=== PATIENT | male | born 1940 | race Caucasian/White ===

== ENCOUNTER → 2016-06-10 | Outpatient (CLI) | payer OTHER ==
[~2016-06-10] MED LIST: ALL300 PO; ASPCH81X PO; CHOL2000 PO; FAMO20TA11 PO; FELO10TA PO; FINA5TAB PO; FURO-85 PO; HYZ/10015 PO; MYCO500T4 PO; PRAV20TA PO; PRED-301 PO; PROP60CA PO; URX/10 PO; VENL75TA4 PO
--- NOTE | 2016-06-11 05:49 | PAP/PSG TECHNICIAN REPORT ---
[facility] Metallographic Technician Polysomnogram Report Study name: None Report date: 06/11/2016 Study date: 06/10/2016 Referring Physician: sAha Price M.D. Name: DEBORAH ESQUIVEL Interpreting Physician: America Price M.D. Date of : 1940 Metallographic Technician: Lakeshia Salinas [facility]. Sex: Male Age: 75 StudyType: PSG Weight: 209 lbs Height: 75 years, Height 5' 8" Neck Circum: 16.5 inches BMI: 31.77 Medications: torsemide 5mg, losatan 50mg, aspirin 81mg, clopidogrel 75mg, atorvastatin 80mg, nitro 0.4mg, venlafaxine 37.5mg, omeprazole 20mg, Pro Air, finasteride 5mg, alfuzosin 10mg, mycophenolate 500mg, metoprolol 25mg, allopurinol 300mg, prednisone 5mg, acetaminophen 500mg Patient History 75 yr. old male here for a possible split night sleep study with ETC02. Patient complains of snoring, witnessed apneas, PLMD, insomnia and hypersomnia. Patients [place] Sleepiness Scale score is 5/24. Parameters Monitored NPSG: E1-M2, E2-M1, Fp1-M2, Fp2-M1, F3-M2, F4-M2, F4-M1, C3-M2, C4-M2, C4-M1, O1-M2, O2-M2, O2-M1, T3-M2, T4-M1, P3-M2, P4-M1, CHIN1, CHIN2, HR, EKG, Legs, PFLOW, SNOR, FLOW, CFLOW, Tidal Volume, THOR, ABDO, SpO2, PLTH, CPRESS, ETCO2 Wave, ETCO2, pH Sleep Architecture Sleep Stages Time at Lights Off 10:53:04 PM STAGES Time (min.) TST (%) Time at Lights On 5:34:34 AM Wake 172.5 -- Total Recording Time (TRT) 402.00 min. N1 27.5 12 Total Sleep Period (TSP) 343.0 min. N2 170.0 74 Total Sleep Time (TST) 229.0min. N3 22.0 10 Awake Time 173.0 min. REM 9.5 4 Wake after Sleep Onset 120.5 min. Sleep Efficiency (SE) 57 % Sleep Onset Latency (FERNANDA) 52.0 min. Number of Stage 1 Shifts None Awakenings 23 Stage Changes 79 Number of REM periods 1 REM 9.5 4 REM Latency 266.0 min. NREM 219.5 96 Body Position Analysis Supine Right Left Side Prone Vertical Total Sleep Time (min.) 25.6 144.4 84.5 228.87 0.0 5.9 Total Sleep Time (%) 0% 63% 37% 100 0% N/A% Total Sleep Time REM (min.) 0.0 9.5 0.0 None 0.0 0.0 Total Sleep Time NREM (min.) 0.1 134.9 84.5 None 0.0 0.0 Intermittent Wake (min.) 25.5 42.0 99.0 None 0.0 5.9 Total Sleep Period (%) 0% None None None None None Arousals Myoclonus (PLM) * Events Count Index Events Count Index Spontaneous 4 1 Events Awake (PLMW) 81 28.2 Respiratory 0 0.0 Events Asleep w/ Arousal (PLMA) 10 2.6 PLM 10 3 Events Asleep w/o Arousal (PLMS) 178 46.6 Snoring 6 2 Total Asleep 188 49.3 Total 19 5 Total 269 40 Respiratory Analysis * CA OA MA CH H RERA Total Count 0 0 0 0 32 0 32 Index 0.0 0.0 0.0 0 8.4 0 8.4 Mean Duration 0.0 0.0 0.0 0.00 19.2 0.0 19.2 Longest Duration 0.0 0.0 0.0 0.00 0.0 0.0 36.2 Respiratory Event Summary Total Supine ~Supine Right Left Prone REM NREM Apneas Count 0 0 0 0 0 N/A 0 0 Index 0.0 0 0 0.0 0.0 N/A 0 0 Hypopneas (4% Desat) Count 32 0 32 25 7 N/A 9 23 Index 8.4 0.0 8 10.4 5.0 N/A 56.8 6.3 Apneas & All Hypopneas Count 32 0 32 25 7 N/A 9 23 Index 8.4 0 8 10 5 N/A 56.8 6.3 Respiratory Events (Mash Filter Cloth Changer+All Hyp+RERA) Count 32 0 32 25 7 N/A 9 23 Index 8.4 0 8 10.4 5.0 N/A 56.8 6.3 Respiratory Related Arousal Count 0 0 0 0 0 N/A 0 0 Index 0.0 0 0 0 0 N/A 0 0 Snoring Analysis Supine Right Left Prone REM NREM Total Snore duration 25.9 min Snores count 0 796 719 N/A 42 1,473 1,515 Snore mean duration 1.0 Sec Snores index 0 331 511 N/A 265.3 402.6 396.9 TST with snoring (%) 11.3% SpO2 Analysis Total REM NREM Awake <50% 0.0 min. 0.0 min. 0.0 min. 0.0 min. 51 - 60% 0.0 min. 0.0 min. 0.0 min. 0.0 min. 61 - 70% 0.0 min. 0.0 min. 0.0 min. 0.0 min. 71 - 80% 0.0 min. 0.0 min. 0.0 min. 0.0 min. 81 - 90% 104.3 min. 1.9 min. 45.1 min. 57.3 min. 91 - 100% 289.9 min. 7.6 min. 174.4 min. 107.9 min. Average 92 92 92 92 Minimum SpO2 81 87 87 81 Desaturation Event Index 5.5 50.5 5.7 2.8 # Desat. Events below 89% 19 3 10 6 Time(%) with Saturation below 89% 2.9 0.1 0.6 2.2 Time(min.) with Saturation below 89% 11.6 0.5 2.5 8.6 Heart Rate Analysis End Tidal CO2 Analysis Min (bpm) Max (bpm) Average (bpm) TSP (mins) % of TSP Awake 50 214 62 Above 55 mmHg 0.0 0.0 NREM 52 92 59 50-55 mmHg 0.0 0.0 REM 55 72 60 45-50 mmHg 0.0 0.0 Overall 52 92 59 40-45 mmHg 3.9 1.7 35-40 mmHg 168.1 73.4 30-35 mmHg 29.2 12.7 Average ETCO2 0.2 Supplemental O2 Values Minimum O2 level: None Value Start Time End Time Metallographic Technician Comments Mr. Esquivel slept in the right, left, and supine positions. Cardiac arrhythmia and PLMs noted. No bruxism noted. Snoring was noted and scored as a 3 on a scale of 0 through 5. (0=no snoring, 5=snoring loud enough to be heard through a closed door or down the [address])Mr. Esquivel awoke to use the restroom once during the night. Mr. Esquivel stated, That was an abnormal night, sometimes I am awake and sometimes I sleep more. The final report will be interpreted and signed by a sleep physician. The completed physician report will then be placed in the patient medical record. Therapy (cm H2O) 0 TIB (min.) 401.5 TST (min.) 229.0 Sleep Onset (min.) 52.0 REM Onset From Sleep (min.) 266.0 Sleep Efficiency % 57 Wakefulness (%) 43 Wakefulness (min.) 173.0 NREM 1 (%) 12 NREM 1 (min.) 27.5 NREM 2 (%) 74 NREM 2 (min.) 170.0 NREM 3 (%) 10 NREM 3 (min.) 22.0 REM (%) 4 REM (min.) 9.5 # Arousals 19 Arousal Index 5 # Snore 1,515 Snore Index 396.9 AHI 8.4 AHI Supine 0 AHI Non-Supine 8 NREM AHI 6.3 REM AHI 56.8 RDI 8.4 # Obstructive Apnea 0 # Central Apnea 0 # Mixed Apnea 0 # Hypopneas 32 RERAs 0 Total Respiratory Events 33 Time Below SpO2 89% (min.) 3.0 Mean NREM SpO2 (%) 92 Mean REM SpO2 (%) 92 Mean Sleep SpO2 (%) 92 Min NREM SpO2 (%) 87 Min REM SpO2 (%) 87 Position Supine (min.) 25.6 Position Non-supine (min.) 228.9 LM Index Sleep 49.3 LM Index NREM 48.7 LM Index REM 63.2 Mean Heart Rate (bpm) 59 Min Heart Rate (bpm) 52
--- NOTE | 2016-06-11 05:52 | PAP/PSG TECHNICIAN REPORT ---
[facility] Relay Repairer Polysomnogram Report Study name: None Report date: 06/11/2016 Study date: 06/10/2016 Referring Physician: Asha Price M.D. Name: DEBORAH ESQUIVEL Interpreting Physician: America Price M.D. Date of : 1940 Relay Repairer: Lakeshia Salinas [facility]. Sex: Male Age: 75 StudyType: PSG Weight: 209 lbs 16.75 inches Height: 75 years, Height 5' 8" Neck Circum: BMI: 31.77 Medications: torsemide 5mg, losatan 50mg, aspirin 81mg, clopidogrel 75mg, atorvastatin 80mg, nitro 0.4mg, venlafaxine 37.5mg, omeprazole 20mg, Pro Air, finasteride 5mg, alfuzosin 10mg, mycophenolate 500mg, metoprolol 25mg, allopurinol 300mg, prednisone 5mg, acetaminophen 500mg Patient History 75 yr. old male here for a possible split night sleep study with ETC02. Patient complains of snoring, witnessed apneas, PLMD, insomnia and hypersomnia. Patients [place] Sleepiness Scale score is 5/24. Parameters Monitored NPSG: E1-M2, E2-M1, Fp1-M2, Fp2-M1, F3-M2, F4-M2, F4-M1, C3-M2, C4-M2, C4-M1, O1-M2, O2-M2, O2-M1, T3-M2, T4-M1, P3-M2, P4-M1, CHIN1, CHIN2, HR, EKG, Legs, PFLOW, SNOR, FLOW, CFLOW, Tidal Volume, THOR, ABDO, SpO2, PLTH, CPRESS, ETCO2 Wave, ETCO2, pH Sleep Architecture Sleep Stages Time at Lights Off 10:53:04 PM STAGES Time (min.) TST (%) Time at Lights On 5:34:34 AM Wake 172.5 -- Total Recording Time (TRT) 402.00 min. N1 27.5 12 Total Sleep Period (TSP) 343.0 min. N2 170.0 74 Total Sleep Time (TST) 229.0min. N3 22.0 10 Awake Time 173.0 min. REM 9.5 4 Wake after Sleep Onset 120.5 min. Sleep Efficiency (SE) 57 % Sleep Onset Latency (FERNANDA) 52.0 min. Number of Stage 1 Shifts None Awakenings 23 Stage Changes 79 Number of REM periods 1 REM 9.5 4 REM Latency 266.0 min. NREM 219.5 96 Body Position Analysis Supine Right Left Side Prone Vertical Total Sleep Time (min.) 25.6 144.4 84.5 228.87 0.0 5.9 Total Sleep Time (%) 0% 63% 37% 100 0% N/A% Total Sleep Time REM (min.) 0.0 9.5 0.0 None 0.0 0.0 Total Sleep Time NREM (min.) 0.1 134.9 84.5 None 0.0 0.0 Intermittent Wake (min.) 25.5 42.0 99.0 None 0.0 5.9 Total Sleep Period (%) 0% None None None None None Arousals Myoclonus (PLM) * Events Count Index Events Count Index Spontaneous 4 1 Events Awake (PLMW) 81 28.2 Respiratory 0 0.0 Events Asleep w/ Arousal (PLMA) 10 2.6 PLM 10 3 Events Asleep w/o Arousal (PLMS) 178 46.6 Snoring 6 2 Total Asleep 188 49.3 Total 19 5 Total 269 40 Respiratory Analysis * CA OA MA CH H RERA Total Count 0 0 0 0 32 0 32 Index 0.0 0.0 0.0 0 8.4 0 8.4 Mean Duration 0.0 0.0 0.0 0.00 19.2 0.0 19.2 Longest Duration 0.0 0.0 0.0 0.00 0.0 0.0 36.2 Respiratory Event Summary Total Supine ~Supine Right Left Prone REM NREM Apneas Count 0 0 0 0 0 N/A 0 0 Index 0.0 0 0 0.0 0.0 N/A 0 0 Hypopneas (4% Desat) Count 32 0 32 25 7 N/A 9 23 Index 8.4 0.0 8 10.4 5.0 N/A 56.8 6.3 Apneas & All Hypopneas Count 32 0 32 25 7 N/A 9 23 Index 8.4 0 8 10 5 N/A 56.8 6.3 Respiratory Events ([employer]+All Hyp+RERA) Count 32 0 32 25 7 N/A 9 23 Index 8.4 0 8 10.4 5.0 N/A 56.8 6.3 Respiratory Related Arousal Count 0 0 0 0 0 N/A 0 0 Index 0.0 0 0 0 0 N/A 0 0 Snoring Analysis Supine Right Left Prone REM NREM Total Snore duration 25.9 min Snores count 0 796 719 N/A 42 1,473 1,515 Snore mean duration 1.0 Sec Snores index 0 331 511 N/A 265.3 402.6 396.9 TST with snoring (%) 11.3% SpO2 Analysis Total REM NREM Awake <50% 0.0 min. 0.0 min. 0.0 min. 0.0 min. 51 - 60% 0.0 min. 0.0 min. 0.0 min. 0.0 min. 61 - 70% 0.0 min. 0.0 min. 0.0 min. 0.0 min. 71 - 80% 0.0 min. 0.0 min. 0.0 min. 0.0 min. 81 - 90% 104.3 min. 1.9 min. 45.1 min. 57.3 min. 91 - 100% 289.9 min. 7.6 min. 174.4 min. 107.9 min. Average 92 92 92 92 Minimum SpO2 81 87 87 81 Desaturation Event Index 5.5 50.5 5.7 2.8 # Desat. Events below 89% 19 3 10 6 Time(%) with Saturation below 89% 2.9 0.1 0.6 2.2 Time(min.) with Saturation below 89% 11.6 0.5 2.5 8.6 Heart Rate Analysis End Tidal CO2 Analysis Min (bpm) Max (bpm) Average (bpm) TSP (mins) % of TSP Awake 50 214 62 Above 55 mmHg 0.0 0.0 NREM 52 92 59 50-55 mmHg 0.0 0.0 REM 55 72 60 45-50 mmHg 0.0 0.0 Overall 52 92 59 40-45 mmHg 3.9 1.7 35-40 mmHg 168.1 73.4 30-35 mmHg 29.2 12.7 Average ETCO2 0.2 Supplemental O2 Values Minimum O2 level: None Value Start Time End Time Relay Repairer Comments Mr. Esquivel slept in the right, left, and supine positions. Cardiac arrhythmia and PLMs noted. No bruxism noted. Snoring was noted and scored as a 3 on a scale of 0 through 5. (0=no snoring, 5=snoring loud enough to be heard through a closed door or down the [address])Mr. Esquivel awoke to use the restroom once during the night. Mr. Esquivel stated, That was an abnormal night, sometimes I am awake and sometimes I sleep more. The final report will be interpreted and signed by a sleep physician. The completed physician report will then be placed in the patient medical record. Therapy (cm H2O) 0 TIB (min.) 401.5 TST (min.) 229.0 Sleep Onset (min.) 52.0 REM Onset From Sleep (min.) 266.0 Sleep Efficiency % 57 Wakefulness (%) 43 Wakefulness (min.) 173.0 NREM 1 (%) 12 NREM 1 (min.) 27.5 NREM 2 (%) 74 NREM 2 (min.) 170.0 NREM 3 (%) 10 NREM 3 (min.) 22.0 REM (%) 4 REM (min.) 9.5 # Arousals 19 Arousal Index 5 # Snore 1,515 Snore Index 396.9 AHI 8.4 AHI Supine 0 AHI Non-Supine 8 NREM AHI 6.3 REM AHI 56.8 RDI 8.4 # Obstructive Apnea 0 # Central Apnea 0 # Mixed Apnea 0 # Hypopneas 32 RERAs 0 Total Respiratory Events 33 Time Below SpO2 89% (min.) 3.0 Mean NREM SpO2 (%) 92 Mean REM SpO2 (%) 92 Mean Sleep SpO2 (%) 92 Min NREM SpO2 (%) 87 Min REM SpO2 (%) 87 Position Supine (min.) 25.6 Position Non-supine (min.) 228.9 LM Index Sleep 49.3 LM Index NREM 48.7 LM Index REM 63.2 Mean Heart Rate (bpm) 59 Min Heart Rate (bpm) 52
--- NOTE | 2016-06-15 08:14 | POLYSOMNOGRAPH REPORT ---
REFERRING PERSON: Dr. Cherelle Price. BOILER OR ENGINE OPERATOR: Lakeshia Salinas. Mr. Esquviel is a 75-year-old male sent for a possible split night sleep study. He complains of snoring, witnessed apneas periodic limb movements of sleep, insomnia and hypersomnia. His [place] sleepiness scale score on the evening of this study is 5. BMI is 31.77. Following the technical and digital specifications of the [place] [employer] (AASM) a standard diagnostic polysomnogram was performed monitoring EEG, EOG, EMG (chin and leg deviations), oxygen saturation, body position, digital video, respiratory effort and airflow. The sleep Stage and event scoring was based on the AASM Manual for the Scoring of Sleep and Associated Events 2007 edition. Apneas are defined as a drop in the peak thermal sensor excursion by >90% of baseline for at least 10 seconds. Hypopneas were scored using the 4% oxygen desaturation rule (4A-[employer]ic[employer]) and a decrease in the nasal pressure excursions by >30% of baseline for at least 10 seconds. Respiratory effort-related arousal (RERA's) is defined as a sequence of breaths lasting at least 10 seconds characterized by increasing respiratory effort or flattening of the nasal pressure waveform leading to an arousal from sleep when the sequence of breaths does not meet criteria for an apnea or hypopnea. Apnea Hypopnea index (AHI) is defined as the number of apneas and hypopneas occurring in an hour of sleep. Respiratory disturbance index (RDI) is defined as the number of apneas, hypopneas, and RERA's occurring in an hour of sleep. Mr. Hanson total sleep period time was 343 minutes. Total sleep time was 229 minutes. Sleep efficiency was 57%. Latency to sleep onset was 52 minutes with wake after sleep onset of 120.5 minutes. Total non-REM sleep time was 219.5 minutes. He spent 12% of that time in N1 sleep, 74% in N2 sleep and 10% in N3 sleep. REM latency was 266 minutes. Total REM sleep time was 9.5 minutes or 4% of total sleep time. There were 19 cortical arousals from sleep. Ten of these arousals were due to periodic limb movements, 6 were due to snoring and 4 were spontaneous. There were 188 periodic limb movements. Limb movement index was 49.3, however, limb movement with arousal index was 2.6. There were no obstructive, central or mixed apneas on this test. There were 32 hypopnea. Apnea-hypopnea index was elevated at 8.4. REM AHI was 56.8 and supine AHI was 8. There were 1515 snoring events recorded. Total sleep time with snoring was 11.3%. Mean saturation during sleep was 92% with desaturations to 81%. Saturations were less than 89% for 11.6 minutes of recorded time. There was no cardiac ectopy noted on this study. Heart rates during sleep ranged from a low of 52 beats per minute to a high of 92 beats per minute. End-tidal CO2 was recorded on this test. End tidal CO2s were between 40 and 45 mmHg for 1.7% of total sleep period time, between 35 and 40 mmHg for 73.4% and between 30 and 35 mmHg for 12.7% of total sleep period time. The rest of this data was lost. IMPRESSION AND PLAN: 75-year-old male with evidence of mild sleep apnea and significant nocturnal hypoxemia. 1. This patient would likely benefit from positive airway pressure therapy. He should return to the sleep lab for a full night titration and then based on those results be started on equipment at home. A download from his machine can be reviewed in 1 month both to check compliance as well as AHI and further pressure adjustments can occur at that time. 2. Should this patient be unwilling or unable to tolerate CPAP therapy, he should be referred to ear, nose and throat or oral surgery/dental medicine to discuss alternative treatments for sleep disorder breathing.
== END | disposition home or self-care (01) ==
LOC: C.NEUR 20:00
PROVIDERS: ATTEND Family Medicine
DX: F51.04 Psychophysiologic insomnia (principal); I27.2 Other secondary pulmonary hypertension; N18.3 Chronic kidney disease, stage 3 (moderate); I47.1 Supraventricular tachycardia; R06.83 Snoring; F51.11 Primary hypersomnia; R09.02 Hypoxemia

== ENCOUNTER → 2017-06-15 | Day surgery (SDC) | payer OTHER ==
[2017-05-27 09:00] VITALS: Ht 172.7 cm; Wt 97.7 kg
[~2017-06-15] VITALS: Ht 172.7 cm; Wt 97.7 kg
[~2017-06-15] MED LIST changes: +ATOR-26 PO; +CLOP1TAB15 PO; +EFF/375 PO; -FAMO20TA11 PO; -FELO10TA PO; -FURO-85 PO; -HYZ/10015 PO; +LIDOCAINE HCL 2% 2 ML VIAL (20MG/ML) ONE; +LOSA50TA6 PO; +METO25TA3 PO; +MIDAZOLAM HCL 1 MG/ML 2ML VIAL ONE; +NTRGSL/4 UT; +ONDANSETRON INJ 2 MG/ML 2 ML VIAL ONE; +PANT1TAB3 PO; -PRAV20TA PO; -PROP60CA PO; +PROPOFOL IV EMULSION 10 MG/ML 20 ML VIAL IV ONE; +SODIUM CHLORIDE 0.9% 500ML 500 ML IV ONE; +TORS5TAB10 PO; -VENL75TA4 PO
--- NOTE | 2017-06-15 09:04 | Endo History and Physical ---
History & Physical Date of Service: Jun 15, 2017. Chief Complaint: screening Referring Physician: Dr. Ivette Golden History of Present Illness pt for screening colonoscopy Past Surgical History Hx Cardiac Surgery: Yes (HEART CATH/2 STENTS PLACED) Hx Internal Defibrillator: No Hx Pacemaker: No Hx Abdominal Surgery: No Hx of Implantable Prosthesis: No Hx Post-Op Nausea and Vomiting: No Hx Cancer Surgery: Yes (BCC EXCISIONS) Hx Thoracic Surgery: No Hx Orthopedic: No Hx Urinary Tract Surgery: No Family History None Social History Smoking Status: Former Smoker Hx Substance Use: No Hx Alcohol Use: No Allergies Coded Allergies: No Known Allergies (Verified , 06/15/17) Current Medications Reported Home Medications Medications Dose Route/Sig Max Daily Dose Days Date Category Dose Instructions Effexor (Venlafaxine Hcl) 37.5 Mg Tab 37.5 Mg PO QAM 05/27/17 Reported Torsemide 5 Mg Tab 1 Dose PO BID 05/27/17 Reported TAKES 2 TAB IN AM TAKES 1 TAB IN AFTERNOON Prednisone 5 Mg Tab 5 Mg PO QAM 05/27/17 Reported Protonix (Pantoprazole) 40 Mg Tab 40 Mg PO QAM 05/27/17 Reported Nitrostat (Nitroglycerin) 0.4 Mg Tab 0.4 Mg UT PRN 05/27/17 Reported Cellcept (Mycophenolate Mofetil) 500 Mg Tab 1 Tab PO BID 05/27/17 Reported Toprol-Xl (Metoprolol Succinate) 25 Mg Tabcr 25 Mg PO QAM 05/27/17 Reported Cozaar (Losartan Potassium) 50 Mg Tab 50 Mg PO QAM 05/27/17 Reported Proscar (Finasteride) 5 Mg Tab 5 Mg PO QPM 05/27/17 Reported Plavix (Clopidogrel Bisulfate) 75 Mg Tab 75 Mg PO QAM 05/27/17 Reported Lipitor (Atorvastatin Calcium) 80 Mg Tab 80 Mg PO QPM 05/27/17 Reported Allopurinol 300 Mg Tab 1 Tab PO QPM 08/11/15 Reported Vitamin D3 (Cholecalciferol) 2,000 Unit Cap 1 Cap PO QAM 08/11/15 Reported Aspirin Chewable (Aspirin) 81 Mg Chew 81 Mg PO DAILY AT NOON 08/11/15 Reported Alfuzosin HCl ER (Alfuzosin HCl) 10 Mg Tab 10 Mg PO QPM 02/21/14 Reported Vital Signs Weight (Kilograms): 97.73 Height (Feet): 5 Height (Inches): 8 Date Time Temp Pulse Resp B/P (MAP) Pulse Ox O2 Delivery O2 Flow Rate FiO2 06/15/17 08:52 36.4 48 18 150/67 (94) 98 Room Air Physical Exam General Appearance: no apparent distress Respiratory/Chest: Auscultation: breath sounds normal Cardiovascular: Heart Auscultation: RRR Abdomen: Inspection & Palpation: soft Liver: non-tender Assessment and Plan stable for colonoscopy
--- NOTE | 2017-06-15 09:35 | Discharge Instructions ---
Endoscopy Patient Instructions Date / Procedure(s) Performed Jun 15, 2017. Colonoscopy Allergy Information Coded Allergies: No Known Allergies (Verified , 06/15/17) Discharge Date / Findings Jun 15, 2017. mild diverticulosis Medication Instructions Stopped Medication(s): stopped Plavix week ago,took ASA yesterday Provider Instructions Activity Restrictions - No exercising or heavy lifting for 24 hours. - Do not drink alcohol the day of the procedure. - Do not drive a car or operate machinery until the day after the procedure. - Do not make any important decisions or sign important papers in 24 hours after the procedure. Following Day: - Return to full activity which may include returning to work/school. Diet Start your diet with liquids and light foods (jello, soup, juice, toast). Then eat your usual diet if not nauseated. Treatment For Common After Affects For mild abdominal pain, bloating, or excessive gas: - Rest - Eat lightly - Lie on right side Follow-Up Information Follow-up with Dr. Ivette Golden as scheduled Anesthesia Information What You Should Know You have had a procedure that required some medicine to reduce anxiety and discomfort. This treatment is called moderate sedation. After receiving the treatment, you may be sleepy, but you will be able to breathe on your own. The effects of the treatment may last for several hours. Follow these instructions along with Activity/Diet recommendations noted above: * Do NOT do anything where dizziness or clumsiness would be dangerous. * Rest quietly at home today, then you can be up and about tomorrow. * Have a responsible person stay with you the rest of today. * You may have had an I.V. today. If so, you may take the dressing off later today. Recommendations Call your doctor if: * Trouble breathing * Continuous vomiting for more than 24 hours * Temperature above 101 degrees * Severe abdominal pain or bloating * Pain not relieved by pain medicine ordered * There is increased drainage or redness from any incision * A large amount of rectal bleeding greater than 2-3 tablespoons. (If you had a polyp/s removed or have hemorrhoids, a small amount of blood - from the rectum is to be expected.) * You have any unanswered questions or concerns. IN THE EVENT OF A SERIOUS EMERGENCY, GO TO THE NEAREST EMERGENCY ROOM Your discharge instructions were prepared by provider Geovany Ingram. Patient Instructions Signature Page Nathan Bacher Patient (or Guardian) Signature/Date: I have read and understand the instructions given to me by my caregivers. Caregiver/RN/Doctor Signature/Date: The above-named patient and/or guardian has received patient instructions on this date. + Original Patient Signature Page (only) stays with chart. Please make copy for patient.
--- NOTE | 2017-06-15 09:38 | GI REPORT ---
Procedure Date: 06/15/2017 9:03 AM Procedure: Colonoscopy Indications: Screening for colorectal malignant neoplasm Medicines: See the Anesthesia note for documentation of the administered medications Complications: No immediate complications. Estimated Blood Loss: Estimated blood loss: none. Procedure: Pre-Anesthesia Assessment: - Prior to the procedure, a History and Physical was performed, and patient medications, allergies and sensitivities were reviewed. The patient's tolerance of previous anesthesia was reviewed. - The risks and benefits of the procedure and the sedation options and risks were discussed with the patient. All questions were answered and informed consent was obtained. - Patient identification and proposed procedure were verified prior to the procedure by the physician and the nurse. The procedure was verified in the pre-procedure area. - Pre-procedure physical examination revealed no contraindications to sedation. - After reviewing the risks and benefits, the patient was deemed in satisfactory condition to undergo the procedure. After I obtained informed consent, the scope was passed under direct vision. Throughout the procedure, the patient's blood pressure, pulse, and oxygen saturations were monitored continuously. The scope was introduced through the anus and advanced to the terminal ileum, with identification of the appendiceal orifice and IC valve. The colonoscopy was performed without difficulty. The patient tolerated the procedure well. The quality of the bowel preparation was good. Findings: The perianal and digital rectal examinations were normal. The terminal ileum appeared normal. Many small-mouthed diverticula were found in the entire colon. The exam was otherwise without abnormality on direct and retroflexion views. Impression: - The examined portion of the ileum was normal. - Scattered diverticulosis in the entire examined colon. - The examination was otherwise normal on direct and retroflexion views. - No specimens collected. Recommendation: - Discharge patient to home. - I do not recommend a repeat screening colonoscopy at 86 years old. Geovany Ingram M.D. Geovany Ingram MD 06/15/2017 9:38:11 AM This report has been signed electronically. Note Initiated On: 06/15/2017 9:03 AM I attest to the content of the Intraoperative Record and orders documented therein, exceptions below
[2017-06-15 10:04] VITALS: BP 143/72; PULSE 45; O2SAT 95
--- NOTE | 2017-06-15 10:04 | Anesthesiology Progress Note ---
Anesthesia Post Op Note Date & Time Jun 15, 2017 at 10:04 Vital Signs Pain Intensity: 0 Vital Signs Past 12 Hours Date Time Temp Pulse Resp B/P (MAP) Pulse Ox O2 Delivery O2 Flow Rate FiO2 06/15/17 09:49 51 18 151/68 (95) 97 Room Air 06/15/17 09:34 45 18 127/60 (82) 97 Room Air 06/15/17 08:52 36.4 48 18 150/67 (94) 98 Room Air Notes Mental Status: alert / awake / arousable, participated in evaluation Pt Amnestic to Procedure: Yes Nausea / Vomiting: adequately controlled Pain: adequately controlled Airway Patency, RR, SpO2: stable & adequate BP & HR: stable & adequate Hydration State: stable & adequate Anesthetic Complications: no major complications apparent
== END | disposition home or self-care (01) ==
LOC: C.GI 08:24
PROVIDERS: ATTEND Internal Medicine Gastroenterology
DX: Z12.11 Encounter for screening for malignant neoplasm of colon (principal); K57.90 Diverticulosis of intestine, part unspecified, without perforation or abscess without bleeding; I12.9 Hypertensive chronic kidney disease with stage 1 through stage 4 chronic kidney disease, or unspecified chronic kidney disease; I25.10 Atherosclerotic heart disease of native coronary artery without angina pectoris; N18.3 Chronic kidney disease, stage 3 (moderate); G70.00 Myasthenia gravis without (acute) exacerbation; Z87.891 Personal history of nicotine dependence; Z85.828 Personal history of other malignant neoplasm of skin; Z98.890 Other specified postprocedural states; Z79.02 Long term (current) use of antithrombotics/antiplatelets; Z79.899 Other long term (current) drug therapy; Z79.82 Long term (current) use of aspirin; Z79.52 Long term (current) use of systemic steroids

== ENCOUNTER 2018-07-10 15:50 | Inpatient (IN) ==
[2018-07-10] MEDS ORDERED: SODIUM CHLORIDE 0.9% 500 ML IV SCH (16:15)
[2018-07-10 16:30] LABS: Basophils # (auto) 0.02 K/uL (0-0.2); Basophils % (auto) 0.2 %; Eosinophils # (auto) 0.01 K/uL (0-0.5); Eosinophils % (auto) 0.1 %; Hematocrit (blood only) 39.7 % (42-52); Hemoglobin 13.4 g/dL (14.0-18.0); Immature Granulocytes # (auto) 0.35 K/uL (0.00-0.02); Immature Granulocytes % (auto) 3.6 %; Lymphocytes # (auto) 0.57 K/uL (1.2-3.4); Lymphocytes % (auto) 5.8 %; Mean Corpuscular Hgb Conc 33.8 g/dL (32-36); Mean Corpuscular Volume 94.5 fL (80-100); Mean Platelet Volume 9.9 fL (7.4-10.4); Monocytes # (auto) 0.41 K/uL (0.11-0.59); Monocytes % (auto) 4.2 %; Neutrophils # (auto) 8.39 K/uL (1.4-6.5); Neutrophils % (auto) 86.1 %; Platelet Count 151 K/uL (130-400); RDW Coefficient of Variation 16.5 % (11.5-14.5); RDW Standard Deviation 56.8 fL (36.4-46.3); White Blood Count 9.75 K/uL (4.8-10.8)
[2018-07-10 16:42] LABS: INR 1.1 (0.9-1.1); Partial Thromboplastin Ratio 0.9; Partial Thromboplastin Time 23.9 Seconds (21.0-31.0)
[2018-07-10 16:47] LABS: Calcium 8.3 mg/dl (8.5-10.1); Creatinine Clr Calc Pharmacy 39.3 ml/min; Est GFR (African American) 46.4; Est GFR (Non-African American) 40.1; Potassium 4.3 mmol/L (3.5-5.1)
[2018-07-10] MEDS ORDERED: VANCOMYCIN HCL 1,000 MG/270 ML BAG IV STA (16:52)
[2018-07-10] MEDS ORDERED: VANCOMYCIN CONSULT ACTIVE PRN ×3 (16:52→20:05)
[2018-07-10] MEDS ORDERED: MYCOPHENOLATE MOFETIL 250 MG CAP PO STA (17:03)
--- NOTE | 2018-07-10 17:11 | Emergency Department Note ---
Entered by Char Verdugo acting as a scribe for Elio Hare History of Present Illness General Chief complaint: Wound Stated complaint: WOUND ON RIGHT LEG, FROM WOUND CLINIC Time Seen by Provider: 07/10/18 16:01 Source: patient History of Present Illness Provider complaint: wound to right lower extremity Onset (ago): hour(s) (today) Location: lower extremity and right Pain Consistency: + constant Maximum Pain Intensity: 0 Quality: + other (wound) Associated symptoms: no fever/chills The patient is a 77 year old male who presents to the Emergency Department with complaints of a wound to his right lower extremity today. He reports that is it painful and also reports having burning. He states that he was on Keflex for 5 days and was then switched to Clindamycin which he states he started taking yesterday. The patient denies being febrile. He states that his left lower extremity is normal. The patient states that he is not diabetic. The patient states he has been being managed by the wound clinic clinic who told him to come into the emergency department for admission and IV antibiotics. Home Medications Home Medications Medication Instructions Recorded Confirmed Type acetaminophen [Tylenol Extra 1,000 mg PO Q6H PRN 12/21/17 07/10/18 History Strength] alfuzosin 10 mg PO QPM 12/21/17 07/10/18 History allopurinol 300 mg PO QPM 12/21/17 07/10/18 History aspirin [Aspir-81] 81 mg PO QPM 12/21/17 07/10/18 History atorvastatin 80 mg PO QPM 12/21/17 07/10/18 History cholecalciferol (vitamin D3) 2,000 unit PO QPM 12/21/17 07/10/18 History [Vitamin D3] clopidogrel [Plavix] 75 mg PO QAM 12/21/17 07/10/18 History finasteride 5 mg PO QPM 12/21/17 07/10/18 History levothyroxine 25 mcg PO QPM 12/21/17 07/10/18 History losartan 50 mg PO QAM 12/21/17 07/10/18 History metoprolol succinate 25 mg PO QAM 12/21/17 07/10/18 History mycophenolate mofetil [CellCept] 500 mg PO BID 12/21/17 07/10/18 History nitroglycerin [Nitrostat] 0.4 mg SUBLINGUAL UD 12/21/17 07/10/18 History pantoprazole 40 mg PO QAM 12/21/17 07/10/18 History torsemide 5 mg PO QPM 12/21/17 07/10/18 History torsemide 10 mg PO QAM 12/21/17 07/10/18 History venlafaxine 37.5 mg PO QPM 12/21/17 07/10/18 History clindamycin HCl 150 mg capsule 150 mg PO QID 07/10/18 07/10/18 History Allergies Allergy/AdvReac Type Severity Reaction Status Date / Time No Known Allergies Allergy Verified 07/10/18 14:15 Past Med/Surg History Medical History Actinic keratitis (Acute) Diastolic congestive heart failure (Acute) Dysmetabolic syndrome X (Acute) First degree atrioventricular block (Acute) History of thymus cancer (Acute) Skin cancer (Acute) Venous stasis ulcer (Acute) Venous stasis ulcer of ankle limited to breakdown of skin without varicose veins (Acute) BPH (benign prostatic hyperplasia) CKD (chronic kidney disease) Coronary artery disease Former smoker Gout HX Hx of myasthenia gravis DX'D 2013-F/U DR VALDEZ [facility] [place] Hyperlipidemia Hypertension Hypothyroidism Kidney stones On anticoagulant therapy SINCE 04/2016 Sleep apnea CPAP Surgical History S/P cataract extraction (Acute) History of cardiac cath 2 [facility]ENTS [facility] [place] 04/2016 Hx of thymectomy 2013 Family History Mother Family history of diabetes mellitus Social History Preferred Language: Tajik Communication Ability: Effective Beliefs That Will Affect Care: None Current Living Situation: Spouse Feels Safe at Home: Yes Smoking Status: Former smoker Tobacco Type: cigarettes Cigarettes Per Day: QUIT 40 YRS AGO Second Hand Exposure: No Hx Alcohol Use: No Hx Substance Use: No Review of Systems See HPI for pertinent positives & negatives. and A total of 10 systems reviewed and were otherwise negative Physical Exam Vital Signs Vital Signs - 24 hr 07/10/18 15:53 Temperature 36.8 C Temperature Source Oral Sepsis Recent Fever Within 48 Hours No Sepsis Action Taken by Nursing No Action Required Pulse Rate 66 Respiratory Rate 20 Respiratory Effort / Characteristics Non-Labored Respiratory Depth Normal Blood Pressure 156/55 H Blood Pressure Mean 88 Pulse Oximetry 100 Oxygen Delivery Method Room Air GENERAL: He is oriented to person, place, and time. He appears well-developed and well-nourished. He does not appear distressed. HENT: Exam performed. - Head: Normocephalic and atraumatic. - Right Ear: External ear normal. No mastoid tenderness. - Left Ear: External ear normal. No mastoid tenderness. - Mouth/Throat: The oropharynx is clear and moist. No trismus in the jaw. No dental abscesses or uvula swelling. No oropharyngeal exudate or tonsillar abscesses. EYES: Conjunctivae and EOM are normal. Pupils are equal, round, and reactive to light. Right eye exhibits no discharge. Left eye exhibits no discharge. No scleral icterus. NECK: Normal range of motion. Neck supple. No JVD present. No spinous process tenderness present. No carotid bruit present. No rigidity. No tracheal deviation and normal range of motion present. No Brudzinski's sign and no Kernig's sign noted. CV: Normal rate, regular rhythm, normal heart sounds and intact distal pulses. There is no peripheral edema. Palpable radial pulses bue. PULM/CHEST: Effort normal and breath sounds normal. No respiratory distress. No stridor. He has no wheezes. He has no rales. - Chest Wall: He exhibits no tenderness. ABD: The abdomen is soft. Bowel sounds are normal. He has no distension. No mass is present. There is no tenderness. There is no rebound, no guarding, no Biswas's sign and no tenderness at McBurney's point. Rovsig negative. MUSC/SKEL: Normal range of motion. There is no peripheral edema, tenderness or deformity. LYMPH: No cervical adenopathy. NEURO: He is alert and oriented to person, place, and time. He has normal strength. No cranial nerve deficit or sensory deficit. Coordination and gait normal. GCS eye subscore is 4. GCS verbal subscore is 5. GCS motor subscore is 6. Cerebellar tests wnl. SKIN: There is erythema to the right lower extremity with multiple wounds with purulent discharge. No vesicles. Bandage by the Wound Care Clinic in place. The bandage was removed. The left lower extremity had erythema with a few bulle. Palpable DP pulses bilaterally. PSYCH: He has a normal mood and affect. Behavior is normal. Judgment and thought content normal. Course 1600: The patient was sent by the Wound Care Clinic for cellulitis of the right lower extremity. The wound appears necrotic. They did a local debridement. The wound care clinic recommended IV antibiotics. He was started on Keflex. A culture was obtained and he was switched to Clindamycin. He has a history of myasthenia gravis, CKD stage 3, and thymus cancer. 1604: The patient was evaluated in room A2. A history and physical were performed. 1618: Liquor Blender Allan was able to access [employer], the patient had a wound culture on July 13 which showed staph resistant to penicillin and sensitive to vancomycin as well as tetracyclines and clindamycin. 1658: The patient's vitals were stable. His labs show a lactic acid of 2.2. The patient will be treated with Vancomycin. I contacted [facility] hospitalist team for admission. Administered Medications Sodium Chloride (Nss) 500 mls @ 125 mls/hr IV .Q4H CASSI Stop: 08/09/18 16:14 Last Admin: 07/10/18 16:58 Dose: 125 mls/hr Documented by: [id number] Vancomycin HCl (Vancomycin Hcl) 1,000 mg in 270 mls @ 125 mls/hr IV NOW STA Stop: 07/10/18 19:01 Last Admin: 07/10/18 16:58 Dose: 125 mls/hr Documented by: [id number] Medical Decision Making Medical Records Attestation: I reviewed the patient's medical records. Home Medications Current Medication List: was personally reviewed by me Laboratory Data Attestation: I reviewed the patient's lab results. Result diagrams: 07/10/18 16:15 07/10/18 16:15 Lab Results 07/10/18 07/10/18 07/10/18 Range/Units 16:15 16:15 16:15 WBC 9.75 (4.8-10.8) K/uL RBC 4.20 L (4.7-6.1) M/uL Hgb 13.4 L (14.0-18.0) g/dL Hct 39.7 L (42-52) % MCV 94.5 (80-100) fL MCH 31.9 (25-34) pg MCHC 33.8 (32-36) g/dL RDW Std Deviation 56.8 H (36.4-46.3) fL RDW Coeff of Pina 16.5 H (11.5-14.5) % Plt Count 151 (130-400) K/uL MPV 9.9 (7.4-10.4) fL Immature Gran % (Auto) 3.6 % Neut % (Auto) 86.1 % Lymph % (Auto) 5.8 % Gila % (Auto) 4.2 % Eos % (Auto) 0.1 % Baso % (Auto) 0.2 % Immature Gran # (Auto) 0.35 H (0.00-0.02) K/uL Neut # (Auto) 8.39 H (1.4-6.5) K/uL Lymph # (Auto) 0.57 L (1.2-3.4) K/uL Gila # (Auto) 0.41 (0.11-0.59) K/uL Eos # (Auto) 0.01 (0-0.5) K/uL Baso # (Auto) 0.02 (0-0.2) K/uL PT 11.0 (9.0-12.0) Seconds INR 1.1 (0.9-1.1) APTT 23.9 (21.0-31.0) Seconds PTT Ratio 0.9 Sodium 140 (136-145) mmol/L Potassium 4.3 (3.5-5.1) mmol/L Chloride 107 (98-107) mmol/L Carbon Dioxide 26 (21-32) mmol/L Anion Gap 7.0 (3-11) BUN 34 H (7-18) mg/dl Creatinine 1.61 H (0.6-1.4) mg/dl Est Cr Clr Drug Dosing 39.3 ml/min Est GFR ( Amer) 46.4 Est GFR (Non-Af Amer) 40.1 BUN/Creatinine Ratio 21.0 H (10-20) Glucose 123 H (70-99) mg/dl Lactate (0.4-2.0) mmol/L Calcium 8.3 L (8.5-10.1) mg/dl 07/10/18 Range/Units 16:15 WBC (4.8-10.8) K/uL RBC (4.7-6.1) M/uL Hgb (14.0-18.0) g/dL Hct (42-52) % MCV (80-100) fL MCH (25-34) pg MCHC (32-36) g/dL RDW Std Deviation (36.4-46.3) fL RDW Coeff of Pina (11.5-14.5) % Plt Count (130-400) K/uL MPV (7.4-10.4) fL Immature Gran % (Auto) % Neut % (Auto) % Lymph % (Auto) % Gila % (Auto) % Eos % (Auto) % Baso % (Auto) % Immature Gran # (Auto) (0.00-0.02) K/uL Neut # (Auto) (1.4-6.5) K/uL Lymph # (Auto) (1.2-3.4) K/uL Gila # (Auto) (0.11-0.59) K/uL Eos # (Auto) (0-0.5) K/uL Baso # (Auto) (0-0.2) K/uL PT (9.0-12.0) Seconds INR (0.9-1.1) APTT (21.0-31.0) Seconds PTT Ratio Sodium (136-145) mmol/L Potassium (3.5-5.1) mmol/L Chloride (98-107) mmol/L Carbon Dioxide (21-32) mmol/L Anion Gap (3-11) BUN (7-18) mg/dl Creatinine (0.6-1.4) mg/dl Est Cr Clr Drug Dosing ml/min Est GFR ( Amer) Est GFR (Non-Af Amer) BUN/Creatinine Ratio (10-20) Glucose (70-99) mg/dl Lactate 2.2 H* (0.4-2.0) mmol/L Calcium (8.5-10.1) mg/dl Blood Pressure Blood Pressure Findings: Elevated blood pressure Blood Pressure Disposition: further management by hospitalist KATIE Narrative 1600: The patient was sent by the Wound Care Clinic for cellulitis of the right lower extremity. The wound appears necrotic. They did a local debridement. The wound care clinic recommended IV antibiotics. He was started on Keflex. A culture was obtained and he was switched to Clindamycin. He has a history of myasthenia gravis, CKD stage 3, and thymus cancer. 160: The patient was evaluated in room A2. A history and physical were performed. 1617: Liquor Blender Allan was able to access [facility], the patient had a wound culture on July 13 which showed staph resistant to penicillin and sensitive to vancomycin as well as tetracyclines and clindamycin. 1657: The patient's vitals were stable. His labs show a lactic acid of 2.2. The patient will be treated with Vancomycin. I contacted [facility] hospitalist team for admission. Impression & Plan Cellulitis, Failure of outpatient treatment Discharge Plan Visit Data Chief Complaint: Wound Stated Complaint: WOUND ON RIGHT LEG, FROM WOUND CLINIC ED Provider: Elio Hare Discharge Problem: Cellulitis, Failure of outpatient treatment Patient Disposition: Being Evaluated by Hospitalist Forms Stand Alone Forms: My [facility] Prescriptions Prescriptions: No Action clindamycin HCl 150 mg capsule 150 mg PO QID RF: 0 losartan 50 mg Tablet 50 mg PO QAM RF: 0 atorvastatin 80 mg Tablet 80 mg PO QPM RF: 0 torsemide 10 mg Tablet 10 mg PO QAM RF: 0 clopidogrel [Plavix] 75 mg Tablet 75 mg PO QAM RF: 0 aspirin [Aspir-81] 81 mg Tablet,Delayed Release (Dr/Ec) 81 mg PO QPM RF: 0 mycophenolate mofetil [CellCept] 500 mg Tablet 500 mg PO BID RF: 0 torsemide 5 mg Tablet 5 mg PO QPM RF: 0 pantoprazole 40 mg Tablet,Delayed Release (Dr/Ec) 40 mg PO QAM RF: 0 venlafaxine 37.5 mg Tablet 37.5 mg PO QPM RF: 0 nitroglycerin [Nitrostat] 0.4 mg Tablet, Sublingual 0.4 mg Sublingual UD RF: 0 allopurinol 300 mg Tablet 300 mg PO QPM RF: 0 metoprolol succinate 25 mg Tablet Extended Release 24 Hr 25 mg PO QAM RF: 0 finasteride 5 mg Tablet 5 mg PO QPM RF: 0 alfuzosin 10 mg Tablet Extended Release 24 Hr 10 mg PO QPM RF: 0 cholecalciferol (vitamin D3) [Vitamin D3] 2,000 unit Capsule 2,000 unit PO QPM RF: 0 levothyroxine 25 mcg Tablet 25 mcg PO QPM RF: 0 acetaminophen [Tylenol Extra Strength] 500 mg Tablet 1,000 mg PO Q6H PRN (Reason: Pain) RF: 0 Referrals Referrals: Ivette Golden DO [Primary Care Provider] - Discharge Problem: Cellulitis Qualifiers: Site of cellulitis: extremity Site of cellulitis of extremity: lower extremity Laterality: left Qualified Code(s): L03.116 - Cellulitis of left lower limb The scribe's documentation has been prepared under my direction and personally reviewed by me in its entirety. I confirm that the note above accurately reflects all work, treatment, procedures, and medical decision making performed by me.
--- NOTE | 2018-07-10 18:40 | History & Physical Report ---
Date of Service July 10, 2018 Assessment & Plan (1) Infected wound: Was sent from wound care clinic for worsening right LE wound Wound cx on 07/03 grew staph aureus that is resistant and peniccilin to Keflex Failed outpatient therapy with Keflex Lactic acid 2.2 on admission Received IV Vanco in the ER Continue IV Vanco Wound care consult Continue daily wound care ID consult Check Blood cx and repeat lactic acid at 10PM Continue monitor (2) Myasthenia gravis: Had a flare up about 2 months ago Continue Cellcept for now Continue low dose steroid (3) CKD (chronic kidney disease) stage 3, GFR 30-59 ml/min: Creatinine 1.6 today, was 1.7 on 06/23 Avoid nephrotoxic agents Monitor BMP (4) HTN (hypertension): BP stable Continue Losartan and metoprolol Monitor BP (5) Hypothyroidism: Continue Levothyroxine Stable (6) BPH (benign prostatic hyperplasia): Continue alfuzosin and finasteride Stable (7) CAD (coronary artery disease): Denies any chest pain Continue plavix and aspirin Stable Depression Continue Venlafaxine Stable Peripheral edema Check doppler of RLE to r/o DVT On torsemide 10mg DVT px will start on heparin subq BID Code Status FULL code History of Present Illness Chief Complaint: RLE wound infected Primary Care Provider: Ivette Golden DO 77 year old male with PMH of Myasthenia gravis, Actinis keratosis, Dyslipidemia, CAD, CKD stage 3, Hypothyroidism presents to the Emergency Department with complaints of Right lower extremity wound infected. Pt said that about 6 to 8 weeks ago, he bumped his right monahan area that cause a very small opened area in the skin. he said that it was formed a scab first but in less than 2 weeks the area got worst. He saw his PCP on 07/03 and had wound cx done and was giving Keflex. he said that RLE wound got worst. he said that the keflex was changed to clindamycin yesterday after wound cx grew staph aureus that is resistance to Keflex. Pt was seen at the wound care clinic today and was sent to the ER for IV antibiotic. He said that the right LE has been very painful and burning. He said that there has been increased drainage from the wound. Pt said that he had a flared of myasthenia gravis about 2 months ago and he is on cellcept. Family said that he felt warm. Denies any fever, chills, pal pitation and SOB. Allergies Allergy/AdvReac Type Severity Reaction Status Date / Time No Known Allergies Allergy Verified 07/10/18 14:15 Home Medications Home Medications Medication Instructions Recorded Confirmed Type alfuzosin 10 mg PO DAILY@1200 12/21/17 07/10/18 History allopurinol 300 mg PO DAILY@1200 12/21/17 07/10/18 History cholecalciferol (vitamin D3) 2,000 units PO QPM 12/21/17 07/10/18 History [Vitamin D3] clopidogrel [Plavix] 75 mg PO QAM 12/21/17 07/10/18 History finasteride 5 mg PO QPM 12/21/17 07/10/18 History levothyroxine 25 mcg PO QAM 12/21/17 07/10/18 History losartan 50 mg PO QAM 12/21/17 07/10/18 History mycophenolate mofetil [CellCept] 500 mg PO BID 12/21/17 07/10/18 History nitroglycerin [Nitrostat] 0.4 mg SUBLINGUAL UD 12/21/17 07/10/18 History torsemide 5 mg PO DAILY@1200 12/21/17 07/10/18 History torsemide 10 mg PO QAM 12/21/17 07/10/18 History venlafaxine 37.5 mg PO HS 12/21/17 07/10/18 History aspirin 81 mg PO DAILY@1200 07/10/18 07/10/18 History atorvastatin 40 mg PO QPM 07/10/18 07/10/18 History clindamycin HCl 150 mg capsule 150 mg PO QID 07/10/18 07/10/18 History metoprolol succinate 12.5 mg PO QAM 07/10/18 07/10/18 History prednisone 5 mg PO DAILY@1200 07/10/18 07/10/18 History prednisone 10 mg PO QAM 07/10/18 07/10/18 History Past Med/Surg History Medical History CKD (chronic kidney disease) stage 3, GFR 30-59 ml/min Infected wound Cellulitis (Acute) Failure of outpatient treatment (Acute) Cellulitis of right lower extremity without foot (Acute) Encounter for pre-operative examination HTN (hypertension) (Chronic) Kidney disease (Chronic) Stomach problems (Chronic) Mediastinal mass (Acute) Wound dehiscence, surgical (Acute) Myasthenia gravis (Chronic) Actinic keratitis (Acute) Diastolic congestive heart failure (Acute) Dysmetabolic syndrome X (Acute) First degree atrioventricular block (Acute) History of thymus cancer (Acute) Skin cancer (Acute) Venous stasis ulcer (Acute) Venous stasis ulcer of ankle limited to breakdown of skin without varicose veins (Acute) BPH (benign prostatic hyperplasia) CKD (chronic kidney disease) Coronary artery disease Former smoker Gout HX Hx of myasthenia gravis DX'D 2014-F/[place] DR VALDEZ [facility] [place] Hyperlipidemia Hypertension Hypothyroidism Kidney stones On anticoagulant therapy SINCE 04/2016 Sleep apnea CPAP Surgical History S/P cataract extraction (Acute) History of cardiac cath 2 [facility] [place]/2016 Hx of thymectomy 2013 Family History Mother Family history of diabetes mellitus Social History Preferred Language: Malay Communication Ability: Effective Slot Shift Manager Required: No Beliefs That Will Affect Care: None Current Living Situation: Spouse Other Information That Helps Us Care for You: No Feels Safe at Home: Yes Safety Concerns: Feels Safe At This Time Smoking Status: Former smoker Tobacco Type: cigarettes Cigarettes Per Day: QUIT 40 YRS AGO Smoking End Date: 40 years ago Second Hand Exposure: No Hx Alcohol Use: No Hx Substance Use: No Review of Systems Review of Systems: All systems reviewed & are unremarkable except as noted in HPI & below Physical Exam Physical Exam: General- No acute distress Head- atraumatic Eyes- PERRL, EOMI, ENT- oropharynx clear Neck- supple, no JVD Lungs- clear to auscultation Heart- regular rhythm; +systolic murmur Abdomen- normal bowel sounds, soft, nontender Extremities- +right calf tenderness, +RLE edema Neuro- alert, oriented x 3; PERRL, EOMI; no facial palsy; no dysarthria Skin- Left monahan with erythematous patch and small blister. Right monahan with large erythema opening wound oozing, medial right calf with open oozing wound and multiples small blister across the calf Results & Data Vital Signs (Past 12 Hours) Vital Signs Temp Pulse Pulse Resp BP BP Pulse Ox 07/10/18 17:51 75 18 141/71 H 97 07/10/18 15:53 36.8 C 66 20 156/55 H 100
[2018-07-10] MEDS ORDERED: TRAMADOL HCL 50 MG TABLET PO PRN (19:35)
[2018-07-10] MEDS ORDERED: VANCOMYCIN HCL 1,000 MG in SODIUM CHLORIDE 0.9% 250 ML IV STA (20:15)
--- NOTE | 2018-07-10 21:08 | Ultrasound Report ---
US venous doppler LE RT HISTORY: 77 years-old Male Swelling and tenderness acute pain and swelling of the right lower extrem ity COMPARISON: None available TECHNIQUE: Multiple real-time sonographic images of the right lower extremity deep venous structures were obtained assessing grayscale appearance, color and spectral flow FINDINGS: Normal flow, compressibility, phasicity and augmentation of the right lower extremity deep venous str uctures. Limited evaluation of the calf structures secondary to subcutaneous edema, open wounds and r eported blisters. IMPRESSION: No sonographic evidence of deep venous thrombosis. The above report was generated using voice recognition software. It may contain grammatical, syntax o r spelling errors. Electronically signed by: Jude Patrick M.D. 07/10/2018 9:07 PM
[2018-07-10] MEDS: ASPIRIN 81 MG CHEW PO SCH (21:29)
[2018-07-10] MEDS: VENLAFAXINE HCL 37.5 MG TAB PO SCH (21:30)
[2018-07-10] MEDS: ATORVASTATIN 40 MG TAB PO SCH (21:30)
[2018-07-10] MEDS: HEPARIN SOD 5,000 UNIT/0.5 ML VIAL SQ SCH (21:30)
[2018-07-10] MEDS: MYCOPHENOLATE MOFETIL 250 MG CAP PO SCH (21:30)
[2018-07-10] MEDS: FINASTERIDE 5 MG TAB PO SCH (21:31)
[2018-07-10] MEDS: CHOLECALCIFEROL 1,000 UNITS TAB PO SCH (21:31)
[2018-07-10] MEDS: ALLOPURINOL 300 MG TAB PO SCH (21:31)
[2018-07-10] MEDS: ALFUZOSIN HCL 10 MG TAB PO SCH (21:32)
[2018-07-10] MEDS: OXYCODONE HCL IR 5 MG TAB (IMMEDIATE RELEASE) PO PRN (22:00)
[2018-07-10] MEDS: ACETAMINOPHEN 325 MG TAB PO PRN (23:43)
[2018-07-11] MEDS: OXYCODONE HCL IR 5 MG TAB (IMMEDIATE RELEASE) PO PRN ×4 (04:18→23:27)
[2018-07-11] MEDS: LEVOTHYROXINE SODIUM 25 MCG TABLET PO SCH (06:43)
[2018-07-11] MEDS: MYCOPHENOLATE MOFETIL 250 MG CAP PO SCH ×2 (06:44→20:25)
[2018-07-11] MEDS: ACETAMINOPHEN 325 MG TAB PO PRN ×3 (06:47→18:48)
[2018-07-11] MEDS: TORSEMIDE 10 MG TAB PO SCH (08:47)
[2018-07-11] MEDS: METOPROLOL SUCC 25MG EXT REL TAB PO SCH (08:47)
[2018-07-11] MEDS: LOSARTAN POTASSIUM 50 MG TAB PO SCH (08:47)
[2018-07-11] MEDS: CLOPIDOGREL BISULFATE 75 MG TAB PO SCH (08:47)
[2018-07-11] MEDS: predniSONE 10 MG TABLET PO SCH (08:52)
[2018-07-11] MEDS: HEPARIN SOD 5,000 UNIT/0.5 ML VIAL SQ SCH ×2 (08:53→20:28)
[2018-07-11 09:05] LABS: Hematocrit (blood only) 37.4 % (42-52); Hemoglobin 12.2 g/dL (14.0-18.0); Mean Corpuscular Hgb Conc 32.6 g/dL (32-36); Mean Corpuscular Volume 95.9 fL (80-100); Mean Platelet Volume 9.4 fL (7.4-10.4); Platelet Count 138 K/uL (130-400); RDW Coefficient of Variation 16.8 % (11.5-14.5); RDW Standard Deviation 58.4 fL (36.4-46.3); White Blood Count 8.41 K/uL (4.8-10.8)
[2018-07-11 09:37] LABS: BUN Creatinine Ratio 21.6 (10-20); Calcium 8.2 mg/dl (8.5-10.1); Creatinine Clr Calc Pharmacy 47.1 ml/min; Est GFR (African American) 57.5; Est GFR (Non-African American) 49.6; Potassium 3.9 mmol/L (3.5-5.1)
--- NOTE | 2018-07-11 11:04 | Pharmacy Report ---
Pharmacy Abx Dose Short Note - Date of Service July 11, 2018 - Assessment & Plan Assessment * Mr Esquivel is a 77 year old M receiving Vancomycin for treatment of a R LE wound infection. * Other significant PMH includes myasthenia gravis, actinis keratosis, CKD stage III, BPH, thymus CA. * Patient with immunocompromise from prednisone and mycophenolate use. * Outpatient wound culture on 07/03 grew Staph aureus -- information from [facility]: * Resistant to penicillin and erythromycin * Sensitive to oxacillin, clindamycin, gentamicin, tetracycline, SMX/TMP, vancomycin (GALLITO unknown) * Patient had been receiving Keflex, which was changed to clindamycin once C/S results available. * Patient reports pain/burning and increased drainage from the wound. * Patient is followed by the wound clinic. ID consult in place. * On admission: WBC 9.75, lactic acid 2.2, patient has been afebrile. Blood cultures pending. Plan Vancomycin * Loading dose: Vanc 1gm x1 dose in ED followed by an additional 1gm on admission (for ~23.5mg/kg), then: * Vanc 1250mg (~15mg/kg) IV q20h * Patient's estimated p'kinetic parameters (based on CrCl ~ 47mL/min): * Vd ~ 0.7L/kg Velasquez ~ 0.043/hr t1/2 ~ 16.1hr * Goal trough level for SSTI: 15 to 20 mcg/mL * Trough level ordered for: 07/13 prior to the 3rd maintenance dose -- this will not yet represent steady-state Pharmacy will continue to follow and will adjust dose/frequency as necessary. Thank you.
--- NOTE | 2018-07-11 11:21 | Infectious Disease Consult ---
Date of Consultation July 11, 2018 Assessment & Plan (1) Cellulitis of right lower extremity without foot: 77-year-old male with infected right lower extremity wound with extensive superficial skin loss. We will try to obtain culture results from [facility], patient should be continued on vancomycin for now. Length of IV antibiotics will be determined by clinical response. Will follow. (2) Infected wound: History of Present Illness Reason for Consultation: Infected wound right lower extremity Attending Physician: Tacos Degroot MD History of Present Illness 77-year-old male with history of hypertension, stage III chronic kidney disease, chronic venous stasis changes of both lower extremities, who suffered trauma to his right lower extremity below the knee approximately 1-1/2 months ago. Patient treated it conservatively, but developed increasing redness, swelling, and pain, and sought care with his primary care physician and was initially prescribed Keflex. Apparently cultures returned with a Keflex resistant organism, and patient was changed for clindamycin for the past several days. However symptoms progressively worsen, and was seen at the wound care center and referred immediately for hospitalization. He has been started on IV vancomycin, notes slight improvement over the last 12 hours. Pain currently 4 out of 10 in intensity right lower extremity. He has not had any associated fever or chills. Cultures are pending. Allergies Allergy/AdvReac Type Severity Reaction Status Date / Time No Known Allergies Allergy Verified 07/10/18 14:15 Home Medications Home Medications Medication Instructions Recorded Confirmed Type alfuzosin 10 mg PO DAILY@1200 12/21/17 07/10/18 History allopurinol 300 mg PO DAILY@1200 12/21/17 07/10/18 History cholecalciferol (vitamin D3) 2,000 units PO QPM 12/21/17 07/10/18 History [Vitamin D3] clopidogrel [Plavix] 75 mg PO QAM 12/21/17 07/10/18 History finasteride 5 mg PO QPM 12/21/17 07/10/18 History levothyroxine 25 mcg PO QAM 12/21/17 07/10/18 History losartan 50 mg PO QAM 12/21/17 07/10/18 History mycophenolate mofetil [CellCept] 500 mg PO BID 12/21/17 07/10/18 History nitroglycerin [Nitrostat] 0.4 mg SUBLINGUAL UD 12/21/17 07/10/18 History torsemide 5 mg PO DAILY@1200 12/21/17 07/10/18 History torsemide 10 mg PO QAM 12/21/17 07/10/18 History venlafaxine 37.5 mg PO HS 12/21/17 07/10/18 History aspirin 81 mg PO DAILY@1200 07/10/18 07/10/18 History atorvastatin 40 mg PO QPM 07/10/18 07/10/18 History clindamycin HCl 150 mg capsule 150 mg PO QID 07/10/18 07/10/18 History metoprolol succinate 12.5 mg PO QAM 07/10/18 07/10/18 History prednisone 5 mg PO DAILY@1200 07/10/18 07/10/18 History prednisone 10 mg PO QAM 07/10/18 07/10/18 History Patient History Medical History CKD (chronic kidney disease) stage 3, GFR 30-59 ml/min Infected wound Cellulitis (Acute) Failure of outpatient treatment (Acute) Cellulitis of right lower extremity without foot (Acute) Encounter for pre-operative examination HTN (hypertension) (Chronic) Kidney disease (Chronic) Stomach problems (Chronic) Mediastinal mass (Acute) Wound dehiscence, surgical (Acute) Myasthenia gravis (Chronic) Actinic keratitis (Acute) Diastolic congestive heart failure (Acute) Dysmetabolic syndrome X (Acute) First degree atrioventricular block (Acute) History of thymus cancer (Acute) Skin cancer (Acute) Venous stasis ulcer (Acute) Venous stasis ulcer of ankle limited to breakdown of skin without varicose veins (Acute) BPH (benign prostatic hyperplasia) CKD (chronic kidney disease) Coronary artery disease Former smoker Gout HX Hx of myasthenia gravis DX'D 2013-F/U [facility] [place] Hyperlipidemia Hypertension Hypothyroidism Kidney stones On anticoagulant therapy SINCE 04/2016 Sleep apnea CPAP Surgical History S/P cataract extraction (Acute) History of cardiac cath 2 [facility] [place] 04/2016 Hx of thymectomy 2013 Family History Mother Family history of diabetes mellitus Social History Preferred Language: Czech Communication Ability: Effective Financial Adviser Required: No Beliefs That Will Affect Care: None Current Living Situation: Spouse Other Information That Helps Us Care for You: No Feels Safe at Home: Yes Safety Concerns: Feels Safe At This Time Smoking Status: Former smoker Tobacco Type: cigarettes Cigarettes Per Day: QUIT 40 YRS AGO Smoking End Date: 40 years ago Second Hand Exposure: No Hx Alcohol Use: No Hx Substance Use: No Review of Systems Review of Systems: All systems reviewed & are unremarkable except as noted in HPI & below Physical Exam Constitutional: WD/WN, vitals as above comfortable; no acute distress Eyes: PERRL, conjunctivae normal, anicteric sclerae ENMT: external ear and nose normal, oropharynx normal Neck: trachea midline, no thyromegaly neck nontender Respiratory: normal respiratory effort, lungs clear to auscultation normal percussion; does not use accessory muscles Cardiovascular: Rate/Rhythm: regular rate and regular rhythm Heart Sounds: normal S1 and normal S2; no gallop, no murmur and no cardiac rub Vessels: normal peripheral pulses; no JVD Gastrointestinal (Abdomen): normal bowel sounds, soft, nontender, no hepatosplenomegaly Musculoskeletal: no cyanosis or clubbing, extremities motor strength 5/5 Spine: thoracic spine normal to inspection and lumbar spine normal to inspection; no cervical spinal tenderness Skin: normal turgor and + ulcer (Multiple superficial right lower extremity with surrounding erythema) Erythema right lower extremity, chronic venous stasis changes bilaterally anterior shins Neurologic: patellar DTR's 2+ bilat, sensation intact no focal motor deficits Psychiatric: A+Ox3, euthymic affect Orientation: cooperative Lymphatic: no cervical or axillary lymphadenopathy no inguinal lymphadenopathy Results & Data Vital Signs (Past 12 Hours) Vital Signs Temp Pulse Resp BP BP Pulse Ox 07/11/18 07:00 36.6 C 67 18 150/67 H 97 07/10/18 23:23 36.5 C 83 16 143/76 H 96 Laboratory Results Short CBC 07/10/18 07/11/18 Range/Units 16:15 08:52 WBC 9.75 8.41 (4.8-10.8) K/uL Hgb 13.4 L 12.2 L (14.0-18.0) g/dL Hct 39.7 L 37.4 L (42-52) % Plt Count 151 138 (130-400) K/uL BMP 07/10/18 07/11/18 16:15 08:52 Sodium 140 144 Potassium 4.3 3.9 Chloride 107 111 H Carbon Dioxide 26 27 BUN 34 H 29 H Creatinine 1.61 H 1.35 Glucose 123 H 84 Calcium 8.3 L 8.2 L Diagnostic Findings cc: ~ US venous doppler LE RT HISTORY: 77 years-old Male Swelling and tenderness acute pain and swelling of the right lower extremity COMPARISON: None available TECHNIQUE: Multiple real-time sonographic images of the right lower extremity deep venous structures were obtained assessing grayscale appearance, color and spectral flow FINDINGS: Normal flow, compressibility, phasicity and augmentation of the right lower extremity deep venous structures. Limited evaluation of the calf structures secondary to subcutaneous edema, open wounds and reported blisters. IMPRESSION: No sonographic evidence of deep venous thrombosis. The above report was generated using voice recognition software. It may contain grammatical, syntax or spelling errors. Electronically signed by: Jude Patrick M.D. 07/10/2018 9:07 PM Dictated: 07/10/18 2106
[2018-07-11] MEDS: ALFUZOSIN HCL 10 MG TAB PO SCH ×2 (12:57→13:45)
[2018-07-11] MEDS: predniSONE 5 MG TAB PO SCH (12:57)
[2018-07-11] MEDS: ALLOPURINOL 300 MG TAB PO SCH ×2 (12:57→13:45)
[2018-07-11] MEDS: ASPIRIN 81 MG CHEW PO SCH (12:57)
[2018-07-11] MEDS: ASPIRIN 81 MG ECTAB PO SCH (13:45)
--- NOTE | 2018-07-11 14:29 | Hospitalist Progress Note ---
Date of Service July 11, 2018 Assessment & Plan (1) Infected wound: Was sent from wound care clinic for worsening right LE wound Wound cx on 07/03 grew staph aureus that is resistant and peniccilin to Keflex Failed outpatient therapy with Keflex Lactic acid 2.2 on admission Received IV Vanco in the ER ,Continue IV Vanco Wound care consult-appreciate input and recommendation ID consult -appreciate input and recommendation Check Blood cx -pending Ultrasound did not show any evidence of deep venous thrombosis Clinically a little improved We will continue current medications and out for cultures (2) Myasthenia gravis: Had a flare up about 2 months ago Continue Cellcept for now Continue low dose steroid No signs and/or symptoms of exacerbation of myasthenia (3) CKD (chronic kidney disease) stage 3, GFR 30-59 ml/min: Creatinine 1.6 today, was 1.7 on 06/23 Avoid nephrotoxic agents Monitor BMP-kidney function has been normalized (4) HTN (hypertension): BP stable Continue Losartan and metoprolol Monitor BP-remains at upper side of normal (5) Hypothyroidism: Continue Levothyroxine Stable (6) BPH (benign prostatic hyperplasia): Continue alfuzosin and finasteride Stable (7) CAD (coronary artery disease): Denies any chest pain Continue plavix and aspirin Stable Depression Continue Venlafaxine Stable Peripheral edema Check doppler of RLE to r/o DVT On torsemide 10mg DVT px will start on heparin subq BID Code Status FULL code Subjective 07/11 The patient was seen and examined in the medical floor He was admitted with increasing leg swelling and worsening leg wound and pain, He denies any other symptoms Review of Systems Review of Systems: All systems reviewed and are unremarkable except as noted below Musculoskeletal: + problem reported (Right leg pain) Physical Exam Physical Exam: No apparent distress at rest Constitutional: + ill appearing Eyes: PERRL, conjunctivae normal, anicteric sclerae ENMT: external ear and nose normal, oropharynx normal Neck: trachea midline, no thyromegaly Respiratory: normal respiratory effort Auscultation: lungs clear to auscultation bilaterally Cardiovascular: Rate/Rhythm: regular rate and regular rhythm Heart Sounds: normal S1 and normal S2 Gastrointestinal (Abdomen): normal bowel sounds, soft, nontender, no hepatosplenomegaly Musculoskeletal: Right leg pain and swelling Skin: Please see inpatient wound picture for right leg cellulitis and wound Lymphatic: no cervical or axillary lymphadenopathy Results & Data Vital Signs (Past 12 Hours) Vital Signs Temp Pulse Resp BP Pulse Ox 07/11/18 07:00 36.6 C 67 18 150/67 H 97 Laboratory Results Short CBC 07/10/18 07/11/18 Range/Units 16:15 08:52 WBC 9.75 8.41 (4.8-10.8) K/uL Hgb 13.4 L 12.2 L (14.0-18.0) g/dL Hct 39.7 L 37.4 L (42-52) % Plt Count 151 138 (130-400) K/uL BMP 07/10/18 07/11/18 16:15 08:52 Sodium 140 144 Potassium 4.3 3.9 Chloride 107 111 H Carbon Dioxide 26 27 BUN 34 H 29 H Creatinine 1.61 H 1.35 Glucose 123 H 84 Calcium 8.3 L 8.2 L Medications Administered Current Inpatient Medications Acetaminophen (Tylenol) 650 mg PO Q4H PRN PRN Reason: Pain Stop: 08/09/18 23:28 Last Admin: 07/11/18 12:56 Dose: 650 mg Documented by: Alfuzosin HCl (Uroxatral) 10 mg PO DAILY@1200 [facility] Stop: 08/10/18 11:59 Last Admin: 07/11/18 13:45 Dose: Not Given Documented by: Allopurinol (Zyloprim) 300 mg PO DAILY@1200 [facility] Stop: 08/10/18 11:59 Last Admin: 07/11/18 13:45 Dose: Not Given Documented by: Aspirin (Ecotrin Ectab) 81 mg PO DAILY@1200 [facility] Stop: 08/10/18 11:59 Last Admin: 07/11/18 13:45 Dose: Not Given Documented by: Atorvastatin Calcium (Lipitor) 40 mg PO QPM [facility] Stop: 08/09/18 20:59 Last Admin: 07/10/18 21:30 Dose: 40 mg Documented by: Clopidogrel Bisulfate (Plavix) 75 mg PO QAM [facility] Stop: 08/10/18 08:59 Last Admin: 07/11/18 08:47 Dose: 75 mg Documented by: Finasteride (Proscar) 5 mg PO QPM [facility] Stop: 08/09/18 20:59 Last Admin: 07/10/18 21:31 Dose: 5 mg Documented by: Heparin Sodium (Porcine) (Heparin Sodium (Porcine)) 5,000 units SQ Q12 [facility] Stop: 08/09/18 20:59 Last Admin: 07/11/18 08:53 Dose: Not Given Documented by: Vancomycin HCl 1,250 mg/ (Sodium Chloride) 275 mls @ 125 mls/hr IV Q20H [facility] Stop: 07/21/18 15:59 Levothyroxine Sodium (Synthroid) 25 mcg PO DAILYBB [facility] Stop: 08/10/18 06:29 Last Admin: 07/11/18 06:43 Dose: 25 mcg Documented by: Losartan Potassium (Cozaar) 50 mg PO QAM [facility] Stop: 08/10/18 08:59 Last Admin: 07/11/18 08:47 Dose: 50 mg Documented by: Metoprolol Succinate (Toprol Xl) 12.5 mg PO QAM [facility] Stop: 08/10/18 08:59 Last Admin: 07/11/18 08:47 Dose: 12.5 mg Documented by: Miscellaneous Information (Consult) 1 ea N/A UD PRN PRN Reason: Consult Stop: 08/09/18 19:32 Mycophenolate Mofetil (Cellcept) 500 mg PO BID [facility] Stop: 08/09/18 20:59 Last Admin: 07/11/18 06:44 Dose: 500 mg Documented by: Oxycodone HCl (Roxicodone Immediate Rel) 5 mg PO Q6H PRN PRN Reason: Pain Stop: 07/24/18 21:21 Last Admin: 07/11/18 10:10 Dose: 5 mg Documented by: Prednisone (Prednisone) 5 mg PO DAILY@1200 [facility] Stop: 08/10/18 11:59 Last Admin: 07/11/18 12:57 Dose: 5 mg Documented by: Prednisone (Prednisone) 10 mg PO QAM [facility] Stop: 08/10/18 08:59 Last Admin: 07/11/18 08:52 Dose: 10 mg Documented by: Torsemide (Demadex) 10 mg PO QAM [facility] Stop: 08/10/18 08:59 Last Admin: 07/11/18 08:47 Dose: 10 mg Documented by: Tramadol HCl (Ultram) 50 mg PO Q8H PRN PRN Reason: Pain Stop: 08/09/18 19:34 Venlafaxine HCl (Effexor) 37.5 mg PO HS [facility] Stop: 08/09/18 20:59 Last Admin: 07/10/18 21:30 Dose: 37.5 mg Documented by: Vitamin D (Vitamin D3) 2,000 units PO QPM [facility] Stop: 08/09/18 20:59 Last Admin: 07/10/18 21:31 Dose: 2,000 units Documented by:
[2018-07-11] MEDS: VANCOMYCIN HCL 1,250 MG in SODIUM CHLORIDE 0.9% 250 ML IV SCH (16:18)
[2018-07-11] MEDS: VENLAFAXINE HCL 37.5 MG TAB PO SCH (20:26)
[2018-07-11] MEDS: ATORVASTATIN 40 MG TAB PO SCH (20:26)
[2018-07-11] MEDS: CHOLECALCIFEROL 1,000 UNITS TAB PO SCH (20:27)
[2018-07-11] MEDS: FINASTERIDE 5 MG TAB PO SCH (20:27)
[2018-07-12] MEDS: ACETAMINOPHEN 325 MG TAB PO PRN ×4 (02:51→23:32)
[2018-07-12] MEDS: LEVOTHYROXINE SODIUM 25 MCG TABLET PO SCH (06:11)
[2018-07-12] MEDS: MYCOPHENOLATE MOFETIL 250 MG CAP PO SCH ×2 (06:11→20:54)
[2018-07-12] MEDS: OXYCODONE HCL IR 5 MG TAB (IMMEDIATE RELEASE) PO PRN ×3 (07:13→20:57)
[2018-07-12] MEDS: CLOPIDOGREL BISULFATE 75 MG TAB PO SCH (08:39)
[2018-07-12] MEDS: METOPROLOL SUCC 25MG EXT REL TAB PO SCH (08:39)
[2018-07-12] MEDS: predniSONE 10 MG TABLET PO SCH (08:39)
[2018-07-12] MEDS: LOSARTAN POTASSIUM 50 MG TAB PO SCH (08:39)
[2018-07-12] MEDS: TORSEMIDE 10 MG TAB PO SCH ×2 (08:40→14:42)
[2018-07-12] MEDS: HEPARIN SOD 5,000 UNIT/0.5 ML VIAL SQ SCH ×3 (08:41→21:06)
[2018-07-12] MEDS: PSYLLIUM 58.6% POWDER PACKET PO SCH (12:14)
[2018-07-12] MEDS: predniSONE 5 MG TAB PO SCH (12:14)
[2018-07-12] MEDS: ALLOPURINOL 300 MG TAB PO SCH (12:15)
[2018-07-12] MEDS: ASPIRIN 81 MG ECTAB PO SCH (12:15)
[2018-07-12] MEDS: ALFUZOSIN HCL 10 MG TAB PO SCH (12:15)
[2018-07-12] MEDS: VANCOMYCIN HCL 1,250 MG in SODIUM CHLORIDE 0.9% 250 ML IV SCH (12:18)
[2018-07-12] MEDS: CEFEPIME 2,000 MG in SYRINGE 7.5 ML IV SCH ×2 (13:33→21:48)
--- NOTE | 2018-07-12 13:45 | Hospitalist Progress Note ---
Date of Service July 12, 2018 Assessment & Plan (1) Infected wound: Was sent from wound care clinic for worsening right LE wound Wound cx on 07/03 grew staph aureus that is resistant and peniccilin to Keflex Failed outpatient therapy with Keflex Lactic acid 2.2 on admission Received IV Vanco in the ER ,Continue IV Vanco Wound care consult-appreciate input and recommendation ID consult -appreciate input and recommendation Check Blood cx -negative Ultrasound did not show any evidence of deep venous thrombosis Clinically a little improved Wound culture is growing gram-negative bacilli, sensitivities pending We will continue current intravenous antibiotic and wound care as advised (2) Myasthenia gravis: Had a flare up about 2 months ago Continue Cellcept for now Continue low dose steroid No signs and/or symptoms of exacerbation of myasthenia (3) CKD (chronic kidney disease) stage 3, GFR 30-59 ml/min: Creatinine 1.6 today, was 1.7 on 06/23 Avoid nephrotoxic agents Monitor BMP-kidney function has been normalized (4) HTN (hypertension): BP stable Continue Losartan and metoprolol Monitor BP-remains at upper side of normal (5) Hypothyroidism: Continue Levothyroxine Stable (6) BPH (benign prostatic hyperplasia): Continue alfuzosin and finasteride Stable (7) CAD (coronary artery disease): Denies any chest pain Continue plavix and aspirin Stable Depression Continue Venlafaxine Stable Peripheral edema Check doppler of RLE to r/o DVT On torsemide 10mg in the morning and 5 mg at noon DVT px will start on heparin subq BID Code Status FULL code Subjective 07/11 The patient was seen and examined in the medical floor He was admitted with increasing leg swelling and worsening leg wound and pain, He denies any other symptoms 07/12 The patient is seen and examined in medical floor Still complains to have nagging pain in the right leg Denies any fever and/or chills Denies any other symptoms Review of Systems Musculoskeletal: + problem reported (Right leg pain) Physical Exam Physical Exam: No apparent distress at rest Constitutional: + ill appearing Eyes: PERRL, conjunctivae normal, anicteric sclerae ENMT: external ear and nose normal, oropharynx normal Neck: trachea midline, no thyromegaly Respiratory: normal respiratory effort Auscultation: lungs clear to auscultation bilaterally Cardiovascular: Rate/Rhythm: regular rate and regular rhythm Heart Sounds: normal S1 and normal S2 Gastrointestinal (Abdomen): normal bowel sounds, soft, nontender, no hepatosplenomegaly Skin: Right lower extremity has increasing redness and sloughing ulceration involving almost whole of the leg with areas of skin break and minimal drainage. Please see the photo of the wound Lymphatic: no cervical or axillary lymphadenopathy Results & Data Vital Signs (Past 12 Hours) Vital Signs Temp Pulse Resp BP Pulse Ox 07/12/18 07:21 36.5 C 76 16 135/66 98
--- NOTE | 2018-07-12 14:36 | Infectious Disease Progress Nt ---
Date of Service July 12, 2018 Assessment & Plan (1) Cellulitis of right lower extremity without foot: 77-year-old male with infected right lower extremity wound with extensive superficial skin loss. Have added cefepime to vancomycin to cover gram-negative bacilli pending final identification and sensitivity. Will follow. (2) Infected wound: Subjective Patient seen in follow-up for right leg infection. Pain better controlled today. No fever. Cultures from wound care center growing gram-negative bacilli. Review of Systems Review of Systems: All systems reviewed & are unremarkable except as noted in HPI & below Physical Exam Constitutional: WD/WN, vitals as above comfortable; no acute distress Eyes: PERRL, conjunctivae normal, anicteric sclerae ENMT: external ear and nose normal, oropharynx normal Neck: trachea midline, no thyromegaly neck nontender Respiratory: normal respiratory effort, lungs clear to auscultation normal percussion; does not use accessory muscles Cardiovascular: Rate/Rhythm: regular rate and regular rhythm Heart Sounds: normal S1 and normal S2; no gallop, no murmur and no cardiac rub Vessels: normal peripheral pulses; no JVD Gastrointestinal (Abdomen): normal bowel sounds, soft, nontender, no hepatosplenomegaly Musculoskeletal: no cyanosis or clubbing, extremities motor strength 5/5 Spine: thoracic spine normal to inspection and lumbar spine normal to inspection; no cervical spinal tenderness Skin: normal turgor and + ulcer (Multiple superficial right lower extremity with surrounding erythema) Neurologic: patellar DTR's 2+ bilat, sensation intact no focal motor deficits Psychiatric: A+Ox3, euthymic affect Orientation: cooperative Lymphatic: no cervical or axillary lymphadenopathy no inguinal lymphadenopathy Results & Data Vital Signs (Past 12 Hours) Vital Signs Temp Pulse Resp BP Pulse Ox 07/12/18 07:21 36.5 C 76 16 135/66 98 Laboratory Results Laboratory Results - last 48 hr 07/10/18 07/10/18 07/10/18 16:15 16:15 16:15 WBC 9.75 RBC 4.20 L Hgb 13.4 L Hct 39.7 L MCV 94.5 MCH 31.9 MCHC 33.8 RDW Std Deviation 56.8 H RDW Coeff of Pina 16.5 H Plt Count 151 MPV 9.9 Immature Gran % (Auto) 3.6 Neut % (Auto) 86.1 Lymph % (Auto) 5.8 [place] % (Auto) 4.2 Eos % (Auto) 0.1 Baso % (Auto) 0.2 Immature Gran # (Auto) 0.35 H Neut # (Auto) 8.39 H Lymph # (Auto) 0.57 L [place] # (Auto) 0.41 Eos # (Auto) 0.01 Baso # (Auto) 0.02 PT 11.0 INR 1.1 APTT 23.9 PTT Ratio 0.9 Sodium 140 Potassium 4.3 Chloride 107 Carbon Dioxide 26 Anion Gap 7.0 BUN 34 H Creatinine 1.61 H Est Cr Clr Drug Dosing 39.3 Est GFR ( Amer) 46.4 Est GFR (Non-Af Amer) 40.1 BUN/Creatinine Ratio 21.0 H Glucose 123 H Lactate Calcium 8.3 L 07/10/18 07/10/18 07/11/18 16:15 20:12 08:52 WBC 8.41 RBC 3.90 L Hgb 12.2 L Hct 37.4 L MCV 95.9 MCH 31.3 MCHC 32.6 RDW Std Deviation 58.4 H RDW Coeff of Pina 16.8 H Plt Count 138 MPV 9.4 Immature Gran % (Auto) Neut % (Auto) Lymph % (Auto) [place] % (Auto) Eos % (Auto) Baso % (Auto) Immature Gran # (Auto) Neut # (Auto) Lymph # (Auto) [place] # (Auto) Eos # (Auto) Baso # (Auto) PT INR APTT PTT Ratio Sodium Potassium Chloride Carbon Dioxide Anion Gap BUN Creatinine Est Cr Clr Drug Dosing Est GFR ( Amer) Est GFR (Non-Af Amer) BUN/Creatinine Ratio Glucose Lactate 2.2 H* 1.7 Calcium 07/11/18 08:52 WBC RBC Hgb Hct MCV MCH MCHC RDW Std Deviation RDW Coeff of Pina Plt Count MPV Immature Gran % (Auto) Neut % (Auto) Lymph % (Auto) [place] % (Auto) Eos % (Auto) Baso % (Auto) Immature Gran # (Auto) Neut # (Auto) Lymph # (Auto) [place] # (Auto) Eos # (Auto) Baso # (Auto) PT INR APTT PTT Ratio Sodium 144 Potassium 3.9 Chloride 111 H Carbon Dioxide 27 Anion Gap 5.0 BUN 29 H Creatinine 1.35 Est Cr Clr Drug Dosing 47.1 Est GFR ( Amer) 57.5 Est GFR (Non-Af Amer) 49.6 BUN/Creatinine Ratio 21.6 H Glucose 84 Lactate Calcium 8.2 L Diagnostic Findings Microbiology 07/10/18 20:12 Blood Blood Culture - Preliminary No growth to date. 07/10/18 19:59 Blood Blood Culture - Preliminary No growth to date.
[2018-07-12] MEDS: ATORVASTATIN 40 MG TAB PO SCH (20:53)
[2018-07-12] MEDS: CHOLECALCIFEROL 1,000 UNITS TAB PO SCH (20:53)
[2018-07-12] MEDS: FINASTERIDE 5 MG TAB PO SCH (20:53)
[2018-07-12] MEDS: VENLAFAXINE HCL 37.5 MG TAB PO SCH (20:54)
[2018-07-13] MEDS: LEVOTHYROXINE SODIUM 25 MCG TABLET PO SCH (06:11)
[2018-07-13] MEDS: OXYCODONE HCL IR 5 MG TAB (IMMEDIATE RELEASE) PO PRN ×3 (06:11→18:45)
[2018-07-13] MEDS: CEFEPIME 2,000 MG in SYRINGE 7.5 ML IV SCH (06:12)
[2018-07-13] MEDS: MYCOPHENOLATE MOFETIL 250 MG CAP PO SCH ×2 (06:12→21:05)
[2018-07-13] MEDS ORDERED: VANCOMYCIN TROUGH ONE (07:30)
[2018-07-13] MEDS: VANCOMYCIN HCL 1,250 MG in SODIUM CHLORIDE 0.9% 250 ML IV SCH (08:20)
[2018-07-13] MEDS: LOSARTAN POTASSIUM 50 MG TAB PO SCH (08:23)
[2018-07-13] MEDS: TORSEMIDE 10 MG TAB PO SCH ×2 (08:24→12:31)
[2018-07-13] MEDS: CLOPIDOGREL BISULFATE 75 MG TAB PO SCH (08:24)
[2018-07-13] MEDS: PSYLLIUM 58.6% POWDER PACKET PO SCH (08:24)
[2018-07-13] MEDS: METOPROLOL SUCC 25MG EXT REL TAB PO SCH (08:25)
[2018-07-13] MEDS: predniSONE 10 MG TABLET PO SCH (08:27)
[2018-07-13] MEDS: HEPARIN SOD 5,000 UNIT/0.5 ML VIAL SQ SCH ×2 (08:28→21:04)
[2018-07-13 08:46] LABS: Est GFR (African American) 47.2; Est GFR (Non-African American) 40.7
[2018-07-13] MEDS: ACETAMINOPHEN 325 MG TAB PO PRN ×3 (09:13→21:08)
[2018-07-13] MEDS: predniSONE 5 MG TAB PO SCH (12:31)
[2018-07-13] MEDS: ALLOPURINOL 300 MG TAB PO SCH (12:31)
[2018-07-13] MEDS: ALFUZOSIN HCL 10 MG TAB PO SCH (12:31)
[2018-07-13] MEDS: ASPIRIN 81 MG ECTAB PO SCH (12:31)
--- NOTE | 2018-07-13 13:42 | Pharmacy Report ---
Pharmacy Abx Dose Short Note - Date of Service July 13, 2018 - Assessment & Plan Assessment 77 year old M receiving Vancomycin for treatment of RLE wound. Day # 4 of antimicrobial therapy. Laboratory Tests 07/13/18 07:59 Vancomycin Trough 17.4 Plan Vancomycin * Trough level of 17.4 mcg/mL is therapeutic. * Continue dose of 1250 mg IV every 20 hours for now. * Level was drawn after only 2 maintenance doses, this can possibly trend up after continued dosing. Of note, patient also with CKD stage 3 and Scr = 1.59 today. * Therefore will plan to extend interval out to Q24H after dose tomorrow. * Goal trough level for SST: 12 to 20 mcg/mL * Will check another level in 3 to 5 days after dosing change tomorrow. Pharmacy will continue to follow and will adjust dose/frequency as necessary. Thank you.
[2018-07-13] MEDS ORDERED: CEFEPIME 2,000 MG in SYRINGE 7.5 ML IV SCH (18:00)
--- NOTE | 2018-07-13 19:58 | Hospitalist Progress Note ---
Date of Service July 13, 2018 Assessment & Plan (1) Infected wound: Was sent from wound care clinic for worsening right LE wound Wound cx on 07/03 grew staph aureus that is resistant and peniccilin to Keflex Failed outpatient therapy with Keflex Lactic acid 2.2 on admission Wound cx on 07/10 positive for proteus mirabilis Received IV Vanco in the ER ,Continue IV Vanco On Vanco and Rocephin IV ID on board, will discuss with ID about final abx on discharge and duration Continue daily wound care Wound care on board Blood cx negative Doppler LE u/s showed no evidence of deep venous thrombosis Clinically improves (2) Myasthenia gravis: Had a flare up about 2 months ago Continue Cellcept for now Continue low dose steroid No signs and/or symptoms of exacerbation of myasthenia (3) CKD (chronic kidney disease) stage 3, GFR 30-59 ml/min: Creatinine 1.6 today, was 1.7 on 06/23 Creatinine 1.5 today Avoid nephrotoxic agents Monitor BMP closely (4) HTN (hypertension): BP stable Continue Losartan and metoprolol Monitor BP (5) Hypothyroidism: Continue Levothyroxine Stable (6) BPH (benign prostatic hyperplasia): Continue alfuzosin and finasteride Stable (7) CAD (coronary artery disease): Denies any chest pain Continue plavix and aspirin Stable Depression Continue Venlafaxine Stable Peripheral edema Vnous doppler of RLE showed no DVT On torsemide 10mg in the morning and 5 mg at noon Will monitor BMP while on torsemide Stable DVT px on heparin subq BID Code Status FULL code Subjective Pt was seen and examined Sitting in bed with no distress Pt said that he feels fine He said that wound has less drainage Denies any chest pain, palpitation, dizziness and SOB Physical Exam Physical Exam: General- No acute distress Head- atraumatic Eyes- PERRL, EOMI, ENT- oropharynx clear Neck- supple, no JVD Lungs- clear to auscultation Heart- regular rhythm; +systolic murmur Abdomen- normal bowel sounds, soft, nontender Extremities- +right calf tenderness, +RLE edema Neuro- alert, oriented x 3; PERRL, EOMI; no facial palsy; no dysarthria Skin- Left monahan with erythematous patch and small blister. Right monahan with large erythema opening wound oozing less medial right calf with open oozing wound and multiples small blister across the calf Results & Data Vital Signs (Past 12 Hours) Vital Signs Temp Pulse Resp BP Pulse Ox 07/13/18 15:04 36.4 C L 56 L 19 126/64 99
--- NOTE | 2018-07-13 20:16 | Infectious Disease Progress Nt ---
Date of Service July 13, 2018 Assessment & Plan (1) Cellulitis of right lower extremity without foot: 77-year-old male with infected right lower extremity wound with extensive superficial skin loss. Will change patient to IV ceftriaxone for Proteus, length of IV antibiotics yet to be determined. Will follow. (2) Infected wound: Subjective Patient seen in follow-up for right leg infection. Pain better controlled today. No fever. Cultures from wound care center growing fully sensitive Proteus. Review of Systems Review of Systems: All systems reviewed & are unremarkable except as noted in HPI & below Physical Exam Constitutional: WD/WN, vitals as above comfortable; no acute distress Eyes: PERRL, conjunctivae normal, anicteric sclerae ENMT: external ear and nose normal, oropharynx normal Neck: trachea midline, no thyromegaly neck nontender Respiratory: normal respiratory effort, lungs clear to auscultation normal percussion; does not use accessory muscles Cardiovascular: Rate/Rhythm: regular rate and regular rhythm Heart Sounds: normal S1 and normal S2; no gallop, no murmur and no cardiac rub Vessels: normal peripheral pulses; no JVD Gastrointestinal (Abdomen): normal bowel sounds, soft, nontender, no hepatosplenomegaly Musculoskeletal: no cyanosis or clubbing, extremities motor strength 5/5 Spine: thoracic spine normal to inspection and lumbar spine normal to inspection; no cervical spinal tenderness Skin: normal turgor and + ulcer (Multiple superficial right lower extremity with surrounding erythema) Neurologic: patellar DTR's 2+ bilat, sensation intact no focal motor deficits Psychiatric: A+Ox3, euthymic affect Orientation: cooperative Lymphatic: no cervical or axillary lymphadenopathy no inguinal lymphadenopathy Results & Data Vital Signs (Past 12 Hours) Vital Signs Temp Pulse Resp BP Pulse Ox 07/13/18 15:04 36.4 C L 56 L 19 126/64 99 Laboratory Results BMP 07/13/18 07:59 Creatinine 1.59 H Diagnostic Findings Microbiology 07/10/18 20:12 Blood Blood Culture - Preliminary No growth to date. 07/10/18 19:59 Blood Blood Culture - Preliminary No growth to date.
[2018-07-13] MEDS: FINASTERIDE 5 MG TAB PO SCH (21:05)
[2018-07-13] MEDS: ATORVASTATIN 40 MG TAB PO SCH (21:05)
[2018-07-13] MEDS: CHOLECALCIFEROL 1,000 UNITS TAB PO SCH (21:06)
[2018-07-13] MEDS: VENLAFAXINE HCL 37.5 MG TAB PO SCH (21:06)
[2018-07-14] MEDS: VANCOMYCIN HCL 1,250 MG in SODIUM CHLORIDE 0.9% 250 ML IV SCH (04:34)
[2018-07-14] MEDS: OXYCODONE HCL IR 5 MG TAB (IMMEDIATE RELEASE) PO PRN ×3 (04:39→20:25)
[2018-07-14] MEDS: LEVOTHYROXINE SODIUM 25 MCG TABLET PO SCH (05:38)
[2018-07-14] MEDS: MYCOPHENOLATE MOFETIL 250 MG CAP PO SCH ×2 (08:15→20:24)
[2018-07-14] MEDS: TORSEMIDE 10 MG TAB PO SCH (08:16)
[2018-07-14] MEDS: LOSARTAN POTASSIUM 50 MG TAB PO SCH (08:16)
[2018-07-14] MEDS: predniSONE 10 MG TABLET PO SCH (08:17)
[2018-07-14] MEDS: PSYLLIUM 58.6% POWDER PACKET PO SCH (08:17)
[2018-07-14] MEDS: HEPARIN SOD 5,000 UNIT/0.5 ML VIAL SQ SCH ×2 (08:17→20:24)
[2018-07-14] MEDS: CLOPIDOGREL BISULFATE 75 MG TAB PO SCH (08:17)
[2018-07-14] MEDS: METOPROLOL SUCC 25MG EXT REL TAB PO SCH (08:18)
[2018-07-14] MEDS: ACETAMINOPHEN 325 MG TAB PO PRN ×2 (08:48→17:00)
[2018-07-14] MEDS ORDERED: cefTRIAXone SODIUM 2,000 MG in DEXTROSE 5% 50 ML IV SCH (09:00)
[2018-07-14 09:42] LABS: BUN Creatinine Ratio 20.3 (10-20); Calcium 8.5 mg/dl (8.5-10.1); Creatinine Clr Calc Pharmacy 33.6 ml/min; Est GFR (African American) 38.3; Potassium 4.2 mmol/L (3.5-5.1)
--- NOTE | 2018-07-14 10:50 | Hospitalist Progress Note ---
Date of Service July 14, 2018 Assessment & Plan (1) Infected wound: Was sent from wound care clinic for worsening right LE wound Wound cx on 07/03 grew staph aureus that is resistant and penicillin and Keflex Failed outpatient therapy with Keflex Lactic acid 2.2 on admission Wound cx on 07/10 positive for proteus mirabilis Received IV Vanco in the ER , and Cefepime was added on 07/12 On Vanco day # 5 today, Cefepime changed to Rocephin today ID on board Continue daily wound care Wound care on board- Asked nurse to call wound care to check the wound today since there are some superficial black skin formation (eschar), not sure if needed debridement Blood cx negative Doppler LE u/s showed no evidence of deep venous thrombosis case discussed with ID Dr. Amanda today and recommended Rocephin IV 2g for 14 days Will get a PICC line for outpatient antibiotic infusion Will d/c Vanco IV on discharge PICC line complication discussed with patient and consent signed Will give case management script for rocephin IV 2g daily Will need to follow with the wound care clinic (Dr. Amanda will see him at the wound care clinic) (2) Myasthenia gravis: Had a flare up about 2 months ago Continue Cellcept for now Continue low dose steroid No signs and/or symptoms of exacerbation of myasthenia (3) CKD (chronic kidney disease) stage 3, GFR 30-59 ml/min: Creatinine 1.6 today, was 1.7 on 06/23 Creatinine worsening today 1.89 Torsemide morning dose already given Will hold additional dose of torsemide Avoid nephrotoxic agents Monitor BMP closely (4) HTN (hypertension): BP Elevated today Continue Losartan and metoprolol Monitor BP (5) Hypothyroidism: Continue Levothyroxine Stable (6) BPH (benign prostatic hyperplasia): Continue alfuzosin and finasteride Stable (7) CAD (coronary artery disease): Denies any chest pain Continue plavix and aspirin Stable Depression Continue Venlafaxine Stable Peripheral edema Vnous doppler of RLE showed no DVT On torsemide 10mg in the morning and 5 mg at noon Will monitor BMP while on torsemide Stable DVT px on heparin subq BID Code Status FULL code Disposition Possible discharge tomorrow Follow up with the wound care clinic Continue outpatient abx infusion with rocephin for 14 days Subjective Pt was seen and examined Lying in bed with no distress Pt said that he feels ok Pain improves in the RLE wound area Denies any chest pain, palpitation, dizziness and SOB Physical Exam Physical Exam: General- No acute distress Head- atraumatic Eyes- PERRL, EOMI, ENT- oropharynx clear Neck- supple, no JVD Lungs- clear to auscultation Heart- regular rhythm; +systolic murmur Abdomen- normal bowel sounds, soft, nontender Extremities- +right calf tenderness, +RLE edema Neuro- alert, oriented x 3; PERRL, EOMI; no facial palsy; no dysarthria Skin- Left monahan with erythematous patch and small blister. Right monahan with large erythema opening wound, with medium size black skin (eschar) area around the monahan and lateral part of the leg (small ), medial right calf with open wound and multiples small blister across the calf Results & Data Vital Signs (Past 12 Hours) Vital Signs Temp Pulse Resp BP Pulse Ox 07/14/18 07:20 36.3 C L 70 16 164/76 H 93 07/13/18 23:00 36.6 C 59 L 18 108/57 L 95
[2018-07-14] MEDS: ALLOPURINOL 300 MG TAB PO SCH (12:21)
[2018-07-14] MEDS: ASPIRIN 81 MG ECTAB PO SCH (12:21)
[2018-07-14] MEDS: ALFUZOSIN HCL 10 MG TAB PO SCH (12:21)
[2018-07-14] MEDS: predniSONE 5 MG TAB PO SCH (12:21)
--- NOTE | 2018-07-14 14:03 | Surgery Consultation ---
Date of Consultation July 14, 2018 Assessment & Plan (1) Infected wound: It appears the patient has a relatively serious spreading necrosing infection involving the epidermis and dermis. I feel would benefit from dermatology evaluation and may require widespread debridement of this area. I do not feel comfortable performing this at our hospital as I do not know what I am treating. It does not appear to be a common type of reaction from medication injury. It appears to be significantly worse over the past 4 days in the pictures I can observe. It may be the patient may require transfer to a tertiary care center for more intensive treatment. It may even require hyper baric oxygen. History of Present Illness Attending Physician: Edna Devlin MD History of Present Illness I was asked to see this 77-year-old male with what appears to be a worsening infection of the right leg. Apparently he traumatized medial right leg before July 03 and at that point was placed on antibiotics. He ended up coming to the wound clinic on 07/10/2018 and it was felt that he should be admitted to the hospital. From the pictures I can see appears this infection has spread he has developed larger eschars of his medial and lateral leg. The initial eschar appears to have been debrided. He has been on IV antibiotics 07/10/2018. Allergies Allergy/AdvReac Type Severity Reaction Status Date / Time No Known Allergies Allergy Verified 07/10/18 14:15 Home Medications Home Medications Medication Instructions Recorded Confirmed Type alfuzosin 10 mg PO DAILY@1200 12/21/17 07/10/18 History allopurinol 300 mg PO DAILY@1200 12/21/17 07/10/18 History cholecalciferol (vitamin D3) 2,000 units PO QPM 12/21/17 07/10/18 History [Vitamin D3] clopidogrel [Plavix] 75 mg PO QAM 12/21/17 07/10/18 History finasteride 5 mg PO QPM 12/21/17 07/10/18 History levothyroxine 25 mcg PO QAM 12/21/17 07/10/18 History losartan 50 mg PO QAM 12/21/17 07/10/18 History mycophenolate mofetil [CellCept] 500 mg PO BID 12/21/17 07/10/18 History nitroglycerin [Nitrostat] 0.4 mg SUBLINGUAL UD 12/21/17 07/10/18 History torsemide 5 mg PO DAILY@1200 12/21/17 07/10/18 History torsemide 10 mg PO QAM 12/21/17 07/10/18 History venlafaxine 37.5 mg PO HS 12/21/17 07/10/18 History aspirin 81 mg PO DAILY@1200 07/10/18 07/10/18 History atorvastatin 40 mg PO QPM 07/10/18 07/10/18 History clindamycin HCl 150 mg capsule 150 mg PO QID 07/10/18 07/10/18 History metoprolol succinate 12.5 mg PO QAM 07/10/18 07/10/18 History prednisone 5 mg PO DAILY@1200 07/10/18 07/10/18 History prednisone 10 mg PO QAM 07/10/18 07/10/18 History ceftriaxone 2 gm IV DAILY 14 Days #14 ea 07/14/18 Rx Patient History Medical History CKD (chronic kidney disease) stage 3, GFR 30-59 ml/min Infected wound Cellulitis (Acute) Failure of outpatient treatment (Acute) Cellulitis of right lower extremity without foot (Acute) Encounter for pre-operative examination HTN (hypertension) (Chronic) Kidney disease (Chronic) Stomach problems (Chronic) Mediastinal mass (Acute) Wound dehiscence, surgical (Acute) Myasthenia gravis (Chronic) Actinic keratitis (Acute) Diastolic congestive heart failure (Acute) Dysmetabolic syndrome X (Acute) First degree atrioventricular block (Acute) History of thymus cancer (Acute) Skin cancer (Acute) Venous stasis ulcer (Acute) Venous stasis ulcer of ankle limited to breakdown of skin without varicose veins (Acute) BPH (benign prostatic hyperplasia) CKD (chronic kidney disease) Coronary artery disease Former smoker Gout HX Hx of myasthenia gravis DX'D 2013-F/U DR [facility] Hyperlipidemia Hypertension Hypothyroidism Kidney stones On anticoagulant therapy SINCE 04/2016 Sleep apnea CPAP Surgical History S/P cataract extraction (Acute) History of cardiac cath 2 [facility] 04/2016 Hx of thymectomy 2013 Family History Mother Family history of diabetes mellitus Social History Preferred Language: Guyanese Communication Ability: Effective Ecology Professor Required: No Beliefs That Will Affect Care: None Current Living Situation: Spouse Other Information That Helps Us Care for You: No Feels Safe at Home: Yes Safety Concerns: Feels Safe At This Time Smoking Status: Former smoker Tobacco Type: cigarettes Cigarettes Per Day: QUIT 40 YRS AGO Smoking End Date: 40 years ago Second Hand Exposure: No Hx Alcohol Use: No Hx Substance Use: No Physical Exam Physical Exam: Patient is awake and alert his head is atraumatic neck is supple shows no signs of respiratory distress. His heart shows regular rhythm his extremities are warm and he does have pulses in the right foot. His right leg shows a large area medial lateral and anterior of necrosis involving what appears to be the epidermis and dermis. This does not appear to be spreading as a usual cellulitis nor does it appear to be from fasciitis. He has areas above appear to be large blisters. Results & Data Vital Signs (Past 12 Hours) Vital Signs Temp Pulse Resp BP Pulse Ox 07/14/18 07:20 36.3 C L 70 16 164/76 H 93
--- NOTE | 2018-07-14 14:30 | Infectious Disease Progress Nt ---
Date of Service July 14, 2018 Assessment & Plan (1) Cellulitis of right lower extremity without foot: 77-year-old male with infected right lower extremity wound with extensive superficial skin loss. Agree with dermatology consultation, continue IV antibiotics, considering transfer to tertiary care center. Will follow. (2) Infected wound: Subjective Patient seen in follow-up for severe right leg infection. Has developed worsening superficial necrosis, large areas of skin loss. Pain still significant. No fever or chills. Blood cultures remain negative. Review of Systems Review of Systems: All systems reviewed & are unremarkable except as noted in HPI & below Physical Exam Constitutional: WD/WN, vitals as above comfortable; no acute distress Eyes: PERRL, conjunctivae normal, anicteric sclerae ENMT: external ear and nose normal, oropharynx normal Neck: trachea midline, no thyromegaly neck nontender Respiratory: normal respiratory effort, lungs clear to auscultation normal percussion; does not use accessory muscles Cardiovascular: Rate/Rhythm: regular rate and regular rhythm Heart Sounds: normal S1 and normal S2; no gallop, no murmur and no cardiac rub Vessels: normal peripheral pulses; no JVD Gastrointestinal (Abdomen): normal bowel sounds, soft, nontender, no hepatosplenomegaly Musculoskeletal: no cyanosis or clubbing, extremities motor strength 5/5 Spine: thoracic spine normal to inspection and lumbar spine normal to inspection; no cervical spinal tenderness Skin: normal turgor and + ulcer (Multiple superficial right lower extremity with surrounding erythema) Extensive areas of superficial necrosis Neurologic: patellar DTR's 2+ bilat, sensation intact no focal motor deficits Psychiatric: A+Ox3, euthymic affect Orientation: cooperative Lymphatic: no cervical or axillary lymphadenopathy no inguinal lymphadenopathy Results & Data Vital Signs (Past 12 Hours) Vital Signs Temp Pulse Resp BP Pulse Ox 07/14/18 07:20 36.3 C L 70 16 164/76 H 93 Laboratory Results BMP 07/14/18 08:44 Sodium 139 Potassium 4.2 Chloride 107 Carbon Dioxide 27 BUN 38 H Creatinine 1.89 H D Glucose 94 Calcium 8.5 Diagnostic Findings Microbiology 07/10/18 20:12 Blood Blood Culture - Preliminary No growth to date. 07/10/18 19:59 Blood Blood Culture - Preliminary No growth to date.
--- NOTE | 2018-07-14 17:02 | Discharge Summary ---
Date of Service July 14, 2018 Admission HPI Per Admitting Provider 77 year old male with PMH of Myasthenia gravis, Actinis keratosis, Dyslipidemia, CAD, CKD stage 3, Hypothyroidism presents to the Emergency Department with complaints of Right lower extremity wound infected. Pt said that about 6 to 8 weeks ago, he bumped his right monahan area that cause a very small opened area in the skin. he said that it was formed a scab first but in less than 2 weeks the area got worst. He saw his PCP on 07/03 and had wound cx done and was giving Keflex. he said that RLE wound got worst. he said that the keflex was changed to clindamycin yesterday after wound cx grew staph aureus that is resistance to Keflex. Pt was seen at the wound care clinic today and was sent to the ER for IV antibiotic. He said that the right LE has been very painful and burning. He said that there has been increased drainage from the wound. Pt said that he had a flared of myasthenia gravis about 2 months ago and he is on cellcept. Family said that he felt warm. Denies any fever, chills, palpitation and SOB. Admission Exam Per Admitting Provider General- No acute distress Head- atraumatic Eyes- PERRL, EOMI, ENT- oropharynx clear Neck- supple, no JVD Lungs- clear to auscultation Heart- regular rhythm; +systolic murmur Abdomen- normal bowel sounds, soft, nontender Extremities- +right calf tenderness, +RLE edema Neuro- alert, oriented x 3; PERRL, EOMI; no facial palsy; no dysarthria Skin- Left monahan with erythematous patch and small blister. Right monahan with large erythema opening wound oozing, medial right calf with open oozing wound and multiples small blister across the calf Principal Diagnosis Infected Right LE wound with Worsening superficial necrosis CKD stage 3 Hypothyroidism HTN Myasthenia gravis BPH CAD Discharge Exam General- No acute distress Head- atraumatic Eyes- PERRL, EOMI, ENT- oropharynx clear Neck- supple, no JVD Lungs- clear to auscultation Heart- regular rhythm; +systolic murmur Abdomen- normal bowel sounds, soft, nontender Extremities- +right calf tenderness, +RLE edema Neuro- alert, oriented x 3; PERRL, EOMI; no facial palsy; no dysarthria Skin- Left monahan with erythematous patch and small blister. Right monahan with large erythema opening wound oozing less medial right calf with open oozing wound and multiples small blister across the calf Discharge Data Allergies Allergy/AdvReac Type Severity Reaction Status Date / Time No Known Allergies Allergy Verified 07/10/18 14:15 Consultations 07/10/18 16:53 ED Decision to Admit Stat 07/11/18 07:00 Consult Infectious Diseases Routine 07/14/18 12:41 Consult General Surgery Routine 07/14/18 16:37 Burn CD for patient Stat Ordered Studies 07/10/18 19:33 US venous doppler LE RT Routine US venous doppler LE RT HISTORY: 77 years-old Male Swelling and tenderness acute pain and swelling of the right lower extremity COMPARISON: None available TECHNIQUE: Multiple real-time sonographic images of the right lower extremity deep venous structures were obtained assessing grayscale appearance, color and spectral flow FINDINGS: Normal flow, compressibility, phasicity and augmentation of the right lower extremity deep venous structures. Limited evaluation of the calf structures secondary to subcutaneous edema, open wounds and reported blisters. IMPRESSION: No sonographic evidence of deep venous thrombosis. The above report was generated using voice recognition software. It may contain grammatical, syntax or spelling errors. Electronically signed by: Jude Patrick M.D. 07/10/2018 9:07 PM Dictated: 07/10/182105 Transcribed: 07/10/182105 Hospital Course (1) Infected wound: Worsening superficial necrosis Was sent from wound care clinic for worsening right LE wound Wound cx on 07/03 grew staph aureus that is resistant and penicillin and Keflex Failed outpatient therapy with Keflex Lactic acid 2.2 on admission Wound cx on 07/10 positive for proteus mirabilis Received IV Vanco in the ER , and Cefepime was added on 07/12 On Vanco day # 5 today, Cefepime changed to Rocephin today ID on board Continue daily wound care Wound care on board- Asked nurse to call wound care to check the wound today since there are some superficial black skin formation (eschar), not sure if needed debridement Blood cx negative Doppler LE u/s showed no evidence of deep venous thrombosis case discussed with ID Dr. Amanda today and recommended Rocephin IV 2g for 14 days Will get a PICC line for outpatient antibiotic infusion PICC line complication discussed with patient and consent signed Will need to follow with the wound care clinic (Dr. Amanda will see him at the wound care clinic) Consider to get a arterial doppler of RLE since wound worsening Surgery consult placed Case discussed with Wound care nurse that already spoke to the wound care renee ibarra. Wound care physician will not be able to do bedside debridement and recommended surgical eval. Case discussed with surgery Dr. Ponce that do not feel comfortable to perform any debridement since Dr. Ponce does not know what he is treating and patient may require transfer to a tertiary care center for more intensive treatment or even require hyperbaric oxygen. Recommended dermatology consult. Called [facility] dermatology for stat consult, unfortunately Dr. Coreas does not start seeing patient yet in the hospital Called [facility] and they do not come to the hospital for consult Called made to transfer the patient to [facility] for the eval of the worsening superficial necrosis RLE Case discussed with hospitalist Dr. Cummings, RLE worsening superficial necrosis and will need extensive skin debridement at a tertiary facility and dermatology consult Dr. Cummings accepted the patient on transfer Family and patient updated about the transfer and agreed to go to [facility] (2) Myasthenia gravis: Had a flare up about 2 months ago Continue Cellcept for now Continue low dose steroid No signs and/or symptoms of exacerbation of myasthenia (3) CKD (chronic kidney disease) stage 3, GFR 30-59 ml/min: Creatinine 1.6 today, was 1.7 on 06/23 Creatinine worsening today 1.89 Torsemide morning dose already given Will hold additional dose of torsemide Avoid nephrotoxic agents Monitor BMP closely (4) HTN (hypertension): BP stable on discharge Continue Losartan and metoprolol Monitor BP (5) Hypothyroidism: Continue Levothyroxine Stable (6) BPH (benign prostatic hyperplasia): Continue alfuzosin and finasteride Stable (7) CAD (coronary artery disease): Denies any chest pain Continue plavix and aspirin Stable Depression Continue Venlafaxine Stable Peripheral edema Venous doppler of RLE showed no DVT On torsemide 10mg in the morning and 5 mg at noon Will monitor BMP while on torsemide Stable DVT px on heparin subq BID Code Status FULL code Disposition Follow up with the wound care clinic Transfer to [facility] Accepting physician Dr. Cummings Total Time Total Time Spent Total Time Spent (In Minutes): 40 minutes Total Time Includes: Examination of the Patient, Discharge Planning, Medication Reconciliation, Communication With Other Providers and Other Discharge Plan Discharge Items Patient Disposition: Transfer Acute Care Hospital Reason For Visit: INFECTED WOUND Discharge Diagnosis: Worsening superficial necrosis Infected Right LE wound CKD stage 3 Discharge Goals: Decrease discomfort and Improve disease control Activity: Resume your previous activity Activity Comment: as tolerated Non-emergency contact: Primary Care Provider Call non-emergency contact if: your temperature is above 101 Follow-up/Referrals: Ivette Golden DO [Primary Care Provider] - Diet: Heart Healthy Addtl Provider Instructions: Transfer to [facility] Accepted physician Dr. Cummings Will need surgical and dermatology consult Continue IV antibiotic with Vanco and Rocephin IV Check BMP to monitor renal function Prescriptions: New ceftriaxone 2 gram recon soln 2 gm IV DAILY 14 Days Qty: 14 RF: 0 Continued losartan 50 mg Tablet 50 mg PO QAM RF: 0 torsemide 10 mg Tablet 10 mg PO QAM RF: 0 clopidogrel [Plavix] 75 mg Tablet 75 mg PO QAM RF: 0 mycophenolate mofetil [CellCept] 500 mg Tablet 500 mg PO BID RF: 0 torsemide 5 mg Tablet 5 mg PO DAILY@1200 RF: 0 venlafaxine 37.5 mg Tablet 37.5 mg PO HS RF: 0 nitroglycerin [Nitrostat] 0.4 mg Tablet, Sublingual 0.4 mg Sublingual UD RF: 0 allopurinol 300 mg Tablet 300 mg PO DAILY@1200 RF: 0 finasteride 5 mg Tablet 5 mg PO QPM RF: 0 alfuzosin 10 mg Tablet Extended Release 24 Hr 10 mg PO DAILY@1200 RF: 0 cholecalciferol (vitamin D3) [Vitamin D3] 2,000 unit Capsule 2,000 units PO QPM RF: 0 levothyroxine 25 mcg Tablet 25 mcg PO QAM RF: 0 atorvastatin 40 mg tablet 40 mg PO QPM RF: 0 prednisone 10 mg tablet 10 mg PO QAM RF: 0 aspirin 81 mg Tablet,Chewable 81 mg PO DAILY@1200 RF: 0 metoprolol succinate 25 mg tablet extended release 24 hr 12.5 mg PO QAM RF: 0 prednisone 5 mg Tablet 5 mg PO DAILY@1200 RF: 0 Discontinued clindamycin HCl 150 mg capsule 150 mg PO QID RF: 0 Stand-Alone Forms: [facility] Discharge Orders: Discharge Order (Routine); Ordered 07/14/18 Ordered By: Edna Devlin Admission Data Admit Date/Time: 07/10/18 18:26 Attending Provider: Edna Devlin Admit Provider: Edna Devlin Primary Care Provider: Ivette Golden Other Providers: Edan Devlin ; Kalani Kaplan ; Tacos Degroot ; Calderon Ponce Service: Medical
[2018-07-14] MEDS: ATORVASTATIN 40 MG TAB PO SCH (20:25)
[2018-07-14] MEDS: FINASTERIDE 5 MG TAB PO SCH (20:26)
[2018-07-14] MEDS: CHOLECALCIFEROL 1,000 UNITS TAB PO SCH (20:26)
[2018-07-14] MEDS: VENLAFAXINE HCL 37.5 MG TAB PO SCH (20:26)
[2018-07-15] MEDS ORDERED: VANCOMYCIN HCL 1,250 MG in SODIUM CHLORIDE 0.9% 250 ML IV SCH (04:00)
== END 2018-07-14 22:39 | disposition short-term general hospital (02) | DRG 605 ==
LOC: ED 15:50 → SUATTDRO 18:26 → 4W 18:26

== ENCOUNTER 2018-09-30 13:59 | Inpatient (IN) ==
--- NOTE | 2018-09-30 15:05 | XRay Report ---
XR tibia fibula RT 2V CLINICAL HISTORY: cellulitis eval for osseous involvement COMPARISON STUDY: None. FINDINGS: Diffuse subcutaneous edema/soft tissue swelling within the right lower leg. No underlying b anel destruction to suggest osteomyelitis. Mild vascular calcifications are noted. No radiopaque forei gn bodies. No fracture or dislocation within the right lower leg. IMPRESSION: Diffuse subcutaneous edema/soft tissue swelling within the right lower leg. No underlyin g bony abnormality to suggest osteomyelitis. Electronically signed by: Mahin Gurrola M.D. 09/30/2018 3:04 PM
--- NOTE | 2018-09-30 15:07 | XRay Report ---
XR chest 1V portable HISTORY: Sepsis COMPARISON: Chest 10/05/2013. FINDINGS: No pneumothorax. There are poststernotomy changes. The heart remains mildly enlarged. Hazy bibasilar densities are noted. There may be trace bilateral pleural effusions. The upper lung zones a re clear. No evidence for pulmonary edema. IMPRESSION: 1. Hazy bibasilar densities which are similar to the prior study. This could represent atelectasis or pneumonia. Small layering pleural effusions could also have a similar appearance. 2. Stable cardiomegaly. Electronically signed by: Mahin Gurrola M.D. 09/30/2018 3:06 PM
[2018-09-30 15:26] LABS: Hematocrit (blood only) 31.4 % (42-52); Hemoglobin 9.9 g/dL (14.0-18.0); Mean Corpuscular Hgb Conc 31.5 g/dL (32-36); Mean Corpuscular Volume 102.6 fL (80-100); Mean Platelet Volume 9.2 fL (7.4-10.4); Platelet Count 220 K/uL (130-400); RDW Coefficient of Variation 15.5 % (11.5-14.5); RDW Standard Deviation 58.6 fL (36.4-46.3); Red Blood Count 3.06 M/uL (4.7-6.1); White Blood Count 27.39 K/uL (4.8-10.8)
[2018-09-30 15:37] LABS: INR 1.1 (0.9-1.1); Partial Thromboplastin Time 27.7 Seconds (21.0-31.0); Prothrombin Time 11.6 Seconds (9.0-12.0)
[2018-09-30 15:39] LABS: Base Excess VBG 0.6 mEq/L; HCO3 VBG 26 mmol/L; PCO2 VBG 42 mmHg (38-50); PO2 VBG 30 mmHg
[2018-09-30 15:40] LABS: Oxygen Saturation VBG < 60.0 %
[2018-09-30 15:44] LABS: Albumin Level 2.2 gm/dl (3.4-5.0); BUN Creatinine Ratio 18.4 (10-20); Bilirubin Direct 0.2 mg/dl (0-0.2); C Reactive Protein 7.34 mg/dl (0-0.29); Calcium 7.8 mg/dl (8.5-10.1); Creatinine Clr Calc Pharmacy 28.7 ml/min; Est GFR (African American) 30.6; Est GFR (Non-African American) 26.4; Potassium 3.6 mmol/L (3.5-5.1)
[2018-09-30 15:47] LABS: Albumin Globulin Ratio 0.7 (0.9-2); Bilirubin,Total 0.4 mg/dl (0.2-1); Globulin 3.1 gm/dl (2.5-4.0); Total Protein 5.3 gm/dl (6.4-8.2)
[2018-09-30 16:06] LABS: Basophils # (auto) 0.01 K/uL (0-0.2); Immature Granulocytes # (auto) 0.17 K/uL (0.00-0.02); Immature Granulocytes % (auto) 0.6 %; Lymphocytes # (auto) 0.89 K/uL (1.2-3.4); Lymphocytes % (auto) 3.2 %; Monocytes # (auto) 1.19 K/uL (0.11-0.59); Monocytes % (auto) 4.3 %; Neutrophils # (auto) 25.13 K/uL (1.4-6.5); Neutrophils % (auto) 91.9 %
[2018-09-30 16:08] LABS: Phosphorus 3.7 mg/dl (2.5-4.9)
--- NOTE | 2018-09-30 16:16 | Ultrasound Report ---
RIGHT LOWER EXTREMITY VENOUS DOPPLER HISTORY: Right leg swelling redness pain COMPARISON STUDY: None. FINDINGS: There is normal compressibility, flow, and augmentation within the right lower extremity de ep venous system. IMPRESSION: No DVT within the right lower extremity Electronically signed by: Mahin Gurrola M.D. 09/30/2018 4:13 PM
[2018-09-30] MEDS ORDERED: VANCOMYCIN HCL 1,750 MG in SODIUM CHLORIDE 0.9% 500 ML IV ONE (16:34)
[2018-09-30] MEDS ORDERED: VANCOMYCIN CONSULT ACTIVE PRN (16:34)
[2018-09-30] MEDS ORDERED: PIPERACILLIN/TAZOBACTAM 4.5 GM/120 ML BAG IV ONE (16:34)
[2018-09-30] MEDS ORDERED: SODIUM CHLORIDE 0.9% 500 ML IV ONE (16:36)
--- NOTE | 2018-09-30 16:42 | Emergency Department Note ---
Entered by Viviane Yadav acting as a scribe for Elio Tong MD History of Present Illness General Chief complaint: Infection, Wound Stated complaint: RT LEG OPEN WOUND NOT HEALING Time Seen by Provider: 09/30/18 14:10 Source: patient and family History of Present Illness Provider complaint: wound infection Onset (ago): week(s) 1 Location: lower extremity and right Severity: similar to prior episodes Pain Consistency: + other (worsening) Maximum Pain Intensity: 6 Associated symptoms: + fever/chills (+fever, -chills) and + other (+bilateral leg swelling, +right leg pain) The patient is a 78 year old male who presents to the Emergency Room with complaints of worsening wound infection for the past week. He states that his home health care nurse noticed at 1130 that his right leg appeared that the discharge in his sores had worsened from a week ago. The patient states that he has had sores and shingles on his right leg that was diagnosed 3 months ago. He reports that he admitted at [facility] because they believed it was in infection, but ended up discharging him with antibiotics which have alleviated some sympt oms. He notes that he has been experiencing worsening swelling in his legs that started 3 weeks ago. He reports that he has been experiencing worsening pain in his right leg. The patients family notes that he had a low grade fever on 10 yesterday which has since resolved. Home Medications Home Medications Medication Instructions Recorded Confirmed Type alfuzosin 10 mg PO DAILY@1200 12/21/17 09/30/18 History allopurinol 300 mg PO DAILY@1200 12/21/17 09/30/18 History cholecalciferol (vitamin D3) 4,000 units PO DAILY 12/21/17 09/30/18 History [Vitamin D3] clopidogrel [Plavix] 75 mg PO QAM 12/21/17 09/30/18 History finasteride 5 mg PO QPM 12/21/17 09/30/18 History levothyroxine 25 mcg PO QAM 12/21/17 09/30/18 History nitroglycerin [Nitrostat] 0.4 mg SUBLINGUAL UD 12/21/17 09/30/18 History aspirin 81 mg PO DAILY@1200 07/10/18 09/30/18 History atorvastatin 40 mg PO QPM 07/10/18 09/30/18 History metoprolol succinate 12.5 mg PO QAM 07/10/18 09/30/18 History prednisone 10 mg PO QAM 07/10/18 09/30/18 History gabapentin 100 mg PO TID 09/30/18 09/30/18 History oxycodone 5 mg PO Q8H PRN 09/30/18 09/30/18 History torsemide 20 mg PO DAILY 09/30/18 09/30/18 History Allergies Allergy/AdvReac Type Severity Reaction Status Date / Time No Known Allergies Allergy Verified 09/30/18 15:14 Past Med/Surg History Medical History Gout (Chronic) HX Sleep apnea (Chronic) CPAP Hyperlipidemia (Chronic) Former smoker (Chronic) Skin cancer (Chronic) Actinic keratitis (Chronic) Diastolic congestive heart failure (Chronic) Venous stasis ulcer of ankle limited to breakdown of skin without varicose veins (Chronic) CAD (coronary artery disease) (Chronic) BPH (benign prostatic hyperplasia) (Chronic) Hypothyroidism (Chronic) CKD (chronic kidney disease) stage 3, GFR 30-59 ml/min (Chronic) Cellulitis of right lower extremity without foot (Acute) HTN (hypertension) (Chronic) Stomach problems (Chronic) Mediastinal mass (Chronic) Wound dehiscence, surgical (Acute) Myasthenia gravis (Chronic) Dysmetabolic syndrome X (Acute) First degree atrioventricular block (Acute) History of thymus cancer (Acute) Venous stasis ulcer (Acute) Surgical History History of cardiac cath (Chronic) 2 [facility] 04/2016 Hx of thymectomy (Chronic) 2014 S/P cataract extraction (Chronic) Family History Mother Family history of diabetes mellitus Social History Preferred Language: Yakut Communication Ability: Effective Practice Billing Associate Required: No Beliefs That Will Affect Care: None Current Living Situation: Spouse Feels Safe at Home: Yes Safety Concerns: Feels Safe At This Time Smoking Status: Former smoker Tobacco Type: cigarettes Smoking End Date: Quit 1963, smoked 1ppd x 7 years Second Hand Exposure: No Hx Alcohol Use: No Hx Substance Use: No Review of Systems See HPI for pertinent positives & negatives. and A total of 10 systems reviewed and were otherwise negative Physical Exam Vital Signs Vital Signs - 24 hr 09/30/18 14:04 Temperature 36.6 C Temperature Source Oral Sepsis Recent Fever Within 48 Hours Yes Sepsis New/Unexplained Change in Mental Status No Sepsis Action Taken by Nursing No Action Required Pulse Rate 109 H Respiratory Rate 18 Respiratory Effort / Characteristics Non-Labored Spontaneous Respiratory Depth Normal Blood Pressure 130/73 Blood Pressure Mean 92 Blood Pressure Position Sitting Pulse Oximetry 91 Oxygen Delivery Method Room Air GENERAL: Awake, alert, chronically ill-appearing, no distress HENT: Normocephalic, atraumatic. TM's normal. Oropharynx with dry mucous membranes and otherwise unremarkable. EYES: PERRL. EOMI. Normal conjunctiva. Sclera non-icteric. NECK: Supple. No nuchal rigidity. FROM. No JVD or bruit. RESPIRATORY: CTAB CARDIAC: Tachycardic rate, irregular rhythm. ABDOMEN: Soft, non distended. No tenderness to palpation. No rebound or guarding. No masses. RECTAL: Deferred. MUSCULOSKELETAL: Unremarkable. 2+ pitting edema bilateral lower extremity. No discoloration. Gross motor strength symmetric. NEURO: Normal sensorium. No sensory or motor deficits noted. SKIN: No jaundice noted. Scant erythema with a couple of isolated serous pustules of the left pretibial region. Right lower leg extensive erythema, warmth, patches of purulence from previously desquamated areas. LYMPH: No adenopathy Course 1429: The patient was evaluated in room B10, and a complete history and physical examination were performed. 1639: I discussed the patient's case with Dr. Bhavya Stanley PA-C Hospitalist will accept the patient for further evaluation. Consultations Consultation #1: Dr. Bhavya Stanley PA-C [facility] Time: 16:39 Administered Medications Atorvastatin Calcium (Lipitor) 40 mg PO QPM [facility]SI Stop: 10/30/18 20:59 Last Admin: 09/30/18 20:40 Dose: 40 mg Documented by: [id number] Finasteride (Proscar) 5 mg PO QPM [facility]SI Stop: 10/30/18 20:59 Last Admin: 09/30/18 20:41 Dose: 5 mg Documented by: [id number] Gabapentin (Neurontin) 100 mg PO TID CASSI Stop: 10/30/18 20:59 Last Admin: 09/30/18 20:41 Dose: 100 mg Documented by: [id number] Daptomycin 275 mg/ Syringe 5.5 mls @ 2.75 mls/min IV Q48H [facility]SI; Protocol Stop: 10/10/18 20:29 Last Admin: 09/30/18 20:39 Dose: 2.75 mls/min Documented by: [id number] Piperacillin Sod/Tazobactam (Sod 3.375 gm/ Dextrose) 115 mls @ 28.75 mls/hr IV Q8H [facility]; Protocol Stop: 10/10/18 21:59 Last Admin: 09/30/18 21:25 Dose: 28.8 mls/hr Documented by: [id number] Heparin Sodium/Dextrose (Heparin Sodium/Dextrose) 25,000 units in 500 mls @ 18 mls/hr IV .Q24H [facility]; Protocol Stop: 10/30/18 23:14 Last Admin: 09/30/18 23:50 Dose: 900 units/hr, 18 mls/hr Documented by: [id number] Cosigned by: [id number] Metoprolol Tartrate (Lopressor) 2.5 mg IV Q4 PRN PRN Reason: Tachycardia Stop: 10/31/18 00:00 Last Admin: 10/01/18 00:34 Dose: 2.5 mg Documented by: [id number] Discontinued Medications Bacitracin (Bacitracin) Confirm Administered Dose 45 appln .ROUTE .STK-MED ONE Stop: 09/30/18 17:25 Last Admin: 09/30/18 18:05 Dose: 45 appln Documented by: [id number] Heparin Sodium (Porcine) (Heparin Sodium (Porcine)) 5,000 units SQ Q12 [facility] Stop: 10/30/18 20:59 Last Admin: 09/30/18 20:39 Dose: 5,000 units Documented by: [id number] Cosigned by: [id number] Vancomycin HCl 1,750 mg/ (Sodium Chloride) 535 mls @ 200 mls/hr IV NOW ONE; Protocol Stop: 09/30/18 19:14 Last Admin: 09/30/18 18:05 Dose: Not Given Documented by: [id number] Piperacillin Sod/Tazobactam Sod (Zosyn) 4.5 gm in 120 mls @ 30 mls/hr IV NOW ONE Stop: 09/30/18 20:33 Last Infusion: 09/30/18 18:04 Dose: 0 mls/hr Documented by: [id number] Admin: 09/30/18 16:44 Dose: 30 mls/hr Documented by: [id number] Sodium Chloride (Nss) 500 mls @ 999 mls/hr IV .Q31M ONE Stop: 09/30/18 17:06 Last Infusion: 09/30/18 18:04 Dose: 0 mls/hr Documented by: [id number] Admin: 09/30/18 16:44 Dose: 999 mls/hr Documented by: [id number] Medical Decision Making Differential Diagnosis Differential diagnosis: Etiologies such as cellulitis, abscess, MRSA infection, DVT, necrotizing fasciitis, dermatitis, drug eruption, as well as others were entertained. Medical Records Attestation: I reviewed the patient's medical records. Home Medications Current Medication List: was personally reviewed by me Laboratory Data Attestation: I reviewed the patient's lab results. Result diagrams: 09/30/18 23:30 09/30/18 15:16 Lab Results 09/30/18 09/30/18 09/30/18 Range/Units 15:16 15:16 15:16 WBC 27.39 H (4.8-10.8) K/uL RBC 3.06 L (4.7-6.1) M/uL Hgb 9.9 L (14.0-18.0) g/dL Hct 31.4 L (42-52) % MCV 102.6 H (80-100) fL MCH 32.4 (25-34) pg MCHC 31.5 L (32-36) g/dL RDW Std Deviation 58.6 H (36.4-46.3) fL RDW Coeff of Pina 15.5 H (11.5-14.5) % Plt Count 220 (130-400) K/uL MPV 9.2 (7.4-10.4) fL Immature Gran % (Auto) 0.6 % Neut % (Auto) 91.9 % Lymph % (Auto) 3.2 % Lamar % (Auto) 4.3 % Eos % (Auto) 0.0 % Baso % (Auto) 0.0 % Immature Gran # (Auto) 0.17 H (0.00-0.02) K/uL Neut # (Auto) 25.13 H (1.4-6.5) K/uL Lymph # (Auto) 0.89 L (1.2-3.4) K/uL Lamar # (Auto) 1.19 H (0.11-0.59) K/uL Eos # (Auto) 0.00 (0-0.5) K/uL Baso # (Auto) 0.01 (0-0.2) K/uL ESR 32 H (0-14) mm/hr PT (9.0-12.0) Seconds INR (0.9-1.1) APTT (21.0-31.0) Seconds PTT Ratio VBG pH (7.36-7.41) VBG pCO2 (38-50) mmHg VBG pO2 mmHg VBG HCO3 mmol/L VBG O2 Saturation % VBG Base Excess mEq/L Barometric Pressure mm/Hg Sodium (136-145) mmol/L Potassium (3.5-5.1) mmol/L Chloride (98-107) mmol/L Carbon Dioxide (21-32) mmol/L Anion Gap (3-11) BUN (7-18) mg/dl Creatinine (0.6-1.4) mg/dl Est Cr Clr Drug Dosing ml/min Est GFR ( Amer) Est GFR (Non-Af Amer) BUN/Creatinine Ratio (10-20) Glucose (70-99) mg/dl Lactate (0.4-2.0) mmol/L Calcium (8.5-10.1) mg/dl Phosphorus (2.5-4.9) mg/dl Magnesium (1.8-2.4) mg/dl Total Bilirubin (0.2-1) mg/dl Direct Bilirubin (0-0.2) mg/dl AST (15-37) U/L ALT (12-78) U/L Alkaline Phosphatase (45-117) U/L Total Creatine Kinase (39-308) U/L C-Reactive Protein (0-0.29) mg/dl NT-Pro-B Natriuret Pep (0-1800) pg/ml Total Protein (6.4-8.2) gm/dl Albumin (3.4-5.0) gm/dl Globulin (2.5-4.0) gm/dl Albumin/Globulin Ratio (0.9-2) Procalcitonin 4.63 H (0-0.5) ng/ml TSH (0.300-4.500) uIu/ml Urine Color Urine Appearance (Clear) Urine pH (4.5-7.5) Ur Specific [place] (1.000-1.030) Urine Protein (Negative) Urine Glucose (UA) (Negative) Urine Ketones (Negative) Urine Blood (Negative) Urine Nitrite (Negative) Urine Bilirubin (Negative) Urine Urobilinogen (Negative) Ur Leukocyte Esterase (Negative) 09/30/18 09/30/18 09/30/18 Range/Units 15:16 15:16 15:16 WBC (4.8-10.8) K/uL RBC (4.7-6.1) M/uL Hgb (14.0-18.0) g/dL Hct (42-52) % MCV (80-100) fL MCH (25-34) pg MCHC (32-36) g/dL RDW Std Deviation (36.4-46.3) fL RDW Coeff of Pina (11.5-14.5) % Plt Count (130-400) K/uL MPV (7.4-10.4) fL Immature Gran % (Auto) % Neut % (Auto) % Lymph % (Auto) % Lamar % (Auto) % Eos % (Auto) % Baso % (Auto) % Immature Gran # (Auto) (0.00-0.02) K/uL Neut # (Auto) (1.4-6.5) K/uL Lymph # (Auto) (1.2-3.4) K/uL Lamar # (Auto) (0.11-0.59) K/uL Eos # (Auto) (0-0.5) K/uL Baso # (Auto) (0-0.2) K/uL ESR (0-14) mm/hr PT 11.6 (9.0-12.0) Seconds INR 1.1 (0.9-1.1) APTT 27.7 (21.0-31.0) Seconds PTT Ratio 1.0 VBG pH (7.36-7.41) VBG pCO2 (38-50) mmHg VBG pO2 mmHg VBG HCO3 mmol/L VBG O2 Saturation % VBG Base Excess mEq/L Barometric Pressure mm/Hg Sodium 142 (136-145) mmol/L Potassium 3.6 (3.5-5.1) mmol/L Chloride 109 H (98-107) mmol/L Carbon Dioxide 26 (21-32) mmol/L Anion Gap 7.0 (3-11) BUN 42 H (7-18) mg/dl Creatinine 2.26 H (0.6-1.4) mg/dl Est Cr Clr Drug Dosing 28.7 ml/min Est GFR ( Amer) 30.6 Est GFR (Non-Af Amer) 26.4 BUN/Creatinine Ratio 18.4 (10-20) Glucose 156 H (70-99) mg/dl Lactate 2.1 H* (0.4-2.0) mmol/L Calcium 7.8 L (8.5-10.1) mg/dl Phosphorus (2.5-4.9) mg/dl Magnesium (1.8-2.4) mg/dl Total Bilirubin 0.4 (0.2-1) mg/dl Direct Bilirubin 0.2 (0-0.2) mg/dl AST 16 (15-37) U/L ALT 31 (12-78) U/L Alkaline Phosphatase 166 H (45-117) U/L Total Creatine Kinase (39-308) U/L C-Reactive Protein 7.34 H (0-0.29) mg/dl NT-Pro-B Natriuret Pep (0-1800) pg/ml Total Protein 5.3 L (6.4-8.2) gm/dl Albumin 2.2 L (3.4-5.0) gm/dl Globulin 3.1 (2.5-4.0) gm/dl Albumin/Globulin Ratio 0.7 L (0.9-2) Procalcitonin (0-0.5) ng/ml TSH (0.300-4.500) uIu/ml Urine Color Urine Appearance (Clear) Urine pH (4.5-7.5) Ur Specific [place] (1.000-1.030) Urine Protein (Negative) Urine Glucose (UA) (Negative) Urine Ketones (Negative) Urine Blood (Negative) Urine Nitrite (Negative) Urine Bilirubin (Negative) Urine Urobilinogen (Negative) Ur Leukocyte Esterase (Negative) 09/30/18 09/30/18 09/30/18 Range/Units 15:16 15:16 15:29 WBC (4.8-10.8) K/uL RBC (4.7-6.1) M/uL Hgb (14.0-18.0) g/dL Hct (42-52) % MCV (80-100) fL MCH (25-34) pg MCHC (32-36) g/dL RDW Std Deviation (36.4-46.3) fL RDW Coeff of Pina (11.5-14.5) % Plt Count (130-400) K/uL MPV (7.4-10.4) fL Immature Gran % (Auto) % Neut % (Auto) % Lymph % (Auto) % Lamar % (Auto) % Eos % (Auto) % Baso % (Auto) % Immature Gran # (Auto) (0.00-0.02) K/uL Neut # (Auto) (1.4-6.5) K/uL Lymph # (Auto) (1.2-3.4) K/uL [place] # (Auto) (0.11-0.59) K/uL Eos # (Auto) (0-0.5) K/uL Baso # (Auto) (0-0.2) K/uL ESR (0-14) mm/hr PT (9.0-12.0) Seconds INR (0.9-1.1) APTT (21.0-31.0) Seconds PTT Ratio VBG pH 7.40 (7.36-7.41) VBG pCO2 42 (38-50) mmHg VBG pO2 30 mmHg VBG HCO3 26 mmol/L VBG O2 Saturation < 60.0 % VBG Base Excess 0.6 mEq/L Barometric Pressure 736.6 mm/Hg Sodium (136-145) mmol/L Potassium (3.5-5.1) mmol/L Chloride (98-107) mmol/L Carbon Dioxide (21-32) mmol/L Anion Gap (3-11) BUN (7-18) mg/dl Creatinine (0.6-1.4) mg/dl Est Cr Clr Drug Dosing ml/min Est GFR ( Amer) Est GFR (Non-Af Amer) BUN/Creatinine Ratio (10-20) Glucose (70-99) mg/dl Lactate (0.4-2.0) mmol/L Calcium (8.5-10.1) mg/dl Phosphorus 3.7 (2.5-4.9) mg/dl Magnesium 2.0 (1.8-2.4) mg/dl Total Bilirubin (0.2-1) mg/dl Direct Bilirubin (0-0.2) mg/dl AST (15-37) U/L ALT (12-78) U/L Alkaline Phosphatase (45-117) U/L Total Creatine Kinase 31 L (39-308) U/L C-Reactive Protein (0-0.29) mg/dl NT-Pro-B Natriuret Pep 3734 H (0-1800) pg/ml Total Protein (6.4-8.2) gm/dl Albumin (3.4-5.0) gm/dl Globulin (2.5-4.0) gm/dl Albumin/Globulin Ratio (0.9-2) Procalcitonin (0-0.5) ng/ml TSH 1.080 (0.300-4.500) uIu/ml Urine Color Urine Appearance (Clear) Urine pH (4.5-7.5) Ur Specific [place] (1.000-1.030) Urine Protein (Negative) Urine Glucose (UA) (Negative) Urine Ketones (Negative) Urine Blood (Negative) Urine Nitrite (Negative) Urine Bilirubin (Negative) Urine Urobilinogen (Negative) Ur Leukocyte Esterase (Negative) 09/30/18 Range/Units 16:29 WBC (4.8-10.8) K/uL RBC (4.7-6.1) M/uL Hgb (14.0-18.0) g/dL Hct (42-52) % MCV (80-100) fL MCH (25-34) pg MCHC (32-36) g/dL RDW Std Deviation (36.4-46.3) fL RDW Coeff of Pina (11.5-14.5) % Plt Count (130-400) K/uL MPV (7.4-10.4) fL Immature Gran % (Auto) % Neut % (Auto) % Lymph % (Auto) % [place] % (Auto) % Eos % (Auto) % Baso % (Auto) % Immature Gran # (Auto) (0.00-0.02) K/uL Neut # (Auto) (1.4-6.5) K/uL Lymph # (Auto) (1.2-3.4) K/uL [place] # (Auto) (0.11-0.59) K/uL Eos # (Auto) (0-0.5) K/uL Baso # (Auto) (0-0.2) K/uL ESR (0-14) mm/hr PT (9.0-12.0) Seconds INR (0.9-1.1) APTT (21.0-31.0) Seconds PTT Ratio VBG pH (7.36-7.41) VBG pCO2 (38-50) mmHg VBG pO2 mmHg VBG HCO3 mmol/L VBG O2 Saturation % VBG Base Excess mEq/L Barometric Pressure mm/Hg Sodium (136-145) mmol/L Potassium (3.5-5.1) mmol/L Chloride (98-107) mmol/L Carbon Dioxide (21-32) mmol/L Anion Gap (3-11) BUN (7-18) mg/dl Creatinine (0.6-1.4) mg/dl Est Cr Clr Drug Dosing ml/min Est GFR ( Amer) Est GFR (Non-Af Amer) BUN/Creatinine Ratio (10-20) Glucose (70-99) mg/dl Lactate (0.4-2.0) mmol/L Calcium (8.5-10.1) mg/dl Phosphorus (2.5-4.9) mg/dl Magnesium (1.8-2.4) mg/dl Total Bilirubin (0.2-1) mg/dl Direct Bilirubin (0-0.2) mg/dl AST (15-37) U/L ALT (12-78) U/L Alkaline Phosphatase (45-117) U/L Total Creatine Kinase (39-308) U/L C-Reactive Protein (0-0.29) mg/dl NT-Pro-B Natriuret Pep (0-1800) pg/ml Total Protein (6.4-8.2) gm/dl Albumin (3.4-5.0) gm/dl Globulin (2.5-4.0) gm/dl Albumin/Globulin Ratio (0.9-2) Procalcitonin (0-0.5) ng/ml TSH (0.300-4.500) uIu/ml Urine Color Yellow Urine Appearance Clear (Clear) Urine pH 5.0 (4.5-7.5) Ur Specific [place] 1.017 (1.000-1.030) Urine Protein Negative (Negative) Urine Glucose (UA) Negative (Negative) Urine Ketones Negative (Negative) Urine Blood Negative (Negative) Urine Nitrite Negative (Negative) Urine Bilirubin Negative (Negative) Urine Urobilinogen Negative (Negative) Ur Leukocyte Esterase Negative (Negative) Imaging Data Radiologist's Impression: Radiology results as stated below per my review and the radiologist's interpretation: XR chest 1V portable HISTORY: Sepsis COMPARISON: Chest 10/05/2013. FINDINGS: No pneumothorax. There are poststernotomy changes. The heart remains mildly enlarged. Hazy bibasilar densities are noted. There may be trace bilateral pleural effusions. The upper lung zones are clear. No evidence for pulmonary edema. IMPRESSION: 1. Hazy bibasilar densities which are similar to the prior study. This could represent atelectasis or pneumonia. Small layering pleural effusions could also have a similar appearance. 2. Stable cardiomegaly. Electronically signed by: Mahin Gurrola M.D. 09/30/2018 3:06 PM XR tibia fibula RT 2V CLINICAL HISTORY: cellulitis eval for osseous involvement COMPARISON STUDY: None. FINDINGS: Diffuse subcutaneous edema/soft tissue swelling within the right lower leg. No underlying bony destruction to suggest osteomyelitis. Mild vascular calcifications are noted. No radiopaque foreign bodies. No fracture or d islocation within the right lower leg. IMPRESSION: Diffuse subcutaneous edema/soft tissue swelling within the right lower leg. No underlying bony abnormality to suggest osteomyelitis. Electronically signed by: Mahin Gurrola M.D. 09/30/2018 3:04 PM RIGHT LOWER EXTREMITY VENOUS DOPPLER HISTORY: Right leg swelling redness pain COMPARISON STUDY: None. FINDINGS: There is normal compressibility, flow, and augmentation within the right lower extremity deep venous system. IMPRESSION: No DVT within the right lower extremity Electronically signed by: Mahin Gurrola M.D. 09/30/2018 4:13 PM ECG Data Attestation: I personally reviewed and interpreted this ECG as follows: Indication: weakness Rate (beats per minute): 91 Rhythm: atrial fibrillation Findings: + nonspecific-ST abn; no acute ischemic change Blood Pressure Blood Pressure Findings: Normal blood pressure Blood Pressure Disposition: did not require urgent referral MDM Narrative The patient is a pleasant 78-year-old gentleman with a past medical history of CKD, CAD, hypertension, myasthenia gravis with a recent prolonged medical course of a right lower extremity wound ultimately diagnosed as zoster however in the setting of having trauma several months ago with subsequent development of wound which was managed for infection but upon worsening was admitted to the hospital here which upon lack of improvement on IV antibiotics was transferred to [facility] for possible necrotizing infection however there was diagnosed with zoster who now presents to the emergency department with concern for worsening of this lower extremity wound by visiting home nurse per hpi. Of note, this particular home nurse last saw the patient's last week and the patient does follow with dermatology weekly. He had another home nurse visit and change his dressing on and there apparently was no concern at that time. He apparently had fever to 101 yesterday. On arrival the patient is chronically ill-appearing but no acute distress, afebrile stable vital signs. On exam the patient has 2+ pitting edema to bilateral lower extremities with right lower extremity showing extensive erythema and patches of purulence within beds of previously desquamated tissue. WBC is elevated from prior with white count of 27,000. Lactate is 2.1 however chemistry without acidosis. Procalcitonin is 4.7 which raises suspicion for possible superimposed infection. EKG demonstrates afib, which appears to be new. Will defer decision for anticoagulation to admitting team. Chest x-ray with atelectasis versus possible infiltrate. Given these findings patient was ordered for broad-spectrum antibiotics with vancomycin and Zosyn. Case was discussed with Dr. Reis, general surgery on-call and agrees with admission here to medicine for IV antibiotics however should the patient worsen would likely require transfer to higher level of care. Case was discussed with Bhavna Holden, [facility] PAC, who evaluate the patient for admission. Impression & Plan Sepsis, Cellulitis, Shingles, Leukocytosis Critical Care Time Critical Care Time: Yes Total Critical Care Time: 50 I have personally spent greater than 50 minutes of critical care time in the direct management of this patient. This includes bedside care, interpretation of diagnostic studies, and testing, discussion with consultants, patient, and family members, and other required patient management activities. This 50 minutes is in excess of all separately billable procedures. Discharge Plan Visit Data *Final* Discharge Date/Time: 09/30/18 18:58 Chief Complaint: Infection, Wound Stated Complaint: RT LEG OPEN WOUND NOT HEALING ED Provider: Elio Tong Discharge Problem: Sepsis, Cellulitis, Shingles, Leukocytosis Patient Disposition: Admitted As Inpatient Discharge Instructions Interventions: ED Discharge Assessment Last Done: 09/30/18 18:58 Discharge Problem: Sepsis Qualifiers: Sepsis type: sepsis due to unspecified organism Qualified Code(s): A41.9 - Sepsis, unspecified organism Shingles Qualifiers: Herpes zoster complications: without complications Qualified Code(s): B02.9 - Zoster without complications Leukocytosis Qualifiers: Leukocytosis type: unspecified Qualified Code(s): D72.829 - Elevated white blood cell count, unspecified The scribe's documentation has been prepared under my direction and personally reviewed by me in its entirety. I confirm that the note above accurately reflects all work, treatment, procedures, and medical decision making performed by me.
[2018-09-30 16:50] LABS: Appearance Urine Clear (Clear); Bilirubin Urine Negative (Negative); Blood Urine Negative (Negative); Color Urine Yellow; Glucose Urine UA Negative (Negative); Ketones Urine Negative (Negative); Leukocyte Esterase Urine Negative (Negative); Nitrite Urine Negative (Negative); Protein Urine Negative (Negative); Specific Gravity Urine 1.017 (1.000-1.030); Urobilinogen Urine Negative (Negative)
[2018-09-30] MEDS ORDERED: BACITRACIN OINT 15 GM TUBE ONE (17:24)
--- NOTE | 2018-09-30 17:43 | Surgery Consultation ---
Date of Consultation September 30, 2018 Assessment & Plan (1) Cellulitis: 78 keyla-old male who presents to Er with worse RLL infection, IMP: Cellulitis of right lower extremity without foot: sepsis 77-year-old male with infected right lower extremity wound with extensive superficial skin loss. wound culture sent, Agree with Hospitalist will admit pt to hospital, IV antibiotics, ID consult. wound care nurse consult, apply bacitricn on RLL once a day, repeat labs In am, blood culture, Will follow. Thanks, D/W ER attending, pt and family members agree with the treatment plan, History of Present Illness History of Present Illness CC: right lower leg infection HPI: The patient is a 78 year old male who presents to the Emergency Room with complaints of worsening wound infection for the past week. He states that his home health care nurse noticed at 1130 that his right leg appeared that the discharge in his sores had worsened from a week ago. The patient states that he has had sores and shingles on his right leg that was diagnosed 3 months ago. He reports that he admitted at [facility] because they believed it was in infection, but ended up discharging him with antibiotics which have alleviated some symptoms. He notes that he has been experiencing worsening swelling in his legs that started 3 weeks ago. He reports that he has been experiencing worsening pain in his right leg. The patients family notes that he had a low grade fever on 10 yesterday which has since resolved. I got a call for consult pt's right lower infection, I reviewed pt's H/P with pt's and daughter, pt was [place] [facility] lower infection in 07/2018, pt had skin biopsy which dx shingles, pt was treated with uniboot st home by wound care nurse 3 times a week. pt said the wound is better, but more redness, pt has chronic renal disease, CAD, HTN and myasthenia gravis. Allergies Allergy/AdvReac Type Severity Reaction Status Date / Time No Known Allergies Allergy Verified 09/30/18 15:14 Home Medications Home Medications Medication Instructions Recorded Confirmed Type alfuzosin 10 mg PO DAILY@1200 12/21/17 09/30/18 History allopurinol 300 mg PO DAILY@1200 12/21/17 09/30/18 History cholecalciferol (vitamin D3) 2,000 units PO QPM 12/21/17 09/30/18 History [Vitamin D3] clopidogrel [Plavix] 75 mg PO QAM 12/21/17 09/30/18 History finasteride 5 mg PO QPM 12/21/17 09/30/18 History levothyroxine 25 mcg PO QAM 12/21/17 09/30/18 History nitroglycerin [Nitrostat] 0.4 mg SUBLINGUAL UD 12/21/17 09/30/18 History aspirin 81 mg PO DAILY@1200 07/10/18 09/30/18 History atorvastatin 40 mg PO QPM 07/10/18 09/30/18 History metoprolol succinate 12.5 mg PO QAM 07/10/18 09/30/18 History prednisone 10 mg PO QAM 07/10/18 09/30/18 History gabapentin 100 mg PO TID 09/30/18 09/30/18 History oxycodone 5 mg PO Q8H PRN 09/30/18 09/30/18 History torsemide 20 mg PO DAILY 09/30/18 09/30/18 History Patient History Medical History CKD (chronic kidney disease) stage 3, GFR 30-59 ml/min Infected wound Cellulitis (Acute) Failure of outpatient treatment (Acute) Cellulitis of right lower extremity without foot (Acute) Encounter for pre-operative examination HTN (hypertension) (Chronic) Kidney disease (Chronic) Stomach problems (Chronic) Mediastinal mass (Acute) Wound dehiscence, surgical (Acute) Myasthenia gravis (Chronic) Actinic keratitis (Acute) Diastolic congestive heart failure (Acute) Dysmetabolic syndrome X (Acute) First degree atrioventricular block (Acute) History of thymus cancer (Acute) Skin cancer (Acute) Venous stasis ulcer (Acute) Venous stasis ulcer of ankle limited to breakdown of skin without varicose veins (Acute) BPH (benign prostatic hyperplasia) CKD (chronic kidney disease) Coronary artery disease Former smoker Gout HX Hx of myasthenia gravis DX'D 2013-F/U DR [facility] [place] Hyperlipidemia Hypertension Hypothyroidism Kidney stones On anticoagulant therapy SINCE 04/2016 Sleep apnea CPAP Surgical History S/P cataract extraction (Acute) History of cardiac cath 2 [facility] [place] 04/2016 Hx of thymectomy 2014 Family History Mother Family history of diabetes mellitus Social History Preferred Language: Georgian Communication Ability: Effective Beliefs That Will Affect Care: None Current Living Situation: Spouse Feels Safe at Home: Yes Smoking Status: Never smoker Tobacco Type: cigarettes Cigarettes Per Day: QUIT 40 YRS AGO Second Hand Exposure: No Hx Alcohol Use: No Hx Substance Use: No Review of Systems Constitutional: as per Subjective / HPI Ear, Nose, Mouth, Throat: as per Subjective / HPI Respiratory: as per Subjective / HPI Cardiovascular: Additional Comments: CAD, HTN Gastrointestinal: as per Subjective / HPI Genitourinary: + as per Subjective / HPI Musculoskeletal: as per Subjective / HPI Neurologic: as per Subjective / HPI Endocrine: as per Subjective / HPI Physical Exam Constitutional: WD/WN, vitals as above well developed and well nourished ENMT: external ear and nose normal, oropharynx normal Neck: trachea midline, no thyromegaly Respiratory: normal respiratory effort, lungs clear to auscultation normal respiratory effort Cardiovascular: RRR, no murmur, no edema Rate/Rhythm: regular rate and regular rhythm Gastrointestinal (Abdomen): normal bowel sounds, soft, nontender, no hepatosplenomegaly Musculoskeletal: Cellulitis of right lower extremity without foot: infected right lower extremity wound with extensive superficial skin loss. left lower some redness, no tenderness, Skin: Cellulitis of right lower extremity without foot: infected right lower extremity wound with extensive superficial skin loss. left lower some redness, no tenderness, Neurologic: patellar DTR's 2+ bilat, sensation intact bilt foot pulse + Psychiatric: Orientation: alert and oriented x 3 Lymphatic: no cervical or axillary lymphadenopathy Results & Data Vital Signs (Past 12 Hours) Vital Signs Temp Pulse Resp BP Pulse Ox 09/30/18 14:04 36.6 C 109 H 18 130/73 91 Laboratory Results Abnormal lab results 09/30/18 09/30/18 09/30/18 Range/Units 15:16 15:16 15:16 WBC 27.39 H (4.8-10.8) K/uL RBC 3.06 L (4.7-6.1) M/uL Hgb 9.9 L (14.0-18.0) g/dL Hct 31.4 L (42-52) % MCV 102.6 H (80-100) fL MCHC 31.5 L (32-36) g/dL RDW Std Deviation 58.6 H (36.4-46.3) fL RDW Coeff of Pina 15.5 H (11.5-14.5) % Immature Gran # (Auto) 0.17 H (0.00-0.02) K/uL Neut # (Auto) 25.13 H (1.4-6.5) K/uL Lymph # (Auto) 0.89 L (1.2-3.4) K/uL [place] # (Auto) 1.19 H (0.11-0.59) K/uL ESR 32 H (0-14) mm/hr Chloride (98-107) mmol/L BUN (7-18) mg/dl Creatinine (0.6-1.4) mg/dl Glucose (70-99) mg/dl Lactate (0.4-2.0) mmol/L Calcium (8.5-10.1) mg/dl Alkaline Phosphatase (45-117) U/L Total Creatine Kinase (39-308) U/L C-Reactive Protein (0-0.29) mg/dl NT-Pro-B Natriuret Pep (0-1800) pg/ml Total Protein (6.4-8.2) gm/dl Albumin (3.4-5.0) gm/dl Albumin/Globulin Ratio (0.9-2) Procalcitonin 4.63 H (0-0.5) ng/ml 09/30/18 09/30/18 09/30/18 Range/Units 15:16 15:16 15:16 WBC (4.8-10.8) K/uL RBC (4.7-6.1) M/uL Hgb (14.0-18.0) g/dL Hct (42-52) % MCV (80-100) fL MCHC (32-36) g/dL RDW Std Deviation (36.4-46.3) fL RDW Coeff of Pina (11.5-14.5) % Immature Gran # (Auto) (0.00-0.02) K/uL Neut # (Auto) (1.4-6.5) K/uL Lymph # (Auto) (1.2-3.4) K/uL [place] # (Auto) (0.11-0.59) K/uL ESR (0-14) mm/hr Chloride 109 H (98-107) mmol/L BUN 42 H (7-18) mg/dl Creatinine 2.26 H (0.6-1.4) mg/dl Glucose 156 H (70-99) mg/dl Lactate 2.1 H* (0.4-2.0) mmol/L Calcium 7.8 L (8.5-10.1) mg/dl Alkaline Phosphatase 166 H (45-117) U/L Total Creatine Kinase 31 L (39-308) U/L C-Reactive Protein 7.34 H (0-0.29) mg/dl NT-Pro-B Natriuret Pep 3734 H (0-1800) pg/ml Total Protein 5.3 L (6.4-8.2) gm/dl Albumin 2.2 L (3.4-5.0) gm/dl Albumin/Globulin Ratio 0.7 L (0.9-2) Procalcitonin (0-0.5) ng/ml Diagnostic Findings RIGHT LOWER EXTREMITY VENOUS DOPPLER HISTORY: Right leg swelling redness pain COMPARISON STUDY: None. FINDINGS: There is normal compressibility, flow, and augmentation within the right lower extremity deep venous system. IMPRESSION: No DVT within the right lower extremity XR tibia fibula RT 2V CLINICAL HISTORY: cellulitis eval for osseous involvement COMPARISON STUDY: None. FINDINGS: Diffuse subcutaneous edema/soft tissue swelling within the right lower leg. No underlying bony destruction to suggest osteomyelitis. Mild vascular calcifications are noted. No radiopaque foreign bodies. No fracture or dislocation within the right lower leg. IMPRESSION: Diffuse subcutaneous edema/soft tissue swelling within the right lower leg. No underlying bony abnormality to suggest osteomyelitis. (1) Cellulitis Laterality: right Site of cellulitis: extremity Site of cellulitis of extremity: lower extremity Qualified Code(s): L03.115 - Cellulitis of right lower limb
--- NOTE | 2018-09-30 18:11 | History & Physical Report ---
Date of Service September 30, 2018 Assessment & Plan (1) Cellulitis of right lower extremity without foot: (2) Leukocytosis: Pt with hx RLE cellulitis with shingles in 07/2018 with continued wound healing and close follow up with dermatology and home health and using Unna boot presented with c/o foul odor to leg x 2 weeks with fever 101 couple of days ago. In ER afebrile, P: 109 down to 80, R: 18, BP: 130/73, 92% on RA. WBC: 27 with left shift, H/H: 9.9/31.4 (baseline hgb: 10.9-12), Plt: 220, ESR: 32, CRP: 7, Lactate: 2.1, Procalcitonin: 4.6 (patient on prednisone). EKG: rate 70 sinus rhythm Venous Doppler RLE: No DVT Tibia/fibula x-ray: Diffuse subcutaneous edema/soft tissue swelling within the right lower leg. No underlying bony abnormality to suggest osteomyelitis. Patient meets SIRS criteria -In ER given Zosyn, 500 mL NSS -Pending wound culture -Pending blood cultures -Repeat lactate -Zosyn, daptomycin -Continue oxycodone as needed pain -Continue gabapentin -ID consult -General surgery consult-Dr. Reis saw patient in ER and applied bacitracin and dressed right lower extremity and recommends holding off on an Unna boot at this time -Wound consult -Monitor CBC, BMP (3) CKD (chronic kidney disease) stage 3, GFR 30-59 ml/min: CKD III-IV Cr: 2.2. (Recent creatinines range 1.7-2.2, Cr was 2.2 on 09/25/18, 1.7 on 09/04/2018) -Monitor renal functions -Avoid nephrotoxic and possible -If worsening consider nephrology consult (4) Diastolic congestive heart failure: History of chronic diastolic heart failure. Echo 03/2017 preserved EF, grade 1 diastolic dysfunction, mild pulmonary hypertension -Continue torsemide (5) CAD (coronary artery disease): S/P stent LAD in 2016 No chest pain -Continue aspirin, Plavix, statin, metoprolol (6) Myasthenia gravis: Patient follows with neurology. CellCept had been stopped a couple months ago secondary to slow wound healing. Prednisone was decreased from 15 mg daily to 10 mg daily recently -Continue prednisone (7) Hypothyroidism: TSH pending -Continue levothyroxine (8) Sleep apnea: -CPAP at bedtime (9) Gout: -Continue allopurinol (10) BPH (benign prostatic hyperplasia): -Continue finasteride, alfuzosin DVT Prophylaxis -Heparin SQ Full Code as per discussion with pt Follows with Dr Golden for routine care Pt was seen and care coordinated with Dr Devries. See addendum History of Present Illness Chief Complaint: RLE erythema Primary Care Provider: Ivette Golden, Pt is 78 y/o M with PMH of myasthenia gravis, HTN, CAD s/p stent, luminary hypertension, chronic diastolic heart failure, CKD III, ANNETTE, hypothyroidism, depression, gout, BPH presented to ER with complaint of worsening right lower leg erythema. Patient with history of hospitalization 07/10/2018-07/14/2018 at [facility] for right lower extremity cellulitis. Symptoms did not significantly improve and patient was transferred to [facility] [place]. It was thought that patient had developed shingles on top of cellulitis and he was prescribed antibiotics and Valtrex and finished Valtrex at the end of August 2018. Previous wound cultures MSSA and Proteus. Positive varicella-zoster PCR on 07/20/2018. Since patient has been following up with dermatology and home health nurses. He has Unna boot which was originally being changed twice a week however patient had noticed foul odor 1 to 2 weeks ago and boot is being changed 3 times a week (changed on Mondays in the office, Wednesdays and Fridays by home nursing). Thanks. Is more red. Patient reports boot often seems to tight and feels like it is irritating his leg. Patient reports fever 101 F a couple of days ago. Pt with chronic BLE edema and reports last week had some weight gain and took additional dose of torsemide and weight seems stable. Denies diaphoresis, N/V/D/C, CAPELLAN, dizziness, syncope, vision changes, neck pain, CP, SOB, orthopnea, palpitations, cough, sore throat, choking, otalgia, rhinorrhea, abdominal pain, paresthesias, weakness, other rashes, urinary symptoms. Allergies Allergy/AdvReac Type Severity Reaction Status Date / Time No Known Allergies Allergy Verified 09/30/18 15:14 Home Medications Home Medications Medication Instructions Recorded Confirmed Type alfuzosin 10 mg PO DAILY@1200 1017/18 07/27/19 History allopurinol 300 mg PO DAILY@1200 12/21/17 09/30/18 History cholecalciferol (vitamin D3) 4,000 units PO DAILY 12/21/17 09/30/18 History [Vitamin D3] clopidogrel [Plavix] 75 mg PO QAM 12/21/17 09/30/18 History finasteride 5 mg PO QPM 12/21/17 09/30/18 History levothyroxine 25 mcg PO QAM 12/21/17 09/30/18 History nitroglycerin [Nitrostat] 0.4 mg SUBLINGUAL UD 12/21/17 09/30/18 History aspirin 81 mg PO DAILY@1200 07/10/18 09/30/18 History atorvastatin 40 mg PO QPM 07/10/18 09/30/18 History metoprolol succinate 12.5 mg PO QAM 07/10/18 09/30/18 History prednisone 10 mg PO QAM 07/10/18 09/30/18 History gabapentin 100 mg PO TID 09/30/18 09/30/18 History oxycodone 5 mg PO Q8H PRN 09/30/18 09/30/18 History torsemide 20 mg PO DAILY 09/30/18 09/30/18 History Past Med/Surg History Medical History Gout (Chronic) HX Sleep apnea (Chronic) CPAP Hyperlipidemia (Chronic) Former smoker (Chronic) Skin cancer (Chronic) Actinic keratitis (Chronic) Diastolic congestive heart failure (Chronic) Venous stasis ulcer of ankle limited to breakdown of skin without varicose veins (Chronic) CAD (coronary artery disease) (Chronic) BPH (benign prostatic hyperplasia) (Chronic) Hypothyroidism (Chronic) CKD (chronic kidney disease) stage 3, GFR 30-59 ml/min (Chronic) Cellulitis of right lower extremity without foot (Acute) HTN (hypertension) (Chronic) Stomach problems (Chronic) Mediastinal mass (Chronic) Wound dehiscence, surgical (Acute) Myasthenia gravis (Chronic) Dysmetabolic syndrome X (Acute) First degree atrioventricular block (Acute) History of thymus cancer (Acute) Venous stasis ulcer (Acute) Surgical History History of cardiac cath (Chronic) 2 [facility] [place] 04/2016 Hx of thymectomy (Chronic) 2013 S/P cataract extraction (Chronic) Family History Mother Family history of diabetes mellitus Social History Preferred Language: Ethiopian Communication Ability: Effective Beliefs That Will Affect Care: None Current Living Situation: Spouse Feels Safe at Home: Yes Smoking Status: Former smoker Tobacco Type: cigarettes Smoking End Date: Quit 1963, smoked 1ppd x 7 years Second Hand Exposure: No Hx Alcohol Use: No Hx Substance Use: No Review of Systems Review of Systems: All systems reviewed & are unremarkable except as noted in HPI & below Physical Exam Physical Exam: General: no acute distress, WDWN Head: normocephalic, atraumatic Eyes: PERRL, EOM's intact, conjunctiva non-injected, anicteric ENT: normal inspection external ears, nose, mucous membranes moist Neck: supple, trachea midline Lungs: clear, no respiratory distress, no wheezing/rhonchi/rales CV: RRR, no murmur, 1+ pretibial edema Abd: normal BS, soft, non-tender Ext: no cyanosis, Bilateral lower legs with erythema, Right lower leg below knee distal to ankle with erythema and edema with multiple ulcerated yellow areas, mild warmth distal pulses palpable, sensation to light touch intact Neuro: A&O x 3, no focal deficits noted, normal affect Skin: warm, dry, legs as above Results & Data Vital Signs (Past 12 Hours) Vital Signs Temp Pulse Resp BP Pulse Ox 09/30/18 14:04 36.6 C 109 H 18 130/73 91 Laboratory Results Short CBC 09/30/18 Range/Units 15:16 WBC 27.39 H (4.8-10.8) K/uL Hgb 9.9 L (14.0-18.0) g/dL Hct 31.4 L (42-52) % Plt Count 220 (130-400) K/uL BMP 09/30/18 15:16 Sodium 142 Potassium 3.6 Chloride 109 H Carbon Dioxide 26 BUN 42 H Creatinine 2.26 H Glucose 156 H Calcium 7.8 L Cardiac Enzymes 07/27/19 Range/Units 15:16 Total Creatine Kinase 31 L (39-308) U/L Liver Function 09/30/18 Range/Units 15:16 Total Bilirubin 0.4 (0.2-1) mg/dl Direct Bilirubin 0.2 (0-0.2) mg/dl AST 16 (15-37) U/L ALT 31 (12-78) U/L Alkaline Phosphatase 166 H (45-117) U/L Albumin 2.2 L (3.4-5.0) gm/dl Urine 09/30/18 Range/Units 16:29 Urine Color Yellow Urine Appearance Clear (Clear) Urine pH 5.0 (4.5-7.5) Ur Specific [place] 1.017 (1.000-1.030) Urine Protein Negative (Negative) Urine Glucose (UA) Negative (Negative) LACTIC ACID 2.1 (0.4-2.0) * 2. Diagnostic Findings TIB/FIB XRAY: IMPRESSION: Diffuse subcutaneous edema/soft tissue swelling within the right lower leg. No underlying bony abnormality to suggest osteomyelitis. VENOUS DOPPLER RLE: IMPRESSION: No DVT within the right lower extremity CXR: IMPRESSION: 1. Hazy bibasilar densities which are similar to the prior study. This could represent atelectasis or pneumonia. Small layering pleural effusions could also have a similar appearance. 2. Stable cardiomegaly Supervising Physician Co-Signing Physician Notes I saw this patient with the physician horticultural nursery assistant, I participated in the history, physical, review of systems, and physical exam. I reviewed the medications with the patient and the physician horticultural nursery assistant and helped reconcile the medications. I helped take a detailed family and social history as well. I formulated the assessment and plan personally with the physician horticultural nursery assistant and went over it with the patient. ROS-No Headache, No Visual Changes, No Nausea, No Vomiting, No Fever, No Chills, No Neck Pain or Stiffness, No Chest Pain, No Palpitations, No SOB, No WEINER, No Cough, No Sputum, No Wheezing, No Abdominal Pain, No Diarrhea, No Hematemesis, No Hemoptysis, No Unexpected Weight Loss, No Flank pain, No Melena, No Hematochezia, No Frequency, No Urgency, No Burning, No Hematuria, No Rashes, No Diaphoresis. Appetite is Normal, +LE Pain, +edema Physical Exam Gen-AAO x 3, NAD, Afebrile Head-NCAT, EOMI, PERRLA, Anicteric Sclera, No Posterior Pharyngeal Erythema Neck-Supple, No JVD, No Thyromegaly, No Masses, No LAD, No Bruits Lungs-Clear to Auscultation Bilaterally, No Rales, No Rhonchi, No Wheezing, No Crepitus Chest-No S4, +S1, +S2, No S3, No Murmurs, No Rubs, No Gallops, No Ectopy Abdomen-Soft, Bowel Sounds Present, Non Tender, Non Distended, No Hepatomegaly, No Splenomegaly, No Palpable Masses, No Rebound, No Rigidity, No Guarding Musculoskeletal-Full Range of Motion Bilaterally, No CVAT Extremities-No Cyanosis, No Clubbing, B/L LE Edema, RLE Gauze wrapped Nuero-Cranial Nerves II-XII grossly intact, Motor WNL, DTRs WNL, Strength WNL, Non Focal Psych-Normal Mood (1) Leukocytosis Leukocytosis type: unspecified Qualified Code(s): D72.829 - Elevated white blood cell count, unspecified
[2018-09-30] MEDS ORDERED: DAPTOMYCIN CONSULT ACTIVE PRN (18:12)
[2018-09-30] MEDS ORDERED: PIPERACILL/TAZOBAC CONSULT ACTIVE PRN (19:26)
[2018-09-30] MEDS ORDERED: DAPTOmycin 275 MG in SYRINGE 0 ML IV SCH (20:30)
[2018-09-30] MEDS: ATORVASTATIN 40 MG TAB PO SCH (20:40)
[2018-09-30] MEDS: GABAPENTIN 100 MG CAP PO SCH (20:41)
[2018-09-30] MEDS: FINASTERIDE 5 MG TAB PO SCH (20:41)
[2018-09-30] MEDS ORDERED: HEPARIN SOD 5,000 UNIT/0.5 ML VIAL SQ SCH (21:00)
[2018-09-30] MEDS: PIPERACILLIN/TAZOBACTAM 3.375 GM in DEXTROSE 5% 100 ML IV SCH (21:25)
[2018-09-30] MEDS ORDERED: METOPROLOL TARTRATE 1 MG/ML VIAL IV PRN (23:02)
[2018-09-30 23:43] LABS: Basophils # (auto) 0.01 K/uL (0-0.2); Basophils % (auto) 0.1 %; Eosinophils # (auto) 0.01 K/uL (0-0.5); Eosinophils % (auto) 0.1 %; Hematocrit (blood only) 31.2 % (42-52); Hemoglobin 9.7 g/dL (14.0-18.0); Immature Granulocytes # (auto) 0.11 K/uL (0.00-0.02); Immature Granulocytes % (auto) 0.6 %; Lymphocytes # (auto) 1.08 K/uL (1.2-3.4); Lymphocytes % (auto) 5.6 %; Mean Corpuscular Volume 103.3 fL (80-100); Mean Platelet Volume 8.8 fL (7.4-10.4); Monocytes # (auto) 1.19 K/uL (0.11-0.59); Monocytes % (auto) 6.2 %; Neutrophils # (auto) 16.91 K/uL (1.4-6.5); Neutrophils % (auto) 87.4 %; Platelet Count 212 K/uL (130-400); RDW Coefficient of Variation 15.4 % (11.5-14.5); RDW Standard Deviation 58.7 fL (36.4-46.3); Red Blood Count 3.02 M/uL (4.7-6.1); White Blood Count 19.31 K/uL (4.8-10.8)
[2018-09-30 23:50] LABS: Mean Corpuscular Hgb Conc 31.1 g/dL (32-36)
[2018-09-30] MEDS: HEPARIN SODIUM/DEXTROSE 25,000 UNITS/500 ML BAG IV SCH (23:50)
[2018-09-30 23:59] LABS: INR 1.2 (0.9-1.1); Partial Thromboplastin Ratio 1.1; Partial Thromboplastin Time 29.6 Seconds (21.0-31.0); Prothrombin Time 11.8 Seconds (9.0-12.0)
[2018-10-01] MEDS: Heparin IV Low Dose *NO* Bolus IV SCH (02:24)
[2018-10-01] MEDS: PIPERACILLIN/TAZOBACTAM 3.375 GM in DEXTROSE 5% 100 ML IV SCH ×3 (05:36→22:01)
[2018-10-01] MEDS: LEVOTHYROXINE SODIUM 25 MCG TABLET PO SCH (05:36)
[2018-10-01 06:58] LABS: Basophils # (auto) 0.01 K/uL (0-0.2); Basophils % (auto) 0.1 %; Eosinophils # (auto) 0.07 K/uL (0-0.5); Eosinophils % (auto) 0.4 %; Hematocrit (blood only) 29.7 % (42-52); Hemoglobin 9.3 g/dL (14.0-18.0); Immature Granulocytes # (auto) 0.14 K/uL (0.00-0.02); Immature Granulocytes % (auto) 0.8 %; Lymphocytes # (auto) 1.32 K/uL (1.2-3.4); Lymphocytes % (auto) 7.9 %; Mean Corpuscular Hgb Conc 31.3 g/dL (32-36); Mean Corpuscular Volume 102.8 fL (80-100); Mean Platelet Volume 9.5 fL (7.4-10.4); Monocytes # (auto) 1.22 K/uL (0.11-0.59); Monocytes % (auto) 7.3 %; Neutrophils # (auto) 13.89 K/uL (1.4-6.5); Neutrophils % (auto) 83.5 %; Platelet Count 215 K/uL (130-400); RDW Coefficient of Variation 15.5 % (11.5-14.5); RDW Standard Deviation 58.5 fL (36.4-46.3); Red Blood Count 2.89 M/uL (4.7-6.1); White Blood Count 16.65 K/uL (4.8-10.8)
[2018-10-01 07:13] LABS: Partial Thromboplastin Ratio 1.5; Partial Thromboplastin Time 41.7 Seconds (21.0-31.0)
[2018-10-01 07:33] LABS: Calcium 7.9 mg/dl (8.5-10.1); Est GFR (African American) 35.3; Est GFR (Non-African American) 30.4; Potassium 3.7 mmol/L (3.5-5.1)
[2018-10-01 07:36] LABS: Albumin Globulin Ratio 0.7 (0.9-2); Bilirubin,Total 0.6 mg/dl (0.2-1); Globulin 2.9 gm/dl (2.5-4.0); Total Protein 4.9 gm/dl (6.4-8.2)
[2018-10-01] MEDS: CHOLECALCIFEROL 1,000 UNITS TAB PO SCH (08:12)
[2018-10-01] MEDS: GABAPENTIN 100 MG CAP PO SCH ×3 (08:12→20:35)
[2018-10-01] MEDS: TORSEMIDE 20 MG TAB PO SCH (08:12)
[2018-10-01] MEDS: predniSONE 10 MG TABLET PO SCH (08:13)
[2018-10-01] MEDS: METOPROLOL SUCC 25MG EXT REL TAB PO SCH (08:13)
[2018-10-01] MEDS: CLOPIDOGREL BISULFATE 75 MG TAB PO SCH (08:13)
[2018-10-01] MEDS ORDERED: HEPARIN IV BOLUS 3,000 UNITS in SYRINGE 0 ML IV ONE (08:30)
[2018-10-01] MEDS: ACETAMINOPHEN 325 MG TAB PO PRN (10:26)
[2018-10-01] MEDS: OXYCODONE HCL IR 5 MG TAB (IMMEDIATE RELEASE) PO PRN (10:26)
[2018-10-01] MEDS: BACITRACIN OINT 15 GM TUBE EXT PRN (10:28)
--- NOTE | 2018-10-01 10:45 | Surgery Progress Note ---
Date of Service pt feels better, no fever, the wound is better, no drainage, less redness, October 01, 2018 Assessment & Plan (1) Cellulitis: 78 keyla-old male who presents to Er with worse RLL infection, IMP: Cellulitis of right lower extremity without foot: sepsis 77-year-old male with infected right lower extremity wound with extensive superficial skin loss. wound culture sent, Agree with Hospitalist will admit pt to hospital, IV antibiotics, ID consult. wound care nurse consult, apply bacitricin on RLL once a day, repeat labs In am, blood culture, Will follow. Thanks, D/W ER attending, pt and family members agree with the treatment plan, 10/01/2018, 10:44am doing better, continue iv antibiotic, wound care nurse will F/U will F/U Physical Exam Constitutional: WD/WN, vitals as above well developed and well nourished ENMT: external ear and nose normal, oropharynx normal Neck: trachea midline, no thyromegaly Respiratory: normal respiratory effort, lungs clear to auscultation normal respiratory effort Cardiovascular: RRR, no murmur, no edema Rate/Rhythm: regular rate and regular rhythm Gastrointestinal (Abdomen): normal bowel sounds, soft, nontender, no hepatosplenomegaly Skin: less redness on RLL, no drainage Neurologic: patellar DTR's 2+ bilat, sensation intact Psychiatric: Orientation: alert and oriented x 3 Lymphatic: no cervical or axillary lymphadenopathy Results & Data Vital Signs (Past 12 Hours) Vital Signs Temp Pulse Pulse Resp BP BP Pulse Ox 10/01/18 07:39 36.7 C 85 18 130/74 97 10/01/18 03:54 36.7 C 85 20 138/85 97 10/01/18 00:59 109 H 10/01/18 00:34 122 H 132/75 09/30/18 23:39 36.4 C L 114 H 20 128/75 98 09/30/18 23:24 118 H Laboratory Results Abnormal lab results 09/30/18 09/30/18 09/30/18 Range/Units 15:16 15:16 15:16 WBC 27.39 H (4.8-10.8) K/uL RBC 3.06 L (4.7-6.1) M/uL Hgb 9.9 L (14.0-18.0) g/dL Hct 31.4 L (42-52) % MCV 102.6 H (80-100) fL MCHC 31.5 L (32-36) g/dL RDW Std Deviation 58.6 H (36.4-46.3) fL RDW Coeff of Pina 15.5 H (11.5-14.5) % Immature Gran # (Auto) 0.17 H (0.00-0.02) K/uL Neut # (Auto) 25.13 H (1.4-6.5) K/uL Lymph # (Auto) 0.89 L (1.2-3.4) K/uL [place] # (Auto) 1.19 H (0.11-0.59) K/uL ESR 32 H (0-14) mm/hr INR (0.9-1.1) APTT (21.0-31.0) Seconds Chloride (98-107) mmol/L BUN (7-18) mg/dl Creatinine (0.6-1.4) mg/dl Glucose (70-99) mg/dl Lactate (0.4-2.0) mmol/L Calcium (8.5-10.1) mg/dl Alkaline Phosphatase (45-117) U/L Total Creatine Kinase (39-308) U/L C-Reactive Protein (0-0.29) mg/dl NT-Pro-B Natriuret Pep (0-1800) pg/ml Total Protein (6.4-8.2) gm/dl Albumin (3.4-5.0) gm/dl Albumin/Globulin Ratio (0.9-2) Procalcitonin 4.63 H (0-0.5) ng/ml 09/30/18 09/30/18 09/30/18 Range/Units 15:16 15:16 15:16 WBC (4.8-10.8) K/uL RBC (4.7-6.1) M/uL Hgb (14.0-18.0) g/dL Hct (42-52) % MCV (80-100) fL MCHC (32-36) g/dL RDW Std Deviation (36.4-46.3) fL RDW Coeff of [place] (11.5-14.5) % Immature Gran # (Auto) (0.00-0.02) K/uL Neut # (Auto) (1.4-6.5) K/uL Lymph # (Auto) (1.2-3.4) K/uL [place] # (Auto) (0.11-0.59) K/uL ESR (0-14) mm/hr INR (0.9-1.1) APTT (21.0-31.0) Seconds Chloride 109 H (98-107) mmol/L BUN 42 H (7-18) mg/dl Creatinine 2.26 H (0.6-1.4) mg/dl Glucose 156 H (70-99) mg/dl Lactate 2.1 H* (0.4-2.0) mmol/L Calcium 7.8 L (8.5-10.1) mg/dl Alkaline Phosphatase 166 H (45-117) U/L Total Creatine Kinase 31 L (39-308) U/L C-Reactive Protein 7.34 H (0-0.29) mg/dl NT-Pro-B Natriuret Pep 3734 H (0-1800) pg/ml Total Protein 5.3 L (6.4-8.2) gm/dl Albumin 2.2 L (3.4-5.0) gm/dl Albumin/Globulin Ratio 0.7 L (0.9-2) Procalcitonin (0-0.5) ng/ml 09/30/18 09/30/18 10/01/18 Range/Units 23:30 23:35 06:49 WBC 19.31 H 16.65 H (4.8-10.8) K/uL RBC 3.02 L 2.89 L (4.7-6.1) M/uL Hgb 9.7 L 9.3 L (14.0-18.0) g/dL Hct 31.2 L 29.7 L (42-52) % MCV 103.3 H 102.8 H (80-100) fL MCHC 31.1 L 31.3 L (32-36) g/dL RDW Std Deviation 58.7 H 58.5 H (36.4-46.3) fL RDW Coeff of [place] 15.4 H 15.5 H (11.5-14.5) % Immature Gran # (Auto) 0.11 H 0.14 H (0.00-0.02) K/uL Neut # (Auto) 16.91 H 13.89 H (1.4-6.5) K/uL Lymph # (Auto) 1.08 L (1.2-3.4) K/uL [place] # (Auto) 1.19 H 1.22 H (0.11-0.59) K/uL ESR (0-14) mm/hr INR 1.2 H (0.9-1.1) APTT (21.0-31.0) Seconds Chloride (98-107) mmol/L BUN (7-18) mg/dl Creatinine (0.6-1.4) mg/dl Glucose (70-99) mg/dl Lactate (0.4-2.0) mmol/L Calcium (8.5-10.1) mg/dl Alkaline Phosphatase (45-117) U/L Total Creatine Kinase (39-308) U/L C-Reactive Protein (0-0.29) mg/dl NT-Pro-B Natriuret Pep (0-1800) pg/ml Total Protein (6.4-8.2) gm/dl Albumin (3.4-5.0) gm/dl Albumin/Globulin Ratio (0.9-2) Procalcitonin (0-0.5) ng/ml 10/01/18 10/01/18 Range/Units 06:49 06:49 WBC (4.8-10.8) K/uL RBC (4.7-6.1) M/uL Hgb (14.0-18.0) g/dL Hct (42-52) % MCV (80-100) fL MCHC (32-36) g/dL RDW Std Deviation (36.4-46.3) fL RDW Coeff of Pina (11.5-14.5) % Immature Gran # (Auto) (0.00-0.02) K/uL Neut # (Auto) (1.4-6.5) K/uL Lymph # (Auto) (1.2-3.4) K/uL [place] # (Auto) (0.11-0.59) K/uL ESR (0-14) mm/hr INR (0.9-1.1) APTT 41.7 H (21.0-31.0) Seconds Chloride 110 H (98-107) mmol/L BUN 40 H (7-18) mg/dl Creatinine 2.01 H (0.6-1.4) mg/dl Glucose (70-99) mg/dl Lactate (0.4-2.0) mmol/L Calcium 7.9 L (8.5-10.1) mg/dl Alkaline Phosphatase 136 H (45-117) U/L Total Creatine Kinase (39-308) U/L C-Reactive Protein (0-0.29) mg/dl NT-Pro-B Natriuret Pep (0-1800) pg/ml Total Protein 4.9 L (6.4-8.2) gm/dl Albumin 2.0 L (3.4-5.0) gm/dl Albumin/Globulin Ratio 0.7 L (0.9-2) Procalcitonin (0-0.5) ng/ml (1) Cellulitis Laterality: right Site of cellulitis: extremity Site of cellulitis of extremity: lower extremity Qualified Code(s): L03.115 - Cellulitis of right lower limb
--- NOTE | 2018-10-01 10:53 | Hospitalist Progress Note ---
Date of Service October 01, 2018 Assessment & Plan (1) Cellulitis of right lower extremity without foot: Has been on intravenous Zosyn and daptomycin Await wound and blood culture and continue wound care Await ID evaluation Appreciate surgery input and recommendation Clinically better today Noted to have irregularly irregular heart rhythm Likely has paroxysmal A. fib/wandering atrial pacemaker/sinus arrhythmia Discussed about possible use of anticoagulation Patient has a bleeding before and does not want to take any anticoagulation Will make an outpatient cardiology follow-up sooner on discharge Continue aspirin and Plavix (2) Leukocytosis: Pt with hx RLE cellulitis with shingles in 07/2018 with continued wound healing and close follow up with dermatology and home health and using Unna boot presented with c/o foul odor to leg x 2 weeks with fever 101 couple of days ago. White count was elevated to 27K on admission Venous Doppler RLE: No DVT Tibia/fibula x-ray: Diffuse subcutaneous edema/soft tissue swelling within the right lower leg. No underlying bony abnormality to suggest osteomyelitis. No sepsis Has been getting Zosyn and daptomycin Await wound and blood culture ID consulted and wound care consult as well Slightly better this morning with improvement of white count (3) CKD (chronic kidney disease) stage 3, GFR 30-59 ml/min: SWETHA on CKD CKD III-IV Cr: 2.26. (Recent creatinines range 1.7-2.2, Cr was 2.2 on 09/25/18, 1.7 on 09/04/2018) -Monitor renal functions -Avoid nephrotoxic and possible -If worsening consider nephrology consult -Creatinine has been improving, 2.01 today 10/01 (4) Diastolic congestive heart failure: History of chronic diastolic heart failure. Echo 03/2017 preserved EF, grade 1 diastolic dysfunction, mild pulmonary hypertension Continue torsemide (5) CAD (coronary artery disease): S/P stent LAD in 2017 No chest pain -Continue aspirin, Plavix, statin, metoprolol (6) Myasthenia gravis: Patient follows with neurology. CellCept had been stopped a couple months ago secondary to slow wound healing. Prednisone was decreased from 15 mg daily to 10 mg daily recently Continue prednisone Chest clear but has bilateral lower extremity edema consistent with right-sided heart failure (7) Hypothyroidism: TSH pending -Continue levothyroxine (8) Sleep apnea: -CPAP at bedtime (9) Gout: -Continue allopurinol (10) BPH (benign prostatic hyperplasia): -Continue finasteride, alfuzosin DVT Prophylaxis -Heparin SQ Full Code as per discussion with pt Follows with Dr Golden for routine care Subjective 10/01 The patient was seen and examined in medical telemetry unit He was noted to have irregularly irregular rhythm suggestive of atrial fibrillation/wandering atrial pacemaker/sinus arrhythmia without any symptoms Pt is 78 y/o M with PMH of myasthenia gravis, HTN, CAD s/p stent, luminary hypertension, chronic diastolic heart failure, CKD III, ANNETTE, hypothyroidism, depression, gout, BPH presented to ER with complaint of worsening right lower leg erythema. He denies any increasing leg pain and does not have any fever and/or chills And his white count has been improving Review of Systems Review of Systems: All systems reviewed and are unremarkable except as noted below Constitutional: + weakness Cardiovascular: + edema (Bilateral legs and more on the right side); no chest pain and no dyspnea Musculoskeletal: Denies any acute pain in the joints Physical Exam Physical Exam: Lying in bed comfortably Constitutional: well developed and well nourished; no acute distress and not ill appearing Eyes: PERRL, conjunctivae normal, anicteric sclerae ENMT: external ear and nose normal, oropharynx normal Neck: trachea midline, no thyromegaly Respiratory: normal respiratory effort; no respiratory distress Auscultation: lungs clear to auscultation bilaterally Cardiovascular: Rate/Rhythm: regular rate and regular rhythm Heart Sounds: no murmur Extremities: + edema (Bilateral lower extremities more on the right) Gastrointestinal (Abdomen): Inspection/Auscultation: abdomen normal to inspection and normal bowel sounds Percussion/Palpation: abdomen soft Musculoskeletal: No acute arthritis in any joints Neurologic: patellar DTR's 2+ bilat, sensation intact Psychiatric: Orientation: alert and oriented x 3 Lymphatic: no cervical or axillary lymphadenopathy Results & Data Vital Signs (Past 12 Hours) Vital Signs Temp Pulse Pulse Resp BP BP Pulse Ox 10/01/18 07:39 36.7 C 85 18 130/74 97 10/01/18 03:54 36.7 C 85 20 138/85 97 10/01/18 00:59 109 H 10/01/18 00:34 122 H 132/75 09/30/18 23:39 36.4 C L 114 H 20 128/75 98 09/30/18 23:24 118 H Laboratory Results Short CBC 09/30/18 09/30/18 10/01/18 Range/Units 15:16 23:30 06:49 WBC 27.39 H 19.31 H 16.65 H (4.8-10.8) K/uL Hgb 9.9 L 9.7 L 9.3 L (14.0-18.0) g/dL Hct 31.4 L 31.2 L 29.7 L (42-52) % Plt Count 220 212 215 (130-400) K/uL BMP 09/30/18 10/01/18 15:16 06:49 Sodium 142 144 Potassium 3.6 3.7 Chloride 109 H 110 H Carbon Dioxide 26 28 BUN 42 H 40 H Creatinine 2.26 H 2.01 H Glucose 156 H 96 Calcium 7.8 L 7.9 L Cardiac Enzymes 09/30/18 Range/Units 15:16 Total Creatine Kinase 31 L (39-308) U/L Liver Function 09/30/18 10/01/18 Range/Units 15:16 06:49 Total Bilirubin 0.4 0.6 (0.2-1) mg/dl Direct Bilirubin 0.2 (0-0.2) mg/dl AST 16 15 (15-37) U/L ALT 31 25 (12-78) U/L Alkaline Phosphatase 166 H 136 H (45-117) U/L Albumin 2.2 L 2.0 L (3.4-5.0) gm/dl Urine 09/30/18 Range/Units 16:29 Urine Color Yellow Urine Appearance Clear (Clear) Urine pH 5.0 (4.5-7.5) Ur Specific [place] 1.017 (1.000-1.030) Urine Protein Negative (Negative) Urine Glucose (UA) Negative (Negative) Medications Administered Current Inpatient Medications Acetaminophen (Tylenol) 650 mg PO Q4H PRN PRN Reason: Pain or Fever Stop: 10/30/18 19:20 Last Admin: 10/01/18 10:26 Dose: 650 mg Documented by: Alfuzosin HCl (Uroxatral) 10 mg PO DAILY@1200 [facility] Stop: 10/31/18 11:59 Allopurinol (Zyloprim) 300 mg PO DAILY@1200 [facility] Stop: 10/31/18 11:59 Aspirin (Ecotrin Ectab) 81 mg PO DAILY@1200 [facility] Stop: 10/31/18 11:59 Atorvastatin Calcium (Lipitor) 40 mg PO QPM [facility] Stop: 10/30/18 20:59 Last Admin: 09/30/18 20:40 Dose: 40 mg Documented by: Bacitracin (Bacitracin) 1 appln EXT DAILY PRN PRN Reason: DIRECTED Stop: 10/31/18 08:22 Last Admin: 10/01/18 10:28 Dose: 1 appln Documented by: Clopidogrel Bisulfate (Plavix) 75 mg PO QAM [facility] Stop: 10/31/18 08:59 Last Admin: 10/01/18 08:13 Dose: 75 mg Documented by: Finasteride (Proscar) 5 mg PO QPM [facility] Stop: 10/30/18 20:59 Last Admin: 09/30/18 20:41 Dose: 5 mg Documented by: Gabapentin (Neurontin) 100 mg PO TID [facility] Stop: 10/30/18 20:59 Last Admin: 10/01/18 08:12 Dose: 100 mg Documented by: Daptomycin 275 mg/ Syringe 5.5 mls @ 2.75 mls/min IV Q48H [facility]; Protocol Stop: 10/10/18 20:29 Last Admin: 09/30/18 20:39 Dose: 2.75 mls/min Documented by: Piperacillin Sod/Tazobactam (Sod 3.375 gm/ Dextrose) 115 mls @ 28.75 mls/hr IV Q8H [facility]; Protocol Stop: 10/10/18 21:59 Last Infusion: 10/01/18 09:36 Dose: Infused Documented by: Heparin Sodium/Dextrose (Heparin Sodium/Dextrose) 25,000 units in 500 mls @ 20 mls/hr IV .Q24H [facility]; Protocol Stop: 10/30/18 23:14 Last Titration: 10/01/18 07:18 Dose: 1,000 units/hr, 20 mls/hr Documented by: Levothyroxine Sodium (Synthroid) 25 mcg PO DAILYBB [facility] Stop: 10/31/18 06:29 Last Admin: 10/01/18 05:36 Dose: 25 mcg Documented by: Metoprolol Succinate ([facility]rol Xl) [facility] Stop: 10/31/18 08:59 Last Admin: 10/01/18 08:13 Dose: 12.5 mg Documented by: Metoprolol Tartrate (Lopressor) 2.5 mg IV Q4 PRN PRN Reason: Tachycardia Stop: 10/31/18 00:00 Last Admin: 10/01/18 00:34 Dose: 2.5 mg Documented by: Miscellaneous Information (Consult) 1 ea N/A UD PRN PRN Reason: Consult Stop: 10/30/18 18:11 Miscellaneous Information (Consult) 1 ea N/A UD PRN PRN Reason: Consult Stop: 10/30/18 19:25 Oxycodone HCl (Roxicodone Immediate Rel) 5 mg PO Q8H PRN PRN Reason: Pain Stop: 10/14/18 19:20 Last Admin: 10/01/18 10:26 Dose: 5 mg Documented by: Prednisone (Prednisone) 10 mg PO QAM [facility] Stop: 10/31/18 08:59 Last Admin: 10/01/18 08:13 Dose: 10 mg Documented by: Torsemide (Demadex) 20 mg PO DAILY [facility] Stop: 10/31/18 08:59 Last Admin: 10/01/18 08:12 Dose: 20 mg Documented by: Vitamin D (Vitamin D3) 4,000 units PO DAILY [facility] Stop: 10/31/18 08:59 Last Admin: 10/01/18 08:12 Dose: 4,000 units Documented by: (1) Leukocytosis Leukocytosis type: unspecified Qualified Code(s): D72.829 - Elevated white blood cell count, unspecified
[2018-10-01] MEDS: ALFUZOSIN HCL 10 MG TAB PO SCH (11:50)
[2018-10-01] MEDS: ASPIRIN 81 MG ECTAB PO SCH (11:50)
[2018-10-01] MEDS: ALLOPURINOL 300 MG TAB PO SCH (11:50)
--- NOTE | 2018-10-01 14:43 | Infectious Disease Consult ---
Date of Consultation October 01, 2018 Assessment & Plan (1) Cellulitis of right lower extremity: 78-year-old male with cellulitis of the right lower extremity following a bout of shingles, with cultures so far growing gram-negative bacilli. Current treatment appropriate pending final culture results and sensitivities. Length of IV antibiotics will be determined by clinical response. Will follow. History of Present Illness Reason for Consultation: Right lower extremity cellulitis Attending Physician: Tacos Degroot MD History of Present Illness 78-year-old male with history of myasthenia gravis, stage III chronic kidney disease, coronary artery disease, hypertension, hyperlipidemia, who several months ago developed right leg infection, first treated as cellulitis, ultimately diagnosed as shingles. Received appropriate therapy, and has been having wound care of his right leg with Unna boot. Over the past week or so, has been noted to have progressively worsening right lower extremity erythema, pain, with some drainage from his wounds. Has been running low-grade fever with mild chills. Came to the hospital and has been diagnosed with right leg cellulitis, and has been started empirically on daptomycin and Zosyn. Has felt better with resolution of fever. However has gone into atrial fibrillation. Cultures from his leg wound growing gram-negative bacilli. Allergies Allergy/AdvReac Type Severity Reaction Status Date / Time No Known Allergies Allergy Verified 09/30/18 15:14 Home Medications Home Medications Medication Instructions Recorded Confirmed Type alfuzosin 10 mg PO DAILY@1200 12/21/17 09/30/18 History allopurinol 300 mg PO DAILY@1200 12/21/17 09/30/18 History cholecalciferol (vitamin D3) 4,000 units PO DAILY 12/21/17 09/30/18 History [Vitamin D3] clopidogrel [Plavix] 75 mg PO QAM 12/21/17 09/30/18 History finasteride 5 mg PO QPM 12/21/17 09/30/18 History levothyroxine 25 mcg PO QAM 12/21/17 09/30/18 History nitroglycerin [Nitrostat] 0.4 mg SUBLINGUAL UD 12/21/17 09/30/18 History aspirin 81 mg PO DAILY@1200 07/10/18 09/30/18 History atorvastatin 40 mg PO QPM 07/10/18 09/30/18 History metoprolol succinate 12.5 mg PO QAM 07/10/18 09/30/18 History prednisone 10 mg PO QAM 07/10/18 09/30/18 History gabapentin 100 mg PO TID 09/30/18 09/30/18 History oxycodone 5 mg PO Q8H PRN 09/30/18 09/30/18 History torsemide 20 mg PO DAILY 09/30/18 09/30/18 History Patient History Medical History Gout (Chronic) HX Sleep apnea (Chronic) CPAP Hyperlipidemia (Chronic) Former smoker (Chronic) Skin cancer (Chronic) Actinic keratitis (Chronic) Diastolic congestive heart failure (Chronic) Venous stasis ulcer of ankle limited to breakdown of skin without varicose veins (Chronic) CAD (coronary artery disease) (Chronic) BPH (benign prostatic hyperplasia) (Chronic) Hypothyroidism (Chronic) CKD (chronic kidney disease) stage 3, GFR 30-59 ml/min (Chronic) Cellulitis of right lower extremity without foot (Acute) HTN (hypertension) (Chronic) Stomach problems (Chronic) Mediastinal mass (Chronic) Wound dehiscence, surgical (Acute) Myasthenia gravis (Chronic) Dysmetabolic syndrome X (Acute) First degree atrioventricular block (Acute) History of thymus cancer (Acute) Venous stasis ulcer (Acute) Surgical History History of cardiac cath (Chronic) 2 [facility] [place] 04/2016 Hx of thymectomy (Chronic) 2014 S/P cataract extraction (Chronic) Family History Mother Family history of diabetes mellitus Social History Preferred Language: Albanian Communication Ability: Effective Public Relations Required: No Beliefs That Will Affect Care: None Current Living Situation: Spouse Feels Safe at Home: Yes Safety Concerns: Feels Safe At This Time Smoking Status: Former smoker Tobacco Type: cigarettes Smoking End Date: Quit 1963, smoked 1ppd x 7 years Second Hand Exposure: No Hx Alcohol Use: No Hx Substance Use: No Review of Systems Review of Systems: All systems reviewed & are unremarkable except as noted in HPI & below Physical Exam Constitutional: WD/WN, vitals as above comfortable; no acute distress Eyes: PERRL, conjunctivae normal, anicteric sclerae ENMT: external ear and nose normal, oropharynx normal Neck: trachea midline, no thyromegaly neck nontender Respiratory: normal respiratory effort, lungs clear to auscultation normal percussion; does not use accessory muscles Cardiovascular: Rate/Rhythm: + irregularly irregular Heart Sounds: normal S1 and normal S2; no gallop, no murmur and no cardiac rub Vessels: normal peripheral pulses; no JVD Gastrointestinal (Abdomen): normal bowel sounds, soft, nontender, no hepatosplenomegaly Musculoskeletal: no cyanosis or clubbing, extremities motor strength 5/5 Spine: thoracic spine normal to inspection and lumbar spine normal to inspection; no cervical spinal tenderness Skin: normal turgor, + ulcer (Multiple superficial right lower extremity ulcerations) and + erythema (Right leg below the knee) Neurologic: patellar DTR's 2+ bilat, sensation intact no focal motor deficits Psychiatric: A+Ox3, euthymic affect Orientation: cooperative Lymphatic: no cervical or axillary lymphadenopathy no inguinal lymphadenopathy Results & Data Vital Signs (Past 12 Hours) Vital Signs Temp Pulse Resp BP Pulse Ox 10/01/18 11:16 36.4 C L 71 18 133/80 97 10/01/18 07:39 36.7 C 85 18 130/74 97 10/01/18 03:54 36.7 C 85 20 138/85 97 Laboratory Results Short CBC 09/30/18 09/30/18 10/01/18 Range/Units 15:16 23:30 06:49 WBC 27.39 H 19.31 H 16.65 H (4.8-10.8) K/uL Hgb 9.9 L 9.7 L 9.3 L (14.0-18.0) g/dL Hct 31.4 L 31.2 L 29.7 L (42-52) % Plt Count 220 212 215 (130-400) K/uL BMP 09/30/18 10/01/18 15:16 06:49 Sodium 142 144 Potassium 3.6 3.7 Chloride 109 H 110 H Carbon Dioxide 26 28 BUN 42 H 40 H Creatinine 2.26 H 2.01 H Glucose 156 H 96 Calcium 7.8 L 7.9 L Cardiac Enzymes 09/30/18 Range/Units 15:16 Total Creatine Kinase 31 L (39-308) U/L Liver Function 09/30/18 10/01/18 Range/Units 15:16 06:49 Total Bilirubin 0.4 0.6 (0.2-1) mg/dl Direct Bilirubin 0.2 (0-0.2) mg/dl AST 16 15 (15-37) U/L ALT 31 25 (12-78) U/L Alkaline Phosphatase 166 H 136 H (45-117) U/L Albumin 2.2 L 2.0 L (3.4-5.0) gm/dl Urine 09/30/18 Range/Units 16:29 Urine Color Yellow Urine Appearance Clear (Clear) Urine pH 5.0 (4.5-7.5) Ur Specific [place] 1.017 (1.000-1.030) Urine Protein Negative (Negative) Urine Glucose (UA) Negative (Negative) Diagnostic Findings Microbiology 09/30/18 16:39 Leg,Right Gram Stain - Final 09/30/18 16:39 Leg,Right Wound Culture - Preliminary Gram negative bacilli Ordering Phy: Elio Tong M.D. cc: ~ XR tibia fibula RT 2V CLINICAL HISTORY: cellulitis eval for osseous involvement COMPARISON STUDY: None. FINDINGS: Diffuse subcutaneous edema/soft tissue swelling within the right lower leg. No underlying bony destruction to suggest osteomyelitis. Mild vascular calcifications are noted. No radiopaque foreign bodies. No fracture or dislocation within the right lower leg. IMPRESSION: Diffuse subcutaneous edema/soft tissue swelling within the right lower leg. No underlying bony abnormality to suggest osteomyelitis. Electronically signed by: Mahin Gurrola M.D. 09/30/2018 3:04 PM Dictated: 09/30/18 1502 Transcribed: 09/30/18 1502
[2018-10-01 15:07] LABS: Partial Thromboplastin Time 53.5 Seconds (21.0-31.0)
[2018-10-01] MEDS ORDERED: DAPTOmycin 275 MG in SYRINGE 0 ML IV SCH (20:00)
[2018-10-01] MEDS: ATORVASTATIN 40 MG TAB PO SCH (20:35)
[2018-10-01] MEDS: FINASTERIDE 5 MG TAB PO SCH (20:37)
[2018-10-02] MEDS: HEPARIN SODIUM/DEXTROSE 25,000 UNITS/500 ML BAG IV SCH (01:25)
[2018-10-02] MEDS: PIPERACILLIN/TAZOBACTAM 3.375 GM in DEXTROSE 5% 100 ML IV SCH ×3 (05:32→22:02)
[2018-10-02] MEDS: LEVOTHYROXINE SODIUM 25 MCG TABLET PO SCH (05:33)
[2018-10-02 05:49] LABS: Basophils # (auto) 0.02 K/uL (0-0.2); Basophils % (auto) 0.2 %; Eosinophils # (auto) 0.07 K/uL (0-0.5); Eosinophils % (auto) 0.5 %; Hematocrit (blood only) 28.9 % (42-52); Hemoglobin 9.1 g/dL (14.0-18.0); Immature Granulocytes # (auto) 0.21 K/uL (0.00-0.02); Immature Granulocytes % (auto) 1.6 %; Lymphocytes # (auto) 1.08 K/uL (1.2-3.4); Lymphocytes % (auto) 8.3 %; Mean Corpuscular Hgb Conc 31.5 g/dL (32-36); Mean Platelet Volume 9.5 fL (7.4-10.4); Monocytes % (auto) 7.6 %; Neutrophils # (auto) 10.71 K/uL (1.4-6.5); Neutrophils % (auto) 81.8 %; Platelet Count 229 K/uL (130-400); RDW Coefficient of Variation 15.5 % (11.5-14.5); RDW Standard Deviation 57.6 fL (36.4-46.3); Red Blood Count 2.86 M/uL (4.7-6.1); White Blood Count 13.09 K/uL (4.8-10.8)
[2018-10-02 06:23] LABS: BUN Creatinine Ratio 19.9 (10-20); Calcium 7.7 mg/dl (8.5-10.1); Est GFR (African American) 35.3; Est GFR (Non-African American) 30.4; Magnesium 2.2 mg/dl (1.8-2.4); Potassium 3.8 mmol/L (3.5-5.1)
[2018-10-02 06:24] LABS: Partial Thromboplastin Ratio 1.9
[2018-10-02 06:33] LABS: Partial Thromboplastin Time 51.1 Seconds (21.0-31.0)
--- NOTE | 2018-10-02 06:57 | Surgery Progress Note ---
Date of Service pt feels better, less redness on RLL, no drainage, WBC 13,000.no fever, October 02, 2018 Assessment & Plan (1) Cellulitis: 78 keyla-old male who presents to Er with worse RLL infection, IMP: Cellulitis of right lower extremity without foot: sepsis 77-year-old male with infected right lower extremity wound with extensive superficial skin loss. wound culture sent, Agree with Hospitalist will admit pt to hospital, IV antibiotics, ID consult. wound care nurse consult, apply bacitricin on RLL once a day, repeat labs In am, blood culture, Will follow. Thanks, D/W ER attending, pt and family members agree with the treatment plan, 10/01/2018, 10:44am doing better, continue iv antibiotic, wound care nurse will F/U will F/U 10/02/2018, 6:55am, doing better, OOB continue iv antibiotic, wound care nurse will F/U sign off today, please call with questions will F/U wound care center clinic for out-patient Physical Exam Constitutional: WD/WN, vitals as above well developed and well nourished ENMT: external ear and nose normal, oropharynx normal Neck: trachea midline, no thyromegaly Respiratory: normal respiratory effort, lungs clear to auscultation normal respiratory effort Cardiovascular: RRR, no murmur, no edema Rate/Rhythm: regular rate and regular rhythm Gastrointestinal (Abdomen): normal bowel sounds, soft, nontender, no hepatosplenomegaly Skin: less redness at RLL, no drainage, Neurologic: patellar DTR's 2+ bilat, sensation intact Psychiatric: Orientation: alert and oriented x 3 Lymphatic: no cervical or axillary lymphadenopathy Results & Data Vital Signs (Past 12 Hours) Vital Signs Temp Pulse Pulse Resp BP BP Pulse Ox 10/02/18 04:43 36.6 C 62 20 122/82 95 10/02/18 00:39 65 10/01/18 23:42 36.3 C L 64 18 126/72 94 10/01/18 19:00 36.5 C 58 L 18 122/66 95 (1) Cellulitis Laterality: right Site of cellulitis: extremity Site of cellulitis of extremity: lower extremity Qualified Code(s): L03.115 - Cellulitis of right lower limb
[2018-10-02] MEDS: CHOLECALCIFEROL 1,000 UNITS TAB PO SCH (09:28)
[2018-10-02] MEDS: CLOPIDOGREL BISULFATE 75 MG TAB PO SCH (09:29)
[2018-10-02] MEDS: TORSEMIDE 20 MG TAB PO SCH (09:30)
[2018-10-02] MEDS: predniSONE 10 MG TABLET PO SCH (09:30)
[2018-10-02] MEDS: GABAPENTIN 100 MG CAP PO SCH ×3 (09:30→21:10)
[2018-10-02] MEDS: METOPROLOL SUCC 25MG EXT REL TAB PO SCH (09:30)
[2018-10-02] MEDS: BACITRACIN OINT 15 GM TUBE EXT PRN (09:31)
[2018-10-02] MEDS: APIXABAN 2.5 MG TAB PO SCH ×2 (12:47→21:10)
[2018-10-02] MEDS: ACETIC ACID 0.25% IRRIG SOLN 1000 ML PLCT IR SCH (12:48)
[2018-10-02] MEDS: ALFUZOSIN HCL 10 MG TAB PO SCH (12:48)
[2018-10-02] MEDS: ALLOPURINOL 300 MG TAB PO SCH (12:48)
[2018-10-02] MEDS: ASPIRIN 81 MG ECTAB PO SCH (12:48)
--- NOTE | 2018-10-02 13:19 | Wound Consultation ---
Date of Consultation October 02, 2018 Assessment & Plan (1) Cellulitis of right lower extremity: This is an 78-year-old male with venous stasis ulcers of his right lower extremity and secondary cellulitis. Wound cultures are growing Pseudomonas. We would recommend discontinuing bacitracin. Wounds will be wrapped with acetic acid wraps daily for 14 days. Continue antibiotics per infectious disease. We will plan on debriding patient tomorrow if still inpatient. Be happy to see patient as an outpatient in the clinic upon discharge. Thank you for allowing me to participate in the care of this patient. Please not hesitate to call with any questions. History of Present Illness Attending Physician: Tacos Degroot MD This is an 78-year-old male with a history of sleep apnea, gout, hypothyroidism, diastolic heart failure, CAD, A. fib, CKD stage III, hypertension, kidney stones, myasthenia gravis, venous stasis ulcer and skin cancer who was admitted with cellulitis of the right lower extremity. Patient has been following with dermatology as an outpatient and they been wrapping his wound with Unna boot. Patient was previously admitted with this from 07/10- 07/14/2018 was transferred to [facility]. They felt that he had developed shingles on top of his cellulitis having completed a course of Valtrex at the end of August. Patient was found to meet Sirs criteria was admitted with cellulitis of his right lower extremity. Wound culture at this time is growing Pseudomonas. Allergies Allergy/AdvReac Type Severity Reaction Status Date / Time No Known Allergies Allergy Verified 09/30/18 15:14 Home Medications Home Medications Medication Instructions Recorded Confirmed Type alfuzosin 10 mg PO DAILY@1200 12/21/17 09/30/18 History allopurinol 300 mg PO DAILY@1200 12/21/17 09/30/18 History cholecalciferol (vitamin D3) 4,000 units PO DAILY 12/21/17 09/30/18 History [Vitamin D3] clopidogrel [Plavix] 75 mg PO QAM 12/21/17 09/30/18 History finasteride 5 mg PO QPM 12/21/17 09/30/18 History levothyroxine 25 mcg PO QAM 12/21/17 09/30/18 History nitroglycerin [Nitrostat] 0.4 mg SUBLINGUAL UD 12/21/17 09/30/18 History aspirin 81 mg PO DAILY@1200 07/10/18 09/30/18 History atorvastatin 40 mg PO QPM 07/10/18 09/30/18 History metoprolol succinate 12.5 mg PO QAM 07/10/18 09/30/18 History prednisone 10 mg PO QAM 07/10/18 09/30/18 History gabapentin 100 mg PO TID 09/30/18 09/30/18 History oxycodone 5 mg PO Q8H PRN 09/30/18 09/30/18 History torsemide 20 mg PO DAILY 09/30/18 09/30/18 History Patient History Medical History Gout (Chronic) HX Sleep apnea (Chronic) CPAP Hyperlipidemia (Chronic) Former smoker (Chronic) Skin cancer (Chronic) Actinic keratitis (Chronic) Diastolic congestive heart failure (Chronic) Venous stasis ulcer of ankle limited to breakdown of skin without varicose veins (Chronic) CAD (coronary artery disease) (Chronic) BPH (benign prostatic hyperplasia) (Chronic) Hypothyroidism (Chronic) CKD (chronic kidney disease) stage 3, GFR 30-59 ml/min (Chronic) Cellulitis of right lower extremity without foot (Acute) HTN (hypertension) (Chronic) Stomach problems (Chronic) Mediastinal mass (Chronic) Wound dehiscence, surgical (Acute) Myasthenia gravis (Chronic) Dysmetabolic syndrome X (Acute) First degree atrioventricular block (Acute) History of thymus cancer (Acute) Venous stasis ulcer (Acute) Surgical History History of cardiac cath (Chronic) 2 [facility] [place] Hx of thymectomy (Chronic) 2014 S/P cataract extraction (Chronic) Family History Mother Family history of diabetes mellitus Social History Preferred Language: Ukrainian Communication Ability: Effective Roadside Mechanic Required: No Beliefs That Will Affect Care: None Current Living Situation: Spouse Feels Safe at Home: Yes Safety Concerns: Feels Safe At This Time Smoking Status: Former smoker Tobacco Type: cigarettes Smoking End Date: Quit 1963, smoked 1ppd x 7 years Second Hand Exposure: No Hx Alcohol Use: No Hx Substance Use: No Review of Systems Review of Systems: All systems reviewed & are unremarkable except as noted in HPI & below Physical Exam Constitutional: WD/WN, vitals as above Eyes: PERRL, conjunctivae normal, anicteric sclerae ENMT: Ears: no hearing impairment Respiratory: normal respiratory effort, lungs clear to auscultation Cardiovascular: Rate/Rhythm: + irregularly irregular Gastrointestinal (Abdomen): normal bowel sounds, soft, nontender, no hepatosplenomegaly Skin: Wound measuring as recorded in nursing documentation. Wound clusters covered with yellowish slough. Periwound is intact and erythematous. There is periwound edema. There is large amount of drainage. There is foul odor. Neurologic: awake; not confused Psychiatric: A+Ox3, euthymic affect Results & Data Vital Signs (Past 12 Hours) Vital Signs Temp Pulse Pulse Resp BP Pulse Ox 10/02/18 08:00 54 L 10/02/18 07:46 36.6 C 58 L 20 148/68 H 97 10/02/18 04:43 36.6 C 62 20 122/82 95
--- NOTE | 2018-10-02 15:04 | Infectious Disease Progress Nt ---
Date of Service October 02, 2018 Assessment & Plan (1) Cellulitis of right lower extremity: 78-year-old male with cellulitis of the right lower extremity following a bout of shingles, with cultures so far growing Pseudomonas. Will continue Zosyn for now, daptomycin discontinued. Will follow. Subjective Patient seen in follow-up for cellulitis of the right leg. Feeling somewhat better,. Improved. Remains afebrile. Blood cultures remain negative. Wound culture growing soon. Review of Systems Review of Systems: All systems reviewed & are unremarkable except as noted in HPI & below Physical Exam Constitutional: WD/WN, vitals as above comfortable; no acute distress Eyes: PERRL, conjunctivae normal, anicteric sclerae ENMT: external ear and nose normal, oropharynx normal Neck: trachea midline, no thyromegaly neck nontender Respiratory: normal respiratory effort, lungs clear to auscultation normal percussion; does not use accessory muscles Cardiovascular: Rate/Rhythm: + irregularly irregular Heart Sounds: normal S1 and normal S2; no gallop, no murmur and no cardiac rub Vessels: normal peripheral pulses; no JVD Gastrointestinal (Abdomen): normal bowel sounds, soft, nontender, no hepatosplenomegaly Musculoskeletal: no cyanosis or clubbing, extremities motor strength 5/5 Spine: thoracic spine normal to inspection and lumbar spine normal to inspection; no cervical spinal tenderness Skin: normal turgor, + ulcer (Multiple superficial right lower extremity ulcerations) and + erythema (Right leg below the knee) Neurologic: patellar DTR's 2+ bilat, sensation intact no focal motor deficits Psychiatric: A+Ox3, euthymic affect Orientation: cooperative Lymphatic: no cervical or axillary lymphadenopathy no inguinal lymphadenopathy Results & Data Vital Signs (Past 12 Hours) Vital Signs Temp Pulse Pulse Resp BP Pulse Ox 10/02/18 08:00 54 L 10/02/18 07:46 36.6 C 58 L 20 148/68 H 97 10/02/18 04:43 36.6 C 62 20 122/82 95 Laboratory Results Short CBC 10/02/18 Range/Units 05:28 WBC 13.09 H (4.8-10.8) K/uL Hgb 9.1 L (14.0-18.0) g/dL Hct 28.9 L (42-52) % Plt Count 229 (130-400) K/uL BMP 10/02/18 05:28 Sodium 143 Potassium 3.8 Chloride 109 H Carbon Dioxide 28 BUN 40 H Creatinine 2.01 H Glucose 89 Calcium 7.7 L Diagnostic Findings Microbiology 09/30/18 16:39 Leg,Right Gram Stain - Final 09/30/18 16:39 Leg,Right Wound Culture - Final Pseudomonas aeruginosa 09/30/18 15:29 Blood Aerobic Blood Culture - Preliminary No growth in Aerobic bottle after 24 hours. 09/30/18 15:29 Blood Anaerobic Blood Culture - Preliminary No growth in Anaerobic bottle after 24 hours. 09/30/18 15:20 Blood Aerobic Blood Culture - Preliminary No growth in Aerobic bottle after 24 hours. 09/30/18 15:20 Blood Anaerobic Blood Culture - Preliminary No growth in Anaerobic bottle after 24 hours.
--- NOTE | 2018-10-02 16:08 | Hospitalist Progress Note ---
Date of Service October 02, 2018 Assessment & Plan (1) Cellulitis of right lower extremity without foot: Has been on intravenous Zosyn and daptomycin Await wound and blood culture and continue wound care Await ID evaluation-appreciate input and recommendation Appreciate surgery input and recommendation Clinically better today Appreciate wound care providers input and recommendation Going to have wound debridement tomorrow Wound culture grew Pseudomonas and sensitive to most of the antibiotics Acute to be discharged tomorrow on oral antibiotic Noted to have irregularly irregular heart rhythm Likely has paroxysmal A. fib/wandering atrial pacemaker/sinus arrhythmia Discussed about possible use of anticoagulation Patient has a bleeding before and does not want to take any anticoagulation Will make an outpatient cardiology follow-up sooner on discharge Continue aspirin and Plavix (2) Leukocytosis: Pt with hx RLE cellulitis with shingles in 07/2018 with continued wound healing and close follow up with dermatology and home health and using Unna boot presented with c/o foul odor to leg x 2 weeks with fever 101 couple of days ago. White count was elevated to 27K on admission Venous Doppler RLE: No DVT Tibia/fibula x-ray: Diffuse subcutaneous edema/soft tissue swelling within the right lower leg. No underlying bony abnormality to suggest osteomyelitis. No sepsis Has been getting Zosyn and daptomycin Await wound and blood culture ID consulted and wound care consult as well Slightly better this morning with improvement of white count (3) CKD (chronic kidney disease) stage 3, GFR 30-59 ml/min: SWETHA on CKD CKD III-IV Cr: 2.26. (Recent creatinines range 1.7-2.2, Cr was 2.2 on 09/25/18, 1.7 on 09/04/2018) -Monitor renal functions -Avoid nephrotoxic and possible -If worsening consider nephrology consult -Creatinine has been improving, 2.01 today 10/01 -Creatinine remains static at 2.01 (4) Diastolic congestive heart failure: History of chronic diastolic heart failure. Echo 03/2017 preserved EF, grade 1 diastolic dysfunction, mild pulmonary hypertension Continue torsemide (5) CAD (coronary artery disease): S/P stent LAD in 2016 No chest pain -Continue aspirin, Plavix, statin, metoprolol (6) Myasthenia gravis: Patient follows with neurology. CellCept had been stopped a couple months ago secondary to slow wound healing. Prednisone was decreased from 15 mg daily to 10 mg daily recently Continue prednisone Chest clear but has bilateral lower extremity edema consistent with right-sided heart failure (7) Hypothyroidism: TSH pending -Continue levothyroxine (8) Sleep apnea: -CPAP at bedtime (9) Gout: -Continue allopurinol (10) BPH (benign prostatic hyperplasia): -Continue finasteride, alfuzosin DVT Prophylaxis -Heparin SQ Full Code as per discussion with pt Follows with Dr Golden for routine care (11) Paroxysmal atrial fibrillation: Noted to have atrial fibrillation on admission He had a history of CAD status post cardiac stent placement Has been on aspirin and Plavix Chads score > 4 The risk of stroke is more than 5% Discussed with supervisor publications There is no contraindication for anticoagulation Discussed with the patient the pros and cons of anticoagulation He was agreeable to take anticoagulation Started with Eliquis 2.5 mg twice daily and heparin discontinued Subjective 10/01 The patient was seen and examined in medical telemetry unit He was noted to have irregularly irregular rhythm suggestive of atrial fibrillation/wandering atrial pacemaker/sinus arrhythmia without any symptoms Pt is 78 y/o M with PMH of myasthenia gravis, HTN, CAD s/p stent, luminary hypertension, chronic diastolic heart failure, CKD III, ANNETTE, hypothyroidism, depression, gout, BPH presented to ER with complaint of worsening right lower leg erythema. He denies any increasing leg pain and does not have any fever and/or chills And his white count has been improving 10/02 The patient was seen and examined in medical telemetry unit He converted to sinus rhythm this morning He denies any symptoms at rest He is no pain at rest in his right lower extremity Review of Systems Review of Systems: All systems reviewed and are unremarkable except as noted below Constitutional: + weakness Cardiovascular: + edema (Bilateral legs and more on the right side); no chest pain and no dyspnea Musculoskeletal: Right leg has cellulitis with superficial abscess. Please see the picture of the wound Physical Exam Physical Exam: No apparent distress at rest Constitutional: well developed and well nourished; no acute distress and not ill appearing Eyes: PERRL, conjunctivae normal, anicteric sclerae ENMT: external ear and nose normal, oropharynx normal Neck: trachea midline, no thyromegaly Respiratory: normal respiratory effort; no respiratory distress Auscultation: lungs clear to auscultation bilaterally Cardiovascular: Rate/Rhythm: regular rate and regular rhythm Heart Sounds: no murmur Extremities: + edema (Bilateral lower extremities more on the right) Gastrointestinal (Abdomen): Inspection/Auscultation: abdomen normal to inspection and normal bowel sounds Percussion/Palpation: abdomen soft Musculoskeletal: Right leg wound as photographed Skin: + lesion (Right lower leg), + ulcer (Right lower leg) and + wound (Right ear) Neurologic: patellar DTR's 2+ bilat, sensation intact Psychiatric: Orientation: alert and oriented x 3 Lymphatic: no cervical or axillary lymphadenopathy Results & Data Vital Signs (Past 12 Hours) Vital Signs Temp Pulse Pulse Resp BP BP Pulse Ox 10/02/18 15:55 36.7 C 74 18 132/67 98 10/02/18 15:49 69 10/02/18 08:00 54 L 10/02/18 07:46 36.6 C 58 L 20 148/68 H 97 10/02/18 04:43 36.6 C 62 20 122/82 95 Laboratory Results Short CBC 10/02/18 Range/Units 05:28 WBC 13.09 H (4.8-10.8) K/uL Hgb 9.1 L (14.0-18.0) g/dL Hct 28.9 L (42-52) % Plt Count 229 (130-400) K/uL BMP 10/02/18 05:28 Sodium 143 Potassium 3.8 Chloride 109 H Carbon Dioxide 28 BUN 40 H Creatinine 2.01 H Glucose 89 Calcium 7.7 L Medications Administered Current Inpatient Medications Acetaminophen (Tylenol) 650 mg PO Q4H PRN PRN Reason: Pain or Fever Stop: 10/30/18 19:20 Last Admin: 10/01/18 10:26 Dose: 650 mg Documented by: Acetic Acid (Acetic Acid 0.25%) 1 appln IR DAILY [facility] Stop: 10/07/18 12:29 Last Admin: 10/02/18 12:48 Dose: 1 appln Documented by: Alfuzosin HCl (Uroxatral) 10 mg PO DAILY@1200 [facility] Stop: 10/31/18 11:59 Last Admin: 10/02/18 12:48 Dose: 10 mg Documented by: Allopurinol (Zyloprim) 300 mg PO DAILY@1200 [facility] Stop: 10/31/18 11:59 Last Admin: 10/02/18 12:48 Dose: 300 mg Documented by: Apixaban (Eliquis) 2.5 mg PO BID [facility] Stop: 11/01/18 11:29 Last Admin: 10/02/18 12:47 Dose: 2.5 mg Documented by: Aspirin (Ecotrin Ectab) 81 mg PO DAILY@1200 [facility] Stop: 10/31/18 11:59 Last Admin: 10/02/18 12:48 Dose: 81 mg Documented by: Atorvastatin Calcium (Lipitor) 40 mg PO QPM [facility] Stop: 10/30/18 20:59 Last Admin: 10/01/18 20:35 Dose: 40 mg Documented by: Clopidogrel Bisulfate (Plavix) 75 [facility] [place] Stop: 10/31/18 08:59 Last Admin: 10/02/18 09:29 Dose: 75 mg Documented by: Finasteride (Proscar) 5 mg PO QPM [facility] Stop: 10/30/18 20:59 Last Admin: 10/01/18 20:37 Dose: 5 mg Documented by: Gabapentin (Neurontin) 100 mg PO TID [facility] Stop: 10/30/18 20:59 Last Admin: 10/02/18 12:48 Dose: 100 mg Documented by: Piperacillin Sod/Tazobactam (Sod 3.375 gm/ Dextrose) 115 mls @ 28.75 mls/hr IV Q8H [facility]; Protocol Stop: 10/10/18 21:59 Last Admin: 10/02/18 12:50 Dose: 28.8 mls/hr Documented by: Levothyroxine Sodium (Synthroid) 25 mcg PO DAILYBB [facility] Stop: 10/31/18 06:29 Last Admin: 10/02/18 05:33 Dose: 25 mcg Documented by: Metoprolol Succinate (Toprol Xl) 12.5 mg PO QAM [facility] Stop: 10/31/18 08:59 Last Admin: 10/02/18 09:30 Dose: 12.5 mg Documented by: Metoprolol Tartrate (Lopressor) 2.5 mg IV Q4 PRN PRN Reason: Tachycardia Stop: 10/31/18 00:00 Last Admin: 10/01/18 00:34 Dose: 2.5 mg Documented by: Miscellaneous Information (Consult) 1 ea N/A UD PRN PRN Reason: Consult Stop: 10/30/18 19:25 Oxycodone HCl (Roxicodone Immediate Rel) 5 mg PO Q8H PRN PRN Reason: Pain Stop: 10/14/18 19:20 Last Admin: 10/01/18 10:26 Dose: 5 mg Documented by: Prednisone (Prednisone) 10 mg PO QAM [facility] Stop: 10/31/18 08:59 Last Admin: 10/02/18 09:30 Dose: 10 mg Documented by: Torsemide (Demadex) 20 mg PO DAILY [facility] Stop: 10/31/18 08:59 Last Admin: 10/02/18 09:30 Dose: 20 mg Documented by: Vitamin D (Vitamin D3) 4,000 units PO DAILY [facility] Stop: 10/31/18 08:59 Last Admin: 10/02/18 09:28 Dose: 4,000 units Documented by: (1) Leukocytosis Leukocytosis type: unspecified Qualified Code(s): D72.829 - Elevated white blood cell count, unspecified
[2018-10-02] MEDS: FINASTERIDE 5 MG TAB PO SCH (21:10)
[2018-10-02] MEDS: ATORVASTATIN 40 MG TAB PO SCH (21:11)
[2018-10-03] MEDS: LEVOTHYROXINE SODIUM 25 MCG TABLET PO SCH (05:33)
[2018-10-03] MEDS: PIPERACILLIN/TAZOBACTAM 3.375 GM in DEXTROSE 5% 100 ML IV SCH (05:33)
[2018-10-03 06:17] LABS: Basophils # (auto) 0.03 K/uL (0-0.2); Basophils % (auto) 0.2 %; Eosinophils # (auto) 0.09 K/uL (0-0.5); Eosinophils % (auto) 0.7 %; Hematocrit (blood only) 29.5 % (42-52); Hemoglobin 9.2 g/dL (14.0-18.0); Immature Granulocytes # (auto) 0.33 K/uL (0.00-0.02); Immature Granulocytes % (auto) 2.7 %; Lymphocytes # (auto) 1.17 K/uL (1.2-3.4); Lymphocytes % (auto) 9.5 %; Mean Corpuscular Hgb Conc 31.2 g/dL (32-36); Mean Corpuscular Volume 102.8 fL (80-100); Mean Platelet Volume 9.1 fL (7.4-10.4); Monocytes # (auto) 0.85 K/uL (0.11-0.59); Monocytes % (auto) 6.9 %; Neutrophils # (auto) 9.83 K/uL (1.4-6.5); Platelet Count 218 K/uL (130-400); RDW Coefficient of Variation 15.3 % (11.5-14.5); RDW Standard Deviation 57.4 fL (36.4-46.3); Red Blood Count 2.87 M/uL (4.7-6.1)
[2018-10-03 06:26] LABS: Partial Thromboplastin Time 27.6 Seconds (21.0-31.0)
[2018-10-03 06:45] LABS: BUN Creatinine Ratio 17.9 (10-20); Creatinine Clr Calc Pharmacy 30.8 ml/min; Est GFR (African American) 33.6; Potassium 3.8 mmol/L (3.5-5.1)
[2018-10-03] MEDS: METOPROLOL SUCC 25MG EXT REL TAB PO SCH (07:52)
[2018-10-03] MEDS: predniSONE 10 MG TABLET PO SCH (07:53)
[2018-10-03] MEDS: TORSEMIDE 20 MG TAB PO SCH (07:53)
[2018-10-03] MEDS: APIXABAN 2.5 MG TAB PO SCH (07:54)
[2018-10-03] MEDS: OXYCODONE HCL IR 5 MG TAB (IMMEDIATE RELEASE) PO PRN (07:54)
[2018-10-03] MEDS: CLOPIDOGREL BISULFATE 75 MG TAB PO SCH (07:55)
[2018-10-03] MEDS: GABAPENTIN 100 MG CAP PO SCH (07:55)
[2018-10-03] MEDS: CHOLECALCIFEROL 1,000 UNITS TAB PO SCH (07:55)
[2018-10-03] MEDS: ACETAMINOPHEN 325 MG TAB PO PRN (07:58)
[2018-10-03] MEDS: ACETIC ACID 0.25% IRRIG SOLN 1000 ML PLCT IR SCH ×2 (10:51→12:25)
[2018-10-03] MEDS: ALFUZOSIN HCL 10 MG TAB PO SCH (12:37)
[2018-10-03] MEDS: ASPIRIN 81 MG ECTAB PO SCH (12:37)
[2018-10-03] MEDS: ALLOPURINOL 300 MG TAB PO SCH (12:37)
[2018-10-03] MEDS ORDERED: levoFLOXacin 500 MG TAB PO STA (12:37)
--- NOTE | 2018-10-03 12:37 | Hospitalist Progress Note ---
Date of Service October 03, 2018 Assessment & Plan (1) Cellulitis of right lower extremity without foot: Has been on intravenous Zosyn and daptomycin Await wound and blood culture and continue wound care Await ID evaluation-appreciate input and recommendation Appreciate surgery input and recommendation Clinically better today Appreciate wound care providers input and recommendation Discussed with the wound care provider-we will do wound debridement around 11 today Discussed with infectious disease provider-we will start him on Levaquin and discharged with 14 days of treatment Will have outpatient follow-up with the wound clinic Noted to have irregularly irregular heart rhythm Likely has paroxysmal A. fib/wandering atrial pacemaker/sinus arrhythmia Discussed about possible use of anticoagulation Patient has a bleeding before and does not want to take any anticoagulation Will make an outpatient cardiology follow-up sooner on discharge Continue aspirin and Plavix (2) Leukocytosis: Pt with hx RLE cellulitis with shingles in 07/2018 with continued wound healing and close follow up with dermatology and home health and using Unna boot presented with c/o foul odor to leg x 2 weeks with fever 101 couple of days ago. White count was elevated to 27K on admission Venous Doppler RLE: No DVT Tibia/fibula x-ray: Diffuse subcutaneous edema/soft tissue swelling within the right lower leg. No underlying bony abnormality to suggest osteomyelitis. No sepsis Has been getting Zosyn and daptomycin Await wound and blood culture ID consulted and wound care consult as well Slightly better this morning with improvement of white count White cell count has been improving (3) CKD (chronic kidney disease) stage 3, GFR 30-59 ml/min: SWETHA on CKD CKD III-IV Cr: 2.26. (Recent creatinines range 1.7-2.2, Cr was 2.2 on 09/25/18, 1.7 on 09/04/2018) -Monitor renal functions -Avoid nephrotoxic and possible -If worsening consider nephrology consult -Creatinine has been improving, 2.01 today 10/01 -Creatinine remains static at 2.01 -Creatinine remains at 2.09 (4) Diastolic congestive heart failure: History of chronic diastolic heart failure. Echo 03/2017 preserved EF, grade 1 diastolic dysfunction, mild pulmonary hypertension Continue torsemide (5) CAD (coronary artery disease): S/P stent LAD in 2017 No chest pain -Continue aspirin, Plavix, statin, metoprolol (6) Myasthenia gravis: Patient follows with neurology. CellCept had been stopped a couple months ago secondary to slow wound healing. Prednisone was decreased from 15 mg daily to 10 mg daily recently Continue prednisone Chest clear but has bilateral lower extremity edema consistent with right-sided heart failure (7) Hypothyroidism: TSH pending -Continue levothyroxine (8) Sleep apnea: -CPAP at bedtime (9) Gout: -Continue allopurinol (10) BPH (benign prostatic hyperplasia): -Continue finasteride, alfuzosin DVT Prophylaxis -Heparin SQ Full Code as per discussion with pt Follows with Dr Golden for routine care (11) Paroxysmal atrial fibrillation: Noted to have atrial fibrillation on admission He had a history of CAD status post cardiac stent placement Has been on aspirin and Plavix Chads score > 4 The risk of stroke is more than 5% Discussed with chief sales officer There is no contraindication for anticoagulation Discussed with the patient the pros and cons of anticoagulation He was agreeable to take anticoagulation Started with Eliquis 2.5 mg twice daily and heparin discontinued We will have outpatient appointment with chief sales officer Subjective 10/01 The patient was seen and examined in medical telemetry unit He was noted to have irregularly irregular rhythm suggestive of atrial fibrillation/wandering atrial pacemaker/sinus arrhythmia without any symptoms Pt is 78 y/o M with PMH of myasthenia gravis, HTN, CAD s/p stent, luminary hy pertension, chronic diastolic heart failure, CKD III, ANNETTE, hypothyroidism, depression, gout, BPH presented to ER with complaint of worsening right lower leg erythema. He denies any increasing leg pain and does not have any fever and/or chills And his white count has been improving 10/02 The patient was seen and examined in medical telemetry unit He converted to sinus rhythm this morning He denies any symptoms at rest He is no pain at rest in his right lower extremity 10/03 The patient was seen and examined in medical telemetry He has been feeling much better and denies any leg pain No more palpitation and/or shortness of breath No fever,chills or Reiger's Review of Systems Review of Systems: All systems reviewed and are unremarkable except as noted below Constitutional: + weakness Cardiovascular: + edema (Bilateral legs and more on the right side); no chest pain and no dyspnea Musculoskeletal: Right leg has cellulitis with superficial abscess. Please see the picture of the wound Physical Exam Physical Exam: No apparent distress at rest Constitutional: well developed and well nourished; no acute distress and not ill appearing Eyes: PERRL, conjunctivae normal, anicteric sclerae ENMT: external ear and nose normal, oropharynx normal Neck: trachea midline, no thyromegaly Respiratory: normal respiratory effort; no respiratory distress Auscultation: lungs clear to auscultation bilaterally Cardiovascular: Rate/Rhythm: regular rate and regular rhythm Heart Sounds: no murmur Extremities: + edema (Bilateral lower extremities more on the right) Gastrointestinal (Abdomen): Inspection/Auscultation: abdomen normal to inspection and normal bowel sounds Percussion/Palpation: abdomen soft Skin: + lesion (Right lower leg), + ulcer (Right lower leg) and + wound (Right ear) Right leg wound-bandaged. See the picture for detailed findings Neurologic: patellar DTR's 2+ bilat, sensation intact Psychiatric: Orientation: alert and oriented x 3 Lymphatic: no cervical or axillary lymphadenopathy Results & Data Vital Signs (Past 12 Hours) Vital Signs Temp Pulse Pulse Resp BP BP Pulse Ox 10/03/18 11:20 36.5 C 78 20 145/70 H 99 10/03/18 07:33 36.8 C 76 18 133/67 93 10/03/18 07:22 65 10/03/18 04:00 36.6 C 63 20 122/73 95 Laboratory Results Short CBC 10/03/18 Range/Units 06:05 WBC 12.30 H (4.8-10.8) K/uL Hgb 9.2 L (14.0-18.0) g/dL Hct 29.5 L (42-52) % Plt Count 218 (130-400) K/uL BMP 10/03/18 06:05 Sodium 143 Potassium 3.8 Chloride 109 H Carbon Dioxide 29 BUN 37 H Creatinine 2.09 H Glucose 89 Calcium 8.0 L Medications Administered Current Inpatient Medications Acetaminophen (Tylenol) 650 mg PO Q4H PRN PRN Reason: Pain or Fever Stop: 10/30/18 19:20 Last Admin: 10/03/18 07:58 Dose: 650 mg Documented by: Acetic Acid (Acetic Acid 0.25%) 1 appln IR DAILY CASSI Stop: 10/07/18 12:29 Last Admin: 10/03/18 12:25 Dose: Not Given Documented by: Alfuzosin HCl (Uroxatral) 10 mg PO DAILY@1200 [facility] Stop: 10/31/18 11:59 Last Admin: 10/02/18 12:48 Dose: 10 mg Documented by: Allopurinol (Zyloprim) 300 mg PO DAILY@1200 [facility] Stop: 10/31/18 11:59 Last Admin: 10/02/18 12:48 Dose: 300 mg Documented by: Apixaban (Eliquis) 2.5 mg PO BID [facility] Stop: 11/01/18 11:29 Last Admin: 10/03/18 07:54 Dose: 2.5 mg Documented by: Aspirin (Ecotrin Ectab) 81 mg PO DAILY@1200 [facility] Stop: 10/31/18 11:59 Last Admin: 10/02/18 12:48 Dose: 81 mg Documented by: Atorvastatin Calcium (Lipitor) 40 mg PO QPM [facility] Stop: 10/30/18 20:59 Last Admin: 10/02/18 21:11 Dose: 40 mg Documented by: [facility] ([facility]) [facility]: 10/31/18 08:59 Last Admin: 10/03/18 07:55 Dose: 75 mg Documented by: Finasteride (Proscar) 5 mg PO QPM [facility] Stop: 10/30/18 20:59 Last Admin: 10/02/18 21:10 Dose: 5 mg Documented by: Gabapentin (Neurontin) 100 mg PO TID [facility] Stop: 10/30/18 20:59 Last Admin: 10/03/18 07:55 Dose: 100 mg Documented by: Levofloxacin (Levaquin) 500 mg PO DAILY@1100 [facility] Stop: 10/14/18 10:59 Levofloxacin (Levaquin) 500 mg PO NOW [facility] Stop: 10/03/18 12:30 Levothyroxine Sodium (Synthroid) 25 mcg PO DAILYBB [facility] Stop: 10/31/18 06:29 Last Admin: 10/03/18 05:33 Dose: 25 mcg Documented by: Metoprolol Succinate (Toprol Xl) 12.5 mg PO QAM [facility] Stop: 10/31/18 08:59 Last Admin: 10/03/18 07:52 Dose: 12.5 mg Documented by: Metoprolol Tartrate (Lopressor) 2.5 mg IV Q4 PRN PRN Reason: Tachycardia Stop: 10/31/18 00:00 Last Admin: 10/01/18 00:34 Dose: 2.5 mg Documented by: Miscellaneous Information (Consult) 1 ea N/A UD PRN PRN Reason: Consult Stop: 10/30/18 19:25 Oxycodone HCl (Roxicodone Immediate Rel) 5 mg PO Q8H PRN PRN Reason: Pain Stop: 10/14/18 19:20 Last Admin: 10/03/18 07:54 Dose: 5 mg Documented by: Prednisone (Prednisone) 10 mg PO QAM [facility] Stop: 10/31/18 08:59 Last Admin: 10/03/18 07:53 Dose: 10 mg Documented by: Torsemide (Demadex) 20 mg PO DAILY [facility] Stop: 10/31/18 08:59 Last Admin: 10/03/18 07:53 Dose: 20 mg Documented by: Vitamin D (Vitamin D3) 4,000 units PO DAILY [facility] Stop: 10/31/18 08:59 Last Admin: 10/03/18 07:55 Dose: 4,000 units Documented by: (1) Leukocytosis Leukocytosis type: unspecified Qualified Code(s): D72.829 - Elevated white blood cell count, unspecified
--- NOTE | 2018-10-03 13:23 | Wound Progress Note ---
Date of Service October 03, 2018 Assessment & Plan (1) Cellulitis of right lower extremity: Wound appears clinically improving although measurements are about the same. Wound needed debridement. After obtaining permission topical Xylocaine was applied. Using a curette, fibrin and slough were removed. There is scant bleeding which was controlled with pressure. Patient tolerated the procedure well with no complications. This represents non-excisional debridement of approximately 40 cm. Continue to dress the wounds with acetic acid wraps. She continue these daily for 14 days. Patient would like to be seen in the office in follow-up. We will plan on seeing him in about a week after discharge. Thank you for allowing me to participate in the care of the patient. Please not hesitate to call with any questions. Subjective 78-year-old male seen in bedside in follow-up of cellulitis of his right lower extremity. Patient with acetic acid wraps around his leg. Remains on IV Zosyn. Infectious disease is following. Patient with no new complaints today. Review of Systems Review of Systems: All systems reviewed & are unremarkable except as noted in HPI & below Physical Exam Skin: Wound measurements recorded in nursing documentation. Wound covered with fibrin and slough. Periwound is erythematous and there is moderate drainage. Neurologic: awake; not confused Psychiatric: A+Ox3, euthymic affect Results & Data Vital Signs (Past 12 Hours) Vital Signs Temp Pulse Pulse Resp BP BP Pulse Ox 10/03/18 11:20 36.5 C 78 20 145/70 H 99 10/03/18 07:33 36.8 C 76 18 133/67 93 10/03/18 07:22 65 10/03/18 04:00 36.6 C 63 20 122/73 95
--- NOTE | 2018-10-03 17:26 | Discharge Summary ---
Date of Service October 03, 2018 Admission HPI Per Admitting Provider Pt is 78 y/o M with PMH of myasthenia gravis, HTN, CAD s/p stent, luminary hypertension, chronic diastolic heart failure, CKD III, ANNETTE, hypothyroidism, depression, gout, BPH presented to ER with complaint of worsening right lower leg erythema. Patient with history of hospitalization 07/10/2018-07/14/[address] [facility] for right lower extremity cellulitis. Symptoms did not significantly improve and patient was transferred to [facility]. It was thought that patient had developed shingles on top of cellulitis and he was prescribed antibiotics and Valtrex and finished Valtrex at the end of August 2018. Previous wound cultures MSSA and Proteus. Positive varicella-zoster PCR on 07/20/2018. Since patient has been following up with dermatology and home health nurses. He has Unna boot which was originally being changed twice a week however patient had noticed foul odor 1 to 2 weeks ago and boot is being changed 3 times a week (changed on Mondays in the office, Wednesdays and Fridays by home nursing). Thanks. Is more red. Patient reports boot often seems to tight and feels like it is irritating his leg. Patient reports fever 101 F a couple of days ago. Pt with chronic BLE edema and reports last week had some weight gain and took additional dose of torsemide and weight seems stable. Denies diaphoresis, N/V/D/C, CAPELLAN, dizziness, syncope, vision changes, neck pain, CP, SOB, orthopnea, palpitations, cough, sore throat, choking, otalgia, rhinorrhea, abdominal pain, paresthesias, weakness, other rashes, urinary symptoms. Admission Exam Per Admitting Provider Physical Exam: General: no acute distress, WDWN Head: normocephalic, atraumatic Eyes: PERRL, EOM's intact, conjunctiva non-injected, anicteric ENT: normal inspection external ears, nose, mucous membranes moist Neck: supple, trachea midline Lungs: clear, no respiratory distress, no wheezing/rhonchi/rales CV: RRR, no murmur, 1+ pretibial edema Abd: normal BS, soft, non-tender Ext: no cyanosis, Bilateral lower legs with erythema, Right lower leg below knee distal to ankle with erythema and edema with multiple ulcerated yellow areas, mild warmth distal pulses palpable, sensation to light touch intact Neuro: A&O x 3, no focal deficits noted, normal affect Skin: warm, dry, legs as above Principal Diagnosis Right leg cellulitis, paroxysmal atrial fibrillation now on anticoagulation, chronic diastolic heart failure, CAD status post LAD stent in 2017 Discharge Exam Constitutional well developed and well nourished; no acute distress and not ill appearing Eyes PERRL, conjunctivae normal, anicteric sclerae ENMT external ear and nose normal, oropharynx normal Neck trachea midline, no thyromegaly Respiratory normal respiratory effort; no respiratory distress Auscultation: lungs clear to auscultation bilaterally Cardiovascular Rate/Rhythm: regular rate and regular rhythm Heart Sounds: no murmur Extremities: + edema (Bilateral lower extremities more on the right) Gastrointestinal (Abdomen) Inspection/Auscultation: abdomen normal to inspection and normal bowel sounds Percussion/Palpation: abdomen soft Skin + lesion (Right lower leg), + ulcer (Right lower leg) and + wound (Right ear) Neurologic patellar DTR's 2+ bilat, sensation intact Psychiatric Orientation: alert and oriented x 3 Lymphatic no cervical or axillary lymphadenopathy Discharge Data Allergies Allergy/AdvReac Type Severity Reaction Status Date / Time No Known Allergies Allergy Verified 09/30/18 15:14 Consultations 09/30/18 16:47 ED Decision to Admit Stat 09/30/18 19:21 Consult Case Management - Discharge Planning Routine Consult General Surgery Routine Consult Infectious Diseases Routine Consult Wound Care Provider Routine Ordered Studies 09/30/18 14:46 US venous doppler LE RT Stat Hospital Course (1) Cellulitis of right lower extremity without foot: Has been on intravenous Zosyn and daptomycin Await wound and blood culture and continue wound care Await ID evaluation-appreciate input and recommendation Appreciate surgery input and recommendation Clinically better today Appreciate wound care providers input and recommendation Discussed with the wound care provider-we will do wound debridement around 11 today Discussed with infectious disease provider-we will start him on Levaquin and discharged with 14 days of treatment Will have outpatient follow-up with the wound clinic Noted to have irregularly irregular heart rhythm Likely has paroxysmal A. fib/wandering atrial pacemaker/sinus arrhythmia Discussed about possible use of anticoagulation Patient has a bleeding before and does not want to take any anticoagulation Will make an outpatient cardiology follow-up sooner on discharge Continue aspirin and Plavix (2) Leukocytosis: Pt with hx RLE cellulitis with shingles in 07/2018 with continued wound healing and close follow up with dermatology and home health and using Unna boot presented with c/o foul odor to leg x 2 weeks with fever 101 couple of days ago. White count was elevated to 27K on admission Venous Doppler RLE: No DVT Tibia/fibula x-ray: Diffuse subcutaneous edema/soft tissue swelling within the right lower leg. No underlying bony abnormality to suggest osteomyelitis. No sepsis Has been getting Zosyn and daptomycin Await wound and blood culture ID consulted and wound care consult as well Slightly better this morning with improvement of white count White cell count has been improving (3) CKD (chronic kidney disease) stage 3, GFR 30-59 ml/min: SWETHA on CKD CKD III-IV Cr: 2.26. (Recent creatinines range 1.7-2.2, Cr was 2.2 on 09/25/18, 1.7 on 09/04/2018) -Monitor renal functions -Avoid nephrotoxic and possible -If worsening consider nephrology consult -Creatinine has been improving, 2.01 today 10/01 -Creatinine remains static at 2.01 -Creatinine remains at 2.09 (4) Diastolic congestive heart failure: History of chronic diastolic heart failure. Echo 03/2017 preserved EF, grade 1 diastolic dysfunction, mild pulmonary hypertension Continue torsemide (5) CAD (coronary artery disease): S/P stent LAD in 2016 No chest pain -Continue aspirin, Plavix, statin, metoprolol (6) Myasthenia gravis: Patient follows with neurology. CellCept had been stopped a couple months ago secondary to slow wound healing. Prednisone was decreased from 15 mg daily to 10 mg daily recently Continue prednisone Chest clear but has bilateral lower extremity edema consistent with right-sided heart failure (7) Hypothyroidism: TSH pending -Continue levothyroxine (8) Sleep apnea: -CPAP at bedtime (9) Gout: -Continue allopurinol (10) BPH (benign prostatic hyperplasia): -Continue finasteride, alfuzosin DVT Prophylaxis -Heparin SQ Full Code as per discussion with pt Follows with Dr Golden for routine care (11) Paroxysmal atrial fibrillation: Noted to have atrial fibrillation on admission He had a history of CAD status post cardiac stent placement Has been on aspirin and Plavix Chads score > 4 The risk of stroke is more than 5% Discussed with industrial safety and health specialist There is no contraindication for anticoagulation Discussed with the patient the pros and cons of anticoagulation He was agreeable to take anticoagulation Started with Eliquis 2.5 mg twice daily and heparin discontinued We will have outpatient appointment with industrial safety and health specialist Total Time Total Time Spent Total Time Spent (In Minutes): 35 minutes Total Time Includes: Examination of the Patient, Discharge Planning, Medication Reconciliation and Communication With Other Providers Discharge Plan Discharge Items Patient Disposition: Home - Self-Care Reason For Visit: RLE CELLULITIS Discharge Diagnosis: Right leg cellulitis, paroxysmal atrial fibrillation now on anticoagulation, chronic diastolic heart failure, CAD status post LAD stent in 2017 Condition: Good Discharge Goals: Decrease discomfort, Increase independence and Improve nutritional status Activity: Resume your previous activity Non-emergency contact: Primary Care Provider Call non-emergency contact if: you have any medication questions and your symptoms worsen Follow-up/Referrals: Ivette Golden DO [Primary Care Provider] - 10/09/18 11:05 am (Please make an appointment with Dr. Roldan in 2 to 3 weeks) Diet: Heart Healthy Fluids: 1500ml (6 cups) Addtl Provider Instructions: He was diagnosed to have paroxysmal atrial fibrillation. He has high MAE 2D S2 score >4 and was started on Eliquis 2.5 mg twice daily. We need to follow-up with his industrial safety and health specialist in 2 to 3 weeks Cellulitis of right lower extremity: Wound Care Wound appears clinically improving although measurements are about the same. Wound needed debridement. After obtaining permission topical Xylocaine was applied. Using a curette, fibrin and slough were removed. There is scant bleeding which was controlled with pressure. Patient tolerated the procedure well with no complications. This represents non-excisional debridement of approximately 40 cm. Continue to dress the wounds with acetic acid wraps. She continue these daily for 14 days. Patient would like to be seen in the office in follow-up. We will plan on seeing him in about a week after discharge. Thank you for allowing me to participate in the care of the patient. Please not hesitate to call with any questions. Prescriptions: New levofloxacin 250 mg Tablet 250 mg PO DAILY@1100 12 Days Qty: 12 RF: 0 Eliquis 2.5 mg Tablet 2.5 mg PO BID 90 Days Qty: 180 RF: 0 Continued clopidogrel [Plavix] 75 mg Tablet 75 mg PO QAM RF: 0 nitroglycerin [Nitrostat] 0.4 mg Tablet, Sublingual 0.4 mg Sublingual UD RF: 0 allopurinol 300 mg Tablet 300 mg PO DAILY@1200 RF: 0 finasteride 5 mg Tablet 5 mg PO QPM RF: 0 alfuzosin 10 mg Tablet Extended Release 24 Hr 10 mg PO DAILY@1200 RF: 0 cholecalciferol (vitamin D3) [Vitamin D3] 2,000 unit Capsule 4,000 units PO DAILY RF: 0 levothyroxine 25 mcg Tablet 25 mcg PO QAM RF: 0 torsemide 20 mg Tablet 20 mg PO DAILY RF: 0 oxycodone 5 mg Tablet 5 mg PO Q8H PRN (Reason: Pain) RF: 0 gabapentin 100 mg Capsule 100 mg PO TID RF: 0 atorvastatin 40 mg tablet 40 mg PO QPM RF: 0 prednisone 10 mg tablet 10 mg PO QAM RF: 0 aspirin 81 mg Tablet,Chewable 81 mg PO DAILY@1200 RF: 0 metoprolol succinate 25 mg tablet extended release 24 hr 12.5 mg PO QAM RF: 0 Stand-Alone Forms: [facility] Discharge Orders: Discharge Order (Routine); Ordered 10/03/18 Ordered By: Tacos Degroot Admission Data Admit Date/Time: 09/30/18 18:06 Attending Provider: Tacos Degroot Admit Provider: Mohamud Devries Primary Care Provider: Ivette Golden Other Providers: Shahida Reis ; Adalberto Watters ; Christiano Amanda ; Mohamud Devries Service: Telemetry Medical Other Interventions: Discharge Summary Assessment (RN) Last Done: 10/03/18 13:46 DC Date/Time DO NOT enter until pt leaves facility: 10/03/18 15:14
[2018-10-04] MEDS ORDERED: levoFLOXacin 250 MG TABLET PO SCH (11:00)
[2018-10-04] MEDS ORDERED: levoFLOXacin 500 MG TAB PO SCH (11:00)
--- NOTE | 2018-10-05 07:10 | Coding Query ---
CODING QUERY To promote full compliance with coding requirements relating to patient care, provider participation is requested in all cases of gas line repairer uncertainty. Please assist us with the question(s) below: Coding Question(s): Dr. Degroot, Sepsis and SIRS is documented in the ER report, Dr. Reis's consult report, and other places in the record. Please clarify if: ( ) sepsis was present and treated during this admission ( + ) sepsis was ruled out ( ) SIRS was present and treated during this encounter ( ) SIRES was ruled out ( ) other, please explain ( ) unable to determine Physician's Response(s): Thank you for your time, FORTUNATO Hernández, RN RADIOLOGY [facility]
== END 2018-10-03 15:14 | disposition home health service (06) | DRG 603 ==
LOC: ED 13:59 → 2N 18:06

== ENCOUNTER 2019-09-18 14:36 | Inpatient (IN) ==
--- NOTE | 2019-09-18 16:14 | Emergency Department Note ---
History of Present Illness General Chief complaint: Infection, Wound Stated complaint: WOUND ON R LEG Time Seen by Provider: 09/18/19 15:26 History of Present Illness Maximum Pain Intensity: 3 This is an 79-year-old male that presents to the emergency department referred by local wound care center with complaints of "wound on right leg". The patient states that a year ago this past June he began experiencing a wound to the right lower extremity. This is felt to be a venous stasis ulcer per records. The patient states that at times it will heal nearly completely but then seem to be infected. He states that the way it looks today was similar to about a year ago requiring hospitalization and IV antibiotics. He denies any fevers, chills, chest pain or shortness of breath. Overall discomfort is a 3/10. He states that the right lower extremity was addressed at the wound care center and he was referred here for further evaluation and management Home Medications Home Medications Medication Instructions Recorded Confirmed Type alfuzosin 10 mg PO HS 12/21/17 09/18/19 History finasteride 5 mg PO QPM 12/21/17 09/18/19 History levothyroxine 25 mcg PO QAM 12/21/17 09/18/19 History nitroglycerin [Nitrostat] 0.4 mg SUBLINGUAL UD 12/21/17 09/18/19 History atorvastatin 40 mg PO QPM 07/10/18 09/18/19 History metoprolol succinate 12.5 mg PO QAM 07/10/18 09/18/19 History torsemide 20 mg PO DAILY 09/30/18 09/18/19 History sertraline 25 mg tablet 25 mg PO DAILY 10/19/18 09/18/19 History aspirin 81 mg tablet,delayed 81 mg PO DAILY 11/03/18 09/18/19 History release lorazepam 0.5 mg tablet 0.25 mg PO BID PRN tab 11/03/18 09/18/19 History allopurinol 100 mg tablet 200 mg PO HS tab 11/24/18 09/18/19 History hydralazine 10 mg tablet 10 mg PO BID 06/18/19 09/18/19 History apixaban [Eliquis] 2.5 mg PO BID 09/18/19 09/18/19 History cephalexin 500 mg PO TID 09/18/19 09/18/19 History cholecalciferol (vitamin D3) 50 mcg PO DAILY 09/18/19 09/18/19 History [Vitamin D3] ciprofloxacin HCl 250 mg PO BID 09/18/19 09/18/19 History losartan [Cozaar] 25 mg PO DAILY 09/18/19 09/18/19 History prednisone 5 mg PO Q OTHER DAY 09/18/19 09/18/19 History prednisone 10 mg PO Q OTHER DAY 09/18/19 09/18/19 History Allergies Allergy/AdvReac Type Severity Reaction Status Date / Time adaptic touch AdvReac Mild contact Uncoded 09/18/19 16:27 dermatitis Past Med/Surg History Medical History Actinic keratitis (Chronic) BPH (benign prostatic hyperplasia) (Chronic) CAD (coronary artery disease) (Chronic) Cellulitis of right lower extremity without foot (Acute) CKD (chronic kidney disease) stage 3, GFR 30-59 ml/min (Chronic) Diastolic congestive heart failure (Chronic) Dysmetabolic syndrome X (Acute) First degree atrioventricular block (Acute) Former smoker (Chronic) Gout (Chronic) HX History of thymus cancer (Acute) HTN (hypertension) (Chronic) Hyperlipidemia (Chronic) Hypothyroidism (Chronic) Mediastinal mass (Chronic) Myasthenia gravis (Chronic) Skin cancer (Chronic) Sleep apnea (Chronic) CPAP Stomach problems (Chronic) Venous stasis ulcer (Acute) Venous stasis ulcer of ankle limited to breakdown of skin without varicose veins (Chronic) Wound dehiscence, surgical (Acute) Surgical History History of cardiac cath (Chronic) 2 [facility] [place], [place] 04/2016 Hx of thymectomy (Chronic) 2014 S/P cataract extraction (Chronic) Family History Mother Family history of diabetes mellitus Social History Preferred Language: Polish Communication Ability: Effective Director Of Individual Giving Required: No Beliefs That Will Affect Care: None Current Living Situation: Spouse Feels Safe at Home: Yes Smoking Status: Former smoker Tobacco Type: cigarettes ; Second Hand Exposure: No ; Hx Alcohol Use: No Hx Substance Use: No Review of Systems A total of 10 systems reviewed and were otherwise negative Physical Exam Vital Signs Vital Signs - 24 hr 09/18/19 14:55 09/18/19 16:07 09/18/19 16:31 Temperature 36.6 C Temperature Source Oral Pulse Rate 66 65 80 Respiratory Rate 18 20 20 Blood Pressure 131/66 148/61 H 114/64 Blood Pressure Mean 87 97 77 Pulse Oximetry 98 95 95 Oxygen Delivery Method Room Air Sepsis Recent Fever Within 48 Hours No Sepsis New/Unexplained Change in Mental Status N/A 09/18/19 17:01 09/18/19 17:31 Temperature Temperature Source Pulse Rate 63 68 Respiratory Rate 20 19 Blood Pressure 133/56 L 135/50 L Blood Pressure Mean 78 73 Pulse Oximetry 96 95 Oxygen Delivery Method Sepsis Recent Fever Within 48 Hours Sepsis New/Unexplained Change in Mental Status VITAL SIGNS - Vital signs and nursing notes were reviewed. On arrival the patient is mildly hypertensive. Afebrile. GENERAL -79-year-old male appearing his stated age who is in no acute distress. Communicates well with provider and answers questions appropriately. SKIN -there is appearance of the right lower extremity to suggest acute on chronic superimposed cellulitis on a circumferential erythematous and scale like wound that involves much of the right lower extremity just inferior to the knee. This seems to abruptly stop just proximal to the right ankle. Right foot appears to be uninvolved. HEAD - NC/AT. EYES - Sclera anicteric. EARS - No deformities of external structures noted on gross examination bilaterally NOSE - Midline and without cyanosis. No epistaxis or purulent drainage noted. MOUTH/OROPHARYNX - Without perioral cyanosis. NECK - Neck with FROM. Supple to palpation. No nuchal rigidity. LUNGS - Chest wall symmetric without accessory muscle use, intercostals retractions, or central cyanosis. Normal vesicular breath sounds CTA B/L. No wheezes, rales, or rhonchi appreciated. CARDIAC - RRR EXTREMITIES - No clubbing or peripheral cyanosis. Skin as above. Right lower extremity is with what appears to be acute cellulitis overlying chronic wound. Left lower extremity elicits pretibial edema with small bulla formation without erythema. +5/5 strength noted in UE/LE bilaterally. NEUROLOGIC - Cranial nerves II through XII grossly intact. PSYCH - A&o, and cooperates fully with examiner. Pt is very pleasant and interacts well with examiner. Course Administered Medications Alfuzosin HCl (Uroxatral) 10 mg PO HS CASSI Stop: 10/18/19 20:59 Last Admin: 09/18/19 21:53 Dose: 10 mg Documented by: [id number] Allopurinol (Zyloprim) 200 mg PO HS CASSI Stop: 10/18/19 20:59 Last Admin: 09/18/19 21:52 Dose: 200 mg Documented by: [id number] Apixaban (Eliquis) 2.5 mg PO BID CASSI Stop: 10/18/19 20:59 Last Admin: 09/18/19 21:52 Dose: 2.5 mg Documented by: [id number] Finasteride (Proscar) 5 mg PO QPM CASSI Stop: 10/18/19 20:59 Last Admin: 09/18/19 21:53 Dose: 5 mg Documented by: [id number] Hydralazine HCl (Apresoline) 10 mg PO BID CASSI Stop: 10/18/19 20:59 Last Admin: 09/18/19 21:53 Dose: 10 mg Documented by: [id number] Discontinued Medications Daptomycin 275 mg/ Syringe 5.5 mls @ 2.75 mls/min IV NOW ONE; Protocol Stop: 09/18/19 16:52 Last Admin: 09/18/19 17:07 Dose: 2.75 mls/min Documented by: [id number] Cefepime HCl (Maxipime) 2,000 mg in 20 mls @ 5 mls/min IV NOW STA; Protocol Stop: 09/18/19 16:54 Last Admin: 09/18/19 17:07 Dose: 5 mls/min Documented by: [id number] Prednisone (Prednisone) 5 mg PO NOW ONE Stop: 09/18/19 20:16 Last Admin: 09/18/19 21:52 Dose: 5 mg Documented by: [id number] Medical Decision Making Laboratory Data Result diagrams: 09/18/19 15:53 09/18/19 15:53 Lab Results 09/18/19 09/18/19 09/18/19 Range/Units 15:53 15:53 15:53 WBC 10.31 (4.8-10.8) K/uL RBC 4.25 L (4.7-6.1) M/uL Hgb 13.7 L (14.0-18.0) g/dL Hct 41.1 L (42-52) % MCV 96.7 (80-100) fL MCH 32.2 (25-34) pg MCHC 33.3 (32-36) g/dL RDW Std Deviation 54.2 H (36.4-46.3) fL RDW Coeff of Pina 15.4 H (11.5-14.5) % Plt Count 188 (130-400) K/uL MPV 10.1 (7.4-10.4) fL Immature Gran % (Auto) 1.4 % Neut % (Auto) 83.6 % Lymph % (Auto) 4.9 % Howell % (Auto) 8.2 % Eos % (Auto) 1.7 % Baso % (Auto) 0.2 % Neut # (Auto) 8.61 H (1.4-6.5) K/uL Lymph # (Auto) 0.51 L (1.2-3.4) K/uL Howell # (Auto) 0.85 H (0.11-0.59) K/uL Eos # (Auto) 0.18 (0-0.5) K/uL Baso # (Auto) 0.02 (0-0.2) K/uL Immature Gran # (Auto) 0.14 H (0.00-0.02) K/uL ESR 20 H (0-14) mm/hr PT (9.0-12.0) Seconds INR (0.9-1.1) APTT (21.0-31.0) Seconds PTT Ratio Sodium 143 (136-145) mmol/L Potassium 4.1 (3.5-5.1) mmol/L Chloride 108 H (98-107) mmol/L Carbon Dioxide 29 (21-32) mmol/L Anion Gap 6.0 (3-11) BUN 41 H (7-18) mg/dl Creatinine 2.06 H (0.6-1.4) mg/dl Est Cr Clr Drug Dosing 29.9 ml/min Est GFR ( Amer) 34.0 Est GFR (Non-Af Amer) 29.3 BUN/Creatinine Ratio 19.8 (10-20) Glucose 106 H (70-99) mg/dl Lactate (0.4-2.0) mmol/L Calcium 8.7 (8.5-10.1) mg/dl Total Bilirubin 0.9 (0.2-1) mg/dl AST 10 L (15-37) U/L ALT 17 (12-78) U/L Alkaline Phosphatase 80 (45-117) U/L Troponin I 0.176 H* (0-0.045) ng/ml C-Reactive Protein 2.03 H (0-0.29) mg/dl NT-Pro-B Natriuret Pep 1052 (0-1800) pg/ml Total Protein 6.7 (6.4-8.2) gm/dl Albumin 3.3 L (3.4-5.0) gm/dl Globulin 3.4 (2.5-4.0) gm/dl Albumin/Globulin Ratio 1.0 (0.9-2) Procalcitonin (0-0.5) ng/ml 09/18/19 09/18/19 09/18/19 Range/Units 15:53 15:53 15:53 WBC (4.8-10.8) K/uL RBC (4.7-6.1) M/uL Hgb (14.0-18.0) g/dL Hct (42-52) % MCV (80-100) fL MCH (25-34) pg MCHC (32-36) g/dL RDW Std Deviation (36.4-46.3) fL RDW Coeff of Pina (11.5-14.5) % Plt Count (130-400) K/uL MPV (7.4-10.4) fL Immature Gran % (Auto) % Neut % (Auto) % Lymph % (Auto) % Howell % (Auto) % Eos % (Auto) % Baso % (Auto) % Neut # (Auto) (1.4-6.5) K/uL Lymph # (Auto) (1.2-3.4) K/uL Howell # (Auto) (0.11-0.59) K/uL Eos # (Auto) (0-0.5) K/uL Baso # (Auto) (0-0.2) K/uL Immature Gran # (Auto) (0.00-0.02) K/uL ESR (0-14) mm/hr PT 11.4 (9.0-12.0) Seconds INR 1.1 (0.9-1.1) APTT 27.2 (21.0-31.0) Seconds PTT Ratio 1.0 Sodium (136-145) mmol/L Potassium (3.5-5.1) mmol/L Chloride (98-107) mmol/L Carbon Dioxide (21-32) mmol/L Anion Gap (3-11) BUN (7-18) mg/dl Creatinine (0.6-1.4) mg/dl Est Cr Clr Drug Dosing ml/min Est GFR ( Amer) Est GFR (Non-Af Amer) BUN/Creatinine Ratio (10-20) Glucose (70-99) mg/dl Lactate 1.1 (0.4-2.0) mmol/L Calcium (8.5-10.1) mg/dl Total Bilirubin (0.2-1) mg/dl AST (15-37) U/L ALT (12-78) U/L Alkaline Phosphatase (45-117) U/L Troponin I (0-0.045) ng/ml C-Reactive Protein (0-0.29) mg/dl NT-Pro-B Natriuret Pep (0-1800) pg/ml Total Protein (6.4-8.2) gm/dl Albumin (3.4-5.0) gm/dl Globulin (2.5-4.0) gm/dl Albumin/Globulin Ratio (0.9-2) Procalcitonin 0.10 (0-0.5) ng/ml Imaging Data Radiologist's Impression: SINGLE VIEW CHEST CLINICAL HISTORY: Dizziness. Right lower extremity infection. FINDINGS: An AP, portable, upright chest radiograph is compared to study dated 09/30/2018 and correlated with chest CT dated 02/21/2014. The examination is degraded by portable technique and apical lordotic positioning. The patient is status post midline sternotomy. The heart is enlarged. The pulmonary vasculature is noncongested. There is bibasilar scarring/atelectasis. No airspace consolidation or large pleural effusion is identified. No pneumothorax is seen. The skeletal structures are osteopenic. The bony thorax is grossly intact. IMPRESSION: Cardiomegaly with no acute cardiopulmonary abnormality. ACT 112: Negative or not required by law. Electronically signed by: Vince Briscoe M.D. 09/18/2019 4:26 PM ECG Data Additional Comments: EKG was obtained and reveals sinus bradycardia with sinus arrhythmia. QTc 434. Ventricular rate here 56. No ST elevation. MDM Narrative Patient was seen and evaluated as above in room A3. Review was performed of nursing notes and vital signs. I did review pertinent previous visits and patient history. After obtaining a thorough history and physical examination the above work up was performed. Patient was referred here from wound care center today over concern for wound appearance in the setting of patient feeling overall weak/dizzy. I did review patient wound cultures which grew out staph aureus and Pseudomonas on the . Patient was started on Keflex and Cipro yesterday. The area distal to the wound is appearing to be well perfused with adequate pulses and cap refill. Given patient history of myasthenia gravis I w ill discontinue the Cipro at this time and believe he would benefit from inpatient management of IV antibiotics and at this time with the attending physician we will choose daptomycin and cefepime which should provide good Pseudomonas/staph aureus coverage. There is no leukocytosis. Mild anemia no liz. Evidence of stable SWETHA creatinine of 2.06. Patient did seem to be somewhat short of breath on exam but notes this is chronic. Chest x-ray reveals no overt failure/fluid overload. Given the presentation with the associated weakness it was felt that an EKG and troponin would be reasonable. Troponin is mildly elevated. EKG was obtained and reveals sinus bradycardia with sinus arrhythmia. QTc 434. Ventricular rate here 56. No ST elevation. Given the appearance of the wound and presentation I did discuss the case with the hospitalist. Please refer to further documentation regarding his stay. While in the department, I personally reevaluated the patient several times and each time the patient was found to be resting comfortably. The patient was educated upon management, educated upon todays findings/results, educated upon recommendations and was admitted to the hospitalist service. Case was discussed with the attending physician. GCS: 15 In the evaluation and treatment of this patient the following differential diagnoses were entertained: Cellulitis, SWETHA, CHF, arterial insufficiency, venous insufficiency, DVT, among others. Impression & Plan Cellulitis of right lower extremity without foot, Elevated troponin Discharge Plan Visit Data *Final* Discharge Date/Time: 09/18/19 18:14 Chief Complaint: Infection, Wound Stated Complaint: WOUND ON R LEG ED Provider: Elio Tong ED Midlevel Provider: Ermias Michael Discharge Problem: Cellulitis of right lower extremity without foot, Elevated troponin Patient Disposition: Admitted As Inpatient Condition: Good Discharge Instructions Interventions: ED Discharge Assessment Last Done: 09/18/19 18:14
[2019-09-18 16:17] LABS: Basophils # (auto) 0.02 K/uL (0-0.2); Basophils % (auto) 0.2 %; Eosinophils # (auto) 0.18 K/uL (0-0.5); Eosinophils % (auto) 1.7 %; Hematocrit (blood only) 41.1 % (42-52); Hemoglobin 13.7 g/dL (14.0-18.0); Immature Granulocytes # (auto) 0.14 K/uL (0.00-0.02); Immature Granulocytes % (auto) 1.4 %; Lymphocytes # (auto) 0.51 K/uL (1.2-3.4); Lymphocytes % (auto) 4.9 %; Mean Corpuscular Hemoglobin 32.2 pg (25-34); Mean Corpuscular Hgb Conc 33.3 g/dL (32-36); Mean Corpuscular Volume 96.7 fL (80-100); Mean Platelet Volume 10.1 fL (7.4-10.4); Monocytes # (auto) 0.85 K/uL (0.11-0.59); Monocytes % (auto) 8.2 %; Neutrophils # (auto) 8.61 K/uL (1.4-6.5); Neutrophils % (auto) 83.6 %; Platelet Count 188 K/uL (130-400); RDW Coefficient of Variation 15.4 % (11.5-14.5); RDW Standard Deviation 54.2 fL (36.4-46.3); Red Blood Count 4.25 M/uL (4.7-6.1); White Blood Count 10.31 K/uL (4.8-10.8)
--- NOTE | 2019-09-18 16:27 | XRay Report ---
SINGLE VIEW CHEST CLINICAL HISTORY: Dizziness. Right lower extremity infection. FINDINGS: An AP, portable, upright chest radiograph is compared to study dated 09/30/2018 and correlat ed with chest CT dated 02/21/2014. The examination is degraded by portable technique and apical lordo tic positioning. The patient is status post midline sternotomy. The heart is enlarged. The pulmonary vasculature is noncongested. There is bibasilar scarring/atelectasis. No airspace consolidation or la rge pleural effusion is identified. No pneumothorax is seen. The skeletal structures are osteopenic. The bony thorax is grossly intact. IMPRESSION: Cardiomegaly with no acute cardiopulmonary abnormality. ACT 112: Negative or not required by law. Electronically signed by: Vince Briscoe M.D. 09/18/2019 4:26 PM
[2019-09-18 16:28] LABS: INR 1.1 (0.9-1.1); Partial Thromboplastin Time 27.2 Seconds (21.0-31.0); Prothrombin Time 11.4 Seconds (9.0-12.0)
[2019-09-18 16:31] LABS: Albumin Level 3.3 gm/dl (3.4-5.0); BUN Creatinine Ratio 19.8 (10-20); Calcium 8.7 mg/dl (8.5-10.1); Creatinine Clr Calc Pharmacy 29.9 ml/min; Est GFR (Non-African American) 29.3; Potassium 4.1 mmol/L (3.5-5.1)
--- NOTE | 2019-09-18 16:50 | Emergency Department Note ---
ED Visit Note HPI: Patient is an 79-year-old gentleman with a past medical history of venous stasis ulcers and chronic lower extremity wounds, CKD, COPD, diastolic heart failure, myasthenia gravis, paroxysmal A. fib who presents emergency department, referred from wound clinic for worsening acute on chronic right lower extremity wound. PE: AFVSS, NAD NC/AT RRR CTAB Abd soft NT/ND Ext: Right lower leg with [id number] region excoriation and serous weeping. Neuro: grossly intact Plan: Blood cx. ABX. Admit. I reviewed the patient's past medical history, medications, and visit nursing notes. I discussed the case with the physician volunteer assistant, examined the patient, and agree with the findings and plan as documented in PAC Bamat's note. .
[2019-09-18] MEDS ORDERED: DAPTOMYCIN CONSULT ACTIVE PRN (16:51)
[2019-09-18] MEDS ORDERED: CEFEPIME 2,000 MG/20 ML VIAL IV STA (16:51)
[2019-09-18] MEDS ORDERED: DAPTOmycin 275 MG in SYRINGE 0 ML IV ONE (16:51)
[2019-09-18 16:57] LABS: Bilirubin,Total 0.9 mg/dl (0.2-1); C Reactive Protein 2.03 mg/dl (0-0.29); Globulin 3.4 gm/dl (2.5-4.0); Total Protein 6.7 gm/dl (6.4-8.2); Troponin I 0.176 ng/ml (0-0.045)
--- NOTE | 2019-09-18 18:10 | History & Physical Report ---
Date of Service September 18, 2019 Assessment & Plan (1) Cellulitis of right lower extremity without foot: (2) Venous stasis ulcer: This is an 79-year-old male with PMH of chronic venous stasis ulcer of right lower extremity who follows with wound clinic, myasthenia gravis on prednisone, paroxysmal atrial fibrillation on Eliquis, chronic diastolic heart failure, CAD (s/p stent), CKD III, BPH and other medical problems listed below who presents from wound care clinic with worsening right lower extremity wound. -Recently grew pseudomonas and staph aureus on 09/13 wound culture and was started on Cipro and Keflex yesterday -Was sent by Dr. Watters from clinic today for IV antibiotics. Started empirically on cefepime and Dapto in ED which will be continued -Repeat wound and blood cultures ordered -Wound care consult, wound care nurse (3) Elevated troponin: Mild troponin elevation in setting of chronic kidney disease -No chest pain or acute ST changes. Trend troponin, monitor on telemetry (4) Myasthenia gravis: Follows with neurology. Prednisone dose being weaned due to poor wound healing. Currently alternating 5 mg and 10 mg dose each day (5) Paroxysmal atrial fibrillation: Sinus arrhythmia on EKG. Continue metoprolol, anticoagulated on Eliquis (6) CKD (chronic kidney disease) stage 3, GFR 30-59 ml/min: Kidney function at baseline ~2. Avoid nephrotoxic agents when able. Daily BMP (7) Diastolic congestive heart failure: History of chronic diastolic heart failure. Noticed BLE edema the past few days, so took 40 mg torsemide x 2 days -Reassess volume status in the morning (8) CAD (coronary artery disease): S/P stent LAD in 2017 No chest pain. Continue aspirin, metoprolol. Holding statin while receiving IV Dapto (9) BPH (benign prostatic hyperplasia): Continue finasteride, alfuzosin (10) Hypothyroidism: Continue levothyroxine (11) Sleep apnea: CPAP at bedtime DVT Ppx: Eliquis Code status: FULL PCP: Chantel Dispo: Admit to med [employer]. Plan to return home once medically stable. Patient seen in collaboration with Dr. Gentile. Please see addendum. History of Present Illness Chief Complaint: Right lower extremity cellulitis and wound, sent from wound care clinic Primary Care Provider: Ivette Golden, DO This is an 79-year-old male with PMH of chronic venous stasis ulcer of right lower extremity who follows with wound clinic, myasthenia gravis on prednisone, paroxysmal atrial fibrillation on Eliquis, chronic diastolic heart failure, CAD (s/p stent), CKD III, BPH and other medical problems listed below who presents from wound care clinic with worsening right lower extremity wound. Has been f ollowing for approximately a year for this wound. Most recent cultures from September 13 grew Pseudomonas and staph aureus and patient was started on Cipro and Keflex yesterday. [place] poorly today with some dizziness and nausea that he attributes to antibiotic. Was seen at wound care clinic and wound felt to be worsening with more bloody drainage, so Dr. Watters sent to ED for further evaluation and admission for IV antibiotics. Patient states that legs sting intermittently and that noted pus and increased drainage a few days ago. Denies any fever, chills, lightheadedness, headache, chest pain, shortness of breath, vomiting, diarrhea, diarrhea or constipation. Noted some increased swelling of lower extremities over the past few days, so took two 20 mg tablets of torsemide (as instructed to do with increased edema) for the past two days. Allergies Allergy/AdvReac Type Severity Reaction Status Date / Time adaptic touch AdvReac Mild contact Uncoded 09/18/19 16:27 dermatitis Home Medications Home Medications Medication Instructions Recorded Confirmed Type alfuzosin 10 mg PO HS 12/21/17 09/18/19 History finasteride 5 mg PO QPM 12/21/17 09/18/19 History levothyroxine 25 mcg PO QAM 12/21/17 09/18/19 History nitroglycerin [Nitrostat] 0.4 mg SUBLINGUAL UD 12/21/17 09/18/19 History atorvastatin 40 mg PO QPM 07/10/18 09/18/19 History metoprolol succinate 12.5 mg PO QAM 07/10/18 09/18/19 History torsemide 20 mg PO DAILY 09/30/18 09/18/19 History sertraline 25 mg tablet 25 mg PO DAILY 10/19/18 09/18/19 History aspirin 81 mg tablet,delayed 81 mg PO DAILY 11/03/18 09/18/19 History release lorazepam 0.5 mg tablet 0.25 mg PO BID PRN tab 11/03/18 09/18/19 History allopurinol 100 mg tablet 200 mg PO HS tab 11/24/18 09/18/19 History hydralazine 10 mg tablet 10 mg PO BID 06/18/19 09/18/19 History apixaban [Eliquis] 2.5 mg PO BID 09/18/19 09/18/19 History cephalexin 500 mg PO TID 09/18/19 09/18/19 History cholecalciferol (vitamin D3) 50 mcg PO DAILY 09/18/19 09/18/19 History [Vitamin D3] ciprofloxacin HCl 250 mg PO BID 09/18/19 09/18/19 History losartan [Cozaar] 25 mg PO DAILY 09/18/19 09/18/19 History prednisone 5 mg PO Q OTHER DAY 09/18/19 09/18/19 History prednisone 10 mg PO Q OTHER DAY 09/18/19 09/18/19 History Past Med/Surg History Medical History Actinic keratitis (Chronic) BPH (benign prostatic hyperplasia) (Chronic) CAD (coronary artery disease) (Chronic) Cellulitis of right lower extremity without foot (Acute) CKD (chronic kidney disease) stage 3, GFR 30-59 ml/min (Chronic) Diastolic congestive heart failure (Chronic) Dysmetabolic syndrome X (Acute) First degree atrioventricular block (Acute) Former smoker (Chronic) Gout (Chronic) HX History of thymus cancer (Acute) HTN (hypertension) (Chronic) Hyperlipidemia (Chronic) Hypothyroidism (Chronic) Mediastinal mass (Chronic) Myasthenia gravis (Chronic) Skin cancer (Chronic) Sleep apnea (Chronic) CPAP Stomach problems (Chronic) Venous stasis ulcer (Acute) Venous stasis ulcer of ankle limited to breakdown of skin without varicose veins (Chronic) Wound dehiscence, surgical (Acute) Surgical History History of cardiac cath (Chronic) 2 ST[place] [facility] [place] Hx of thymectomy (Chronic) 2014 S/P cataract extraction (Chronic) Family History Mother Family history of diabetes mellitus Social History Preferred Language: German Communication Ability: Effective Administrative Medical Director Required: No Beliefs That Will Affect Care: None Current Living Situation: Spouse Feels Safe at Home: Yes Smoking Status: Former smoker Tobacco Type: cigarettes ; Second Hand Exposure: No ; Hx Alcohol Use: No Hx Substance Use: No Review of Systems Review of Systems: At least ten systems reviewed and negative except as noted in the HPI. Physical Exam Physical Exam: General Appearance: WD/WN, vitals as above, NAD, sitting up in bed, pleasant, conversational dyspnea Head: normocephalic, atraumatic Eyes: normal inspection, PERRL, conjunctivae normal, anicteric sclerae ENT: external ear and nose normal, oropharynx normal Neck: trachea midline, no thyromegaly, normal visual inspection Respiratory: normal respiratory effort, lungs clear to auscultation, no wheeze, rales, rhonchi. Normal insp/exp effort, no accessory muscle use Cardiovascular: irregular rhythm, no murmur appreciated, normal peripheral pulses, 1+ BLE edema. Vessels: no JVD or carotid bruit Chest: normal inspection of chest Abdomen/GI: normal bowel sounds, soft but distended, nontender, no hepatosplenomegaly Extremities/Musculoskeletal: no cyanosis or clubbing, extremities motor strength 5/5 Neurologic: PERRL, EOMI, accommodation nl, no face palsy, no dysarthria, CN's II-XI intact bilaterally and moves all extremities Psychiatric: A+Ox3, euthymic affect Skin: normal color, warm/dry. +large wound on anterior of RLE with red base and some serosanguineous drainage. RLE erythematous and warm to touch from ankle to [place] Results & Data Results & Data ([facility]) Vital Signs (Past 12 Hours) Vital Signs Temp Pulse Resp BP Pulse Ox 09/18/19 17:31 68 19 135/50 L 95 09/18/19 17:01 63 20 133/56 L 96 09/18/19 16:31 80 20 114/64 95 09/18/19 16:07 65 20 148/61 H 95 09/18/19 14:55 36.6 C 66 18 131/66 98 Laboratory Results Short CBC 09/18/19 Range/Units 15:53 WBC 10.31 (4.8-10.8) K/uL Hgb 13.7 L (14.0-18.0) g/dL Hct 41.1 L (42-52) % Plt Count 188 (130-400) K/uL BMP 09/18/19 15:53 Sodium 143 Potassium 4.1 Chloride 108 H Carbon Dioxide 29 BUN 41 H Creatinine 2.06 H Glucose 106 H Calcium 8.7 Cardiac Enzymes 09/18/19 Range/Units 15:53 Troponin I 0.176 H* (0-0.045) ng/ml Liver Function 09/18/19 Range/Units 15:53 Total Bilirubin 0.9 (0.2-1) mg/dl AST 10 L (15-37) U/L ALT 17 (12-78) U/L Alkaline Phosphatase 80 (45-117) U/L Albumin 3.3 L (3.4-5.0) gm/dl Code Status & VTE Plan VTE Prophylaxis Plan VTE Prophylaxis will be ordered: Yes Supervising Physician Co-Signing Physician Notes Patient is an 79-year-old male with history of myasthenia gravis, paroxysmal A. fib, CHF, CKD III, CAD and other medical problems presents with history of worsening right lower extremity wound swelling, erythema. Patient was evaluated by as outpatient and was recently started on Keflex, Cipro (yesterday) for wound cultures growing Pseudomonas, staph. Please review HPI for complete details of presentation. On exam patient is moderately built and nourished, in no apparent distress, normocephalic atraumatic, lungs are clear to auscultation, S1-S2, no murmur, abdomen soft, distended, nontender, +bilateral lower extremity edema, grossly no focal neurologic deficits, right lower extremity venous ulcer, erythema, mild discharge. Patient is admitted for the management of right lower extremity cellulitis, venous stasis ulcer. We will start the patient on broad-spectrum antibiotics--daptomycin, cefepime. Wound culture, blood culture obtained. Wound care consulted. Patient denies any leg pain. Mild troponin elevation noted in setting of CKD. Trend troponins. Consider echo, cardiology evaluation if needed. Patient denies any chest pain. Continue diuretics for volume status. Monitor renal function while on diuretics. I personally reviewed the record. Patient is interviewed and examined at bedside. Patient's care is coordinated with Nora Candelaria PA-C. Please refer to the documentation above for details of patient's presentation and for discussion of other issues. (1) Venous stasis ulcer Laterality: right Non-pressure ulcer stage: limited to breakdown of skin Varicose vein presence: unspecified whether present Venous stasis ulcer site: calf Qualified Code(s): I83.012 - Varicose veins of right lower extremity with ulcer of calf; L97.211 - Non-pressure chronic ulcer of right calf limited to breakdown of skin
[2019-09-18] MEDS ORDERED: POLYETHYLENE (MIRALAX) 17 GM PACK PO PRN (19:07)
[2019-09-18] MEDS ORDERED: ACETAMINOPHEN 325 MG TAB PO PRN (19:07)
[2019-09-18] MEDS ORDERED: LORazepam 0.5 MG TAB PO PRN (19:07)
[2019-09-18] MEDS ORDERED: CEFEPIME CONSULT ACTIVE PRN (19:19)
[2019-09-18] MEDS ORDERED: predniSONE 5 MG TAB PO ONE (20:15)
[2019-09-18] MEDS: allopurinoL 100 MG TAB PO SCH (21:52)
[2019-09-18] MEDS: APIXABAN 2.5 MG TAB PO SCH (21:52)
[2019-09-18] MEDS: HydrALAZINE 10 MG TAB PO SCH (21:53)
[2019-09-18] MEDS: ALFUZOSIN HCL 10 MG TAB PO SCH (21:53)
[2019-09-18] MEDS: FINASTERIDE 5 MG TAB PO SCH (21:53)
[2019-09-19 04:10] LABS: Hematocrit (blood only) 36.2 % (42-52); Hemoglobin 11.7 g/dL (14.0-18.0); Mean Corpuscular Hemoglobin 31.4 pg (25-34); Mean Corpuscular Hgb Conc 32.3 g/dL (32-36); Mean Corpuscular Volume 97.1 fL (80-100); Mean Platelet Volume 9.4 fL (7.4-10.4); Platelet Count 163 K/uL (130-400); RDW Coefficient of Variation 15.3 % (11.5-14.5); Red Blood Count 3.73 M/uL (4.7-6.1)
[2019-09-19 04:32] LABS: BUN Creatinine Ratio 22.1 (10-20); Calcium 8.2 mg/dl (8.5-10.1); Est GFR (African American) 34.6; Est GFR (Non-African American) 29.9; Magnesium 2.1 mg/dl (1.8-2.4); Potassium 4.2 mmol/L (3.5-5.1)
[2019-09-19 04:43] LABS: Troponin I 0.108 ng/ml (0-0.045)
--- NOTE | 2019-09-19 07:17 | Ultrasound Report ---
ULTRASOUND ASCITES CHECK CLINICAL HISTORY: Abdominal swelling. COMPARISON STUDY: KUB dated 10/05/2013. FINDINGS: Real-time grayscale sonography of all 4 quadrants of the abdomen is performed to assess for abdominal ascites. There is no sonographic evidence of abdominal ascites. IMPRESSION: No abdominal ascites is seen. Electronically signed by: Vince Briscoe M.D. 09/19/2019 7:16 AM
[2019-09-19] MEDS: LOSARTAN POTASSIUM 25 MG TAB PO SCH (08:11)
[2019-09-19] MEDS: LEVOTHYROXINE SODIUM 25 MCG TABLET PO SCH (08:11)
[2019-09-19] MEDS: METOPROLOL SUCC 25MG EXT REL TAB PO SCH (08:12)
[2019-09-19] MEDS: HydrALAZINE 10 MG TAB PO SCH ×2 (08:12→20:29)
[2019-09-19] MEDS: TORSEMIDE 20 MG TAB PO SCH (08:12)
[2019-09-19] MEDS: CHOLECALCIFEROL 1,000 UNITS 25 MCG TAB PO SCH (08:12)
[2019-09-19] MEDS: ASPIRIN 81 MG ECTAB PO SCH (08:12)
[2019-09-19] MEDS: APIXABAN 2.5 MG TAB PO SCH ×2 (08:13→20:29)
[2019-09-19] MEDS: SERTRALINE HCL 50 MG TABLET PO SCH (08:14)
[2019-09-19] MEDS: predniSONE 10 MG TABLET PO SCH (08:23)
[2019-09-19] MEDS: CEFEPIME 1,000 MG in SYRINGE 0 ML IV SCH ×2 (10:41→20:30)
--- NOTE | 2019-09-19 11:08 | Hospitalist Progress Note ---
Date of Service September 19, 2019 Assessment & Plan (1) Cellulitis of right lower extremity without foot: (2) Venous stasis ulcer: This is an 79-year-old male with PMH of chronic venous stasis ulcer of right lower extremity who follows with wound clinic, myasthenia gravis on prednisone, paroxysmal atrial fibrillation on Eliquis, chronic diastolic heart failure, CAD (s/p stent), CKD III, BPH and other medical problems listed below who presents from wound care clinic with worsening right lower extremity wound. -Recently grew pseudomonas and staph aureus on 09/13 wound culture and was started on Cipro and Keflex day prior to admission -Was sent by Dr. Watters from clinic for IV antibiotics. Started empirically on cefepime and Dapto in ED which will be continued -Repeat wound and blood cultures ordered -Wound care consult, wound care nurse (3) Elevated troponin: Mild troponin elevation in setting of chronic kidney disease -No chest pain or acute ST changes. Trend troponin, monitor on telemetry (4) Myasthenia gravis: Follows with neurology. Prednisone dose being weaned due to poor wound healing. Currently alternating 5 mg and 10 mg dose each day (5) Paroxysmal atrial fibrillation: Sinus arrhythmia on EKG. Continue metoprolol, anticoagulated on Eliquis (6) CKD (chronic kidney disease) stage 3, GFR 30-59 ml/min: Kidney function at baseline ~2. Avoid nephrotoxic agents when able. Daily BMP (7) Diastolic congestive heart failure: History of chronic diastolic heart failure. Noticed BLE edema the past few days, so took 40 mg torsemide x 2 days -Reassess volume status daily (8) CAD (coronary artery disease): S/P stent LAD in 2017 No chest pain. Continue aspirin, metoprolol. Holding statin while receiving IV Dapto (9) BPH (benign prostatic hyperplasia): Continue finasteride, alfuzosin (10) Hypothyroidism: Continue levothyroxine (11) Sleep apnea: CPAP at bedtime DVT Ppx: Eliquis Code status: FULL PCP: Chantel Dispo: Admit to [facility]. Plan to likely return home once medically stable. Admission and Anticipated Discharge Date Admission Date: September 18, 2019 Subjective Patient is lying in bed, comfortable, in no distress. Denies any fevers, chills, chest pain, shortness of breath, abdominal pain, nausea or vomiting. Reports that he was seen by wound care nurse earlier this morning, and dressings were applied to his right lower extremity. Review of Systems Review of Systems: All systems reviewed & are unremarkable except as noted in HPI & below Constitutional: no fever and no chills Respiratory: no cough and no dyspnea Cardiovascular: no chest pain and no palpitations Gastrointestinal: no abdominal pain, no nausea and no vomiting Physical Exam Physical Exam: General Appearance: Elderly male, WD/WN, vitals as above, NAD, lying in bed, pleasant Head: normocephalic, atraumatic Eyes: normal inspection, PERRL, conjunctivae normal, anicteric sclerae ENT: external ear and nose normal, oropharynx normal Neck: trachea midline, no thyromegaly, normal visual inspection Respiratory: normal respiratory effort, lungs clear to auscultation, no wheeze, rales, rhonchi. Normal insp/exp effort, no accessory muscle use Cardiovascular: irregular rhythm, no murmur appreciated, normal peripheral pulses, 1+ BLE edema. Vessels: no JVD or carotid bruit Chest: normal inspection of chest Abdomen/GI: normal bowel sounds, soft but mild distended, nontender to palpation Extremities/Musculoskeletal: no cyanosis or clubbing, extremities motor strength 5/5 Neurologic: PERRL, EOMI, accommodation nl, no face palsy, no dysarthria, CN's II-XI intact bilaterally and moves all extremities Psychiatric: A+Ox3, euthymic affect Skin: normal color, warm/dry. +large wound on anterior of RLE with red base and some serosanguineous drainage. RLE erythematous and warm to touch from ankle to [place]ahan. Dressings placed over right LE Results & Data Results & Data ([facility]) Vital Signs (Past 12 Hours) Vital Signs Temp Pulse Pulse Pulse Resp BP Pulse Ox 09/19/19 07:08 36.5 C 55 L 16 135/66 95 09/19/19 02:50 36.9 C 85 20 122/66 94 09/19/19 02:36 53 L Laboratory Results 09/19/19 09/19/19 09/18/19 Range/Units 03:59 03:59 21:33 WBC 8.90 (4.8-10.8) K/uL RBC 3.73 L (4.7-6.1) M/uL Hgb 11.7 L (14.0-18.0) g/dL Hct 36.2 L (42-52) % MCV 97.1 (80-100) fL MCH 31.4 (25-34) pg MCHC 32.3 (32-36) g/dL RDW Std Deviation 54.0 H (36.4-46.3) fL RDW Coeff of Pina 15.3 H (11.5-14.5) % Plt Count 163 (130-400) K/uL MPV 9.4 (7.4-10.4) fL Immature Gran % (Auto) % Neut % (Auto) % Lymph % (Auto) % [place] % (Auto) % Eos % (Auto) % Baso % (Auto) % Neut # (Auto) (1.4-6.5) K/uL Lymph # (Auto) (1.2-3.4) K/uL [place] # (Auto) (0.11-0.59) K/uL Eos # (Auto) (0-0.5) K/uL Baso # (Auto) (0-0.2) K/uL Immature Gran # (Auto) (0.00-0.02) K/uL ESR (0-14) mm/hr PT (9.0-12.0) Seconds INR (0.9-1.1) APTT (21.0-31.0) Seconds PTT Ratio Sodium 145 (136-145) mmol/L Potassium 4.2 (3.5-5.1) mmol/L Chloride 112 H (98-107) mmol/L Carbon Dioxide 29 (21-32) mmol/L Anion Gap 4.0 (3-11) BUN 45 H (7-18) mg/dl Creatinine 2.03 H (0.6-1.4) mg/dl Est Cr Clr Drug Dosing 31.0 ml/min Est GFR ( Amer) 34.6 Est GFR (Non-Af Amer) 29.9 BUN/Creatinine Ratio 22.1 H (10-20) Glucose 107 H (70-99) mg/dl Lactate (0.4-2.0) mmol/L Calcium 8.2 L (8.5-10.1) mg/dl Magnesium 2.1 (1.8-2.4) mg/dl Total Bilirubin (0.2-1) mg/dl AST (15-37) U/L ALT (12-78) U/L Alkaline Phosphatase (45-117) U/L Troponin I 0.108 H* 0.143 H* (0-0.045) ng/ml C-Reactive Protein (0-0.29) mg/dl NT-Pro-B Natriuret Pep (0-1800) pg/ml Total Protein (6.4-8.2) gm/dl Albumin (3.4-5.0) gm/dl Globulin (2.5-4.0) gm/dl Albumin/Globulin Ratio (0.9-2) Procalcitonin (0-0.5) ng/ml 09/18/19 09/18/19 09/18/19 Range/Units 15:53 15:53 15:53 WBC (4.8-10.8) K/uL RBC (4.7-6.1) M/uL Hgb (14.0-18.0) g/dL Hct (42-52) % MCV (80-100) fL MCH (25-34) pg MCHC (32-36) g/dL RDW Std Deviation (36.4-46.3) fL RDW Coeff of Pina (11.5-14.5) % Plt Count (130-400) K/uL MPV (7.4-10.4) fL Immature Gran % (Auto) % Neut % (Auto) % Lymph % (Auto) % [place] % (Auto) % Eos % (Auto) % Baso % (Auto) % Neut # (Auto) (1.4-6.5) K/uL Lymph # (Auto) (1.2-3.4) K/uL [place] # (Auto) (0.11-0.59) K/uL Eos # (Auto) (0-0.5) K/uL Baso # (Auto) (0-0.2) K/uL Immature Gran # (Auto) (0.00-0.02) K/uL ESR (0-14) mm/hr PT 11.4 (9.0-12.0) Seconds INR 1.1 (0.9-1.1) APTT 27.2 (21.0-31.0) Seconds PTT Ratio 1.0 Sodium (136-145) mmol/L Potassium (3.5-5.1) mmol/L Chloride (98-107) mmol/L Carbon Dioxide (21-32) mmol/L Anion Gap (3-11) BUN (7-18) mg/dl Creatinine (0.6-1.4) mg/dl Est Cr Clr Drug Dosing ml/min Est GFR ( Amer) Est GFR (Non-Af Amer) BUN/Creatinine Ratio (10-20) Glucose (70-99) mg/dl Lactate 1.1 (0.4-2.0) mmol/L Calcium (8.5-10.1) mg/dl Magnesium (1.8-2.4) mg/dl Total Bilirubin (0.2-1) mg/dl AST (15-37) U/L ALT (12-78) U/L Alkaline Phosphatase (45-117) U/L Troponin I (0-0.045) ng/ml C-Reactive Protein (0-0.29) mg/dl NT-Pro-B Natriuret Pep (0-1800) pg/ml Total Protein (6.4-8.2) gm/dl Albumin (3.4-5.0) gm/dl Globulin (2.5-4.0) gm/dl Albumin/Globulin Ratio (0.9-2) Procalcitonin 0.10 (0-0.5) ng/ml 09/18/19 09/18/19 09/18/19 Range/Units 15:53 15:53 15:53 WBC 10.31 (4.8-10.8) K/uL RBC 4.25 L (4.7-6.1) M/uL Hgb 13.7 L (14.0-18.0) g/dL Hct 41.1 L (42-52) % MCV 96.7 (80-100) fL MCH 32.2 (25-34) pg MCHC 33.3 (32-36) g/dL RDW Std Deviation 54.2 H (36.4-46.3) fL RDW Coeff of Pina 15.4 H (11.5-14.5) % Plt Count 188 (130-400) K/uL MPV 10.1 (7.4-10.4) fL Immature Gran % (Auto) 1.4 % Neut % (Auto) 83.6 % Lymph % (Auto) 4.9 % [place] % (Auto) 8.2 % Eos % (Auto) 1.7 % Baso % (Auto) 0.2 % Neut # (Auto) 8.61 H (1.4-6.5) K/uL Lymph # (Auto) 0.51 L (1.2-3.4) K/uL [place] # (Auto) 0.85 H (0.11-0.59) K/uL Eos # (Auto) 0.18 (0-0.5) K/uL Baso # (Auto) 0.02 (0-0.2) K/uL Immature Gran # (Auto) 0.14 H (0.00-0.02) K/uL ESR 20 H (0-14) mm/hr PT (9.0-12.0) Seconds INR (0.9-1.1) APTT (21.0-31.0) Seconds PTT Ratio Sodium 143 (136-145) mmol/L Potassium 4.1 (3.5-5.1) mmol/L Chloride 108 H (98-107) mmol/L Carbon Dioxide 29 (21-32) mmol/L Anion Gap 6.0 (3-11) BUN 41 H (7-18) mg/dl Creatinine 2.06 H (0.6-1.4) mg/dl Est Cr Clr Drug Dosing 29.9 ml/min Est GFR ( Amer) 34.0 Est GFR (Non-Af Amer) 29.3 BUN/Creatinine Ratio 19.8 (10-20) Glucose 106 H (70-99) mg/dl Lactate (0.4-2.0) mmol/L Calcium 8.7 (8.5-10.1) mg/dl Magnesium (1.8-2.4) mg/dl Total Bilirubin 0.9 (0.2-1) mg/dl AST 10 L (15-37) U/L ALT 17 (12-78) U/L Alkaline Phosphatase 80 (45-117) U/L Troponin I 0.176 H* (0-0.045) ng/ml C-Reactive Protein 2.03 H (0-0.29) mg/dl NT-Pro-B Natriuret Pep 1052 (0-1800) pg/ml Total Protein 6.7 (6.4-8.2) gm/dl Albumin 3.3 L (3.4-5.0) gm/dl Globulin 3.4 (2.5-4.0) gm/dl Albumin/Globulin Ratio 1.0 (0.9-2) Procalcitonin (0-0.5) ng/ml Medications Administered Current Inpatient Medications Acetaminophen (Tylenol) 650 mg PO Q4H PRN PRN Reason: pain/fever Stop: 10/18/19 19:06 Alfuzosin HCl (Uroxatral) 10 mg PO HS CASSI Stop: 10/18/19 20:59 Last Admin: 09/18/19 21:53 Dose: 10 mg Documented by: Allopurinol (Zyloprim) 200 mg PO HS CASSI Stop: 10/18/19 20:59 Last Admin: 09/18/19 21:52 Dose: 200 mg Documented by: Apixaban (Eliquis) 2.5 mg PO BID CASSI Stop: 10/18/19 20:59 Last Admin: 09/19/19 08:13 Dose: 2.5 mg Documented by: Aspirin (Ecotrin Ectab) 81 mg PO DAILY CASSI Stop: 10/19/19 08:59 Last Admin: 09/19/19 08:12 Dose: 81 mg Documented by: Finasteride (Proscar) 5 mg PO QPM CASSI Stop: 10/18/19 20:59 Last Admin: 09/18/19 21:53 Dose: 5 mg Documented by: Hydralazine HCl (Apresoline) 10 mg PO BID CASSI Stop: 10/18/19 20:59 Last Admin: 09/19/19 08:12 Dose: 10 mg Documented by: Cefepime HCl 1,000 mg/ Syringe 11.3 mls @ 5.5 mls/min IV Q12H CASSI; Protocol Stop: 09/26/19 08:59 Last Admin: 09/19/19 10:41 Dose: 5.5 mls/min Documented by: Daptomycin 275 mg/ Syringe 5.5 mls @ 2.75 mls/min IV Q24H CASSI; Protocol Stop: 09/26/19 16:59 Levothyroxine Sodium (Synthroid) 25 mcg PO DAILYBB CASSI Stop: 10/19/19 06:29 Last Admin: 09/19/19 08:11 Dose: 25 mcg Documented by: Lorazepam (Ativan) 0.25 mg PO BID PRN PRN Reason: anxiety Stop: 10/18/19 19:06 Losartan Potassium (Cozaar) 25 mg PO DAILY CASSI Stop: 10/19/19 08:59 Last Admin: 09/19/19 08:11 Dose: 25 mg Documented by: Metoprolol Succinate (Toprol Xl) 12.5 mg PO QAM CASSI Stop: 10/19/19 08:59 Last Admin: 09/19/19 08:12 Dose: 12.5 mg Documented by: Miscellaneous Information (Consult) 1 ea N/A UD PRN PRN Reason: Consult Stop: 10/18/19 16:50 Miscellaneous Information (Cefepime Consult Active) 1 ea N/A UD PRN PRN Reason: Consult Stop: 10/18/19 19:18 Polyethylene Glycol (Miralax Powder Packet) 17 gm PO DAILY PRN PRN Reason: Constipation Stop: 10/18/19 19:06 Prednisone (Prednisone) 5 mg PO Q48H CASSI Stop: 10/20/19 08:59 Prednisone (Prednisone) 10 mg PO Q48H CASSI Stop: 10/19/19 08:59 Last Admin: 09/19/19 08:23 Dose: 10 mg Documented by: Sertraline HCl (Zoloft) 25 mg PO DAILY CASSI Stop: 10/19/19 08:59 Last Admin: 09/19/19 08:14 Dose: 25 mg Documented by: Torsemide (Demadex) 20 mg PO DAILY CASSI Stop: 10/19/19 08:59 Last Admin: 09/19/19 08:12 Dose: 20 mg Documented by: Vitamin D (Vitamin D3) 2,000 units PO DAILY CASSI Stop: 10/19/19 08:59 Last Admin: 09/19/19 08:12 Dose: 2,000 units Documented by: (1) Venous stasis ulcer Laterality: right Non-pressure ulcer stage: limited to breakdown of skin Va ricose vein presence: unspecified whether present Venous stasis ulcer site: calf Qualified Code(s): I83.012 - Varicose veins of right lower extremity with ulcer of calf; L97.211 - Non-pressure chronic ulcer of right calf limited to breakdown of skin
[2019-09-19] MEDS ORDERED: DAPTOmycin 275 MG in SYRINGE 0 ML IV SCH (17:00)
[2019-09-19] MEDS ORDERED: CEFEPIME 1,000 MG in SYRINGE 0 ML IV SCH (18:00)
--- NOTE | 2019-09-19 19:13 | Electrocardiogram Report ---
Test Reason : Blood Pressure : / mmHG Vent. Rate : 056 BPM Atrial Rate : 056 BPM P-R Int : 208 ms QRS Dur : 088 ms QT Int : 450 ms P-R-T Axes : 068 -16 064 degrees QTc Int : 434 ms Sinus bradycardia with marked sinus arrhythmia Otherwise normal ECG When compared with ECG of 02-OCT-2018 09:19, Premature atrial complexes are no longer Present Confirmed by Abdullahi Vides ([id number]) on 09/19/2019 7:12:51 PM Referred By: Adalberto Watters Confirmed By:Dutsin Vides
--- NOTE | 2019-09-19 19:19 | Electrocardiogram Report ---
Test Reason : Blood Pressure : / mmHG Vent. Rate : 054 BPM Atrial Rate : 054 BPM P-R Int : 218 ms QRS Dur : 094 ms QT Int : 450 ms P-R-T Axes : 055 -08 038 degrees QTc Int : 426 ms Sinus bradycardia with 1st degree A-V block with Premature atrial complexes Otherwise normal ECG When compared with ECG of 18-SEP-2019 16:05, (unconfirmed) Premature atrial complexes are now Present Confirmed by Abdullahi Vides ([id number]) on 09/19/2019 7:18:56 PM Referred By: Adalberto Watters Confirmed By:Dustin Vides
[2019-09-19] MEDS: ACETIC ACID 0.25% IRRIG SOLN 1000 ML PLCT IR SCH (19:33)
[2019-09-19] MEDS: ALFUZOSIN HCL 10 MG TAB PO SCH (20:31)
[2019-09-19] MEDS: allopurinoL 100 MG TAB PO SCH (20:31)
[2019-09-19] MEDS: FINASTERIDE 5 MG TAB PO SCH (20:32)
[2019-09-20 06:25] LABS: Hematocrit (blood only) 34.8 % (42-52); Hemoglobin 11.4 g/dL (14.0-18.0); Mean Corpuscular Hemoglobin 32.1 pg (25-34); Mean Corpuscular Hgb Conc 32.8 g/dL (32-36); Mean Platelet Volume 10.3 fL (7.4-10.4); Platelet Count 173 K/uL (130-400); RDW Coefficient of Variation 15.3 % (11.5-14.5); Red Blood Count 3.55 M/uL (4.7-6.1); White Blood Count 9.86 K/uL (4.8-10.8)
[2019-09-20 06:55] LABS: BUN Creatinine Ratio 25.5 (10-20); Calcium 8.5 mg/dl (8.5-10.1); Creatinine Clr Calc Pharmacy 28.9 ml/min; Est GFR (African American) 31.9; Est GFR (Non-African American) 27.5; Magnesium 2.5 mg/dl (1.8-2.4); Potassium 3.7 mmol/L (3.5-5.1)
[2019-09-20 06:56] LABS: Phosphorus 3.7 mg/dl (2.5-4.9)
[2019-09-20] MEDS: LEVOTHYROXINE SODIUM 25 MCG TABLET PO SCH (07:58)
[2019-09-20] MEDS: CHOLECALCIFEROL 1,000 UNITS 25 MCG TAB PO SCH (07:58)
[2019-09-20] MEDS: SERTRALINE HCL 50 MG TABLET PO SCH (07:59)
[2019-09-20] MEDS: METOPROLOL SUCC 25MG EXT REL TAB PO SCH (07:59)
[2019-09-20] MEDS: APIXABAN 2.5 MG TAB PO SCH ×2 (08:00→20:49)
[2019-09-20] MEDS: TORSEMIDE 20 MG TAB PO SCH (08:00)
[2019-09-20] MEDS: ASPIRIN 81 MG ECTAB PO SCH (08:00)
[2019-09-20] MEDS: HydrALAZINE 10 MG TAB PO SCH ×2 (08:01→20:46)
[2019-09-20] MEDS: LOSARTAN POTASSIUM 25 MG TAB PO SCH (08:01)
[2019-09-20] MEDS: CEFEPIME 1,000 MG in SYRINGE 0 ML IV SCH (08:02)
--- NOTE | 2019-09-20 08:09 | Wound Consultation ---
Date of Consultation September 19, 2019 Assessment & Plan (1) Cellulitis of right lower extremity: This is an 78-year-old male with venous stasis ulcers of his right lower extremity and secondary cellulitis. Wound cultures are growing Pseudomonas and staph aureus. Patient is currently on daptomycin and cefepime Wounds will be wrapped with acetic acid wraps daily for 14 days. Will cover with ABD and Kerlix. Patient will need at least a 2-week course of antibiotics. No debridement was required at this time. We will continue to follow. Thank you for allowing me to participate in the care of this patient. Please do not hesitate to call with any questions. History of Present Illness Reason for Consultation: cellulitis right lower extremity Venous leg ulcer Attending Physician: Star Queen MD History of Present Illness This is an 79-year-old male who is known to the wound clinic and was sent to the ER from the clinic. He has a past medical history of sleep apnea, gout, hypothyroidism, diastolic heart failure, CAD, A. fib, CKD stage III, hypertension, nephrolithiasis, myasthenia gravis, venous stasis ulcers and skin cancer. Patient's wound culture was positive for staph aureus and Pseudomonas patient was started on Levaquin and Keflex renally dosed. Patient also reports he was started on Cozaar approximately a week ago and he has been taking increased dose of torsemide for increased lower extremity edema. His legs continue to look worse. Patient was sent to the ER for evaluation as he is also complaining of shortness of breath and dizziness. He was admitted for IV antibiotics. Patient started on cefepime and daptomycin. Allergies Allergy/AdvReac Type Severity Reaction Status Date / Time adaptic touch AdvReac Mild contact Uncoded 09/18/19 16:27 dermatitis Home Medications Home Medications Medication Instructions Recorded Confirmed Type alfuzosin 10 mg PO HS 12/21/17 09/18/19 History finasteride 5 mg PO QPM 12/21/17 09/18/19 History levothyroxine 25 mcg PO QAM 12/21/17 09/18/19 History nitroglycerin [Nitrostat] 0.4 mg SUBLINGUAL UD 12/21/17 09/18/19 History atorvastatin 40 mg PO QPM 07/10/18 09/18/19 History metoprolol succinate 12.5 mg PO QAM 07/10/18 09/18/19 History torsemide 20 mg PO DAILY 09/30/18 09/18/19 History sertraline 25 mg tablet 25 mg PO DAILY 10/19/18 09/18/19 History aspirin 81 mg tablet,delayed 81 mg PO DAILY 11/03/18 09/18/19 History release lorazepam 0.5 mg tablet 0.25 mg PO BID PRN tab 11/03/18 09/18/19 History allopurinol 100 mg tablet 200 mg PO HS tab 11/24/18 09/18/19 History hydralazine 10 mg tablet 10 mg PO BID 06/18/19 09/18/19 History apixaban [Eliquis] 2.5 mg PO BID 09/18/19 09/18/19 History cephalexin 500 mg PO TID 09/18/19 09/18/19 History cholecalciferol (vitamin D3) 50 mcg PO DAILY 09/18/19 09/18/19 History [Vitamin D3] ciprofloxacin HCl 250 mg PO BID 09/18/19 09/18/19 History losartan [Cozaar] 25 mg PO DAILY 09/18/19 09/18/19 History prednisone 5 mg PO Q OTHER DAY 09/18/19 09/18/19 History prednisone 10 mg PO Q OTHER DAY 09/18/19 09/18/19 History Patient History Medical History Actinic keratitis (Chronic) BPH (benign prostatic hyperplasia) (Chronic) CAD (coronary artery disease) (Chronic) Cellulitis of right lower extremity without foot (Acute) CKD (chronic kidney disease) stage 3, GFR 30-59 ml/min (Chronic) Diastolic congestive heart failure (Chronic) Dysmetabolic syndrome X (Acute) First degree atrioventricular block (Acute) Former smoker (Chronic) Gout (Chronic) HX History of thymus cancer (Acute) HTN (hypertension) (Chronic) Hyperlipidemia (Chronic) Hypothyroidism (Chronic) Mediastinal mass (Chronic) Myasthenia gravis (Chronic) Skin cancer (Chronic) Sleep apnea (Chronic) CPAP Stomach problems (Chronic) Venous stasis ulcer (Acute) Venous stasis ulcer of ankle limited to breakdown of skin without varicose veins (Chronic) Wound dehiscence, surgical (Acute) Surgical History History of cardiac cath (Chronic) 2 STENTS [facility] [place] 04/2016 Hx of thymectomy (Chronic) 2013 S/P cataract extraction (Chronic) Family History Mother Family history of diabetes mellitus Social History Preferred Language: Fijian Communication Ability: Effective 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: No Beliefs That Will Affect Care: None Current Living Situation: Spouse Feels Safe at Home: Yes Smoking Status: Former smoker Tobacco Type: cigarettes ; Second Hand Exposure: No ; Hx Alcohol Use: No Hx Substance Use: No Review of Systems Review of Systems: All systems reviewed & are unremarkable except as noted in HPI & below Physical Exam Constitutional: WD/WN, vitals as above Eyes: PERRL, conjunctivae normal, anicteric sclerae ENMT: external ear and nose normal, oropharynx normal Ears: no hearing impairment Respiratory: Auscultation: + crackles Cardiovascular: Rate/Rhythm: + irregularly irregular Gastrointestinal (Abdomen): normal bowel sounds, soft, nontender, no hepatosplenomegaly Skin: Wounds measuring as recorded in nursing documentation. Wounds are circumferential. They are covered with fibrin and slough. Periwound is erythematous. There is a large amount of drainage no foul odor. Neurologic: awake; not confused Psychiatric: A+Ox3, euthymic affect Results & Data Vital Signs (Past 12 Hours) Vital Signs Temp Pulse Pulse Resp BP Pulse Ox 09/20/19 07:25 36.6 C 54 L 16 132/54 L 94 09/20/19 04:12 36.5 C 56 L 18 143/68 H 95 09/19/19 23:45 56 L 09/19/19 23:00 37.0 C 56 L 18 111/66 93 PG Care Time/CCT Total # of Minutes Spent Total Time Spent with Patient: Total time spent is greater than 50% in coordination of care (as documented) at patient's floor/unit and/or counseling patient: Coding Level of Care Code 55615 Inpt Consult Level 2 Diagnoses Cellulitis of right lower extremity L03.115
[2019-09-20] MEDS ORDERED: predniSONE 5 MG TAB PO SCH (09:00)
[2019-09-20] MEDS: ACETIC ACID 0.25% IRRIG SOLN 1000 ML PLCT IR SCH (11:05)
--- NOTE | 2019-09-20 12:48 | Hospitalist Progress Note ---
Date of Service September 20, 2019 Assessment & Plan (1) Cellulitis of right lower extremity without foot: (2) Venous stasis ulcer: This is an 79-year-old male with PMH of chronic venous stasis ulcer of right lower extremity who follows with wound clinic, myasthenia gravis on prednisone, paroxysmal atrial fibrillation on Eliquis, chronic diastolic heart failure, CAD (s/p stent), CKD III, BPH and other medical problems listed below who presents from wound care clinic with worsening right lower extremity wound. -Recently grew pseudomonas and staph aureus on 09/13 wound culture and was started on Cipro and Keflex day prior to admission -Was sent by Dr. Watters from clinic for IV antibiotics. Started empirically on cefepime and Dapto in ED which will be continued -Repeat wound and blood cultures ordered -wound cltx - + MSSA -Wound care consult, wound care nurse (3) Elevated troponin: Mild troponin elevation in setting of chronic kidney disease -No chest pain or acute ST changes. Trend troponin, monitor on telemetry (4) Myasthenia gravis: Follows with neurology. Prednisone dose being weaned due to poor wound healing. Currently alternating 5 mg and 10 mg dose each day (5) Paroxysmal atrial fibrillation: Sinus arrhythmia on EKG. Continue metoprolol, anticoagulated on Eliquis (6) CKD (chronic kidney disease) stage 3, GFR 30-59 ml/min: Kidney function at baseline ~2. Avoid nephrotoxic agents when able. Daily BMP (7) Diastolic congestive heart failure: History of chronic diastolic heart failure. Noticed BLE edema the past few days, so took 40 mg torsemide x 2 days -Reassess volume status daily (8) CAD (coronary artery disease): S/P stent LAD in 2017 No chest pain. Continue aspirin, metoprolol. Holding statin while receiving IV Dapto (9) BPH (benign prostatic hyperplasia): Continue finasteride, alfuzosin (10) Hypothyroidism: Continue levothyroxine (11) Sleep apnea: CPAP at bedtime DVT Ppx: Eliquis Code status: FULL PCP: Chantel Dispo: Thing[facility]. Plan to likely return home once medically stable. Admission and Anticipated Discharge Date Admission Date: September 18, 2019 Subjective Patient is lying in bed, comfortable, in no distress. Denies any fevers, chills, chest pain, shortness of breath, abdominal pain, nausea or vomiting. Patient is inquiring when going home. Discussed with Dr. Watters (wound care physician), who recommends that patient stays at least till tomorrow. Will discuss possible discharge tomorrow. Review of Systems Review of Systems: All systems reviewed & are unremarkable except as noted in HPI & below Constitutional: no fever and no chills Respiratory: no cough and no dyspnea Cardiovascular: no chest pain and no palpitations Gastrointestinal: no abdominal pain, no nausea and no vomiting Physical Exam Physical Exam: General Appearance: Elderly male, WD/WN, vitals as above, NAD, lying in bed, pleasant Head: normocephalic, atraumatic Eyes: normal inspection, PERRL, conjunctivae normal, anicteric sclerae ENT: external ear and nose normal, oropharynx normal Neck: trachea midline, no thyromegaly, normal visual inspection Respiratory: normal respiratory effort, lungs clear to auscultation, no wheeze, rales, rhonchi. Normal insp/exp effort, no accessory muscle use Cardiovascular: irregular rhythm, no murmur appreciated, normal peripheral pulses, 1+ BLE edema. Vessels: no JVD or carotid bruit Chest: normal inspection of chest Abdomen/GI: normal bowel sounds, soft but mild distended, nontender to palpation Extremities/Musculoskeletal: no cyanosis or clubbing, extremities motor st rength 5/5 Neurologic: PERRL, EOMI, accommodation nl, no face palsy, no dysarthria, CN's II-XI intact bilaterally and moves all extremities Psychiatric: A+Ox3, euthymic affect Skin: normal color, warm/dry. +large wound on anterior of RLE with red base and some serosanguineous drainage. RLE erythematous and warm to touch from ankle to [place]. Dressings placed over right LE Results & Data Results & Data ([facility]) Vital Signs (Past 12 Hours) Vital Signs Temp Pulse Pulse Resp BP Pulse Ox 09/20/19 11:23 36.6 C 52 L 16 148/62 H 97 09/20/19 10:01 51 L 09/20/19 07:25 36.6 C 54 L 16 132/54 L 94 09/20/19 04:12 36.5 C 56 L 18 143/68 H 95 Laboratory Results 09/20/19 09/20/19 Range/Units 05:39 05:39 WBC 9.86 (4.8-10.8) K/uL RBC 3.55 L (4.7-6.1) M/uL Hgb 11.4 L (14.0-18.0) g/dL Hct 34.8 L (42-52) % MCV 98.0 (80-100) fL MCH 32.1 (25-34) pg MCHC 32.8 (32-36) g/dL RDW Std Deviation 55.0 H (36.4-46.3) fL RDW Coeff of Pina 15.3 H (11.5-14.5) % Plt Count 173 (130-400) K/uL MPV 10.3 (7.4-10.4) fL Sodium 145 (136-145) mmol/L Potassium 3.7 (3.5-5.1) mmol/L Chloride 111 H (98-107) mmol/L Carbon Dioxide 28 (21-32) mmol/L Anion Gap 6.0 (3-11) BUN 55 H (7-18) mg/dl Creatinine 2.17 H (0.6-1.4) mg/dl Est Cr Clr Drug Dosing 28.9 ml/min Est GFR ( Amer) 31.9 Est GFR (Non-Af Amer) 27.5 BUN/Creatinine Ratio 25.5 H (10-20) Glucose 92 (70-99) mg/dl Calcium 8.5 (8.5-10.1) mg/dl Phosphorus 3.7 (2.5-4.9) mg/dl Magnesium 2.5 H (1.8-2.4) mg/dl Medications Administered Current Inpatient Medications Acetaminophen (Tylenol) 650 mg PO Q4H PRN PRN Reason: pain/fever Stop: 10/18/19 19:06 Acetic Acid (Acetic Acid 0.25%) 1 appln IR DAILY [facility] Stop: 10/19/19 13:29 Last Admin: 09/20/19 11:05 Dose: 1 appln Documented by: Alfuzosin HCl (Uroxatral) 10 mg PO [facility] Stop: 10/18/19 20:59 Last Admin: 09/19/19 20:31 Dose: 10 mg Documented by: Allopurinol (Zyloprim) 200 mg PO [facility] Stop: 10/18/19 20:59 Last Admin: 09/19/19 20:31 Dose: 200 mg Documented by: Apixaban (Eliquis) 2.5 mg PO BID [facility] Stop: 10/18/19 20:59 Last Admin: 09/20/19 08:00 Dose: 2.5 mg Documented by: Aspirin (Ecotrin Ectab) 81 mg PO DAILY [facility] Stop: 10/19/19 08:59 Last Admin: 09/20/19 08:00 Dose: 81 mg Documented by: Finasteride (Proscar) 5 mg PO QPM [facility] Stop: 10/18/19 20:59 Last Admin: 09/19/19 20:32 Dose: 5 mg Documented by: Hydralazine HCl (Apresoline) 10 mg PO BID [facility] Stop: 10/18/19 20:59 Last Admin: 09/20/19 08:01 Dose: 10 mg Documented by: Daptomycin 275 mg/ Syringe 5.5 mls @ 2.75 mls/min IV Q48H [facility]; Protocol Stop: 09/26/19 15:59 Cefepime HCl 1,000 mg/ Syringe 11.3 mls @ 5.5 mls/min IV Q24H [facility]; Protocol Stop: 09/26/19 07:59 [facility]: 10/19/19 06:29 Last Admin: 09/20/19 07:58 Dose: 25 mcg Documented by: Lorazepam (Ativan) 0.25 mg PO BID PRN PRN Reason: anxiety Stop: 10/18/19 19:06 Losartan Potassium (Cozaar) 25 mg PO DAILY [facility] Stop: 10/19/19 08:59 Last Admin: 09/20/19 08:01 Dose: 25 mg Documented by: Metoprolol Succinate (Toprol Xl) 12.5 mg PO QAM [facility] Stop: 10/19/19 08:59 Last Admin: 09/20/19 07:59 Dose: Not Given Documented by: Miscellaneous Information (Consult) 1 ea N/A UD PRN PRN Reason: Consult Stop: 10/18/19 16:50 Miscellaneous Information (Cefepime Consult Active) 1 ea N/A UD PRN PRN Reason: Consult Stop: 10/18/19 19:18 Polyethylene Glycol (Miralax Powder Packet) 17 gm PO DAILY PRN PRN Reason: Constipation Stop: 10/18/19 19:06 Prednisone (Prednisone) 5 mg PO Q48H [facility] Stop: 10/20/19 08:59 Last Admin: 09/20/19 08:00 Dose: 5 mg Documented by: Prednisone (Prednisone) 10 mg PO Q48H [facility] Stop: 10/19/19 08:59 Last Admin: 09/19/19 08:23 Dose: 10 mg Documented by: Sertraline HCl (Zoloft) 25 mg PO DAILY [facility] Stop: 10/19/19 08:59 Last Admin: 09/20/19 07:59 Dose: 25 mg Documented by: Torsemide (Demadex) 20 mg PO DAILY [facility] Stop: 10/19/19 08:59 Last Admin: 09/20/19 08:00 Dose: 20 mg Documented by: Vitamin D (Vitamin D3) 2,000 units PO DAILY [facility] Stop: 10/19/19 08:59 Last Admin: 09/20/19 07:58 Dose: 2,000 units Documented by: (1) Venous stasis ulcer Venous stasis ulcer site: calf Varicose vein presence: unspecified whether present Laterality: right Non-pressure ulcer stage: limited to breakdown of skin Qualified Code(s): I83.012 - Varicose veins of right lower extremity with ulcer of calf; L97.211 - Non-pressure chronic ulcer of right calf limited to breakdown of skin
--- NOTE | 2019-09-20 15:21 | Wound Progress Note ---
Date of Service September 20, 2019 Assessment & Plan (1) Venous stasis ulcer: Acetic acid was not placed last night. No debridement was required. Wounds were dressed with acetic acid wraps, ABDs and Kerlix. Continue IV antibiotics. Await final sensitivities. We will continue to follow. (2) Chronic venous insufficiency: (3) Cellulitis of right lower extremity without foot: Subjective Patient seen at bedside with WOCN. Stating he feels better. Admits that he is lost a lot of fluid. Remains on cefepime and daptomycin. Review of Systems Review of Systems: All systems reviewed & are unremarkable except as noted in HPI & below Physical Exam Skin: Wounds measuring as recorded in nursing documentation. Legs are erythematous with large amount of drainage. Neurologic: awake; not confused Psychiatric: A+Ox3, euthymic affect Results & Data Vital Signs (Past 12 Hours) Vital Signs Temp Pulse Pulse Resp BP Pulse Ox 09/20/19 11:23 36.6 C 52 L 16 148/62 H 97 09/20/19 10:01 51 L 09/20/19 07:25 36.6 C 54 L 16 132/54 L 94 09/20/19 04:12 36.5 C 56 L 18 143/68 H 95 PG Care Time/CCT Total # of Minutes Spent Total Time Spent with Patient: Total time spent is greater than 50% in coordination of care (as documented) at patient's floor/unit and/or counseling patient: Coding Level of Care Code 00717 Subseq Hosp Care Lvl 2 Diagnoses Venous stasis ulcer I83.012; L97.211 Venous stasis ulcer site: calf Varicose vein presence: unspecified whether present Laterality: right Non-pressure ulcer stage: limited to breakdown of skin Chronic venous insufficiency I87.2 Cellulitis of right lower extremity without foot L03.115 (1) Venous stasis ulcer Venous stasis ulcer site: calf Varicose vein presence: unspecified whether present Laterality: right Non-pressure ulcer stage: limited to breakdown of skin Qualified Code(s): I83.012 - Varicose veins of right lower extremity with ulcer of calf; L97.211 - Non-pressure chronic ulcer of right calf limited to breakdown of skin
[2019-09-20] MEDS ORDERED: DAPTOmycin 275 MG in SYRINGE 0 ML IV SCH (18:00)
[2019-09-20] MEDS: FINASTERIDE 5 MG TAB PO SCH (20:49)
[2019-09-20] MEDS: ALFUZOSIN HCL 10 MG TAB PO SCH (20:50)
[2019-09-20] MEDS: allopurinoL 100 MG TAB PO SCH (20:50)
[2019-09-21] MEDS: LEVOTHYROXINE SODIUM 25 MCG TABLET PO SCH (06:30)
[2019-09-21] MEDS: LOSARTAN POTASSIUM 25 MG TAB PO SCH (07:55)
[2019-09-21] MEDS: predniSONE 10 MG TABLET PO SCH (07:55)
[2019-09-21] MEDS: SERTRALINE HCL 50 MG TABLET PO SCH (07:56)
[2019-09-21] MEDS: TORSEMIDE 20 MG TAB PO SCH (07:56)
[2019-09-21] MEDS: ASPIRIN 81 MG ECTAB PO SCH (07:56)
[2019-09-21] MEDS: APIXABAN 2.5 MG TAB PO SCH (07:58)
[2019-09-21] MEDS: CHOLECALCIFEROL 1,000 UNITS 25 MCG TAB PO SCH (07:58)
[2019-09-21] MEDS: METOPROLOL SUCC 25MG EXT REL TAB PO SCH (07:58)
[2019-09-21] MEDS: HydrALAZINE 10 MG TAB PO SCH (07:59)
[2019-09-21] MEDS ORDERED: CEFEPIME 1,000 MG in SYRINGE 0 ML IV SCH (08:00)
--- NOTE | 2019-09-21 08:15 | Hospitalist Progress Note ---
Date of Service September 21, 2019 Assessment & Plan (1) Cellulitis of right lower extremity without foot: (2) Venous stasis ulcer: This is an 79-year-old male with PMH of chronic venous stasis ulcer of right lower extremity who follows with wound clinic, myasthenia gravis on prednisone, paroxysmal atrial fibrillation on Eliquis, chronic diastolic heart failure, CAD (s/p stent), CKD III, BPH and other medical problems listed below who presents from wound care clinic with worsening right lower extremity wound. -Recently grew pseudomonas and staph aureus on 09/13 wound culture and was started on Cipro and Keflex day prior to admission -Was sent by Dr. Watters from clinic for IV antibiotics. Started empirically on cefepime and Dapto in ED which will be continued -Repeat wound and blood cultures ordered -wound cltx - + MSSA -Wound care consult, wound care nurse -Patient followed by Dr. Watters while inpatient, recommend to continue his p.o. antibiotics on discharge, and close follow-up in wound care clinic -Patient should continue dressing changes with acetic acid, and per wound care instructions -There is some concern of lower extremity edema that has resolved during the admission, patient may have a had mild diastolic heart failure exacerbation -Recommend to check weight daily, and follow-up with primary care doctor within 1 week (3) Elevated troponin: Mild troponin elevation in setting of chronic kidney disease, and possible mild diastolic CHF exacerbation -No chest pain or acute ST changes. Trend troponin, monitor on telemetry (4) Myasthenia gravis: Follows with neurology. Prednisone dose being weaned due to poor wound healing. Currently alternating 5 mg and 10 mg dose each day (5) Paroxysmal atrial fibrillation: Sinus arrhythmia on EKG. Continue metoprolol, anticoagulated on Eliquis (6) CKD (chronic kidney disease) stage 3, GFR 30-59 ml/min: Kidney function at baseline ~2. Avoid nephrotoxic agents when able. Daily BMP while inpt (7) Diastolic congestive heart failure: History of chronic diastolic heart failure. Noticed BLE edema the past few days, so took 40 mg torsemide x 2 days -Reassess volume status daily -Patient likely had a mild CHF, diastolic, exacerbation -volume status has improved while inpatient -Recommend sodium restriction, fluid restriction, daily weights, and close follow-up with PCP as outpatient (8) CAD (coronary artery disease): S/P stent LAD in 2017 No chest pain. Continue aspirin, metoprolol. Holding statin while receiving IV Dapto (9) BPH (benign prostatic hyperplasia): Continue finasteride, alfuzosin (10) Hypothyroidism: Continue levothyroxine (11) Sleep apnea: CPAP at bedtime DVT Ppx: Eliquis Code status: FULL PCP: Chantel Dispo: [employer]. Plan to return home. Admission and Anticipated Discharge Date Admission Date: September 18, 2019 Subjective Patient is lying in bed, comfortable, in no distress. Denies any fevers, chills, chest pain, shortness of breath, abdominal pain, nausea or vomiting. He is inquiring about going home. Met with Dr. Watters at the bedside, and discussed further. Patient's is able to do patient's dressing changes. Plan to follow-up with wound clinic on Tuesday. Review of Systems Review of Systems: All systems reviewed & are unremarkable except as noted in HPI & below Constitutional: no fever and no chills Respiratory: no cough and no dyspnea Cardiovascular: no chest pain and no palpitations Gastrointestinal: no abdominal pain, no nausea and no vomiting Physical Exam Physical Exam: General Appearance: Elderly male, WD/WN, vitals as above, NAD, lying in bed, pleasant Head: normocephalic, atraumatic Eyes: normal inspection, PERRL, conjunctivae normal, anicteric sclerae ENT: external ear and nose normal, oropharynx normal Neck: trachea midline, no thyromegaly, normal visual inspection Respiratory: normal respiratory effort, lungs clear to auscultation, no wheeze, rales, rhonchi. Normal insp/exp effort, no accessory muscle use Cardiovascular: irregular rhythm, no murmur appreciated, normal peripheral pulses, trace BLE edema. Vessels: no JVD or carotid bruit Chest: normal inspection of chest Abdomen/GI: normal bowel sounds, soft but mild distended, nontender to palpation Extremities/Musculoskeletal: no cyanosis or clubbing, extremities motor strength 5/5 Neurologic: PERRL, EOMI, accommodation nl, no face palsy, no dysarthria, CN's II-XI intact bilaterally and moves all extremities Psychiatric: A+Ox3, euthymic affect Skin: normal color, warm/dry. +large wound on anterior of RLE with red base and some serosanguineous drainage. RLE erythematous and warm to touch from ankle to monahan. Results & Data Results & Data ([facility]) Vital Signs (Past 12 Hours) Vital Signs Temp Pulse Pulse Resp BP Pulse Ox 09/21/19 07:36 36.5 C 51 L 16 139/65 93 09/21/19 02:48 36.8 C 79 18 117/74 95 09/21/19 00:13 50 L 09/20/19 23:47 36.6 C 99 H 18 108/61 93 Laboratory Results 09/21/19 Range/Units 09:53 Creatinine 2.19 H (0.6-1.4) mg/dl Est Cr Clr Drug Dosing 28.3 ml/min Est GFR ( Amer) 31.6 Est GFR (Non-Af Amer) 27.2 Medications Administered Current Inpatient Medications Acetaminophen (Tylenol) 650 mg PO Q4H PRN PRN Reason: pain/fever Stop: 10/18/19 19:06 Acetic Acid (Acetic Acid 0.25%) 1 appln IR DAILY [facility]SI Stop: 10/19/19 13:29 Last Admin: 09/20/19 11:05 Dose: 1 appln Documented by: Alfuzosin HCl (Uroxatral) 10 mg PO HS CASSI Stop: 10/18/19 20:59 Last Admin: 09/20/19 20:50 Dose: 10 mg Documented by: Allopurinol (Zyloprim) 200 mg PO HS CASSI Stop: 10/18/19 20:59 Last Admin: 09/20/19 20:50 Dose: 200 mg Documented by: Apixaban (Eliquis) 2.5 mg PO BID CASSI Stop: 10/18/19 20:59 Last Admin: 09/21/19 07:58 Dose: 2.5 mg Documented by: Aspirin (Ecotrin Ectab) 81 mg PO DAILY [facility]SI Stop: 10/19/19 08:59 Last Admin: 09/21/19 07:56 Dose: 81 mg Documented by: Finasteride (Proscar) 5 mg PO QPM [facility] Stop: 10/18/19 20:59 Last Admin: 09/20/19 20:49 Dose: 5 mg Documented by: Hydralazine HCl (Apresoline) 10 mg PO BID [facility]SI Stop: 10/18/19 20:59 Last Admin: 09/21/19 07:59 Dose: 10 mg Documented by: Cefepime HCl 1,000 mg/ Syringe 11.3 mls @ 5.5 mls/min IV Q24H [facility]; Protocol Stop: 09/26/19 07:59 Last Admin: 09/21/19 07:59 Dose: 5.5 mls/min Documented by: Levothyroxine Sodium (Synthroid) 25 mcg PO DAILYBB [facility] Stop: 10/19/19 06:29 Last Admin: 09/21/19 06:30 Dose: 25 mcg Documented by: Lorazepam (Ativan) 0.25 mg PO BID PRN PRN Reason: anxiety Stop: 10/18/19 19:06 Losartan Potassium (Cozaar) 25 mg PO DAILY [facility] Stop: 10/19/19 08:59 Last Admin: 09/21/19 07:55 Dose: 25 mg Documented by: Metoprolol Succinate (Toprol Xl) 12.5 mg PO QAM [facility] Stop: 10/19/19 08:59 Last Admin: 09/21/19 07:58 Dose: Not Given Documented by: Miscellaneous Information (Cefepime Consult Active) 1 ea N/A UD PRN PRN Reason: Consult Stop: 10/18/19 19:18 Polyethylene Glycol (Miralax Powder Packet) 17 gm PO DAILY PRN PRN Reason: Constipation Stop: 10/18/19 19:06 Prednisone (Prednisone) 5 mg PO Q48H [facility] Stop: 10/20/19 08:59 Last Admin: 09/20/19 08:00 Dose: 5 mg Documented by: Prednisone (Prednisone) 10 mg PO Q48H [facility] Stop: 10/19/19 08:59 Last Admin: 09/21/19 07:55 Dose: 10 mg Documented by: Sertraline HCl (Zoloft) 25 mg PO DAILY [facility] Stop: 10/19/19 08:59 Last Admin: 09/21/19 07:56 Dose: 25 mg Documented by: Torsemide (Demadex) 20 mg PO DAILY [facility] Stop: 10/19/19 08:59 Last Admin: 09/21/19 07:56 Dose: 20 mg Documented by: Vitamin D (Vitamin D3) 2,000 units PO DAILY [facility] Stop: 10/19/19 08:59 Last Admin: 09/21/19 07:58 Dose: 2,000 units Documented by: (1) Venous stasis ulcer Laterality: right Non-pressure ulcer stage: limited to breakdown of skin Varicose vein presence: unspecified whether present Venous stasis ulcer site: calf Qualified Code(s): I83.012 - Varicose veins of right lower extremity with ulcer of calf; L97.211 - Non-pressure chronic ulcer of right calf limited to breakdown of skin
[2019-09-21 10:33] LABS: Creatinine Clr Calc Pharmacy 28.3 ml/min; Est GFR (African American) 31.6; Est GFR (Non-African American) 27.2
[2019-09-21] MEDS: ACETIC ACID 0.25% IRRIG SOLN 1000 ML PLCT IR SCH (11:51)
--- NOTE | 2019-09-21 12:15 | Discharge Summary ---
Date of Service September 21, 2019 Admission HPI Per Admitting Provider This is an 79-year-old male with PMH of chronic venous stasis ulcer of right lower extremity who follows with wound clinic, myasthenia gravis on prednisone, paroxysmal atrial fibrillation on Eliquis, chronic diastolic heart failure, CAD (s/p stent), CKD III, BPH and other medical problems listed below who presents from wound care clinic with worsening right lower extremity wound. Has been following for approximately a year for this wound. Most recent cultures from September 13 grew Pseudomonas and staph aureus and patient was started on Cipro and Keflex yesterday. Sunburst poorly today with some dizziness and nausea that he attributes to antibiotic. Was seen at wound care clinic and wound felt to be worsening with more bloody drainage, so Dr. Watters sent to ED for further evaluation and admission for IV antibiotics. Patient states that legs sting intermittently and that noted pus and increased drainage a few days ago. Denies any fever, chills, lightheadedness, headache, chest pain, shortness of breath, vomiting, diarrhea, diarrhea or constipation. Noted some increased swelling of lower extremities over the past few days, so took two 20 mg tablets of torsemide (as instructed to do with increased edema) for the past two days. Admission Exam Per Admitting Provider General Appearance: WD/WN, vitals as above, NAD, sitting up in bed, pleasant, conversational dyspnea Head: normocephalic, atraumatic Eyes: normal inspection, PERRL, conjunctivae normal, anicteric sclerae ENT: external ear and nose normal, oropharynx normal Neck: trachea midline, no thyromegaly, normal visual inspection Respiratory: normal respiratory effort, lungs clear to auscultation, no wheeze, rales, rhonchi. Normal insp/exp effort, no accessory muscle use Cardiovascular: irregular rhythm, no murmur appreciated, normal peripheral pulses, 1+ BLE edema. Vessels: no JVD or carotid bruit Chest: normal inspection of chest Abdomen/GI: normal bowel sounds, soft but distended, nontender, no hepatosplenomegaly Extremities/Musculoskeletal: no cyanosis or clubbing, extremities motor strength 5/5 Neurologic: PERRL, EOMI, accommodation nl, no face palsy, no dysarthria, CN's II-XI intact bilaterally and moves all extremities Psychiatric: A+Ox3, euthymic affect Skin: normal color, warm/dry. +large wound on anterior of RLE with red base and some serosanguineous drainage. RLE erythematous and warm to touch from ankle to monahan Principal Diagnosis Right lower extremity cellulitis Mild diastolic CHF exacerbation Discharge Exam General Appearance: Elderly male, WD/WN, vitals as above, NAD, lying in bed, pleasant Head: normocephalic, atraumatic Eyes: normal inspection, PERRL, conjunctivae normal, anicteric sclerae ENT: external ear and nose normal, oropharynx normal Neck: trachea midline, no thyromegaly, normal visual inspection Respiratory: normal respiratory effort, lungs clear to auscultation, no wheeze, rales, rhonchi. Normal insp/exp effort, no accessory muscle use Cardiovascular: irregular rhythm, no murmur appreciated, normal peripheral pulses, trace BLE edema. Vessels: no JVD or carotid bruit Chest: normal inspection of chest Abdomen/GI: normal bowel sounds, soft but mild distended, nontender to palpation Extremities/Musculoskeletal: no cyanosis or clubbing, extremities motor strength 5/5 Neurologic: PERRL, EOMI, accommodation nl, no face palsy, no dysarthria, CN's II-XI intact bilaterally and moves all extremities Psychiatric: A+Ox3, euthymic affect Skin: normal color, warm/dry. +large wound on anterior of RLE with red base and some serosanguineous drainage. Discharge Data Allergies Allergy/AdvReac Type Severity Reaction Status Date / Time adaptic touch AdvReac Mild contact Uncoded 09/18/19 16:27 dermatitis Consultations 09/18/19 19:07 Consult Wound Care Provider Routine Ordered Studies 09/18/19 19:07 US abdomen limited Routine IMPRESSION: No abdominal ascites is seen. CXR 09/18/19 IMPRESSION: Cardiomegaly with no acute cardiopulmonary abnormality. Hospital Course (1) Cellulitis of right lower extremity without foot: (2) Venous stasis ulcer: This is an 79-year-old male with PMH of chronic venous stasis ulcer of right lower extremity who follows with wound clinic, myasthenia gravis on prednisone, paroxysmal atrial fibrillation on Eliquis, chronic diastolic heart failure, CAD (s/p stent), CKD III, BPH and other medical problems listed below who presents from wound care clinic with worsening right lower extremity wound. -Recently grew pseudomonas and staph aureus on 09/13 wound culture and was started on Cipro and Keflex day prior to admission -Was sent by Dr. Watters from clinic for IV antibiotics. Started empirically on cefepime and Dapto in ED which will be continued -Repeat wound and blood cultures ordered -wound cltx - + MSSA -Wound care consult, wound care nurse -Patient followed by Dr. Watters while inpatient, recommend to continue his p.o. antibiotics on discharge, and close follow-up in wound care clinic -Patient should continue dressing changes with acetic acid, and per wound care instructions -There is some concern of lower extremity edema that has resolved during the admission, patient may have had a mild diastolic heart failure exacerbation -Recommend to check weight daily, and follow-up with primary care doctor within 1 week (3) Elevated troponin: Mild troponin elevation in setting of chronic kidney disease, and possible mild diastolic CHF exacerbation -No chest pain or acute ST changes. Trend troponin, monitor on telemetry while inpt (4) Myasthenia gravis: Follows with neurology. Prednisone dose being weaned due to poor wound healing. Currently alternating 5 mg and 10 mg dose each day (5) Paroxysmal atrial fibrillation: Sinus arrhythmia on EKG. Continue metoprolol, anticoagulated on Eliquis (6) CKD (chronic kidney disease) stage 3, GFR 30-59 ml/min: Kidney function at baseline ~2. Avoid nephrotoxic agents when able. Daily BMP while inpt (7) Diastolic congestive heart failure: History of chronic diastolic heart failure. Noticed BLE edema the past few days, so took 40 mg torsemide x 2 days -Reassess volume status daily -Patient likely had a mild CHF, diastolic, exacerbation -volume status has improved while inpatient -Recommend sodium restriction, fluid restriction, daily weights, and close follow-up with PCP as outpatient (8) CAD (coronary artery disease): S/P stent LAD in 2017 No chest pain. Continue aspirin, metoprolol. Holding statin while receiving IV Dapto , (dapto then stopped and continued with cefepime) (9) BPH (benign prostatic hyperplasia): Continue finasteride, alfuzosin (10) Hypothyroidism: Continue levothyroxine (11) Sleep apnea: CPAP at bedtime DVT Ppx: Eliquis Code status: FULL PCP: Chantel Dispo: [employer]. Plan to return home. Total Time Total Time Spent Total Time Spent (In Minutes): 40 Total Time Includes: Examination of the Patient, Discharge Planning, Medication Reconciliation and Communication With Other Providers Discharge Plan Discharge Items Patient Disposition: Home - Self-Care Reason For Visit: RLE CELLULITIS Discharge Diagnosis: Right lower extremity cellulitis Mild diastolic CHF exacerbation Condition on Discharge: Good Activity: Per Instructions section Non-emergency contact: Primary Care Provider and Surgeon Call non-emergency contact if: you have any medication questions Follow-up/Referrals: Ivette Golden DO [Primary Care Provider] - 09/24/19 1:50 pm (09/24/2019 1:50 PM Provider Ivette Golden DO Department Internal Medicine [facility] ) Diet: Heart Healthy and Low Sodium (2gm) Fluids: 1800ml (7 cups) Addtl Attending Provider Instructions: Wound Care in [place]- 09/25/[address] Medhat Sharif. Continue taking antibiotics prescribed by Dr. Watters, Keflex and ciprofloxacin. Do daily dressing changes with acetic acid, per wound care instructions. Follow-up with primary care doctor within 1 week. We have scheduled your appointment with primary care doctor, for September 23. Check your weight daily, before breakfast and after using the bathroom. Record your weight. Make your primary care doctor aware of your weight at your upcoming follow-up appointment. It is very important that your weight /fluid status, does not fluctuate very much. Addtl [employer] Provider Instructions: Call your Primary Care doctor if any of the following symptoms or problems start or get worse: * Shortness of breath or difficulty breathing * Wake up at night short of breath * Chest pain * Cough * Swelling of your hands, feet, or legs * More fatigued or tired with your normal activity * Palpitations - sudden fast heart beats WEIGHT * Weigh yourself every morning after using the bathroom. * Use the same scale. * Wear the same amount of clothing. * Write your weight down on a chart. * Call your Primary Care doctor if you gain more than 2-3 pounds in 1-2 days. MEDICATIONS * Use this discharge instruction sheet for medication instructions. * Take your medications at the time your doctor ordered. * Do not skip a dose of your medicines. * If you miss a dose of medicine, take it as soon as possible, but DO NOT DOUBLE A DOSE. * Read your medicine information when you get home. * Know all of the side effects of your medicine. If in doubt, ask your pharmacist * Call your Primary Care doctor's office if you have any side effects. * Be sure all of your doctors know what medicine and herbs you take (including cold, flu, and herbal medicine). Take the following with you to your follow-up doctor appointments: * Weight Chart * Medication List * List of questions Do not drink excessive alcohol, beer or wine. Pending Studies at Discharge: No Stand-Alone Forms: My [facility], Smoking Cessation Medications and DC Order Prescriptions: New acetic acid 0.25 % Solution 1 applic irrigation DAILY 5 Days Qty: 20 RF: 0 Continued sertraline [Zoloft] 25 mg tablet 25 mg PO DAILY RF: 0 lorazepam 0.5 mg tablet 0.25 mg PO BID PRN (Reason: anxiety) RF: 0 aspirin [Adult Low Dose Aspirin] 81 mg tablet,delayed release (DR/EC) 81 mg PO DAILY RF: 0 allopurinol 100 mg tablet 200 mg PO HS RF: 0 hydralazine 10 mg tablet 10 mg PO BID RF: 0 nitroglycerin [Nitrostat] 0.4 mg Tablet, Sublingual 0.4 mg Sublingual UD RF: 0 finasteride 5 mg Tablet 5 mg PO QPM RF: 0 alfuzosin 10 mg Tablet Extended Release 24 Hr 10 mg PO HS RF: 0 levothyroxine 25 mcg Tablet 25 mcg PO QAM RF: 0 torsemide 20 mg Tablet 20 mg PO DAILY RF: 0 ciprofloxacin HCl 250 mg tablet 250 mg PO BID RF: 0 cephalexin 500 mg capsule 500 mg PO TID RF: 0 cholecalciferol (vitamin D3) [Vitamin D3] 50 mcg (2,000 unit) Capsule 50 mcg PO DAILY RF: 0 prednisone 5 mg Tablet 5 mg PO Q OTHER DAY RF: 0 losartan [Cozaar] 25 mg Tablet 25 mg PO DAILY RF: 0 Eliquis 2.5 mg tablet 2.5 mg PO BID RF: 0 prednisone 5 mg tablet 10 mg PO Q OTHER DAY RF: 0 atorvastatin 40 mg tablet 40 mg PO QPM RF: 0 metoprolol succinate 25 mg tablet extended release 24 hr 12.5 mg PO QAM RF: 0 Discharge Orders: Discharge Order (Routine); Ordered 09/21/19 Ordered By: Satr Queen Admission Data Admit Date/Time: 09/18/19 17:54 Attending Provider: Star uQeen Admit Provider: Jim Gentile Primary Care Provider: Ivette Golden Other Providers: Adalberto Watters ; Jmi Gentile
--- NOTE | 2019-09-21 12:58 | Wound Progress Note ---
Date of Service September 21, 2019 Assessment & Plan (1) Venous stasis ulcer: Wounds are improving. From a wound standpoint patient is stable for discharge. Even though Pseudomonas culture is negative patient only received 3 doses of Cipro prior to arrival would recommend continuing Cipro upon discharge. We will have patient take 1 tablet daily until seen in office for reevaluation. He will also resume his renally dosed Keflex. Wounds will be dressed with acetic acid, ABDs, Kerlix and Tubigrip. When patient returns office can reapply compression. (2) Chronic venous insufficiency: (3) Cellulitis of right lower extremity without foot: Subjective Patient seen at bedside with Dr. Reyes and [facility]. He remains on IV antibiotics. States he is breathing much better. States his legs feel better as well. Review of Systems Review of Systems: All systems reviewed & are unremarkable except as noted in HPI & below Physical Exam Skin: Legs measuring as recorded in nursing documentation. They have improved significantly with acetic acid soaks. There is still moderate drainage and erythema. Neurologic: awake; not confused Psychiatric: A+Ox3, euthymic affect Results & Data Vital Signs (Past 12 Hours) Vital Signs Temp Pulse Resp BP Pulse Ox 09/21/19 11:25 36.6 C 60 18 139/63 95 09/21/19 07:36 36.5 C 51 L 16 139/65 93 09/21/19 02:48 36.8 C 79 18 117/74 95 PG Care Time/CCT Total # of Minutes Spent Total Time Spent with Patient: Total time spent is greater than 50% in coordination of care (as documented) at patient's floor/unit and/or counseling patient: Coding Level of Care Code 86050 Subseq Hosp Care Lvl 2 Diagnoses Venous stasis ulcer I83.012; L97.211 Venous stasis ulcer site: calf Varicose vein presence: unspecified whether present Laterality: right Non-pressure ulcer stage: limited to breakdown of skin Chronic venous insufficiency I87.2 Cellulitis of right lower extremity without foot L03.115 (1) Venous stasis ulcer Venous stasis ulcer site: calf Varicose vein presence: unspecified whether present Laterality: right Non-pressure ulcer stage: limited to breakdown of skin Qualified Code(s): I83.012 - Varicose veins of right lower extremity with ulcer of calf; L97.211 - Non-pressure chronic ulcer of right calf limited to breakdown of skin
[2019-09-21] MEDS ORDERED: DAPTOmycin 275 MG in SYRINGE 0 ML IV SCH (16:00)
== END 2019-09-21 15:09 | disposition home or self-care (01) | DRG 602 ==
LOC: ED 14:36 → SUATTDRO 17:54 → 2N 17:54

== ENCOUNTER 2020-07-21 11:04 | Inpatient (IN) ==
[2020-07-21 11:48] LABS: Hematocrit (blood only) 29.4 % (42-52); Hemoglobin 9.7 g/dL (14.0-18.0); Mean Corpuscular Hemoglobin 32.6 pg (25-34); Mean Corpuscular Volume 98.7 fL (80-100); Mean Platelet Volume 10.2 fL (7.4-10.4); Platelet Count 108 K/uL (130-400); RDW Coefficient of Variation 15.7 % (11.5-14.5); RDW Standard Deviation 56.2 fL (36.4-46.3); Red Blood Count 2.98 M/uL (4.7-6.1); White Blood Count 11.65 K/uL (4.8-10.8)
--- NOTE | 2020-07-21 11:50 | Emergency Department Note ---
Impression & Plan Acute kidney injury superimposed on CKD, Weakness, Chronic hip pain, Epistaxis, Mood disorder ED Provider Note INFORMANT: Patient ED PROVIDER(S): Sundar Nunez MD CHIEF COMPLAINT: Weakness, depression PLAN: Disposition: Admitted Condition: Good Outpatient prescription management: none Referral: None MEDICAL DECISION MAKING: Patient presented complaining of feeling weak. He felt like he was getting worse over the recent past. He notes chronic pain in his hips. He has anxiety and depression but also was voicing some vague suicidal thoughts. He states he is tired of dealing with his chronic pain. The patient underwent a work-up. Patient's chest x-ray shows atelectasis. He has no cough or pulmonary symptoms. The patient was found to have a mild leukocytosis. He was mildly anemic. Urinalysis was unremarkable. Tylenol, salicylate, and alcohol levels were negative. The patient's chemistry panel does show SWETHA. He admits to not drinking and eating well recently. He was gently hydrated. I did discuss his issues with the psychiatric case management rn. It was felt that a medical admission with inpatient psychiatric consultation would be most appropriate. Patient and family were in agreement. [facility] The patient was evaluated in the ER and admitted for further management. I gave my usual and customary discussion regarding this issue. By the evaluation outlined above other emergent etiologies such as those listed in the differential, as well as others, were deemed relatively unlikely. The patient was educated about the findings as listed above. All questions were answered and the patient and family were pleased with the treatment. Return instructions were outlined and the patient was discharged in stable condition. The patient was referred for follow-up for a recheck of the current condition. Triage Nursing notes reviewed and agree them. Vital Signs: reviewed and remarkable for no significant abnormalities Differential diagnosis: Infection, dehydration, metabolic abnormality, hypo/hyperglycemia, electrolyte disturbance, anemia, hypoxia, cardiac sources, intracerebral event, toxicologic, neurologic, psychiatric as well as other pathologies. Diagnostics interpreted by me: ECG: Twelve-lead ECG reveals atrial fibrillation at [address] elevation or depression. Normal axis and QRS. No PVcs Imaging studies: Chest x-ray as above. I refer you to the EMR for further details. HPI: The patient is a 79 year old male who presents to the Emergency Room with complaints of weakness and chronic pain. This started weeks ago and is worsening. The patient also notes the following associated symptoms, occasional nose bleeds, depression, suicidal thoughts. The patient has been using oxycodone for relieving factors. Current pain is rated as 5/10. History of depression. Pt denies LOC, headache, fevers, chills, diaphoresis, visual changes, neck pain, chest pain, breathing difficulties, nausea, vomiting, ab dominal pain, back pain, melena, hematochezia, urinary symptoms, numbness, weakness, lymphadenopathy, rash, or other complaints. ROS: See above HPI for pertinent positives & negatives. A total of 10 systems reviewed and were otherwise negative. PAST MEDICAL HISTORY:See Below , chronic hip pain, afib PAST SURGICAL HISTORY:See Below, Cath FAMILY HISTORY:See Below SOCIAL HISTORY:See Below, HOME MEDICATIONS:See Below ALLERGIES:See Below VITALS:See Below PHYSICAL EXAMINATION: GENERAL: Awake, alert, depressed-appearing, in no distress HENT: Normocephalic, atraumatic. Oropharynx unremarkable. EYES: Normal conjunctiva. Sclera non-icteric. NECK: Inspection normal. Non-tender. Supple. No nuchal rigidity. FROM. No masses. RESPIRATORY: Clear to auscultation. No wheezes. No rales. Normal respiratory effort. CARDIAC: Normal rate. Normal rhythm. No murmurs. No rubs. Extremities warm and well perfused. Pulses equal. No JVD. GI: Soft, non-distended. No tenderness to palpation. No rebound or guarding. No masses. RECTAL: Deferred. MUSCULOSKELETAL: Atraumatic. Chest examination reveals no tenderness. The back is symmetrical on inspection without obvious abnormality. There is no CVA tenderness to palpation. No joint edema. LOWER EXTREMITIES: Calves are equal size bilaterally and non-tender. No edema. No discoloration. NEURO: Normal sensorium. No sensory or motor deficits noted. SKIN: No rash or jaundice noted. PSYCH: +SI, no HI. No delusions or hallucinations. Sundar Nunez MD Past Med/Surg History Medical History (Updated 07/21/20 @ 19:00 by Sundar Nunez MD) Actinic keratitis BPH (benign prostatic hyperplasia) CAD (coronary artery disease) Cellulitis of right lower extremity without foot Chronic diastolic CHF (congestive heart failure) Chronic venous insufficiency CKD (chronic kidney disease), stage IV Contact dermatitis Diastolic congestive heart failure Dysmetabolic syndrome X First degree atrioventricular block Former smoker Gout HX History of thymus cancer HTN (hypertension) Hyperlipidemia Hypothyroidism Kidney stone MSSA (methicillin susceptible Staphylococcus aureus) infection Myasthenia gravis Paroxysmal atrial fibrillation Pseudomonas infection Pulmonary HTN Skin cancer Sleep apnea CPAP Venous stasis ulcer Venous stasis ulcer of ankle limited to breakdown of skin without varicose veins Surgical History [place] of cardiac cath [place] [facility] [place] Hx of thymectomy 2014 S/P cataract extraction Family History Mother Family history of diabetes mellitus Social History Smoking Status: Former smoker Second Hand Exposure: No; Hx Alcohol Use: No Hx Substance Use: No Preferred Language: Zambian Communication Ability: Effective Scrum Master Required: No Beliefs That Will Affect Care: None Current Living Situation: Spouse Other Information That Helps Us Care for You: No Feels Safe at Home: Yes Safety Concerns: Feels Safe At This Time Assistive Devices: Denture - Upper, Denture - Lower, Glasses, Hearing Aid - Left and Hearing Aid - Right Assistive Devices Comment: BL hearing aids at home. Allergies Allergies Allergy/AdvReac Type Severity Reaction Status Date / Time No Known Drug Allergies Allergy Verified 02/18/20 14:14 adaptic touch AdvReac Mild contact Uncoded 02/05/20 13:19 dermatitis Home Meds Home Medications Medication Instructions Recorded Confirmed alfuzosin 10 mg PO QDL 12/21/17 07/21/20 finasteride 5 mg PO QDD 12/21/17 07/21/20 levothyroxine 25 mcg PO QAM 12/21/17 07/21/20 nitroglycerin [Nitrostat] 0.4 mg SUBLINGUAL UD 12/21/17 07/21/20 metoprolol succinate 12.5 mg PO QAM 07/10/18 07/21/20 torsemide 20 mg PO DAILY 09/30/18 07/21/20 aspirin 81 mg tablet,delayed 81 mg PO QDL 11/03/18 07/21/20 release lorazepam 0.5 mg tablet 0.5 mg PO BID PRN tab 11/03/18 07/21/20 allopurinol 100 mg tablet 200 mg PO QDL tab 11/24/18 07/21/20 hydralazine 10 mg tablet 10 mg PO BID 06/18/19 07/21/20 Eliquis 2.5 mg PO BID 09/18/19 07/21/20 cholecalciferol (vitamin D3) 50 mcg PO QDD 09/18/19 07/21/20 [Vitamin D3] prednisone 10 mg PO Q OTHER DAY 09/18/19 07/21/20 acetaminophen [Tylenol Ex Str 500 mg PO Q6H PRN 07/21/20 07/21/20 Rapid Release] atorvastatin 20 mg PO QDD 07/21/20 07/21/20 famotidine [Heartburn Relief 10 mg PO Q2D 07/21/20 07/21/20 (famotidine)] lisinopril 5 mg PO DAILY 07/21/20 07/21/20 mirtazapine 15 mg PO HS 07/21/20 07/21/20 oxycodone 5 mg PO BID PRN 07/21/20 07/21/20 sildenafil (pulm.hypertension) 20 mg PO BID 07/21/20 07/21/20 torsemide 10 mg PO QDD 07/21/20 07/21/20 Results & Data (ED) Vital Signs Vital Signs - 24 hr 07/21/20 11:09 07/21/20 11:21 07/21/20 11:29 Temperature 36.1 C L Temperature Source Skin Pulse Rate 117 H 96 H 96 H Pulse Rate [Left Finger] Pulse Rate from SpO2 Sensor 94 H 96 H Pulse Rhythm Pulse Rhythm [Left Finger] Pulse Strength [Left Finger] Respiratory Rate 18 25 H 30 H Respiratory Effort / Characteristics Non-Labored Spontaneous Respiratory Depth Normal Respiratory Pattern Regular Blood Pressure 113/64 133/68 Blood Pressure [Right Arm] Blood Pressure Mean 80 89 Blood Pressure Mean [Right Arm] Blood Pressure Position Sitting Pulse Oximetry 94 95 95 Oxygen Delivery Method Room Air Sepsis Recent Fever Within 48 Hours No Sepsis New/Unexplained Change in Mental Status N/A Sepsis Action Taken by Nursing No Action Required 07/21/20 11:30 07/21/20 11:40 07/21/20 11:50 Temperature Temperature Source Pulse Rate 90 86 93 H Pulse Rate [Left Finger] Pulse Rate from SpO2 Sensor 94 H 88 92 H Pulse Rhythm Pulse Rhythm [Left Finger] Pulse Strength [Left Finger] Respiratory Rate 29 H 28 H 29 H Respiratory Effort / Characteristics Respiratory Depth Respiratory Pattern Blood Pressure 152/69 H Blood Pressure [Right Arm] Blood Pressure Mean 96 Blood Pressure Mean [Right Arm] Blood Pressure Position Pulse Oximetry 96 94 94 Oxygen Delivery Method Sepsis Recent Fever Within 48 Hours Sepsis New/Unexplained Change in Mental Status Sepsis Action Taken by Nursing 07/21/20 11:53 07/21/20 12:00 07/21/20 12:10 Temperature 36.8 C Temperature Source Oral Pulse Rate 90 98 H 84 Pulse Rate [Left Finger] 90 Pulse Rate from SpO2 Sensor 94 H 80 Pulse Rhythm Irregular Pulse Rhythm [Left Finger] Irregular Pulse Strength [Left Finger] Normal Respiratory Rate 22 26 H 28 H Respiratory Effort / Characteristics Labored Respiratory Depth Shallow Respiratory Pattern Blood Pressure Blood Pressure [Right Arm] 152/69 H Blood Pressure Mean Blood Pressure Mean [Right Arm] 96 Blood Pressure Position Pulse Oximetry 95 92 95 Oxygen Delivery Method Room Air Sepsis Recent Fever Within 48 Hours Sepsis New/Unexplained Change in Mental Status Sepsis Action Taken by Nursing 07/21/20 12:14 Temperature Temperature Source Pulse Rate 78 Pulse Rate [Left Finger] Pulse Rate from SpO2 Sensor 84 Pulse Rhythm Pulse Rhythm [Left Finger] Pulse Strength [Left Finger] Respiratory Rate 35 H Respiratory Effort / Characteristics Respiratory Depth Respiratory Pattern Blood Pressure 110/63 Blood Pressure [Right Arm] Blood Pressure Mean 78 Blood Pressure Mean [Right Arm] Blood Pressure Position Pulse Oximetry 93 Oxygen Delivery Method Sepsis Recent Fever Within 48 Hours Sepsis New/Unexplained Change in Mental Status Sepsis Action Taken by Nursing Laboratory Data Result diagrams: 07/21/20 11:30 07/21/20 11:30 Lab Results 07/21/20 07/21/20 07/21/20 Range/Units 11:30 11:30 11:30 WBC 11.65 H (4.8-10.8) K/uL RBC 2.98 L (4.7-6.1) M/uL Hgb 9.7 L (14.0-18.0) g/dL Hct 29.4 L (42-52) % MCV 98.7 (80-100) fL MCH 32.6 (25-34) pg MCHC 33.0 (32-36) g/dL RDW Std Deviation 56.2 H (36.4-46.3) fL RDW Coeff of Pina 15.7 H (11.5-14.5) % Plt Count 108 L (130-400) K/uL MPV 10.2 (7.4-10.4) fL Immature Gran % (Auto) 5.2 % Neut % (Auto) 65.4 % Lymph % (Auto) 16.7 % [place] % (Auto) 11.2 % Eos % (Auto) 1.2 % Baso % (Auto) 0.3 % Neut # (Auto) 7.62 H (1.4-6.5) K/uL Lymph # (Auto) 1.94 (1.2-3.4) K/uL [place] # (Auto) 1.31 H (0.11-0.59) K/uL Eos # (Auto) 0.14 (0-0.5) K/uL Baso # (Auto) 0.04 (0-0.2) K/uL Immature Gran # (Auto) 0.60 H (0.00-0.02) K/uL PT 19.6 H (9.0-12.0) Seconds INR 2.0 H (0.9-1.1) APTT 37.1 H (21.0-31.0) Seconds PTT Ratio 1.4 Sodium 141 (136-145) mmol/L Potassium 4.2 (3.5-5.1) mmol/L Chloride 106 (98-107) mmol/L Carbon Dioxide 25 (21-32) mmol/L Anion Gap 10.0 (3-11) BUN 83 H (7-18) mg/dl Creatinine 3.26 H (0.6-1.4) mg/dl Est Cr Clr Drug Dosing 19.1 ml/min Est GFR ( Amer) 19.5 ml/min Est GFR (Non-Af Amer) 16.8 ml/min BUN/Creatinine Ratio 25.6 H (10-20) Glucose 116 H (70-99) mg/dl Calcium 9.1 (8.5-10.1) mg/dl Magnesium 2.2 (1.8-2.4) mg/dl Total Bilirubin 0.6 (0.2-1) mg/dl AST 60 H (15-37) U/L ALT 13 (12-78) U/L Alkaline Phosphatase 162 H (45-117) U/L Troponin I 0.017 (0-0.045) ng/ml Total Protein 6.3 L (6.4-8.2) gm/dl Albumin 2.9 L (3.4-5.0) gm/dl Globulin 3.4 (2.5-4.0) gm/dl Albumin/Globulin Ratio 0.9 (0.9-2) TSH 3.250 (0.300-4.500) uIu/ml Urine Color Urine Appearance (Clear) Urine pH (4.5-7.5) Ur Specific Butner (1.000-1.030) Urine Protein (Negative) Urine Glucose (UA) (Negative) Urine Ketones (Negative) Urine Blood (Negative) Urine Nitrite (Negative) Urine Bilirubin (Negative) Urine Urobilinogen (Negative) Ur Leukocyte Esterase (Negative) Salicylates (2.8-20) mg/dl Acetaminophen (10-30) ug/ml Ethyl Alcohol mg/dL (0-3) mg/dl COVID-19 Eval Order SARS-CoV-2 (PCR) (Negative) 07/21/20 07/21/20 07/21/20 Range/Units 11:34 11:49 12:35 WBC (4.8-10.8) K/uL RBC (4.7-6.1) M/uL Hgb (14.0-18.0) g/dL Hct (42-52) % MCV (80-100) fL MCH (25-34) pg MCHC (32-36) g/dL RDW Std Deviation (36.4-46.3) fL RDW Coeff of Pina (11.5-14.5) % Plt Count (130-400) K/uL MPV (7.4-10.4) fL Immature Gran % (Auto) % Neut % (Auto) % Lymph % (Auto) % [place] % (Auto) % Eos % (Auto) % Baso % (Auto) % Neut # (Auto) (1.4-6.5) K/uL Lymph # (Auto) (1.2-3.4) K/uL [place] # (Auto) (0.11-0.59) K/uL Eos # (Auto) (0-0.5) K/uL Baso # (Auto) (0-0.2) K/uL Immature Gran # (Auto) (0.00-0.02) K/uL PT (9.0-12.0) Seconds INR (0.9-1.1) APTT (21.0-31.0) Seconds PTT Ratio Sodium (136-145) mmol/L Potassium (3.5-5.1) mmol/L Chloride (98-107) mmol/L Carbon Dioxide (21-32) mmol/L Anion Gap (3-11) BUN (7-18) mg/dl Creatinine (0.6-1.4) mg/dl Est Cr Clr Drug Dosing ml/min Est GFR ( Amer) ml/min Est GFR (Non-Af Amer) ml/min BUN/Creatinine Ratio (10-20) Glucose (70-99) mg/dl Calcium (8.5-10.1) mg/dl Magnesium (1.8-2.4) mg/dl Total Bilirubin (0.2-1) mg/dl AST (15-37) U/L ALT (12-78) U/L Alkaline Phosphatase (45-117) U/L Troponin I (0-0.045) ng/ml Total Protein (6.4-8.2) gm/dl Albumin (3.4-5.0) gm/dl Globulin (2.5-4.0) gm/dl Albumin/Globulin Ratio (0.9-2) TSH (0.300-4.500) uIu/ml Urine Color Yellow Urine Appearance Clear (Clear) Urine pH 5.5 (4.5-7.5) Ur Specific Butner 1.010 (1.000-1.030) Urine Protein Negative (Negative) Urine Glucose (UA) Negative (Negative) Urine Ketones Negative (Negative) Urine Blood Negative (Negative) Urine Nitrite Negative (Negative) Urine Bilirubin Negative (Negative) Urine Urobilinogen Negative (Negative) Ur Leukocyte Esterase Negative (Negative) Salicylates < 1.7 L (2.8-20) mg/dl Acetaminophen 14 (10-30) ug/ml Ethyl Alcohol mg/dL < 3.0 (0-3) mg/dl COVID-19 Eval Order SARS-CoV-2 (PCR) (Negative) 07/21/20 07/21/20 Range/Units 13:10 13:10 WBC (4.8-10.8) K/uL RBC (4.7-6.1) M/uL Hgb (14.0-18.0) g/dL Hct (42-52) % MCV (80-100) fL MCH (25-34) pg MCHC (32-36) g/dL RDW Std Deviation (36.4-46.3) fL RDW Coeff of Pina (11.5-14.5) % Plt Count (130-400) K/uL MPV (7.4-10.4) fL Immature Gran % (Auto) % Neut % (Auto) % Lymph % (Auto) % [place] % (Auto) % Eos % (Auto) % Baso % (Auto) % Neut # (Auto) (1.4-6.5) K/uL Lymph # (Auto) (1.2-3.4) K/uL [place] # (Auto) (0.11-0.59) K/uL Eos # (Auto) (0-0.5) K/uL Baso # (Auto) (0-0.2) K/uL Immature Gran # (Auto) (0.00-0.02) K/uL PT (9.0-12.0) Seconds INR (0.9-1.1) APTT (21.0-31.0) Seconds PTT Ratio Sodium (136-145) mmol/L Potassium (3.5-5.1) mmol/L Chloride (98-107) mmol/L Carbon Dioxide (21-32) mmol/L Anion Gap (3-11) BUN (7-18) mg/dl Creatinine (0.6-1.4) mg/dl Est Cr Clr Drug Dosing ml/min Est GFR ( Amer) ml/min Est GFR (Non-Af Amer) ml/min BUN/Creatinine Ratio (10-20) Glucose (70-99) mg/dl Calcium (8.5-10.1) mg/dl Magnesium (1.8-2.4) mg/dl Total Bilirubin (0.2-1) mg/dl AST (15-37) U/L ALT (12-78) U/L Alkaline Phosphatase (45-117) U/L Troponin I (0-0.045) ng/ml Total Protein (6.4-8.2) gm/dl Albumin (3.4-5.0) gm/dl Globulin (2.5-4.0) gm/dl Albumin/Globulin Ratio (0.9-2) TSH (0.300-4.500) uIu/ml Urine Color Urine Appearance (Clear) Urine pH (4.5-7.5) Ur Specific Butner (1.000-1.030) Urine Protein (Negative) Urine Glucose (UA) (Negative) Urine Ketones (Negative) Urine Blood (Negative) Urine Nitrite (Negative) Urine Bilirubin (Negative) Urine Urobilinogen (Negative) Ur Leukocyte Esterase (Negative) Salicylates (2.8-20) mg/dl Acetaminophen (10-30) ug/ml Ethyl Alcohol mg/dL (0-3) mg/dl COVID-19 Eval Order Covid19 at [facility] SARS-CoV-2 (PCR) NEGATIVE (Negative) Administered Medications Atorvastatin Calcium (Atorvastatin 20 Mg Tab) 20 mg PO QDD CASSI Stop: 08/20/20 16:42 Last Admin: 07/21/20 17:57 Dose: 20 mg Documented by: [id number] Finasteride (Finasteride 5 Mg Tab) 5 mg PO QDD CASSI Stop: 08/20/20 16:42 Last Admin: 07/21/20 17:58 Dose: 5 mg Documented by: [id number] Sodium Chloride (Nss 1000ml) 1,000 mls @ 100 mls/hr IV .Q10H CASSI Stop: 08/20/20 16:42 Last Admin: 07/21/20 17:46 Dose: 100 mls/hr Documented by: [id number] Discontinued Medications Sodium Chloride (Nss 1000ml) 1,000 mls @ 125 mls/hr IV .Q8H STA Stop: 07/21/20 22:02 Last Admin: 07/21/20 14:33 Dose: 125 mls/hr Documented by: [id number] Phytonadione (Phytonadione 5 Mg Tab) 5 mg PO ONE ONE Stop: 07/21/20 16:44 Last Admin: 07/21/20 17:57 Dose: 5 mg Documented by: [id number] Imaging Data Radiologist's Impression: Chest X-Ray 07/21/20 11:25 SINGLE VIEW CHEST CLINICAL HISTORY: Generalized weakness. FINDINGS: An AP, portable, upright chest radiograph is compared to study dated 09/18/2019. Correlation is made with chest CT dated 02/21/2014. The patient is status post midline sternotomy. The heart is enlarged noting atherosclerotic calcification of the thoracic aorta. The pulmonary vasculature is noncongested. There are small pleural effusions with bibasilar consolidation. No pneumothorax is seen. The skeletal structures are osteopenic. The bony thorax is grossly intact. IMPRESSION: 1. Cardiomegaly without radiographic evidence of congestive failure. 2. There are small pleural effusions with bibasilar consolidation. This could represent atelectasis and/or pneumonia/aspiration pneumonitis. Clinical correlation will be required and radiographic follow-up to resolution is recommended. ACT 112: Negative or not required by law. Electronically signed by: Vince Briscoe M.D. 07/21/2020 12:[address] 07/21/20 14:37 CT SCAN OF THE LEFT HIP WITHOUT IV CONTRAST CLINICAL HISTORY: Left hip pain. COMPARISON STUDY: Abdominal radiograph dated 10/05/2013. TECHNIQUE: CT scan of the left hip is performed from the bony pelvis to the proximal femoral shaft. Images are reviewed in the axial, sagittal, and coronal planes. IV contrast was not administered for this examination. A dose lowering technique was utilized adhering to the principles of ALARA. CT DOSE: 353.47 mGy.cm FINDINGS: The skeletal structures are osteopenic. No acute fracture is seen involving the left hip or the visualized left hemipelvis. No lytic or blastic lesion is seen. There is moderate to advanced arthritic change at the left hip with near complete loss of the superior joint space. There is associated bony sclerosis and subchondral cyst formation within the acetabular roof. Bony overgrowth is seen along the lateral acetabulum. There is a trace joint fluid and mild s urrounding infiltration. Foci of gas are present within the joint space, and there is an approximately 3 cm pocket of bursal fluid identified along the lateral wall of the bony pelvis seen on axial image #7 of 66. No erosive/destructive bony change is identified. There is generalized atrophy of the regional musculature. The prostate gland is enlarged and heterogeneous. A 2.1 cm mass is suggested arising from the left aspect of the prostate gland on image #32. There is median lobe hypertrophy. The bladder wall appears thickened and trabeculated indicating chronic outlet obstruction. Left pelvic sidewall adenopathy is identified. The largest is seen on image #18 of 66 and measures 2.4 x 1.6 cm. IMPRESSION: 1. No fracture is identified involving the left hip or the visualized left hemipelvis. 2. Osteopenia with advanced degenerative change of the left hip as above. 3. There is trace joint fluid, with foci of gas within the joint space and mild surrounding infiltration. Additionally, there is a pocket of bursal fluid along the lateral aspect of the bony pelvis. These findings are likely on a degenerative basis. Superimposed infection would be impossible to exclude by imaging and clinical correlation will be essential. 4. The prostate gland is enlarged and asymmetric/heterogeneous, with a possible left-sided prostate mass and evidence of chronic bladder outlet obstruction. Correlation with serum PSA levels is recommended. 5. There is nonspecific left pelvic sidewall adenopathy, which could be on a reactive or neoplastic basis. ACT 112: Positive. There are findings on this exam that require communication between the performing entity and the patient following Patient Test Result Information Act ([place] Act 112) guidelines. Electronically signed by: Vince Briscoe M.D. 07/21/2020 3:53 PM Discharge Plan Visit Data Chief Complaint: Illness Stated Complaint: BLEEDING, THREATENED SUICIDE ED Provider: Sundar Nunez Discharge Problem: Acute kidney injury superimposed on CKD, Weakness, Chronic hip pain, Epistaxis, Mood disorder Patient Disposition: Admitted As Inpatient Discharge Instructions Interventions: ED Discharge Assessment Last Done: 07/21/20 16:13
[2020-07-21 11:54] LABS: Partial Thromboplastin Ratio 1.4; Partial Thromboplastin Time 37.1 Seconds (21.0-31.0); Prothrombin Time 19.6 Seconds (9.0-12.0)
[2020-07-21 12:05] LABS: Albumin Level 2.9 gm/dl (3.4-5.0); BUN Creatinine Ratio 25.6 (10-20); Calcium 9.1 mg/dl (8.5-10.1); Creatinine Clr Calc Pharmacy 19.1 ml/min; Est GFR (African American) 19.5 ml/min; Est GFR (Non-African American) 16.8 ml/min; Magnesium 2.2 mg/dl (1.8-2.4); Potassium 4.2 mmol/L (3.5-5.1)
[2020-07-21 12:08] LABS: Basophils # (auto) 0.04 K/uL (0-0.2); Basophils % (auto) 0.3 %; Eosinophils # (auto) 0.14 K/uL (0-0.5); Eosinophils % (auto) 1.2 %; Immature Granulocytes % (auto) 5.2 %; Lymphocytes # (auto) 1.94 K/uL (1.2-3.4); Lymphocytes % (auto) 16.7 %; Monocytes # (auto) 1.31 K/uL (0.11-0.59); Monocytes % (auto) 11.2 %; Neutrophils # (auto) 7.62 K/uL (1.4-6.5); Neutrophils % (auto) 65.4 %
--- NOTE | 2020-07-21 12:08 | XRay Report ---
SINGLE VIEW CHEST CLINICAL HISTORY: Generalized weakness. FINDINGS: An AP, portable, upright chest radiograph is compared to study dated 09/18/2019. Correlation is made with chest CT dated 02/21/2014. The patient is status post midline sternotomy. The heart is enlarged noting atherosclerotic calcification of the thoracic aorta. The pulmonary vasculature is non congested. There are small pleural effusions with bibasilar consolidation. No pneumothorax is seen. T he skeletal structures are osteopenic. The bony thorax is grossly intact. IMPRESSION: 1. Cardiomegaly without radiographic evidence of congestive failure. 2. There are small pleural effusions with bibasilar consolidation. This could represent atelectasis a nd/or pneumonia/aspiration pneumonitis. Clinical correlation will be required and radiographic follow -up to resolution is recommended. ACT 112: Negative or not required by law. Electronically signed by: Vince Briscoe M.D. 07/21/2020 12:07 PM
[2020-07-21 12:15] LABS: Albumin Globulin Ratio 0.9 (0.9-2); Bilirubin,Total 0.6 mg/dl (0.2-1); Globulin 3.4 gm/dl (2.5-4.0); Thyroid Stimulating Hormone 3.25 uIu/ml (0.300-4.500); Total Protein 6.3 gm/dl (6.4-8.2); Troponin I 0.017 ng/ml (0-0.045)
[2020-07-21 12:46] LABS: Appearance Urine Clear (Clear); Bilirubin Urine Negative (Negative); Blood Urine Negative (Negative); Color Urine Yellow; Glucose Urine UA Negative (Negative); Ketones Urine Negative (Negative); Leukocyte Esterase Urine Negative (Negative); Nitrite Urine Negative (Negative); Protein Urine Negative (Negative); Urobilinogen Urine Negative (Negative); pH Urine 5.5 (4.5-7.5)
[2020-07-21] MEDS ORDERED: SODIUM CHLORIDE 0.9% 1000ML 1,000 ML IV STA (14:03)
[2020-07-21 14:21] LABS: Acetaminophen 14 ug/ml (10-30); Salicylate < 1.7 mg/dl (2.8-20)
--- NOTE | 2020-07-21 15:54 | CT Scan Report ---
CT SCAN OF THE LEFT HIP WITHOUT IV CONTRAST CLINICAL HISTORY: Left hip pain. COMPARISON STUDY: Abdominal radiograph dated 10/05/2013. TECHNIQUE: CT scan of the left hip is performed from the bony pelvis to the proximal femoral shaft. I mages are reviewed in the axial, sagittal, and coronal planes. IV contrast was not administered for t his examination. A dose lowering technique was utilized adhering to the principles of ALARA. CT DOSE: 353.47 mGy.cm FINDINGS: The skeletal structures are osteopenic. No acute fracture is seen involving the left hip or the visua lized left hemipelvis. No lytic or blastic lesion is seen. There is moderate to advanced arthritic ch demarco at the left hip with near complete loss of the superior joint space. There is associated bony sc lerosis and subchondral cyst formation within the acetabular roof. Bony overgrowth is seen along the lateral acetabulum. There is a trace joint fluid and mild surrounding infiltration. Foci of gas are p resent within the joint space, and there is an approximately 3 cm pocket of bursal fluid identified a long the lateral wall of the bony pelvis seen on axial image #7 of 66. No erosive/destructive bony ch demarco is identified. There is generalized atrophy of the regional musculature. The prostate gland is enlarged and heteroge neous. A 2.1 cm mass is suggested arising from the left aspect of the prostate gland on image #32. Th ere is median lobe hypertrophy. The bladder wall appears thickened and trabeculated indicating chroni c outlet obstruction. Left pelvic sidewall adenopathy is identified. The largest is seen on image #18 of 66 and measures 2.4 x 1.6 cm. IMPRESSION: 1. No fracture is identified involving the left hip or the visualized left hemipelvis. 2. Osteopenia with advanced degenerative change of the left hip as above. 3. There is trace joint fluid, with foci of gas within the joint space and mild surrounding infiltrat ion. Additionally, there is a pocket of bursal fluid along the lateral aspect of the bony pelvis. The se findings are likely on a degenerative basis. Superimposed infection would be impossible to exclude by imaging and clinical correlation will be essential. 4. The prostate gland is enlarged and asymmetric/heterogeneous, with a possible left-sided prostate m ass and evidence of chronic bladder outlet obstruction. Correlation with serum PSA levels is recommen ded. 5. There is nonspecific left pelvic sidewall adenopathy, which could be on a reactive or neoplastic b asis. ACT 112: Positive. There are findings on this exam that require communication between the performing entity and the patient following Patient Test Result Information Act ([place] Act 112) guidelines. Electronically signed by: Vince Briscoe M.D. 07/21/2020 3:53 PM
[2020-07-21] MEDS ORDERED: oxyCODONE HCL IR 5 MG TAB (IMMEDIATE RELEASE) PO PRN (16:43)
[2020-07-21] MEDS ORDERED: SODIUM CHLORIDE 0.9% 1000ML 1,000 ML IV SCH (16:43)
[2020-07-21] MEDS ORDERED: LORazepam 0.5 MG TAB PO PRN ×2 (16:43→19:48)
[2020-07-21] MEDS ORDERED: PHYTONADIONE 5 MG TAB PO ONE (16:43)
--- NOTE | 2020-07-21 17:08 | History & Physical Report ---
Date of Service July 21, 2020 Assessment & Plan (1) Chronic hip pain: -Admit to [facility] -Patient presenting from home with reports of epistaxis, chronic left hip pain, depression/suicidal ideations -No signs of fracture on hip CT, signs of trace fluid and advanced degenerative changes; check ESR and CRP -Surgical intervention has been considered in the past however patient is felt to be too high of a surgical risk due to other underlying comorbidities -Ortho consult -Pain management consult -PT/OT (2) Depression: (3) Suicidal ideation: -Due to underlying chronic left hip pain -Suicide precautions -Psychiatry consult (4) Acute kidney injury superimposed on CKD: (5) CKD (chronic kidney disease), stage IV: -Baseline creatinine previously ran in the low 2's, on 05/20/2020 creatinine noted to be 2.6 -Creatinine 3.2 today -Likely due to poor p.o. intake in combination with diuretic and PAM inhibitor use -IVF, hold torsemide and lisinopril (6) Thrombocytopenia: -Platelet count 108K -Patient reporting episodes of epistaxis over the past couple of weeks, currently no active bleeding -Continue to monitor CBC, may need hematology evaluation at discharge (7) Coagulopathy: -INR 2.0 -Patient on Eliquis -May be due to decreased dietary intake -Discussed with Dr. Rosado - will give Vit K 5mg PO x 1 -monitor INR (8) BPH (benign prostatic hyperplasia): -CT ABD/pelvis shows prostate gland is enlarged and asymmetric/heterogeneous, with a possible left-sided prostate mass and evidence of chronic bladder outlet obstruction -Check PSA -Continue home BPH meds (9) Anemia: -Has been having downtrending Hgb: 12.1 05/2020, 10.9 07/2020, 9.7 today -?? Due to recurrent epistaxis -No indication for transfusion at this time -Monitor CBC (10) Paroxysmal atrial fibrillation: -Rate controlled on metoprolol -Anticoagulated on Eliquis, holding as above (11) Chronic diastolic CHF (congestive heart failure): -Volume status acceptable -Hold torsemide due to SWETHA (12) Pulmonary HTN: -Continue sildenafil (13) CAD (coronary artery disease): -Appears stable, no reports of chest pain -Continue aspirin, statin, beta-juana (14) HTN (hypertension): -BP controlled, continue metoprolol and hydralazine -Holding lisinopril as above (15) Myasthenia gravis: -Continue home prednisone (16) DVT prophylaxis: -SCDs Admission and Anticipated Discharge Date Admission Date: July 21, 2020 History of Present Illness Chief Complaint: Nosebleed, hip pain, depression Primary Care Provider: Ivette Golden DO 79-year-old male with PMH CAD, chronic diastolic CHF, pulmonary hypertension, paroxysmal atrial fibrillation/flutter anticoagulated on Eliquis, BPH, CKD stage IV, myasthenia gravis on chronic prednisone, and other problems listed below who presents to the ED for evaluation of nosebleed, left hip pain, depression. Patient reports having intermittent nosebleeds over the past couple weeks. This morning, he reports he woke up with a large amount of blood over his face coming from his nose. Bleeding subsequently stopped before arriving to the ED. Patient reports ongoing issues with chronic left hip pain over the past several months. Patient was seen by orthopedics in May and received an injection with minimal relief. He also has been taking oxycodone 5 mg twice a day with some relief. Patient reports the pain has been severely inhibiting his activities of daily living and doing things that he enjoys. He reports struggling with depression and states " sometimes I wish it was just all and so I would not have pain anymore." Patient's daughter is the bedside and reports that the patient cries often. He denies any suicidal or homicidal plans or attempts. Patient reports he otherwise has been feeling well recently. Denies any other recent illnesses, fevers, chills. He has exertional shortness of breath which is unchanged from baseline. No chest pain or palpitations. Denies lightheadedness, dizziness, diaphoresis, syncopal events. He has had a very poor appetite which he attributes to depression. No nausea, vomiting, diarrhea. Denies dark tarry stools and bright red bleeding per rectum. No urinary symptoms. In the ED, labs show mild anemia Hgb 9.7, platelet 108K, INR 2.0, creatinine 3.2. Patient was given IVF. Allergies Allergy/AdvReac Type Severity Reaction Status Date / Time No Known Drug Allergies Allergy Verified 02/18/20 14:14 adaptic touch AdvReac Mild contact Uncoded 02/05/20 13:19 dermatitis Home Medications Medication Instructions Recorded Confirmed Type alfuzosin 10 mg PO QDL 12/21/17 07/21/20 History finasteride 5 mg PO QDD 12/21/17 07/21/20 History levothyroxine 25 mcg PO QAM 12/21/17 07/21/20 History nitroglycerin [Nitrostat] 0.4 mg SUBLINGUAL UD 12/21/17 07/21/20 History metoprolol succinate 12.5 mg PO QAM 07/10/18 07/21/20 History torsemide 20 mg PO DAILY 09/30/18 07/21/20 History aspirin 81 mg tablet,delayed 81 mg PO QDL 11/03/18 07/21/20 History release lorazepam 0.5 mg tablet 0.5 mg PO BID PRN tab 11/03/18 07/21/20 History allopurinol 100 mg tablet 200 mg PO QDL tab 11/24/18 07/21/20 History hydralazine 10 mg tablet 10 mg PO BID 06/18/19 07/21/20 History Eliquis 2.5 mg PO BID 09/18/19 07/21/20 History cholecalciferol (vitamin D3) 50 mcg PO QDD 09/18/19 07/21/20 History [Vitamin D3] prednisone 10 mg PO Q OTHER DAY 09/18/19 07/21/20 History acetaminophen [Tylenol Ex Str 500 mg PO Q6H PRN 07/21/20 07/21/20 History Rapid Release] atorvastatin 20 mg PO QDD 07/21/20 07/21/20 History famotidine [Heartburn Relief 10 mg PO Q2D 07/21/20 07/21/20 History (famotidine)] lisinopril 5 mg PO DAILY 07/21/20 07/21/20 History mirtazapine 15 mg PO HS 07/21/20 07/21/20 History oxycodone 5 mg PO BID PRN 07/21/20 07/21/20 History sildenafil (pulm.hypertension) 20 mg PO BID 07/21/20 07/21/20 History torsemide 10 mg PO QDD 07/21/20 07/21/20 History Past Med/Surg History Medical History Actinic keratitis BPH (benign prostatic hyperplasia) CAD (coronary artery disease) Cellulitis of right lower extremity without foot Chronic diastolic CHF (congestive heart failure) Chronic venous insufficiency CKD (chronic kidney disease), stage IV Contact dermatitis Diastolic congestive heart failure Dysmetabolic syndrome X First degree atrioventricular block Former smoker Gout HX History of thymus cancer HTN (hypertension) Hyperlipidemia Hypothyroidism Kidney stone MSSA (methicillin susceptible Staphylococcus aureus) infection Myasthenia gravis Paroxysmal atrial fibrillation Pseudomonas infection Pulmonary HTN Skin cancer Sleep apnea CPAP Venous stasis ulcer Venous stasis ulcer of ankle limited to breakdown of skin without varicose veins Surgical History History of cardiac cath 2 [facility] 04/2016 Hx of thymectomy 2014 S/P cataract extraction Family History Mother Family history of diabetes mellitus Social History Smoking Status: Former smoker Second Hand Exposure: No; Hx Alcohol Use: No Hx Substance Use: No Preferred Language: Qatari Communication Ability: Effective Welfare Centre Manager Required: No Beliefs That Will Affect Care: None marital status: Current Living Situation: Spouse Other Information That Helps Us Care for You: No Feels Safe at Home: Yes Safety Concerns: Feels Safe At This Time Assistive Devices: None Assistive Devices Comment: BL hearing aids at home. Review of Systems Review of Systems: ROS per HPI, all other systems reviewed and negative Physical Exam Constitutional: WD/WN, vitals as above Eyes: PERRL, conjunctivae normal, anicteric sclerae ENMT: external ear and nose normal, oropharynx normal Respiratory: normal respiratory effort, lungs clear to auscultation Cardiovascular: Rate/Rhythm: regular rate and + irregularly irregular Vessels: normal peripheral pulses Extremities: no edema Gastrointestinal (Abdomen): normal bowel sounds, soft, nontender, no hepatosplenomegaly Musculoskeletal: no cyanosis or clubbing, extremities motor strength 5/5 Skin: no rashes, warm and dry Ecchymosis noted over body in various stages of healing Neurologic: PERRL, EOMI, accommodation nl, no face palsy, no dysarthria Psychiatric: Orientation: alert and oriented x 3 Affect: + tearful affect (At times) Results & Data Results & Data ([facility]) Vital Signs (Past 12 Hours) Vital Signs Temp Pulse Pulse Resp BP BP Pulse Ox 07/21/20 16:30 36.6 C 91 H 18 144/63 H 96 07/21/20 16:13 87 26 H 115/53 L 95 07/21/20 12:14 78 35 H 110/63 93 07/21/20 12:10 84 28 H 95 07/21/20 12:00 98 H 26 H 92 07/21/20 11:53 36.8 C 90 90 22 152/69 H 95 07/21/20 11:50 93 H 29 H 94 07/21/20 11:40 86 28 H 94 07/21/20 11:30 90 29 H 152/69 H 96 07/21/20 11:29 96 H 30 H 95 07/21/20 11:21 96 H 25 H 133/68 95 07/21/20 11:09 36.1 C L 117 H 18 113/64 94 Laboratory Results Short CBC 07/21/20 Range/Units 11:30 WBC 11.65 H (4.8-10.8) K/uL Hgb 9.7 L (14.0-18.0) g/dL Hct 29.4 L (42-52) % Plt Count 108 L (130-400) K/uL BMP 07/21/20 11:30 Sodium 141 Potassium 4.2 Chloride 106 Carbon Dioxide 25 BUN 83 H Creatinine 3.26 H Glucose 116 H Calcium 9.1 Cardiac Enzymes 07/21/20 Range/Units 11:30 Troponin I 0.017 (0-0.045) ng/ml Liver Function 07/21/20 Range/Units 11:30 Total Bilirubin 0.6 (0.2-1) mg/dl AST 60 H (15-37) U/L ALT 13 (12-78) U/L Alkaline Phosphatase 162 H (45-117) U/L Albumin 2.9 L (3.4-5.0) gm/dl Urine 07/21/20 Range/Units 12:35 Urine Color Yellow Urine Appearance Clear (Clear) Urine pH 5.5 (4.5-7.5) Ur Specific [place] 1.010 (1.000-1.030) Urine Protein Negative (Negative) Urine Glucose (UA) Negative (Negative) Diagnostic Findings Chest X-Ray 07/21/20 11:25 SINGLE VIEW CHEST CLINICAL HISTORY: Generalized weakness. FINDINGS: An AP, portable, upright chest radiograph is compared to study dated 09/18/2019. Correlation is made with chest CT dated 02/21/2014. The patient is status post midline sternotomy. The heart is enlarged noting atherosclerotic calcification of the thoracic aorta. The pulmonary vasculature is noncongested. There are small pleural effusions with bibasilar consolidation. No pneumothorax is seen. The skeletal structures are osteopenic. The bony thorax is grossly intact. IMPRESSION: 1. Cardiomegaly without radiographic evidence of congestive failure. 2. There are small pleural effusions with bibasilar consolidation. This could represent atelectasis and/or pneumonia/aspiration pneumonitis. Clinical correlation will be required and radiographic follow-up to resolution is recommended. ACT 112: Negative or not required by law. Electronically signed by: Vince Briscoe M.D. 07/21/2020 12:[address] 07/21/20 14:37 CT SCAN OF THE LEFT HIP WITHOUT IV CONTRAST CLINICAL HISTORY: Left hip pain. COMPARISON STUDY: Abdominal radiograph dated 10/05/2013. TECHNIQUE: CT scan of the left hip is performed from the bony pelvis to the proximal femoral shaft. Images are reviewed in the axial, sagittal, and coronal planes. IV contrast was not administered for this examination. A dose lowering technique was utilized adhering to the principles of ALARA. CT DOSE: 353.47 mGy.cm FINDINGS: The skeletal structures are osteopenic. No acute fracture is seen involving the left hip or the visualized left hemipelvis. No lytic or blastic lesion is seen. There is moderate to advanced arthritic change at the left hip with near complete loss of the superior joint space. There is associated bony sclerosis and subchondral cyst formation within the acetabular roof. Bony overgrowth is seen along the lateral acetabulum. There is a trace joint fluid and mild surrounding infiltration. Foci of gas are present within the joint space, and there is an approximately 3 cm pocket of bursal fluid identified along the lateral wall of the bony pelvis seen on axial image #7 of 66. No erosive/destructive bony change is identified. There is generalized atrophy of the regional musculature. The prostate gland is enlarged and heterogeneous. A 2.1 cm mass is suggested arising from the left aspect of the prostate gland on image #32. There is median lobe hypertrophy. The bladder wall appears thickened and trabeculated indicating chronic outlet obstruction. Left pelvic sidewall adenopathy is identified. The largest is seen on image #18 of 66 and measures 2.4 x 1.6 cm. IMPRESSION: 1. No fracture is identified involving the left hip or the visualized left hemipelvis. 2. Osteopenia with advanced degenerative change of the left hip as above. 3. There is trace joint fluid, with foci of gas within the joint space and mild surrounding infiltration. Additionally, there is a pocket of bursal fluid along the lateral aspect of the bony pelvis. These findings are likely on a degenerative basis. Superimposed infection would be impossible to exclude by imaging and clinical correlation will be essential. 4. The prostate gland is enlarged and asymmetric/heterogeneous, with a possible left-sided prostate mass and evidence of chronic bladder outlet obstruction. Correlation with serum PSA levels is recommended. 5. There is nonspecific left pelvic sidewall adenopathy, which could be on a reactive or neoplastic basis. ACT 112: Positive. There are findings on this exam that require communication between the performing entity and the patient following Patient Test Result Information Act ([place] Act 112) guidelines. Electronically signed by: Vince Briscoe M.D. 07/21/2020 3:53 PM Code Status & VTE Plan Code Status Patient is a DNR as per my discussion with him. VTE Prophylaxis Plan VTE Prophylaxis will be ordered: No Supervising Physician Co-Signing Physician Notes Attending addendum: Patient seen and examined, care coordinated with Rica FONG. 79-year-old male presents with intractable pelvic pain for several months, limiting his activities, Reports feeling very depressed, due to his debilitating pain, Labs shows dehydration with acute renal failure. X-ray of pelvis shows no Fracture identified in the left hip, osteopenia with advanced DJD noted on the left hip with trace fluid joints, there is a gas within the joint space with mild surrounding infiltration and also possible Enlarged prostate gland with a symmetric and large left-sided prostate mass with evidence of bladder outlet obstruction. PSA elevated more than 900 Patient reports of weakness fatigue loss of appetite, weight loss in the past several months, also symptoms of urinary incontinence, Concern for prostate malignancy, report of CT finding updated patient and patient's daughter over phone Ordered for CT abdomen pelvis noncontrast(patient has acute renal failure) Ordered for urology evaluation/pain management consult for intractable hip pain possible secondary to cancer metastasis. Overall prognosis remains poor Plan of care updated to patient's family member in detail all questions answered Nancy Babar, MD
[2020-07-21 17:24] LABS: C Reactive Protein 6.91 mg/dl (0-0.29)
[2020-07-21] MEDS: ATORVASTATIN 20 MG TAB PO SCH (17:57)
[2020-07-21] MEDS: FINASTERIDE 5 MG TAB PO SCH (17:58)
--- NOTE | 2020-07-21 18:01 | Electrocardiogram Report ---
Test Reason : Blood Pressure : / mmHG Vent. Rate : 081 BPM Atrial Rate : 088 BPM P-R Int : 000 ms QRS Dur : 084 ms QT Int : 386 ms P-R-T Axes : 000 -20 015 degrees QTc Int : 448 ms Atrial fibrillation Abnormal ECG When compared with ECG of 19-SEP-2019 07:00, Atrial fibrillation has replaced Sinus rhythm Vent. rate has increased BY 27 BPM Confirmed by Abdullahi Vides ([id number]) on 07/21/2020 6:01:01 PM Referred By: REFERRED SELF Confirmed By:Dustin Vides
[2020-07-21] MEDS ORDERED: traMADol HCL 50 MG TABLET PO PRN (19:48)
--- NOTE | 2020-07-21 19:59 | Urology Consultation ---
Date of Consultation July 21, 2020 Assessment & Plan (1) Elevated PSA: Patient has been admitted to the hospital service secondary to epistaxis, depression, and hip pain. Patient is noted to have a markedly elevated PSA and imaging during this admission reveals concern for an asymmetric Gil enlarged prostate with concern for bladder outlet obstruction. Other than urinary urgency the patient does not have any other symptoms of obstructive uropathy. He is noted to have an elevated creatinine from his baseline but this could be due to poor oral intake as well as concomitant use of antihypertensive medications in the form of an PAM inhibitor. Early it may be worth pursuing a cystoscopy and/or prostate biopsy in the future however this will need to be coordinated around the patient's anticoagulation as he takes Eliquis. Patient is also noted to be coagulopathic with an INR of 2.0 despite not taking Coumadin. He has received vitamin K for this problem. Consideration can be given to performing a prostate biopsy once his above medical problems are optimized but this can certainly be pursued on an outpatient basis. Would recommend continuing to follow serial labs to ensure his renal function remained stable. Case will be reviewed with Dr. Tavares who will determine appropriate timing of any procedures or biopsies if they are to be done. History of Present Illness Reason for Consultation: Elevated PSA Attending Physician: Nancy Eckert MD History of Present Illness Is an 79-year-old male who presented to [facility] emergency department secondary to epistaxis, left hip pain, and depression. The patient is ultimately been admitted to the hospital by the hospital service and patient underwent a hip CT scan. On this hip CT scan the patient's prostate was visualized which showed that the prostate was enlarged with possible prostate mass and bladder outlet obstruction. Patient had a PSA level checked that was markedly elevated and for this reason urology was consulted. Patient had imaging and labs which were independently reviewed by myself. Chest x-ray was performed that showed no evidence of lung masses or nodules concerning for metastasis. As noted above the patient had a hip CT scan at which time the prostate was visualized that showed that the prostate was asymmetric with possible left-sided prostate mass and bladder outlet obstruction. CBC revealed white blood cell count was 11.6, hemoglobin was 9.7, hematocrit was 29.4, platelet count was 108. Patient's INR was noted to be elevated at 2.0. It is noteworthy mention he does not take Coumadin but does take Eliquis. A chemistry profile showed the sodium and potassium were both within the normal range, but BUN and creatinine were elevated at 83 and 3.2 respectively. When compared to prior values this was showed to be increased. A PSA level was checked and was elevated at 912. A Covid test was performed and was noted to be negative. Urinalysis was checked and was not indicative of infection. Concerning the patient's urologic history the patient says that he was previously following with Dr. Knight of [facility] urology. Patient says that he was receiving yearly urologic examinations and he was never told that he had an elevated PSA and he was also told that he never had any palpable prostate nodules. I did question patient about his urinary habits and the patient does report some symptoms of urinary urgency but he denies any urinary hesitancy and notes that the stream of his urine is quite strong. She says that when he does urinate he feels as though he can empty his bladder completely. He denies any dysuria. He denies any hematuria. He denies any back pain. He does report weight loss but was unable to quantify how much but feels this is related to poor oral intake. Patient notes that he has never had any cystoscopy or prostate biopsies in the past. At the time of my interview the patient was resting in bed. He was in no distress but did appear quite anxious. Allergies Allergy/AdvReac Type Severity Reaction Status Date / Time No Known Drug Allergies Allergy Verified 02/18/20 14:14 adaptic touch AdvReac Mild contact Uncoded 02/05/20 13:19 dermatitis Home Medications Medication Instructions Recorded Confirmed Type alfuzosin 10 mg PO QDL 12/21/17 07/21/20 History finasteride 5 mg PO QDD 12/21/17 07/21/20 History levothyroxine 25 mcg PO QAM 12/21/17 07/21/20 History nitroglycerin [Nitrostat] 0.4 mg SUBLINGUAL UD 12/21/17 07/21/20 History metoprolol succinate 12.5 mg PO QAM 07/10/18 07/21/20 History torsemide 20 mg PO DAILY 09/30/18 07/21/20 History aspirin 81 mg tablet,delayed 81 mg PO QDL 11/03/18 07/21/20 History release lorazepam 0.5 mg tablet 0.5 mg PO BID PRN tab 11/03/18 07/21/20 History allopurinol 100 mg tablet 200 mg PO QDL tab 11/24/18 07/21/20 History hydralazine 10 mg tablet 10 mg PO BID 06/18/19 07/21/20 History Eliquis 2.5 mg PO BID 09/18/19 07/21/20 History cholecalciferol (vitamin D3) 50 mcg PO QDD 09/18/19 07/21/20 History [Vitamin D3] prednisone 10 mg PO Q OTHER DAY 09/18/19 07/21/20 History acetaminophen [Tylenol Ex Str 500 mg PO Q6H PRN 07/21/20 07/21/20 History Rapid Release] atorvastatin 20 mg PO QDD 07/21/20 07/21/20 History famotidine [Heartburn Relief 10 mg PO Q2D 07/21/20 07/21/20 History (famotidine)] lisinopril 5 mg PO DAILY 07/21/20 07/21/20 History mirtazapine 15 mg PO HS 07/21/20 07/21/20 History oxycodone 5 mg PO BID PRN 07/21/20 07/21/20 History sildenafil (pulm.hypertension) 20 mg PO BID 07/21/20 07/21/20 History torsemide 10 mg PO QDD 07/21/20 07/21/20 History Patient History Medical History Actinic keratitis BPH (benign prostatic hyperplasia) CAD (coronary artery disease) Cellulitis of right lower extremity without foot Chronic diastolic CHF (congestive heart failure) Chronic venous insufficiency CKD (chronic kidney disease), stage IV Contact dermatitis Diastolic congestive heart failure Dysmetabolic syndrome X First degree atrioventricular block Former smoker Gout HX History of thymus cancer HTN (hypertension) Hyperlipidemia Hypothyroidism Kidney stone MSSA (methicillin susceptible Staphylococcus aureus) infection Myasthenia gravis Paroxysmal atrial fibrillation Pseudomonas infection Pulmonary HTN Skin cancer Sleep apnea CPAP Venous stasis ulcer Venous stasis ulcer of ankle limited to breakdown of skin without varicose veins Surgical History History of cardiac cath 2 STENTS [facility] 04/2016 Hx of thymectomy 2014 S/P cataract extraction Family History Mother Family history of diabetes mellitus Social History Smoking Status: Former smoker Second Hand Exposure: No; Hx Alcohol Use: No Hx Substance Use: No Preferred Language: Chadian Communication Ability: Effective Matchbook Maker Required: No Beliefs That Will Affect Care: None Current Living Situation: Spouse Other Information That Helps Us Care for You: No Feels Safe at Home: Yes Safety Concerns: Feels Safe At This Time Assistive Devices: Denture - Upper, Denture - Lower, Glasses, Hearing Aid - Left and Hearing Aid - Right Assistive Devices Comment: BL hearing aids at home. Review of Systems Constitutional: + body aches; no fever and no chills Eyes: no diplopia Ear, Nose, Mouth, Throat: no ear pain Respiratory: no cough and no dyspnea Cardiovascular: no chest pain Gastrointestinal: no abdominal pain, no nausea and no vomiting Poor appetite Genitourinary: no dysuria, no urinary hesitancy, no hematuria and no flank pain Musculoskeletal: + joint pain; no back pain Integumentary: no rash Neurologic: no localized weakness Psychiatric: + depression Hematologic / Lymphatic: + easy bruising Physical Exam Constitutional: well developed and well nourished; no acute distress Eyes: no conjunctival abnormality Wears glasses ENMT: Ears: no hearing impairment Neck: trachea midline Respiratory: normal respiratory effort; no respiratory distress and no labored breathing Cardiovascular: Rate/Rhythm: regular rate and regular rhythm Gastrointestinal (Abdomen): Percussion/Palpation: abdomen soft; abdomen nontender Musculoskeletal: No back pain with palpation Skin: + ecchymosis (Multiple areas of bruising noted on forearms bilaterally) Neurologic: moves all extremities Psychiatric: Orientation: alert and oriented x 3 Affect: + depressed affect and + anxious affect Genitourinary: no CVA tenderness Results & Data ([facility]) Vital Signs (Past 12 Hours) Vital Signs Temp Pulse Pulse Resp BP BP Pulse Ox 07/21/20 19:40 95 H 26 H 94 07/21/20 16:30 36.6 C 91 H 18 144/63 H 96 07/21/20 16:13 87 26 H 115/53 L 95 07/21/20 12:14 78 35 H 110/63 93 07/21/20 12:10 84 28 H 95 07/21/20 12:00 98 H 26 H 92 07/21/20 11:53 36.8 C 90 90 22 152/69 H 95 07/21/20 11:50 93 H 29 H 94 07/21/20 11:40 86 28 H 94 07/21/20 11:30 90 29 H 152/69 H 96 07/21/20 11:29 96 H 30 H 95 07/21/20 11:21 96 H 25 H 133/68 95 07/21/20 11:09 36.1 C L 117 H 18 113/64 94 PG Care Time/CCT Total # of Minutes Spent Total Time Spent with Patient: Total time spent is greater than 50% in coordination of care (as documented) at patient's floor/unit and/or counseling patient: Coding Level of Care Code 74997 Inpt Consult Level 5 Diagnoses Elevated PSA R97.20
[2020-07-21] MEDS: SILDENAFIL CITRATE 20 MG TABLET PO SCH (20:39)
[2020-07-21] MEDS: hydrALAZINE 10 MG TAB PO SCH (20:39)
[2020-07-21] MEDS: MIRTAZAPINE TAB 15 MG TAB PO SCH (20:40)
[2020-07-21] MEDS ORDERED: APIXABAN 2.5 MG TAB PO SCH (21:00)
--- NOTE | 2020-07-21 21:12 | CT Scan Report ---
ABDOMEN AND PELVIS CT WITHOUT CONTRAST CT DOSE: 651.77 mGy.cm HISTORY: Abnormal head CT. prostate mass /eval for mets TECHNIQUE: Multiaxial CT images of the abdomen and pelvis were performed without contrast. A dose lo wering technique was utilized adhering to the principles of ALARA. COMPARISON STUDY: Left hip CT 07/21/2020. FINDINGS: Bibasilar linear densities favor subsegmental atelectasis. No pneumoperitoneum. No pneumato sis. Partially sclerotic lesion within the left iliac crest on image 272 which measures 5.8 cm. This is concerning for a metastatic focus. There are additional sclerotic lesions seen within the right po sterior 11th rib, left lateral seventh rib and within the T11 vertebral body likely representing meta static foci. Trace bilateral pleural effusions are noted. There are poststernotomy changes. There is again noted a 2.8 cm gas and fluid collection lateral to the left hip on image 374. This is better ap preciated on the same day left hip CT. There is a trace left hip effusion. Mild bilateral pelvic side wall lymphadenopathy. Dominant left pelvic sidewall lymph node on image 386 measures 2.2 x 1.4 cm. Ab normal soft tissue extension from the left lateral and posterior peripheral zone of the prostate glan d best seen on image 404. Dominant focus measures 1.9 cm. These are highly suspicious for extracapsul ar extension of a prostate malignancy. There is an adjacent left sided pelvic satellite nodule on yessenia ge 391 which measures 9 mm. This also likely represents a metastatic focus. Right pelvic sidewall lym ph nodes measure up to 1 cm in short axis diameter. Mild bladder wall thickening may be due to chroni c outlet obstruction from the enlarged prostate gland. Colonic diverticulosis. No evidence for acute diverticulitis. No bowel wall thickening or obstruction. Normal appendix. Normal caliber abdominal ao rta. No retroperitoneal lymphadenopathy. The unenhanced liver, gallbladder, spleen, adrenal glands, a nd pancreas are within normal limits. No hydronephrosis. A 2 cm exophytic slightly hyperdense lesion within the upper pole of the left kidney. This is incompletely visualized on this noncontrast study b ut is concerning for renal cell carcinoma given the increase in size. This previously measured 1.4 cm . IMPRESSION: 1. Redemonstration of the abnormal soft tissue extension within the left lateral and posterior periph eral zone of the prostate gland as described above. This is highly suspicious for a prostate maligna ncy. There is associated bilateral pelvic sidewall lymphadenopathy, left greater than right, which is consistent with metastatic disease. 2. Scattered osteoblastic metastatic disease. 3. Increase in size in the 2 cm exophytic slightly hyperdense lesion within the upper pole of the lef t kidney. This is highly suspicious for a renal cell carcinoma. 4. Please refer to the same day left hip CT for further evaluation of the left hip abnormality. 5. Additional findings as described above. ACT 112: Negative or not required by law. Electronically signed by: Mahin Gurrola M.D. 07/21/2020 9:11 PM
[2020-07-21] MEDS: ACETAMINOPHEN 325 MG TAB PO PRN (22:44)
[2020-07-22] MEDS: LEVOTHYROXINE SODIUM 25 MCG TABLET PO SCH (05:55)
[2020-07-22 06:03] LABS: Hematocrit (blood only) 26.8 % (42-52); Hemoglobin 8.8 g/dL (14.0-18.0); Mean Corpuscular Hemoglobin 32.4 pg (25-34); Mean Corpuscular Hgb Conc 32.8 g/dL (32-36); Mean Corpuscular Volume 98.5 fL (80-100); Mean Platelet Volume 10.2 fL (7.4-10.4); Nucleated RBC # (auto) 0.02 K/uL (0-0); Nucleated RBC % (auto) 0.2 %; Platelet Count 100 K/uL (130-400); RDW Standard Deviation 57.1 fL (36.4-46.3); Red Blood Count 2.72 M/uL (4.7-6.1); White Blood Count 11.09 K/uL (4.8-10.8)
[2020-07-22] MEDS: ACETAMINOPHEN 325 MG TAB PO PRN ×3 (06:08→22:05)
[2020-07-22] MEDS: oxyCODONE HCL IR 5 MG TAB (IMMEDIATE RELEASE) PO PRN ×3 (06:09→22:04)
[2020-07-22 06:10] LABS: Prothrombin Time 19.6 Seconds (9.0-12.0)
[2020-07-22 06:44] LABS: BUN Creatinine Ratio 29.3 (10-20); Calcium 8.2 mg/dl (8.5-10.1); Creatinine Clr Calc Pharmacy 22.8 ml/min; Est GFR (African American) 24.2 ml/min; Est GFR (Non-African American) 20.9 ml/min; Potassium 5.2 mmol/L (3.5-5.1)
[2020-07-22] MEDS: METOPROLOL SUCC 25MG EXT REL TAB PO SCH (08:31)
[2020-07-22] MEDS: SILDENAFIL CITRATE 20 MG TABLET PO SCH ×2 (08:32→21:00)
[2020-07-22] MEDS: hydrALAZINE 10 MG TAB PO SCH ×2 (08:33→20:59)
--- NOTE | 2020-07-22 08:34 | Pain Management Consultation ---
Date of Consultation July 22, 2020 Assessment & Plan (1) Depression: (2) Suicidal ideation: (3) Weakness: (4) Chronic hip pain: * No interventional procedures to offer the patient at this time. * Patient states that the left hip pain has been well managed with Oxycodone 5mg and Tylenol 1 gram twice daily. * He is complaining of some right shoulder pain which he has previously had injected by orthopedics. May consider repeating injection. * He has mentioned some intermittent abdominal discomfort which may require workup during hospitalization. * Oxycodone 5mg is ordered at every 6 hours if needed. * He may continue to take Tylenol in conjunction with Oxycodone. * Consider the initiation of Cymbalta 30mg daily to deregulate pain signals as well as be effective for depression. I will defer to psychiatry for this. Thank you for the consultation. Please call with any questions or concerns. History of Present Illness Attending Physician: Nancy Eckert MD History of Present Illness Mr. Esquivel is an 79 year old male that has been admitted for depression/suicidal ideation due to chronic left hip pain. Patient has previously received a hip injection by Dr. Cramer in the past and he did not feel like the injection was effective so his PCP placed him on Oxycodone 5mg twice daily. Patient is not a surgical candidate for a hip replacement due to his multiple comorbidities. He would take Oxycodone 5mg and Tylenol 1 gram twice daily which does provide moderate pain relief. This morning he states that the left hip pain is manageable to where he is able to perform his daily activities but it does take some increased time. Today he mentions pain in the right shoulder which has previously required injection and an intermittent pain in the abdomen into the left flank. He is able to weight bear. No constipation, diarrhea, urinary sx. Pain Assessment Full Body Front + Back: 1. 2. 3. Allergies Allergy/AdvReac Type Severity Reaction Status Date / Time No Known Drug Allergies Allergy Verified 02/18/20 14:14 adaptic touch AdvReac Mild contact Uncoded 02/05/20 13:19 dermatitis Home Medications Medication Instructions Recorded Confirmed Type alfuzosin 10 mg PO QDL 12/21/17 07/21/20 History finasteride 5 mg PO QDD 12/21/17 07/21/20 History levothyroxine 25 mcg PO QAM 12/21/17 07/21/20 History nitroglycerin [Nitrostat] 0.4 mg SUBLINGUAL UD 12/21/17 07/21/20 History metoprolol succinate 12.5 mg PO QAM 07/10/18 07/21/20 History torsemide 20 mg PO DAILY 09/30/18 07/21/20 History aspirin 81 mg tablet,delayed 81 mg PO QDL 11/03/18 07/21/20 History release lorazepam 0.5 mg tablet 0.5 mg PO BID PRN tab 11/03/18 07/21/20 History allopurinol 100 mg tablet 200 mg PO QDL tab 11/24/18 07/21/20 History hydralazine 10 mg tablet 10 mg PO BID 06/18/19 07/21/20 History Eliquis 2.5 mg PO BID 09/18/19 07/21/20 History cholecalciferol (vitamin D3) 50 mcg PO QDD 09/18/19 07/21/20 History [Vitamin D3] prednisone 10 mg PO Q OTHER DAY 09/18/19 07/21/20 History acetaminophen [Tylenol Ex Str 500 mg PO Q6H PRN 07/21/20 07/21/20 History Rapid Release] atorvastatin 20 mg PO QDD 07/21/20 07/21/20 History famotidine [Heartburn Relief 10 mg PO Q2D 07/21/20 07/21/20 History (famotidine)] lisinopril 5 mg PO DAILY 07/21/20 07/21/20 History mirtazapine 15 mg PO HS 07/21/20 07/21/20 History oxycodone 5 mg PO BID PRN 07/21/20 07/21/20 History sildenafil (pulm.hypertension) 20 mg PO BID 07/21/20 07/21/20 History torsemide 10 mg PO QDD 07/21/20 07/21/20 History Patient History Medical History Actinic keratitis BPH (benign prostatic hyperplasia) CAD (coronary artery disease) Cellulitis of right lower extremity without foot Chronic diastolic CHF (congestive heart failure) Chronic venous insufficiency CKD (chronic kidney disease), stage IV Contact dermatitis Diastolic congestive heart failure Dysmetabolic syndrome X First degree atrioventricular block Former smoker Gout HX History of thymus cancer HTN (hypertension) Hyperlipidemia Hypothyroidism Kidney stone MSSA (methicillin susceptible Staphylococcus aureus) infection Myasthenia gravis Paroxysmal atrial fibrillation Pseudomonas infection Pulmonary HTN Skin cancer Sleep apnea CPAP Venous stasis ulcer Venous stasis ulcer of ankle limited to breakdown of skin without varicose veins Surgical History History of cardiac cath 2 STENTS [facility] [place] 04/2016 Hx of thymectomy 2013 S/P cataract extraction Family History Mother Family history of diabetes mellitus Social History Smoking Status: Former smoker Second Hand Exposure: No; Hx Alcohol Use: No Hx Substance Use: No Preferred Language: French Communication Ability: Effective Hospitality Specialist Required: No Beliefs That Will Affect Care: None marital status: Current Living Situation: Spouse Other Information That Helps Us Care for You: No Feels Safe at Home: Yes Safety Concerns: Feels Safe At This Time Assistive Devices: Walker Assistive Devices Comment: BL hearing aids at home. Physical Exam Physical Exam: GENERAL: This is an 79 year old male that does not appear in any acute distress. He seems in good spirits during our discussion. HEAD/FACE: Normocephalic and atraumatic. EYES: No drainage or conjunctival injection. ENT: Nose without bleeding or discharge. Oral mucosa moist. NECK: Full ROM without apparent pain. No swelling or masses noted. RESPIRATORY: Patient with unlabored breathing. No signs of respiratory distress. CHEST/AXILLA: Chest movement symmetrical. No deformities noted. ABDOMEN/GI: No distension BACK: Moves without difficulty SKIN: [place], warm and dry. No rash noted. MS/EXTREMITY: No tenderness of the left greater trochanteric bursa. There is limited internal and external ROM. Adequate flexion and extension of the left hip. NEURO: Alert and appears oriented. Speech is fluent. Cranial Nerves are grossly intact. PSYCH: Alert, pleasant, affect is calm Results (Pain Clinic) Diagnostic Review CT Findings: CT SCAN OF THE LEFT HIP WITHOUT IV CONTRAST CLINICAL HISTORY: Left hip pain. COMPARISON STUDY: Abdominal radiograph dated 10/05/2013. TECHNIQUE: CT scan of the left hip is performed from the bony pelvis to the proximal femoral shaft. Images are reviewed in the axial, sagittal, and coronal planes. IV contrast was not administered for this examination. A dose lowering technique was utilized adhering to the principles of ALARA. CT DOSE: 353.47 mGy.cm FINDINGS: The skeletal structures are osteopenic. No acute fracture is seen involving the left hip or the visualized left hemipelvis. No lytic or blastic lesion is seen. There is moderate to advanced arthritic change at the left hip with near complete loss of the superior joint space. There is associated bony sclerosis and subchondral cyst formation within the acetabular roof. Bony overgrowth is seen along the lateral acetabulum. There is a trace joint fluid and mild surrounding infiltration. Foci of gas are present within the joint space, and there is an approximately 3 cm pocket of bursal fluid identified along the lateral wall of the bony pelvis seen on axial image #7 of 66. No erosive/destructive bony change is identified. There is generalized atrophy of the regional musculature. The prostate gland is enlarged and heterogeneous. A 2.1 cm mass is suggested arising from the left aspect of the prostate gland on image #32. There is median lobe hypertrophy. The bladder wall appears thickened and trabeculated indicating chronic outlet obstruction. Left pelvic sidewall adenopathy is identified. The largest is seen on image #18 of 66 and measures 2.4 x 1.6 cm. IMPRESSION: 1. No fracture is identified involving the left hip or the visualized left hemipelvis. 2. Osteopenia with advanced degenerative change of the left hip as above. 3. There is trace joint fluid, with foci of gas within the joint space and mild surrounding infiltration. Additionally, there is a pocket of bursal fluid along the lateral aspect of the bony pelvis. These findings are likely on a degenerative basis. Superimposed infection would be impossible to exclude by imaging and clinical correlation will be essential. 4. The prostate gland is enlarged and asymmetric/heterogeneous, with a possible left-sided prostate mass and evidence of chronic bladder outlet obstruction. Correlation with serum PSA levels is recommended. 5. There is nonspecific left pelvic sidewall adenopathy, which could be on a reactive or neoplastic basis. ACT 112: Positive. There are findings on this exam that require communication between the performing entity and the patient following Patient Test Result Information Act ([place] Act 112) guidelines. Electronically signed by: Vince Briscoe M.D. 07/21/2020 3:53 PM
[2020-07-22] MEDS ORDERED: ONDANSETRON INJ 2 MG/ML 2 ML VIAL IV PRN (11:32)
[2020-07-22] MEDS ORDERED: PHYTONADIONE 5 MG TAB PO STA (11:46)
[2020-07-22] MEDS ORDERED: MoRPHine SULFATE 5 MG/0.25 ML UDP PO PRN (11:47)
[2020-07-22] MEDS: ASPIRIN 81 MG ECTAB PO SCH (11:55)
[2020-07-22] MEDS: ALFUZOSIN HCL 10 MG TAB PO SCH (11:56)
[2020-07-22] MEDS: allopurinoL 100 MG TAB PO SCH (11:56)
[2020-07-22] MEDS ORDERED: SODIUM CHLORIDE 0.9% 1000ML 1,000 ML IV SCH (12:00)
--- NOTE | 2020-07-22 12:07 | Communication Note ---
Date of Service: July 22, 2020 CT abdomen pelvis: Noncontrast: Shows multiple metastatic focus on the left iliac crest. Also sclerotic metastatic lesion noted right posterior 11th rib, left lateral seventh rib and within the T11 vertebra Scattered osteoblastic metastatic disease. Also pelvic right pelvic wall metastatic lymphadenopathy. Enlarged prostate with irregularity suggestive of prostate CA There is a possible evidence of 2 cm cancer in the left upper pole suggestive of renal cell carcinoma Urology consult appreciated, patient definitely demonstrating advanced stage prostate cancer, Remains coagulopathic with INR elevated of 2, given vitamin K 5 mg yesterday, Eliquis has been kept on hold Patient's coagulopathy has to be reversed for any urology procedure, Possible plan to have biopsy as an outpatient. Pain management consulted for intractable pain secondary to widespread cancer bone metastasis. Overall prognosis remains poor, will update patient's family, Nancy Eckert MD
[2020-07-22 14:35] LABS: Prothrombin Time 19.4 Seconds (9.0-12.0)
[2020-07-22 14:40] LABS: BUN Creatinine Ratio 29.2 (10-20); Calcium 9.1 mg/dl (8.5-10.1); Creatinine Clr Calc Pharmacy 23.2 ml/min; Est GFR (African American) 24.6 ml/min; Est GFR (Non-African American) 21.2 ml/min; Potassium 5.1 mmol/L (3.5-5.1)
--- NOTE | 2020-07-22 15:00 | XRay Report ---
XR hip LT min 2V CLINICAL HISTORY: Left hip pain COMPARISON: None. DISCUSSION: No acute fracture or dislocation is seen however evaluation is slightly limited due to underpenetrati on and mild motion artifact. There is diffuse narrowing of the left hip joint space with subchondral sclerosis and subchondral cys ts within its superior aspect likely representing degenerative process. Few calcified/ossified densities within soft tissue superiorly to the left hip joint are seen and rose ht represent degenerative process versus other etiology. Extensive stool content is seen within the lower pelvic region. IMPRESSION: 1. No definite acute fracture or dislocation. Limited exam. 2. Degenerative process of the left hip joint. ACT 112: Negative or not required by law. The above report was generated using voice recognition software. It may contain grammatical, syntax o r spelling errors. Electronically signed by: Norma Roy DO 07/22/2020 2:59 PM
--- NOTE | 2020-07-22 15:02 | Psychiatric Consultation ---
Date of Consultation July 22, 2020 Impression / Recommendations Impression 79-year-old with a long history of depression has been on previous serotonin abrupted medications including Zoloft in the past with minimal relief per patient his current medication of Remeron he feels has helped just a little bit"" patient at this time is not suicidal is not homicidal patient is future oriented he also is very closely connected to his family including his and his granddaughter. Recommendations: Would recommend continuing Remeron as it has helped him, would increase dose to 22.5 mg with a plan over a few weeks increase to 30 mg patient is agreeable to outpatient therapy which would help him to discuss some of the issues related to his issues with his pain. (1) Mood disorder: Depression recurrent severe. Increase Remeron to 22.5 mg daily. Patient to have therapist at discharge discussed risks and benefits of Remeron with patient patient is open to trying the increased dose. Present on Admission?: Yes Inventory Assets Strengths: verbal Needs: able to discuss needs - needs therapist Risk Factors Assessment Male: Yes : Yes Do You Have Access To A Gun?: Yes Health Problems: Yes Mental Health Diagnoses: Yes Protective Factors Assessment : Yes Responsible for Young Children: Yes Stable Relationships: Yes Supportive Family: Yes Good Rapport with Provider: Yes Psych History Chief Complaint "I am fine I think they misunderstood me I would never kill myself". History of Present Illness 79-year-old male with a psychiatric history of depression and PMH of CAD, chronic diastolic CHF, pulmonary hypertension, paroxysmal atrial fibrillation/flutter anticoagulated on Eliquis, BPH, CKD stage IV, myasthenia gravis on chronic prednisone, and other problems listed below who presents to the ED for evaluation of nosebleed, left hip pain, and depression. Patient reports that his pain is "intolerable" at times. Patient reports that he recently had nosebleeds and got very frustrated. Patient denies suicidal tho ughts patient denies any homicidal thoughts. Patient reports I would never kill myself I have my is at home and she would be devastated". Patient reports that he has things to live for including his granddaughter. Patient feels that his current psychiatric medications are not working. He had been on Zoloft in the past but that did not work either. He is open to therapy. He denies halluc inations visual or auditory hallucinations. He denies any delusions. There is no evidence of response to internal stimuli. Past Psychiatric History Previous Psych History: Zoloft in the past where he felt he did not do anything even when the dose was increased. Current Psychiatric Diagnosis: Major depressive episode recurrent Previous Psych Admissions: Denies previous psychiatric admissions Do You Have Access To A Gun?: Yes History of Previous Suicide Attempt: No Past Medication Trials: Zoloft Allergies Allergy/AdvReac Type Severity Reaction Status Date / Time No Known Drug Allergies Allergy Verified 02/18/20 14:14 adaptic touch AdvReac Mild contact Uncoded 02/05/20 13:19 dermatitis Home Medications Medication Instructions Recorded Confirmed Type alfuzosin 10 mg PO QDL 12/21/17 07/21/20 History finasteride 5 mg PO QDD 12/21/17 07/21/20 History levothyroxine 25 mcg PO QAM 12/21/17 07/21/20 History nitroglycerin [Nitrostat] 0.4 mg SUBLINGUAL UD 12/21/17 07/21/20 History metoprolol succinate 12.5 mg PO QAM 07/10/18 07/21/20 History torsemide 20 mg PO DAILY 09/30/18 07/21/20 History aspirin 81 mg tablet,delayed 81 mg PO QDL 11/03/18 07/21/20 History release lorazepam 0.5 mg tablet 0.5 mg PO BID PRN tab 11/03/18 07/21/20 History allopurinol 100 mg tablet 200 mg PO QDL tab 11/24/18 07/21/20 History hydralazine 10 mg tablet 10 mg PO BID 06/18/19 07/21/20 History Eliquis 2.5 mg PO BID 09/18/19 07/21/20 History cholecalciferol (vitamin D3) 50 mcg PO QDD 09/18/19 07/21/20 History [Vitamin D3] prednisone 10 mg PO Q OTHER DAY 09/18/19 07/21/20 History acetaminophen [Tylenol Ex Str 500 mg PO Q6H PRN 07/21/20 07/21/20 History Rapid Release] atorvastatin 20 mg PO QDD 07/21/20 07/21/20 History famotidine [Heartburn Relief 10 mg PO Q2D 07/21/20 07/21/20 History (famotidine)] lisinopril 5 mg PO DAILY 07/21/20 07/21/20 History mirtazapine 15 mg PO HS 07/21/20 07/21/20 History oxycodone 5 mg PO BID PRN 07/21/20 07/21/20 History sildenafil (pulm.hypertension) 20 mg PO BID 07/21/20 07/21/20 History torsemide 10 mg PO QDD 07/21/20 07/21/20 History Family History Denies Substance Abuse History Denies Personal History Living Arrangements: Home Beliefs That Will Affect Care: None Patient History Medical History Actinic keratitis BPH (benign prostatic hyperplasia) CAD (coronary artery disease) Cellulitis of right lower extremity without foot Chronic diastolic CHF (congestive heart failure) Chronic venous insufficiency CKD (chronic kidney disease), stage IV Contact dermatitis Diastolic congestive heart failure Dysmetabolic syndrome X First degree atrioventricular block Former smoker Gout HX History of thymus cancer HTN (hypertension) Hyperlipidemia Hypothyroidism Kidney stone MSSA (methicillin susceptible Staphylococcus aureus) infection Myasthenia gravis Paroxysmal atrial fibrillation Pseudomonas infection Pulmonary HTN Skin cancer Sleep apnea CPAP Venous stasis ulcer Venous stasis ulcer of ankle limited to breakdown of skin without varicose veins Surgical History History of cardiac cath 2 [facility] [place] Hx of thymectomy 2014 S/P cataract extraction Family History Mother Family history of diabetes mellitus Social History Smoking Status: Former smoker Second Hand Exposure: No; Hx Alcohol Use: No Hx Substance Use: No Preferred Language: Citizen Of [place] Communication Ability: Effective Relocation Coordinator Required: No Beliefs That Will Affect Care: None marital status: Current Living Situation: Spouse Other Information That Helps Us Care for You: No Feels Safe at Home: Yes Safety Concerns: Feels Safe At This Time Assistive Devices: None Assistive Devices Comment: BL hearing aids at home. Physical Exam Psychiatric: Orientation: alert, oriented to person, oriented to place and oriented to time Apperance: appropriately groomed Eye Contact: + fair eye contact Motor Behavior: + psychomotor retardation; + unsteady gait or station Speech: no pressured speech and no loud speech Affect: + depressed affect Mood: + depressed mood Thought Process: goal directed thought process and linear/logical thought process; no flight of ideas and no looseness of asso ciations Thought Content: + preoccupation; no delusions Suicidal Thoughts: denies suicidal thoughts and denies suicidal plan Homicidal Thoughts: denies homicidal thoughts and denies homicidal plan Hallucinations: no auditory hallucinations and no visual hallucinations Cognition: recent memory grossly intact, remote memory grossly intact and attention grossly intact Estimated Intelligence: consistent with education level Insight: + fair insight Judgement: + fair judgement Vital Signs (Past 24 Hours): Last Vital Signs Temp 36.7 C 07/22/20 07:20 Pulse 93 H 07/22/20 07:20 Resp 16 07/22/20 07:20 BP 118/64 07/22/20 07:20 Pulse Ox 90 07/22/20 09:33 Physical Examination: Physical examination done by Rica salcedo hospitalist is noted and reviewed which it was done on 07/21/2020. Review of Systems All systems reviewed & are unremarkable except as noted in HPI & below Patient reports chronic pain particularly neck shoulders back and back of leg. Results & Data (PSY) Medications Administered Acetaminophen (Acetaminophen 325 Mg Tab) 650 mg PO Q4H PRN PRN Reason: pain/fever Stop: 08/20/20 16:42 Last Admin: 07/22/20 14:30 Dose: 650 mg Documented by: [id number] Admin: 07/22/20 06:08 Dose: 650 mg Documented by: [id number] Admin: 07/21/20 22:44 Dose: 650 mg Documented by: [id number] Alfuzosin HCl (Alfuzosin Hcl 10 Mg Tab) 10 mg PO QDL [facility] Stop: 08/21/20 11:29 Last Admin: 07/22/20 11:56 Dose: 10 mg Documented by: [id number] Allopurinol (Allopurinol 100 Mg Tab) 200 mg PO QDL [facility] Stop: 08/21/20 11:29 Last Admin: 07/22/20 11:56 Dose: 200 mg Documented by: [id number] Aspirin (Aspirin 81 Mg Ectab) 81 mg PO QDL [facility] Stop: 08/21/20 11:29 Last Admin: 07/22/20 11:55 Dose: 81 mg Documented by: [id number] Atorvastatin Calcium (Atorvastatin 20 Mg Tab) 20 mg PO QDD [facility] Stop: 08/20/20 16:42 Last Admin: 07/21/20 17:57 Dose: 20 mg Documented by: [id number] Finasteride (Finasteride 5 Mg Tab) 5 mg PO QDD [facility] Stop: 08/20/20 16:42 Last Admin: 07/21/20 17:58 Dose: 5 mg Documented by: [id number] Hydralazine HCl (Hydralazine 10 Mg Tab) 10 mg PO BID [facility] Stop: 08/20/20 20:59 Last Admin: 07/22/20 08:33 Dose: 10 mg Documented by: [id number] Admin: 07/21/20 20:39 Dose: 10 mg Documented by: [id number] Sodium Chloride (Nss 1000ml) 1,000 mls @ 100 mls/hr IV .Q10H [facility] Stop: 07/22/20 21:59 Last Admin: 07/22/20 11:55 Dose: 100 mls/hr Documented by: [id number] Levothyroxine Sodium (Levothyroxine Sodium 25 Mcg Tablet) 25 mcg PO DAILYBB [facility] Stop: 08/21/20 06:29 Last Admin: 07/22/20 05:55 Dose: 25 mcg Documented by: [id number] Metoprolol Succinate (Metoprolol Succ 25mg Ext Rel Tab) 12.5 mg PO QAM [facility] Stop: 08/21/20 08:59 Last Admin: 07/22/20 08:31 Dose: 12.5 mg Documented by: [id number] Mirtazapine (Mirtazapine Tab 15 Mg Tab) 15 mg PO HS [facility] Stop: 08/20/20 20:59 Last Admin: 07/21/20 20:40 Dose: 15 mg Documented by: [id number] Oxycodone HCl (Oxycodone Hcl Ir 5 Mg Tab (Immediate Release)) 5 mg PO Q6H PRN PRN Reason: Pain Stop: 08/04/20 16:42 Last Admin: 07/22/20 14:28 Dose: 5 mg Documented by: [id number] Admin: 07/22/20 06:09 Dose: 5 mg Documented by: [id number] Sildenafil Citrate (Sildenafil Citrate 20 Mg Tablet) 20 mg PO BID [facility] Stop: 08/20/20 20:59 Last Admin: 07/22/20 08:32 Dose: 20 mg Documented by: [id number] Admin: 07/21/20 20:39 Dose: 20 mg Documented by: [id number] Coding Level of Care Code 01627 U Intl Hosp Care Lvl 2 Medical Decision Making Low Complexity Diagnoses Mood disorder F39
[2020-07-22] MEDS ORDERED: CONSULT PHARMACY STA (15:24)
--- NOTE | 2020-07-22 15:38 | Urology Progress Note ---
Date of Service July 22, 2020 Assessment & Plan (1) Prostate cancer: 79-year-old gentleman with a PSA of 912 and visual evidence of metastatic disease on imaging Unfortunately given his comorbid conditions I do not believe he would be safe or appropriate to perform a prostate biopsy without risking creating more difficulty than is necessary In turn will have to make a clinical diagnosis of his prostate cancer and begin treatment immediately in the form of Casodex followed by an injection of Firmagon/Lupron as soon as it is available I have discussed the findings with the patient as well as his daughter and granddaughter Although he certainly has an extremely guarded prognosis given his number of significant medical issues, from a prostate cancer standpoint I anticipate will be able to improve his symptoms and overall status in the relatively near future I tried to maintain some optimism with him (2) Renal mass: The small renal mass is an incidental finding and I believe given his other pressing issues should not be something of primary concern This can be followed as needed in the future Admission and Anticipated Discharge Date Admission Date: July 21, 2020 Subjective Unfortunate 79-year-old gentleman who dealing with numerous significant medical issues Amongst those issues he was recently found to have a PSA of 912 and visible evidence of metastatic disease on imaging consistent with prostate cancer He also appears to have a small renal mass of approximately 2 cm Given his overall health, he seems to be quite depressed He also is exhibiting pain from joints and bones scattered around his body Physical Exam Constitutional: well developed and well nourished Respiratory: no respiratory distress Cardiovascular: Extremities: no pedal edema Gastrointestinal (Abdomen): Inspection/Auscultation: abdomen normal to inspection Results & Data ([facility]) Vital Signs (Past 12 Hours) Vital Signs Temp Pulse Resp BP Pulse Ox Pulse Ox Pulse Ox 07/22/20 15:14 37.0 C 100 H 16 125/72 95 07/22/20 09:33 94 90 07/22/20 07:20 36.7 C 93 H 16 118/64 93 PG Care Time/CCT Total # of Minutes Spent Total Time Spent with Patient: Total time spent is greater than 50% in coordination of care (as documented) at patient's floor/unit and/or counseling patient: Coding Level of Care Code 18492 Subseq Hosp Care Lvl 3 Diagnoses Prostate cancer C61 Renal mass N28.89
--- NOTE | 2020-07-22 15:57 | Orthopedic Consultation ---
Date of Consultation July 22, 2020 Assessment & Plan (1) Degenerative joint disease of left hip: Patient is not a surgical candidate, continue with conservative treatments for left hip DJD. Air on CT likely due to recent intra-articular injection. Low concern for infectious process at this time. Agree with pain management consultation. Left side wall adenopathy/neoplasia could be also contributing to the patient's pain in his left hip, concern for prostate cancer as noted and urology consult, would defer to medical team/oncology/urology for further work- up and treatment. Patient may weight-bear as tolerated on his left lower extremity, participate in physical therapy and Occupational Therapy when medically stabilized. Follow up as needed, . Thank you for the consultation. History of Present Illness Reason for Consultation: Left hip pain Attending Physician: Nancy Eckert MD History of Present Illness The patient is an 79-year-old male with past medical history as noted below who presented to [facility] secondary to amatory dysfunction and worsening left hip pain and depression. He was admitted for further evaluation and treatment. Patient denies any trauma to the hip. Reports chronic pain to the left hip for " years" he states that his pain today is similar to his baseline. Patient has been treated conservatively in the outpatient setting unable to take NSAIDs secondary to being on blood thinner. Multiple injections into the left hip both corticosteroid and hyaluronic acid, his most recent injection reports was in" June/July". Was scheduled for left total hip arthroplasty however could not be cleared and considered too high risk for elective surgery. Denies F/C/N/V/SOB/CP. Allergies Allergy/AdvReac Type Severity Reaction Status Date / Time No Known Drug Allergies Allergy Verified 02/18/20 14:14 adaptic touch AdvReac Mild contact Uncoded 02/05/20 13:19 dermatitis Home Medications Medication Instructions Recorded Confirmed Type alfuzosin 10 mg PO QDL 12/21/17 07/21/20 History finasteride 5 mg PO QDD 12/21/17 07/21/20 History levothyroxine 25 mcg PO QAM 12/21/17 07/21/20 History nitroglycerin [Nitrostat] 0.4 mg SUBLINGUAL UD 12/21/17 07/21/20 History metoprolol succinate 12.5 mg PO QAM 07/10/18 07/21/20 History torsemide 20 mg PO DAILY 09/30/18 07/21/20 History aspirin 81 mg tablet,delayed 81 mg PO QDL 11/03/18 07/21/20 History release lorazepam 0.5 mg tablet 0.5 mg PO BID PRN tab 11/03/18 07/21/20 History allopurinol 100 mg tablet 200 mg PO QDL tab 11/24/18 07/21/20 History hydralazine 10 mg tablet 10 mg PO BID 06/18/19 07/21/20 History Eliquis 2.5 mg PO BID 09/18/19 07/21/20 History cholecalciferol (vitamin D3) 50 mcg PO QDD 09/18/19 07/21/20 History [Vitamin D3] prednisone 10 mg PO Q OTHER DAY 09/18/19 07/21/20 History acetaminophen [Tylenol Ex Str 500 mg PO Q6H PRN 07/21/20 07/21/20 History Rapid Release] atorvastatin 20 mg PO QDD 07/21/20 07/21/20 History famotidine [Heartburn Relief 10 mg PO Q2D 07/21/20 07/21/20 History (famotidine)] lisinopril 5 mg PO DAILY 07/21/20 07/21/20 History mirtazapine 15 mg PO HS 07/21/20 07/21/20 History oxycodone 5 mg PO BID PRN 07/21/20 07/21/20 History sildenafil (pulm.hypertension) 20 mg PO BID 07/21/20 07/21/20 History torsemide 10 mg PO QDD 07/21/20 07/21/20 History Patient History Medical History Actinic keratitis BPH (benign prostatic hyperplasia) CAD (coronary artery disease) Cellulitis of right lower extremity without foot Chronic diastolic CHF (congestive heart failure) Chronic venous insufficiency CKD (chronic kidney disease), stage IV Contact dermatitis Diastolic congestive heart failure Dysmetabolic syndrome X First degree atrioventricular block Former smoker Gout HX History of thymus cancer HTN (hypertension) Hyperlipidemia Hypothyroidism Kidney stone MSSA (methicillin susceptible Staphylococcus aureus) infection Myasthenia gravis Paroxysmal atrial fibrillation Pseudomonas infection Pulmonary HTN Skin cancer Sleep apnea CPAP Venous stasis ulcer Venous stasis ulcer of ankle limited to breakdown of skin without varicose veins Surgical History History of cardiac cath 2 ST[facility] [place] Hx of thymectomy 2014 S/P cataract extraction Family History Mother Family history of diabetes mellitus Social History Smoking Status: Former smoker Second Hand Exposure: No; Hx Alcohol Use: No Hx Substance Use: No Preferred Language: Ivorian Communication Ability: Effective Farm Operator Required: No Beliefs That Will Affect Care: None marital status: Current Living Situation: Spouse Other Information That Helps Us Care for You: No Feels Safe at Home: Yes Safety Concerns: Feels Safe At This Time Assistive Devices: Denture - Upper, Denture - Lower and Glasses Assistive Devices Comment: BL hearing aids at home. Review of Systems Review of Systems: All systems reviewed & are unremarkable except as noted in HPI & below Constitutional: as per Subjective / HPI Physical Exam Physical Exam: Left lower extremity physical exam is neurovascular sensory intact, multiple bruises on his lower extremity, skin overlying left hip is clean dry and intact, limited painful range of motion of left hip. Constitutional: WD/WN, vitals as above Results & Data ([facility]) Vital Signs (Past 12 Hours) Vital Signs Temp Pulse Resp BP Pulse Ox Pulse Ox Pulse Ox 07/22/20 15:14 37.0 C 100 H 16 125/72 95 07/22/20 09:33 94 90 07/22/20 07:20 36.7 C 93 H 16 118/64 93 Diagnostic Findings XR hip LT min 2V CLINICAL HISTORY: Left hip pain COMPARISON: None. DISCUSSION: No acute fracture or dislocation is seen however evaluation is slightly limited due to underpenetration and mild motion artifact. There is diffuse narrowing of the left hip joint space with subchondral sclerosis and subchondral cysts within its superior aspect likely representing degenerative process. Few calcified/ossified densities within soft tissue superiorly to the left hip joint are seen and might represent degenerative process versus other etiology. Extensive stool content is seen within the lower pelvic region. IMPRESSION: 1. No definite acute fracture or dislocation. Limited exam. 2. Degenerative process of the left hip joint. CT SCAN OF THE LEFT HIP WITHOUT IV CONTRAST CLINICAL HISTORY: Left hip pain. COMPARISON STUDY: Abdominal radiograph dated 10/05/2013. TECHNIQUE: CT scan of the left hip is performed from the bony pelvis to the proximal femoral shaft. Images are reviewed in the axial, sagittal, and coronal planes. IV contrast was not administered for this examination. A dose lowering technique was utilized adhering to the principles of ALARA. CT DOSE: 353.47 mGy.cm FINDINGS: The skeletal structures are osteopenic. No acute fracture is seen involving the left hip or the visualized left hemipelvis. No lytic or blastic lesion is seen. There is moderate to advanced arthritic change at the left hip with near complete loss of the superior joint space. There is associated bony sclerosis and subchondral cyst formation within the acetabular roof. Bony overgrowth is seen along the lateral acetabulum. There is a trace joint fluid and mild surrounding infiltration. Foci of gas are present within the joint space, and there is an approximately 3 cm pocket of bursal fluid identified along the lateral wall of the bony pelvis seen on axial image #7 of 66. No erosive/destructive bony change is identified. There is generalized atrophy of the regional musculature. The prostate gland is enlarged and heterogeneous. A 2.1 cm mass is suggested arising from the left aspect of the prostate gland on image #32. There is median lobe hypertrophy. The bladder wall appears thickened and trabeculated indicating chronic outlet obstruction. Left pelvic sidewall adenopathy is identified. The largest is seen on image #18 of 66 and measures 2.4 x 1.6 cm. IMPRESSION: 1. No fracture is identified involving the left hip or the visualized left hemipelvis. 2. Osteopenia with advanced degenerative change of the left hip as above. 3. There is trace joint fluid, with foci of gas within the joint space and mild surrounding infiltration. Additionally, there is a pocket of bursal fluid along the lateral aspect of the bony pelvis. These findings are likely on a degenerative basis. Superimposed infection would be impossible to exclude by imaging and clinical correlation will be essential. 4. The prostate gland is enlarged and asymmetric/heterogeneous, with a possible left-sided prostate mass and evidence of chronic bladder outlet obstruction. Correlation with serum PSA levels is recommended. 5. There is nonspecific left pelvic sidewall adenopathy, which could be on a reactive or neoplastic basis.
[2020-07-22] MEDS: BICALUTAMIDE 50 MG TAB PO SCH (16:41)
[2020-07-22] MEDS: FINASTERIDE 5 MG TAB PO SCH (16:42)
[2020-07-22] MEDS: CHOLECALCIFEROL 1,000 UNITS 25 MCG TAB PO SCH (16:42)
[2020-07-22] MEDS: ATORVASTATIN 20 MG TAB PO SCH (16:42)
[2020-07-22] MEDS: FAMOTIDINE 10 MG TABLET PO SCH (16:43)
[2020-07-22] MEDS: MIRTAZAPINE TAB 15 MG TAB PO SCH (20:59)
[2020-07-23 06:19] LABS: Hematocrit (blood only) 24.5 % (42-52); Hemoglobin 8.2 g/dL (14.0-18.0); Mean Corpuscular Hemoglobin 32.9 pg (25-34); Mean Corpuscular Hgb Conc 33.5 g/dL (32-36); Mean Corpuscular Volume 98.4 fL (80-100); Mean Platelet Volume 10.4 fL (7.4-10.4); Nucleated RBC # (auto) 0.03 K/uL (0-0); Nucleated RBC % (auto) 0.2 %; Platelet Count 104 K/uL (130-400); RDW Coefficient of Variation 16.3 % (11.5-14.5); Red Blood Count 2.49 M/uL (4.7-6.1); White Blood Count 13.05 K/uL (4.8-10.8)
[2020-07-23] MEDS: LEVOTHYROXINE SODIUM 25 MCG TABLET PO SCH (06:19)
[2020-07-23 06:34] LABS: Prothrombin Time 19.3 Seconds (9.0-12.0)
[2020-07-23] MEDS: ONDANSETRON 4 MG OD TAB PO PRN (06:38)
[2020-07-23 06:51] LABS: Calcium 8.4 mg/dl (8.5-10.1); Est GFR (African American) 23.2 ml/min; Potassium 5.8 mmol/L (3.5-5.1)
[2020-07-23] MEDS: oxyCODONE HCL IR 5 MG TAB (IMMEDIATE RELEASE) PO PRN ×3 (08:38→20:26)
[2020-07-23] MEDS: ACETAMINOPHEN 325 MG TAB PO PRN ×3 (08:38→20:27)
[2020-07-23] MEDS: predniSONE 10 MG TABLET PO SCH (08:39)
[2020-07-23] MEDS: METOPROLOL SUCC 25MG EXT REL TAB PO SCH (08:39)
[2020-07-23] MEDS: BICALUTAMIDE 50 MG TAB PO SCH (08:39)
[2020-07-23] MEDS: hydrALAZINE 10 MG TAB PO SCH ×2 (08:40→20:28)
[2020-07-23] MEDS: SILDENAFIL CITRATE 20 MG TABLET PO SCH ×2 (08:40→20:29)
--- NOTE | 2020-07-23 09:02 | Urology Progress Note ---
Date of Service July 23, 2020 Assessment & Plan (1) Prostate cancer: (2) Renal mass: 79 year-old male patient, with multiple comorbidities, admitted with worsening chronic hip pain and depression. -Plan of care reviewed with Dr. Davila. -Patient with PSA of 912 and visual evidence of metastatic disease on imaging. -Unfortunately given his comorbid conditions, it is not felt safe or appropriate to perform a prostate biopsy. -Patient has been started on Bicalutamide with plans to start Firmagon injections in the outpatient setting as soon as it is available. -Discussed discharge plans with patient's primary team who is planning to discharge tomorrow of Tuesday. -Will arrange follow-up with our service as outpatient soon after discharge for Firmagon initiation. -Regarding his renal mass, given his other acute conditions, will be followed as outpatient. -Expected clinical course reviewed with patient, all questions answered. -Patient re-examined with Dr. Davila who reviewed recommendations and provided reassurance. -Will continue to follow while inpatient. Admission and Anticipated Discharge Date Admission Date: July 21, 2020 Supervising Physician Co-Signing Physician Notes pt with elevated creatinine but stable and no hydronephrosis. He needs androgen ablation but it is not available in hospital and he is on casodex with plan to start marek as outpt Subjective Patient seen and examined at bedside. He is alert, awake, and appears comfortable. Does report continued pain to bilateral hip area. Denies abdominal or flank pain. Denies bladder pain or pressure. Does note some hesitancy and intermittent dysuria. Denies significant frequency/urgency. Does have baseline incontinence. Denies fevers or chills. Did get nauseated this morning, received PRN oral Zofran. Denies vomiting. Did start Bicalutamide last evening. Unfortunately, pharmacy is unable to get loading dose of Firmagon for inpatient administration. Chart review: Afebrile Wbc 13.05 Hgb 8.2 Creatinine 2.83 (previously 2.69) PSA 07/21 912.0 Denies additional urologic concerns today. Review of Systems Constitutional: as per Subjective / HPI; no fever and no chills Gastrointestinal: as per Subjective / HPI and + nausea; no vomiting Genitourinary: + as per Subjective / HPI Musculoskeletal: as per Subjective / HPI Physical Exam Constitutional: well nourished, cooperative and comfortable; no acute distress Appears chronically ill. Respiratory: normal respiratory effort and able to speak in complete sentences; no respiratory distress and no audible wheezes Cardiovascular: Extremities: no edema Gastrointestinal (Abdomen): Inspection/Auscultation: abdomen normal to inspection Percussion/Palpation: abdomen soft; abdomen nontender and no guarding Obese abdomen Psychiatric: Orientation: alert, oriented x 3 and cooperative Affect: euthymic affect Genitourinary: no CVA tenderness Results & Data ([facility]) Vital Signs (Past 12 Hours) Vital Signs Temp Pulse Resp BP Pulse Ox 07/23/20 07:19 37.2 C 77 20 109/62 93 07/23/20 03:25 36.7 C 77 18 116/66 93 PG Care Time/CCT Total # of Minutes Spent Total Time Spent with Patient: Total time spent is greater than 50% in coordination of care (as documented) at patient's floor/unit and/or counseling patient: Coding Level of Care Code 78611 Subseq Hosp Care Lvl 2 Diagnoses Prostate cancer C61 Renal mass N28.89
[2020-07-23] MEDS: ASPIRIN 81 MG ECTAB PO SCH (12:06)
[2020-07-23] MEDS: allopurinoL 100 MG TAB PO SCH (12:06)
[2020-07-23] MEDS: ALFUZOSIN HCL 10 MG TAB PO SCH (12:06)
[2020-07-23] MEDS: CHOLECALCIFEROL 1,000 UNITS 25 MCG TAB PO SCH (16:44)
[2020-07-23] MEDS: ATORVASTATIN 20 MG TAB PO SCH (16:44)
[2020-07-23] MEDS: FINASTERIDE 5 MG TAB PO SCH (16:45)
[2020-07-23] MEDS: PATIROMER CALCIUM SORBITEX 8.4 GM PACK PO SCH (17:08)
--- NOTE | 2020-07-23 18:42 | Hospitalist Progress Note ---
Date of Service July 23, 2020 Assessment & Plan (1) Chronic hip pain: Patient presenting from home with reports of epistaxis, chronic left hip pain, depression/suicidal ideations No evidence of fracture on CT imagings Surgical intervention has been considered in the past however patient is felt to be too high of a surgical risk due to other underlying comorbidities Ortho consult- pending Continue pain control PT/OT eval Fall precaution (2) Prostate cancer: (3) Renal mass: CT abd/pelvis showed redemonstration of the abnormal soft tissue extension within the left lateral and posterior peripheral zone of the prostate gland as described above. This is highly suspicious for a prostate malignancy. There is associated bilateral pelvic sidewall lymphadenopathy, left greater than right, which is consistent with metastatic disease. Scattered osteoblastic metastatic disease. Increase in size in the 2 cm exophytic slightly hyperdense lesion within the upper pole of the left kidney. This is highly suspicious for a renal cell carcinoma. PSA 912 Due to multiple comorbidity and high risks, not a good candidate to perform a prostate biopsy. He has been started on Bicalutamide with plans to start Firmagon injections in the outpatient setting as soon as it is available. Urology will arrange follow-up outpatient appt to start on Firmagon injection Will need work up and follow up for the renal mass (4) Depression: (5) Suicidal ideation: Due to underlying chronic left hip pain Continue Suicide precautions Psychiatry consult- pending (6) Acute kidney injury superimposed on CKD: (7) CKD (chronic kidney disease), stage IV: Baseline creatinine previously ran in the low 2's, on 05/20/2020 creatinine noted to be 2.6 Creatinine 3.2 on admission Possible due to poor intake Received IVF Creatinine 2.7 today Continue to hold torsemide and Lisinopril Continue monitor BMP (8) Hyperkalemia: K 5.8 today Will give Patiromer Continue monitor BMP Follow a Low K diet (9) Thrombocytopenia: Platelet count 104K today Patient reporting episodes of epistaxis over the past couple of weeks, Was bleeding from the IVF access Continue monitor CBC (10) Coagulopathy: INR 2.0 Patient on Eliquis May be due to decreased dietary intake Will hold eliquis due to bleeding from the IV access Previous hospitalist discussed with Dr. Rosado that recommended Vit K 5mg PO x 1 Will give vit K 5mg x1 today Continue monitor closely (11) BPH (benign prostatic hyperplasia): CT ABD/pelvis shows prostate gland is enlarged and asymmetric/heterogeneous, with a possible left-sided prostate mass and evidence of chronic bladder outlet obstruction PSA 912 Continue home BPH meds (12) Anemia: Due to recurrent epistaxis Hgb 8.2 today Will monitor H/H (13) Paroxysmal atrial fibrillation: Rate controlled on metoprolol Anticoagulated on hold On aspirin, will hold if hgb drops Continue monitor (14) Chronic diastolic CHF (congestive heart failure): Volume status acceptable Continue to hold torsemide due to SWETHA asymptomatic (15) Pulmonary HTN: Continue sildenafil (16) CAD (coronary artery disease): Continue aspirin, statin, beta-juana Stable (17) HTN (hypertension): BP controlled, continue metoprolol and hydralazine Continue to hold lisinopril as above (18) Myasthenia gravis: -ontinue home prednisone (19) DVT prophylaxis: SCDs due to low platelet and bleeding Admission and Anticipated Discharge Date Admission Date: July 21, 2020 Subjective Pt was seen and examined for follow up of pain Sitting in bed with no distress Pt said that pain med help alittle He continues to bleed from the IV site Pt is weak and need virtual assistant for advertisers to get up Denies any chest pain, palpitation, dizziness and SOB Review of Systems Review of Systems: All systems reviewed & are unremarkable except as noted in Subjective Physical Exam Physical Exam: General- No acute distress Head- atraumatic Eyes- PERRL, EOMI, ENT- oropharynx clear Neck- supple, no JVD Lungs- clear to auscultation Heart- irregular rhythm; no murmur Abdomen- normal bowel sounds, soft, nontender Extremities- no calf tenderness Neuro- alert, oriented x 3; PERRL, EOMI; no facial palsy; no dysarthria Skin- +ecchymoses Results & Data Results & Data ([facility]) Vital Signs (Past 12 Hours) Vital Signs Temp Pulse Resp BP Pulse Ox 07/23/20 15:08 36.9 C 83 17 122/60 94 07/23/20 07:19 37.2 C 77 20 109/62 93
[2020-07-23] MEDS ORDERED: PHYTONADIONE 5 MG TAB PO STA (18:53)
[2020-07-23 19:28] LABS: Hematocrit (blood only) 21.9 % (42-52); Hemoglobin 7.2 g/dL (14.0-18.0)
[2020-07-23] MEDS: MIRTAZAPINE TAB 15 MG TAB PO SCH (20:28)
[2020-07-23] MEDS ORDERED: DEXTROSE 50% 50 ML SYRINGE IV STA (23:09)
[2020-07-23] MEDS ORDERED: INSULIN HUMAN REGULAR PER UNIT 10 UNITS in SYRINGE 9.9 ML IV STA (23:13)
[2020-07-24] MEDS: ACETAMINOPHEN 325 MG TAB PO PRN ×3 (02:29→14:08)
[2020-07-24] MEDS: oxyCODONE HCL IR 5 MG TAB (IMMEDIATE RELEASE) PO PRN ×3 (02:30→14:09)
[2020-07-24] MEDS: LEVOTHYROXINE SODIUM 25 MCG TABLET PO SCH (06:02)
[2020-07-24 06:48] LABS: Prothrombin Time 18.8 Seconds (9.0-12.0)
[2020-07-24 07:18] LABS: Hematocrit (blood only) 20.6 % (42-52); Hemoglobin 6.8 g/dL (14.0-18.0); Mean Corpuscular Hemoglobin 31.9 pg (25-34); Mean Corpuscular Volume 96.7 fL (80-100); Mean Platelet Volume 10.5 fL (7.4-10.4); Nucleated RBC # (auto) 0.04 K/uL (0-0); Nucleated RBC % (auto) 0.3 %; Platelet Count 92 K/uL (130-400); Platelet Estimate Decreased (Normal); RDW Coefficient of Variation 15.9 % (11.5-14.5); RDW Standard Deviation 55.7 fL (36.4-46.3); Red Blood Count 2.13 M/uL (4.7-6.1); White Blood Count 10.66 K/uL (4.8-10.8)
[2020-07-24 07:27] LABS: BUN Creatinine Ratio 22.7 (10-20); Calcium 8.9 mg/dl (8.5-10.1); Creatinine Clr Calc Pharmacy 15.7 ml/min; Est GFR (African American) 15.3 ml/min; Est GFR (Non-African American) 13.2 ml/min; Potassium 5.1 mmol/L (3.5-5.1)
[2020-07-24] MEDS ORDERED: SODIUM CHLORIDE 0.9% 250 ML IV PRN (07:40)
[2020-07-24] MEDS: METOPROLOL SUCC 25MG EXT REL TAB PO SCH (08:28)
[2020-07-24] MEDS: hydrALAZINE 10 MG TAB PO SCH ×2 (08:29→20:43)
[2020-07-24] MEDS: PATIROMER CALCIUM SORBITEX 8.4 GM PACK PO SCH (08:29)
[2020-07-24] MEDS: SILDENAFIL CITRATE 20 MG TABLET PO SCH ×2 (08:30→20:43)
[2020-07-24] MEDS: BICALUTAMIDE 50 MG TAB PO SCH (08:30)
--- NOTE | 2020-07-24 09:06 | Urology Progress Note ---
Date of Service July 24, 2020 Assessment & Plan (1) Prostate cancer: (2) Renal mass: 79 year-old male patient, with multiple comorbidities, admitted with worsening chronic hip pain and depression. -Patient with PSA of 912 and visual evidence of metastatic disease on imaging. -Unfortunately given his comorbid conditions, it is not felt safe or appropriate to perform a prostate biopsy. -He remains afebrile. -Labs reviewed - white count normal, creatinine elevated at 3.98, hemoglobin 6.8 (medicine plans to transfuse 1 unit PRBC today). -Prior imaging reviewed, no evidence of hydronephrosis and bladder scan without evidence of retention. -Patient has been started on Bicalutamide with plans to start Firmagon injections in the outpatient setting as soon as it is available. -Office staff currently working on obtaining insurance authorization for Firmagon injections. -Regarding his renal mass, given his other acute conditions, will be followed as outpatient. -Will arrange follow-up with our service soon after discharge for ongoing care and Firmagon initiation. -Discussed plan with patient's primary team and patient's granddaughter, Chrystal, per patient and request. All questions answered. Thank you for allowing us to participate in the acute care of . Please reconsult us with additional questions, concerns or changes in patient status. Admission and Anticipated Discharge Date Admission Date: July 21, 2020 Subjective Patient seen and examined at bedside. He is alert, awake, and non-toxic. Does report continued pain to bilateral hip/back. Denies abdominal or flank pain. Denies bladder pain or pressure. PVR yesterday 77 ml. Denies significant frequency/urgency, states this has improved overall. Denies dysuria or hematuria. Does have baseline incontinence. Denies fevers or chills. Denies nausea or vomiting. Continues on daily Bicalutamide. Unfortunately, pharmacy is unable to get loading dose of Firmagon for inpatient administration. Office staff working on insurance approval for Firmagon injections. Chart review: Afebrile Wbc 10.66 (previously 13.05) Hgb 6.8 (previously 8.2) - plans to transfuse 1 unit PRBC ordered by primary team. Creatinine 3.98 (previously 2.83). PSA 07/21 912.0 Denies additional urologic concerns today. Review of Systems Constitutional: as per Subjective / HPI; no fever and no chills Gastrointestinal: as per Subjective / HPI and + nausea; no vomiting Genitourinary: + as per Subjective / HPI Musculoskeletal: as per Subjective / HPI Physical Exam Constitutional: well nourished, cooperative and comfortable; no acute distress Respiratory: normal respiratory effort and able to speak in complete sentences; no respiratory distress and no audible wheezes Cardiovascular: Extremities: no edema Gastrointestinal (Abdomen): Inspection/Auscultation: abdomen normal to inspection Percussion/Palpation: abdomen soft; abdomen nontender and no guarding Psychiatric: Orientation: alert, oriented x 3 and cooperative Does appear forgetful at times. Genitourinary: no CVA tenderness Results & Data ([facility]) Vital Signs (Past 12 Hours) Vital Signs Temp Pulse Resp BP Pulse Ox 07/24/20 07:50 36.7 C 76 19 107/61 91 07/23/20 23:46 36.8 C 86 24 119/55 L 92 PG Care Time/CCT Total # of Minutes Spent Total Time Spent with Patient: Total time spent is greater than 50% in coordination of care (as documented) at patient's floor/unit and/or counseling patient: Coding Level of Care Code 10306 Subseq Hosp Care Lvl 2 Diagnoses Prostate cancer C61 Renal mass N28.89
--- NOTE | 2020-07-24 09:30 | Nephrology Consultation ---
Date of Consultation July 24, 2020 Assessment & Plan (1) Acute kidney injury superimposed on CKD: in the setting of acute on chronic anemia, mild thrombocytopenia with elevated INR and CRP. basleine creatinien about 2. already had elevation in May 2020 to 2.6. came in at 2.7 and stayed in this range until abruptly up to 4 today in the setting of acutely worsened anemia >> hgb 9.7 on presentation w/ downtrend to 6.8 today. nonproteinuric CKD 4 at baseline attributed to HTN, cardiorenal syndrome -evaluate for DIC >> peripheral smear, fibrinogen, +/- FSP recommended (? if still feasible after pRBC) -daily bmp; no indication for urgent dialysis -will send urine for spot protein/creat ratio -would check lactate and CK with f/u hgb after pRBC; will also check uric acid level and hold allopurinol pending better understanding of bleeding issues; orders in Care coordinated w/ Dr Devlin Present on Admission?: Yes (2) Hyperkalemia: resolved w/ starting veltassa which should continue -continue low K diet -daily bmp ? cause; not on offending medications; ? if coagulopathy or other Present on Admission?: Yes (3) Renal mass: Follows w/ [facility] urology for prostatic hypertrophy, last seen 04/2020 >per urology; no obstruction >>consider chest CT if RCC high on differential as may metastasize to lungs Present on Admission?: Yes (4) Prostate cancer: Follows w/ [facility] urology for prostatic hypertrophy; last PSA on file 2013 as OP -per urology; Present on Admission?: Yes History of Present Illness Reason for Consultation: [place] on ckd Requesting Physician: Dr Devlin Attending Physician: Edna Devlin MD History of Present Illness 79-year-old gentleman whom I am asked to evaluate for acute on chronic kidney injury was admitted here on July 21 with intractable left hip pain, severe depression, recurrent nosebleeds. Past medical history includes coronary artery disease, heart failure with preserved ejection fraction, paroxysmal atrial fibrillation on Eliquis, CKD 4 with a baseline creatinine of about 2 but some labile renal function and last OP creatininine 2.6 in May, myasthenia gravis on daily low dose prednisone, pulmonary hypertension, prostatic hypertrophy. He came in on oxycodone 5 mg twice daily wtih some improved pain control after May hip injection had not relieved pain significantly. No other signs of bleeding besides nosebleed. PResenting creatinine was 3.2; creatinine had been improving slowly and was as low as 2.7 yesterday but then this morning back up to 4. Patient has also been having issues with intermittent hyperkalemia with potassium 5.8 yesterday peaking at 6 last evening and improved to 5.1 today. He started 8.4 g daily Veltassa yesterday evening as well as a low k diet. He has as needed morphine ordered, in addition to oxycodone and tramadol. he is for pRBC today. He states the hippain is reasonably controlled. Denies sob including w/ exam maneuvers. He has been bleeding from skin tears primarily at times. denies edema. last bm 2 days ago. no abd pain. thinks he may have had urinary retention this am. he c/o poor sleep and poor po intake, not used to hospital food he states. denies thirst. Allergies Allergy/AdvReac Type Severity Reaction Status Date / Time No Known Drug Allergies Allergy Verified 02/18/20 14:14 adaptic touch AdvReac Mild contact Uncoded 02/05/20 13:19 dermatitis Home Medications Medication Instructions Recorded Confirmed Type alfuzosin 10 mg PO QDL 12/21/17 07/21/20 History finasteride 5 mg PO QDD 12/21/17 07/21/20 History levothyroxine 25 mcg PO QAM 12/21/17 07/21/20 History nitroglycerin [Nitrostat] 0.4 mg SUBLINGUAL UD 12/21/17 07/21/20 History metoprolol succinate 12.5 mg PO QAM 07/10/18 07/21/20 History torsemide 20 mg PO DAILY 09/30/18 07/21/20 History aspirin 81 mg tablet,delayed 81 mg PO QDL 11/03/18 07/21/20 History release lorazepam 0.5 mg tablet 0.5 mg PO BID PRN tab 11/03/18 07/21/20 History allopurinol 100 mg tablet 200 mg PO QDL tab 11/24/18 07/21/20 History hydralazine 10 mg tablet 10 mg PO BID 06/18/19 07/21/20 History Eliquis 2.5 mg PO BID 09/18/19 07/21/20 History cholecalciferol (vitamin D3) 50 mcg PO QDD 09/18/19 07/21/20 History [Vitamin D3] prednisone 10 mg PO Q OTHER DAY 09/18/19 07/21/20 History acetaminophen [Tylenol Ex Str 500 mg PO Q6H PRN 07/21/20 07/21/20 History Rapid Release] atorvastatin 20 mg PO QDD 07/21/20 07/21/20 History famotidine [Heartburn Relief 10 mg PO Q2D 07/21/20 07/21/20 History (famotidine)] lisinopril 5 mg PO DAILY 07/21/20 07/21/20 History mirtazapine 15 mg PO HS 07/21/20 07/21/20 History oxycodone 5 mg PO BID PRN 07/21/20 07/21/20 History sildenafil (pulm.hypertension) 20 mg PO BID 07/21/20 07/21/20 History torsemide 10 mg PO QDD 07/21/20 07/21/20 History Patient History Medical History Actinic keratitis BPH (benign prostatic hyperplasia) CAD (coronary artery disease) Cellulitis of right lower extremity without foot Chronic diastolic CHF (congestive heart failure) Chronic venous insufficiency CKD (chronic kidney disease), stage IV Contact dermatitis Diastolic congestive heart failure Dysmetabolic syndrome X First degree atrioventricular block Former smoker Gout HX History of thymus cancer HTN (hypertension) Hyperlipidemia Hypothyroidism Kidney stone MSSA (methicillin susceptible Staphylococcus aureus) infection Myasthenia gravis Paroxysmal atrial fibrillation Pseudomonas infection Pulmonary HTN Skin cancer Sleep apnea CPAP Venous stasis ulcer Venous stasis ulcer of ankle limited to breakdown of skin without varicose veins Surgical History History of cardiac cath 2 [facility] [place] 04/2016 Hx of thymectomy 2014 S/P cataract extraction Family History Mother Family history of diabetes mellitus Social History Smoking Status: Former smoker Second Hand Exposure: No; Hx Alcohol Use: No Hx Substance Use: No Preferred Language: Vietnamese Communication Ability: Effective Carry All Driver Required: No Beliefs That Will Affect Care: None marital status: Current Living Situation: Spouse Other Information That Helps Us Care for You: No Feels Safe at Home: Yes Safety Concerns: Feels Safe At This Time Assistive Devices: Walker Assistive Devices Comment: BL hearing aids at home. Review of Systems Review of Systems: All systems reviewed & are unremarkable except as noted in Subjective Physical Exam Constitutional: well developed, well nourished, + frail appearing and cooperative; no acute distress Eyes: EOM intact bilaterally ENMT: Ears: no external ear abnormality Nose: no external nose abnormality Mouth: + dry oral mucous membranes Neck: no nuchal rigidity Respiratory: normal respiratory effort and + labored breathing (slight with exam maneuvers) Auscultation: + diminished lung sounds and + crackles (a few L base) Cardiovascular: RRR, no murmur, no edema Gastrointestinal (Abdomen): Inspection/Auscultation: normal bowel sounds; abdomen not distended Percussion/Palpation: abdomen soft; abdomen nontender Musculoskeletal: Extremities: strength 5/5 throughout Skin: no rashes, warm and dry + wound (skin tear R forearm) and + ecchymosis (extensive) Neurologic: rowell, fluent speech, no tremor Psychiatric: Orientation: alert and oriented x 3 Speech: normal rate/rhythm/volume of speech Insight: good insight Judgement: good judgement Genitourinary: no mak Results & Data ([facility]) Vital Signs (Past 12 Hours) Vital Signs Temp Pulse Resp BP Pulse Ox 07/24/20 07:50 36.7 C 76 19 107/61 91 07/23/20 23:46 36.8 C 86 24 119/55 L 92 Laboratory Results 07/24/20 05:37 07/24/20 05:37 UACM> 1010; bland sediment completely and no micro; clear yellow pH 5.[address] abd/pelvis non con 07/21 FINDINGS: Bibasilar linear densities favor subsegmental atelectasis. No pneumoperitoneum. No pneumatosis. Partially sclerotic lesion within the left iliac crest on image 272 which measures 5.8 cm. This is concerning for a metastatic focus. There are additional sclerotic lesions seen within the right posterior 11th rib, left lateral seventh rib and within the T11 vertebral body likely representing metastatic foci. Trace bilateral pleural effusions are noted. There are poststernotomy changes. There is again noted a 2.8 cm gas and fluid collection lateral to the left hip on image 374. This is better appreciated on the same day left hip CT. There is a trace left hip effusion. Mild bilateral pelvic sidewall lymphadenopathy. Dominant left pelvic sidewall lymph node on image 386 measures 2.2 x 1.4 cm. Abnormal soft tissue extension from the left lateral and posterior peripheral zone of the prostate gland best seen on image 404. Dominant focus measures 1.9 cm. These are highly suspicious for extracapsular extension of a prostate malignancy. There is an adjacent left sided pelvic satellite nodule on image 391 which measures 9 mm. This also likely represents a metastatic focus. Right pelvic sidewall lymph nodes measure up to 1 cm in short axis diameter. Mild bladder wall thickening may be due to chronic outlet obstruction from the enlarged prostate gland. Colonic diverticulosis. No evidence for acute diverticulitis. No bowel wall thickening or obstruction. Normal appendix. Normal caliber abdominal aorta. No retroperitoneal lymph adenopathy. The unenhanced liver, gallbladder, spleen, adrenal glands, and pancreas are within normal limits. No hydronephrosis. A 2 cm exophytic slightly hyperdense lesion within the upper pole of the left kidney. This is incompletely visualized on this noncontrast study but is concerning for renal cell carcinoma given the increase in size. This previously measured 1.4 cm. IMPRESSION: 1. Redemonstration of the abnormal soft tissue extension within the left lateral and posterior peripheral zone of the prostate gland as described above. This is highly suspicious for a prostate malignancy. There is associated bilateral pelvic sidewall lymphadenopathy, left greater than right, which is consistent with metastatic disease. 2. Scattered osteoblastic metastatic disease. 3. Increase in size in the 2 cm exophytic slightly hyperdense lesion within the upper pole of the left kidney. This is highly suspicious for a renal cell carcinoma. 4. Please refer to the same day left hip CT for further evaluation of the left hip abnormality. 5. Additional findings as described above. Hip XR L 07/22 1. No definite acute fracture or dislocation. Limited exam. 2. Degenerative process of the left hip joint. cxr 07/21 1. Cardiomegaly without radiographic evidence of congestive failure. 2. There are small pleural effusions with bibasilar consolidation. This could represent atelectasis and/or pneumonia/aspiration pneumonitis. Clinical correlation will be required and radiographic follow-up to resolution is recommended.
[2020-07-24] MEDS: allopurinoL 100 MG TAB PO SCH (12:52)
[2020-07-24] MEDS: ALFUZOSIN HCL 10 MG TAB PO SCH (12:52)
--- NOTE | 2020-07-24 16:44 | Hospitalist Progress Note ---
Date of Service July 24, 2020 Assessment & Plan (1) Chronic hip pain: Patient presenting from home with reports of epistaxis, chronic left hip pain, depression/suicidal ideations No evidence of fracture on CT imagings Surgical intervention has been considered in the past however patient is felt to be too high of a surgical risk due to other underlying comorbidities Ortho on board not a surgical candidate continue with conservative management as per Ortho Continue pain control PT/OT eval Fall precaution (2) Prostate cancer: (3) Renal mass: CT abd/pelvis showed redemonstration of the abnormal soft tissue extension within the left lateral and posterior peripheral zone of the prostate gland as described above. This is highly suspicious for a prostate malignancy. There is associated bilateral pelvic sidewall lymphadenopathy, left greater than right, which is consistent with metastatic disease. Scattered osteoblastic metastatic disease. Increase in size in the 2 cm exophytic slightly hyperdense lesion within the upper pole of the left kidney. This is highly suspicious for a renal cell carcinoma. PSA 912 Due to multiple comorbidity and high risks, not a good candidate to perform a prostate biopsy at this time He has been started on Bicalutamide with plans to start Firmagon injections in the outpatient setting as soon as it is available. Case discuss with urology that plan to arrange for outpatient follow appt to start on Firmagon injection Will need work up and follow up for the renal mass (4) Elevated lactic acid level: Lactic acid 4.3 possible related to worsening creatinine, malignancy No sign of infection will monitor (5) Depression: (6) Suicidal ideation: Due to underlying chronic left hip pain Continue Suicide precautions Psychiatry on board recommended to increased remeron to 22.5 mg HS (7) Acute kidney injury superimposed on CKD: (8) CKD (chronic kidney disease), stage IV: Baseline creatinine previously ran in the low 2's, on 05/20/2020 creatinine noted to be 2.6 Creatinine 3.2 on admission Creatinine worsening today with 3.98 Continue to hold torsemide and Lisinopril Nephrology on board Most recent CT abd/pelvis showed no hydronephrosis Continue monitor BMP (9) Hyperkalemia: K improved to 5.1 after received Veltassa Continue Veltassa for now Continue monitor BMP Follow a Low K diet (10) Thrombocytopenia: Platelet count 92K today Patient reporting episodes of epistaxis over the past couple of weeks Was bleeding from the IVF access yesterday Continue to hold eliquis Continue monitor CBC (11) Coagulopathy: Patient on Eliquis INR has been 2 May be due to decreased dietary intake Continue to hold eliquis due to bleeding Previous hospitalist discussed with Dr. Rosado that recommended Vit K 5mg supplement Case discussed with oncology/hematology Dr. Dee that recommended to check fibrinogen level, haptoglobin, LDH As per oncology/hematology this might be mild DIC due to malignancy Peripheral smear pending Continue monitor closely (12) BPH (benign prostatic hyperplasia): CT ABD/pelvis shows prostate gland is enlarged and asymmetric/heterogeneous, with a possible left-sided prostate mass and evidence of chronic bladder outlet obstruction PSA 912 Continue home BPH meds (13) Anemia: Hgb dropped to 6.8 Type and cross and consent obtained for blood transfusion S/P 1 unit PRBC today Repeat hgb 7.9 today Continue to hold eliquis and asa Continue monitor H/H (14) Paroxysmal atrial fibrillation: Rate controlled on metoprolol Continue to hold eliquis and aspirin due to low platelet and anemia (15) Chronic diastolic CHF (congestive heart failure): Volume status acceptable Continue to hold torsemide due to SWETHA Will monitor closely for sign of fluid overload (16) Pulmonary HTN: Continue sildenafil (17) CAD (coronary artery disease): Continue aspirin, statin, beta-juana Stable (18) HTN (hypertension): BP controlled, continue metoprolol and hydralazine Continue to hold lisinopril due to worsening creatinine (19) Myasthenia gravis: -ontinue home prednisone (20) DVT prophylaxis: SCDs due to low platelet and bleeding Admission and Anticipated Discharge Date Admission Date: July 21, 2020 Subjective Pt was seen and examined for follow up of pain and anemia Lying in bed with no distress resting Pt said that he feels tired today He said that no bleeding from the IV site Denies any chest cb, palpitation, dizziness and SOB Review of Systems Review of Systems: All systems reviewed & are unremarkable except as noted in Subjective Physical Exam Physical Exam: General- No acute distress Head- atraumatic Eyes- PERRL, EOMI, ENT- oropharynx clear Neck- supple, no JVD Lungs- clear to auscultation Heart- irregular rhythm; no murmur Abdomen- normal bowel sounds, soft, nontender Extremities- no calf tenderness Neuro- alert, oriented x 3; PERRL, EOMI; no facial palsy; no dysarthria Skin- +ecchymoses Results & Data Results & [facility] ([facility]) Vital Signs (Past 12 Hours) Vital Signs Temp Pulse Pulse Resp BP BP Pulse Ox 07/24/20 15:48 36.7 C 82 17 130/51 L 93 07/24/20 13:56 36.5 C 72 18 99/49 L 91 07/24/20 13:14 36.6 C 69 17 114/51 L 93 07/24/20 12:15 36.6 C 73 17 105/63 97 07/24/20 12:14 36.6 C 74 18 114/65 95 07/24/20 11:29 36.7 C 69 18 94/54 L 91 07/24/20 11:28 36.7 C 71 17 97/59 L 90 07/24/20 11:13 36.7 C 78 18 95/56 L 90 07/24/20 07:50 36.7 C 76 19 107/61 91
[2020-07-24 16:55] LABS: Hemoglobin 7.9 g/dL (14.0-18.0)
[2020-07-24 16:59] LABS: Uric Acid 6.6 mg/dl (2.6-7.2)
[2020-07-24] MEDS: FINASTERIDE 5 MG TAB PO SCH (17:26)
[2020-07-24] MEDS: ATORVASTATIN 20 MG TAB PO SCH (17:26)
[2020-07-24] MEDS: CHOLECALCIFEROL 1,000 UNITS 25 MCG TAB PO SCH (17:26)
[2020-07-24] MEDS: FAMOTIDINE 10 MG TABLET PO SCH (17:26)
[2020-07-24] MEDS ORDERED: SODIUM CHLORIDE 0.9% 1000ML 1,000 ML IV SCH (18:00)
[2020-07-24] MEDS: MIRTAZAPINE TAB 15 MG TAB PO SCH (20:43)
[2020-07-24] MEDS ORDERED: MIRTAZAPINE TAB 15 MG TAB PO ONE (21:15)
[2020-07-25 01:12] LABS: Protein Creatinine Ratio Urine 0.1 (0-0.2); Total Protein Urine Random 13.9 mg/dl (0-11.9)
[2020-07-25] MEDS: LEVOTHYROXINE SODIUM 25 MCG TABLET PO SCH (05:28)
[2020-07-25 06:08] LABS: Albumin Level 2.5 gm/dl (3.4-5.0); BUN Creatinine Ratio 25.2 (10-20); Calcium 8.3 mg/dl (8.5-10.1); Creatinine Clr Calc Pharmacy 16.4 ml/min; Est GFR (African American) 16.2 ml/min; Est GFR (Non-African American) 13.9 ml/min; Potassium 5.4 mmol/L (3.5-5.1)
[2020-07-25 06:11] LABS: Bilirubin,Total 0.8 mg/dl (0.2-1); Globulin 2.6 gm/dl (2.5-4.0); Total Protein 5.1 gm/dl (6.4-8.2)
[2020-07-25 06:24] LABS: Prothrombin Time 19.2 Seconds (9.0-12.0)
[2020-07-25 06:25] LABS: Fibrinogen 65 mg/dl (184-400)
[2020-07-25] MEDS: ONDANSETRON 4 MG OD TAB PO PRN (07:19)
[2020-07-25] MEDS: oxyCODONE HCL IR 5 MG TAB (IMMEDIATE RELEASE) PO PRN (07:20)
[2020-07-25] MEDS: ACETAMINOPHEN 325 MG TAB PO PRN (07:20)
[2020-07-25 08:24] LABS: Hemoglobin 7.7 g/dL (14.0-18.0); Mean Corpuscular Hemoglobin 32.2 pg (25-34); Mean Corpuscular Hgb Conc 33.5 g/dL (32-36); Mean Corpuscular Volume 96.2 fL (80-100); Nucleated RBC # (auto) 0.05 K/uL (0-0); Nucleated RBC % (auto) 0.4 %; RDW Standard Deviation 54.9 fL (36.4-46.3); Red Blood Count 2.39 M/uL (4.7-6.1); White Blood Count 11.27 K/uL (4.8-10.8)
[2020-07-25 08:34] LABS: Mean Platelet Volume 11.2 fL (7.4-10.4); Platelet Count 92 K/uL (130-400)
[2020-07-25] MEDS: predniSONE 10 MG TABLET PO SCH (09:54)
[2020-07-25] MEDS: METOPROLOL SUCC 25MG EXT REL TAB PO SCH (09:54)
[2020-07-25] MEDS: SILDENAFIL CITRATE 20 MG TABLET PO SCH ×2 (09:54→20:06)
[2020-07-25] MEDS: BICALUTAMIDE 50 MG TAB PO SCH (09:55)
[2020-07-25] MEDS: hydrALAZINE 10 MG TAB PO SCH ×2 (09:55→20:06)
--- NOTE | 2020-07-25 09:58 | Nephrology Progress Note ---
Date of Service July 25, 2020 Assessment & Plan (1) Acute kidney injury superimposed on CKD: nonoliguric stage 2 SWETHA from ischemic ATN versus DIC in the setting of acute on chronic anemia, mild thrombocytopenia with elevated INR and CRP, presumed low grade DIC. not proteinuric. baseline creatinine about 2. already had elevation in May 2020 to 2.6. came in at 2.7 and stayed in this range until abruptly up to 4 today in the setting of acutely worsened anemia >> hgb 9.7 on presentation w/ downtrend to 6.8 and up to 7.7 after pRBC. nonproteinuric CKD 4 at baseline attributed to HTN, cardiorenal syndrome. ongoing K elevation; volume status ok even a bit dry -f/u DIC w/u >> peripheral smear +/- FSP -daily bmp; no indication for urgent dialysis >> did add extra bmp this afternoon given K issues Care coordinated w/ Dr Devlin (2) Hyperkalemia: recurring/ongoing in the setting of presumed ongoing low grade DIC from malignancy >> lactic acidosis -continue low dose veltassa -continue low K diet -will today start D5 w/ 100 mEq/L sodium bicarb at 80 ml/hr for 1 L -daily bmp -f/u DIC w/u (3) Renal mass: Follows w/ [facility] for prostatic hypertrophy, last seen 04/2020 >per urology; no obstruction >>consider chest CT if RCC high on differential as may metastasize to lungs (4) Prostate cancer: Follows w/ [facility] for prostatic hypertrophy; last PSA on file 2013 as OP -per urology; -given confusion today, consider head CT -recommend palliative consultation to help pt and family process dx of 2 primary cancers simultaneously care coordinated w/ Dr Devlin Admission and Anticipated Discharge Date Admission Date: July 21, 2020 Subjective seen on rounds at 10 AM; some confusion this am; states "I don't always know if its 2019 or 2020" and asks repeatedly to have his teeth back (but RN tells me he does not have dentures along this hospitalization). not aware as far as I can tell of CA dxs. denies uncontrolled musculoskeletal pain or sob or n/v. poor appetite ongoing. ongoing constipation. denies new/worrisome voiding concerns. states hospital gown "chokes" him and sitting in chair w/ no shirt Review of Systems Review of Systems: All systems reviewed & are unremarkable except as noted in Subjective Physical Exam Constitutional: well developed, well nourished, + frail appearing and cooperative; no acute distress sitting up in chair on ra Eyes: EOM intact bilaterally ENMT: Ears: no external ear abnormality Nose: no external nose abnormality Mouth: + dry oral mucous membranes Neck: no nuchal rigidity Respiratory: normal respiratory effort and + labored breathing (slight with exam maneuvers) Auscultation: lungs clear to auscultation bilaterally and + diminished lung sounds Cardiovascular: RRR, no murmur, no edema Gastrointestinal (Abdomen): Inspection/Auscultation: normal bowel sounds; abdomen not distended Percussion/Palpation: abdomen soft; abdomen nontender Musculoskeletal: Extremities: strength 5/5 throughout fasciculations BL pectoral mm and across chest Skin: no rashes, warm and dry + wound (skin tear R forearm) and + ecchymosis (extensive) Psychiatric: Orientation: alert and oriented x 3 Speech: normal rate/rhyt hm/volume of speech Insight: + limited insight Judgement: + limited judgement Results & Data ([facility]) Vital Signs (Past 12 Hours) Vital Signs Temp Pulse Resp BP Pulse Ox 07/25/20 07:28 36.9 C 86 20 133/54 L 93 07/24/20 22:45 37 C 72 18 125/65 92 Laboratory Results 07/25/20 05:29 07/25/20 05:21
[2020-07-25] MEDS: PATIROMER CALCIUM SORBITEX 8.4 GM PACK PO SCH (09:59)
[2020-07-25] MEDS ORDERED: SODIUM BICARBONATE 8.4% 100 MEQ in DEXTROSE 5% 1,000 ML IV SCH (10:00)
[2020-07-25] MEDS: ALFUZOSIN HCL 10 MG TAB PO SCH (12:48)
--- NOTE | 2020-07-25 12:51 | CT Scan Report ---
CT SCAN OF THE CHEST WITHOUT IV CONTRAST CLINICAL HISTORY: Prostate mass. Metastatic survey. COMPARISON STUDY: Chest x-ray dated 07/21/2020. Chest CT dated 02/21/2014. TECHNIQUE: CT scan of the thorax was performed from the thoracic inlet to the upper abdomen. Images are reviewed in the axial, sagittal, and coronal planes. IV contrast was not administered for this ex amination as per the referring clinician. A dose lowering technique was utilized adhering to the clay Saunders. The examination is degraded by motion artifact, as well as by streak artifact from the arms which could not be elevated above the chest. CT DOSE: 1278.44 mGy.cm FINDINGS: Thyroid: The left lobe is enlarged and contains. Coarse calcifications. Low-attenuation nodules in th e left lobe measure up to 8 mm. The right lobe is normal as imaged Thoracic aorta: There is atherosclerotic calcification of the thoracic aorta, which is normal in reynaldo brigitte and demonstrates 4-vessel variant arch anatomy. Heart: The patient is status post midline sternotomy. The heart is enlarged noting a small pericardia l effusion. The coronary arteries are densely calcified. Lungs and pleural spaces: There are small left and trace right pleural effusions with left greater th an right bibasilar consolidation. The trachea and central airways are clear. Mediastinum: There is no mediastinal lymphadenopathy. Jeannie: Not well assessed without IV contrast. Axillae: There is no axillary lymphadenopathy. Upper abdomen: There is a small hiatal hernia. The partially visualized kidneys demonstrate cortical atrophy. An indeterminant 2.2 cm hyperdense lesion is again seen arising from the upper pole of the l eft kidney. Skeletal structures: The skeletal structures are osteopenic. There is evidence of multifocal osteobla stic metastatic disease. Lesions are identified in the left anterior 7th rib and the right posterior 11th rib. Lesions are identified within the posterior elements of T11. Additional more subtle lesions are suspected.. IMPRESSION: 1. Findings are consistent with multifocal osteoblastic metastatic disease. 2. There are small left and trace right pleural effusions with bibasilar consolidation. This could re present atelectasis and/or an infectious/inflammatory pneumonitis and clinical correlation will requi red. 3. Cardiomegaly with a small pericardial effusion. 4. A 2.2 cm hyperdense left renal lesion is unchanged. 5. Additional findings as above. ACT 112: Negative or not required by law. Electronically signed by: Vince Briscoe M.D. 07/25/2020 12:50 PM
--- NOTE | 2020-07-25 13:28 | CT Scan Report ---
HEAD CT NONCONTRAST CT DOSE: HISTORY: confusion TECHNIQUE: Multiaxial CT images of the head were performed without the use of intravenous contrast. A utomated exposure control was utilized for this study. A dose lowering technique was utilized adheri ng to the principles of ALARA. Comparison: None. Findings: Mild mucosal thickening within the left sphenoid sinus. The mastoid air cells are clear. Th e calvarium and skull base are intact. There is no mass, hematoma, midline shift, acute infarct. Whit e matter hypodensity is nonspecific but suggestive of microvascular ischemic change. The ventricles a nd sulci demonstrate mild age-related involutional changes. Impression: No acute intracranial abnormality. Atrophy and microvascular ischemic changes. ACT 112: Negative or not required by law. Electronically signed by: Mahin Gurrola M.D. 07/25/2020 1:27 PM
[2020-07-25] MEDS ORDERED: PHYTONADIONE 5 MG TAB PO STA (14:13)
[2020-07-25] MEDS: FINASTERIDE 5 MG TAB PO SCH (16:13)
[2020-07-25] MEDS: CHOLECALCIFEROL 1,000 UNITS 25 MCG TAB PO SCH (16:13)
[2020-07-25] MEDS: ATORVASTATIN 20 MG TAB PO SCH (16:13)
--- NOTE | 2020-07-25 16:39 | Hospitalist Progress Note ---
Date of Service July 25, 2020 Assessment & Plan (1) Chronic hip pain: Patient presenting from home with reports of epistaxis, chronic left hip pain, depression/suicidal ideations No evidence of fracture on CT imagings Surgical intervention has been considered in the past however patient is felt to be too high of a surgical risk due to other underlying comorbidities Ortho on board not a surgical candidate continue with conservative management as per Ortho Continue pain control PT/OT eval Fall precaution (2) Prostate cancer: (3) Renal mass: CT abd/pelvis showed redemonstration of the abnormal soft tissue extension within the left lateral and posterior peripheral zone of the prostate gland as described above. This is highly suspicious for a prostate malignancy. There is associated bilateral pelvic sidewall lymphadenopathy, left greater than right, which is consistent with metastatic disease. Scattered osteoblastic metastatic disease. Increase in size in the 2 cm exophytic slightly hyperdense lesion within the upper pole of the left kidney. This is highly suspicious for a renal cell carcinoma. PSA 912 Due to multiple comorbidity and high risks, not a good candidate to perform a prostate biopsy at this time He has been started on Bicalutamide with plans to start Firmagon injections in the outpatient setting as soon as it is available. Case discuss with urology that plan to arrange for outpatient follow appt to start on Firmagon injection Will need work up and follow up for the renal mass CT head showed no mass CT chest showed findings are consistent with multifocal osteoblastic metastatic disease. There are small left and trace right pleural effusions with bibasilar consolidation. Will consult palliative care (4) Elevated lactic acid level: Lactic acid 3.1 possible related to worsening creatinine, malignancy No sign of infection will monitor (5) Depression: (6) Suicidal ideation: Due to underlying chronic left hip pain Continue Suicide precautions Psychiatry on board recommended to increased remeron to 22.5 mg HS (7) Acute kidney injury superimposed on CKD: (8) CKD (chronic kidney disease), stage IV: Baseline creatinine previously ran in the low 2's, on 05/20/2020 creatinine noted to be 2.6 Creatinine 3.2 on admission Creatinine worsening today with 3.98 Continue to hold torsemide and Lisinopril Nephrology on board Most recent CT abd/pelvis showed no hydronephrosis Continue monitor BMP (9) Hyperkalemia: K improved to 5.1 after received Veltassa Continue Veltassa for now Continue monitor BMP Follow a Low K diet (10) Thrombocytopenia: Platelet count 92K today Patient reporting episodes of epistaxis over the past couple of weeks Was bleeding from the IVF access yesterday Continue to hold eliquis Continue monitor CBC (11) Coagulopathy: Patient on Eliquis INR has been 2 May be due to decreased dietary intake Continue to hold eliquis due to bleeding Previous hospitalist discussed with Dr. Rosado that recommended Vit K 5mg supplement Case discussed with oncology/hematology Dr. Dee that recommended to check fibrinogen level, haptoglobin, LDH As per oncology/hematology this might be low DIC due to malignancy Peripheral smear pending Fibrinogen low and haptoglobin pending Continue monitor closely (12) BPH (benign prostatic hyperplasia): CT ABD/pelvis shows prostate gland is enlarged and asymmetric/heterogeneous, with a possible left-sided prostate mass and evidence of chronic bladder outlet obstruction PSA 912 Continue home BPH meds (13) Anemia: Hgb dropped to 6.8 on 07/24 Type and cross and consent obtained for blood transfusion S/P 1 unit PRBC during the hospital Hgb 7.7 today Continue to hold eliquis and asa Continue monitor H/H and transfuse if hgb continues to drop (14) Paroxysmal atrial fibrillation: Rate controlled on metoprolol Continue to hold eliquis and aspirin due to low platelet and anemia (15) Chronic diastolic CHF (congestive heart failure): Volume status acceptable Continue to hold torsemide due to SWETHA Will monitor closely for sign of fluid overload (16) Pulmonary HTN: Continue sildenafil (17) CAD (coronary artery disease): Continue aspirin, statin, beta-juana Stable (18) HTN (hypertension): BP controlled, continue metoprolol and hydralazine Continue to hold lisinopril due to worsening creatinine (19) Myasthenia gravis: -ontinue home prednisone (20) DVT prophylaxis: SCDs due to low platelet and bleeding Admission and Anticipated Discharge Date Admission Date: July 21, 2020 Subjective Pt was seen and examined for follow up of pain and anemia Sitting in chair with no distress Pt feels tired and sleepy today He had some bleeding today Denies any chest pain, palpitation, dizziness and SOB Review of Systems Review of Systems: All systems reviewed & are unremarkable except as noted in Subjective Physical Exam Physical Exam: General- No acute distress Head- atraumatic Eyes- PERRL, EOMI, ENT- oropharynx clear Neck- supple, no JVD Lungs- clear to auscultation Heart- irregular rhythm; no murmur Abdomen- normal bowel sounds, soft, nontender Extremities- no calf tenderness Neuro- alert, oriented x 3; PERRL, EOMI; no facial palsy; no dysarthria Skin- +ecchymoses Results & Data Results & Data ([facility]) Vital Signs (Past 12 Hours) Vital Signs Temp Pulse Resp BP Pulse Ox 07/25/20 15:00 36.8 C 92 H 22 134/61 93 07/25/20 07:28 36.9 C 86 20 133/54 L 93
[2020-07-25] MEDS: MIRTAZAPINE TAB 15 MG TAB PO SCH (20:07)
[2020-07-25 20:28] LABS: Hematocrit (blood only) 22.5 % (42-52); Hemoglobin 7.3 g/dL (14.0-18.0)
[2020-07-25] MEDS ORDERED: SODIUM CHLORIDE 0.9% 250 ML IV PRN (20:34)
[2020-07-25 20:39] LABS: Potassium 5.2 mmol/L (3.5-5.1)
[2020-07-25 20:44] LABS: Magnesium 2.3 mg/dl (1.8-2.4); Phosphorus 4.3 mg/dl (2.5-4.9)
[2020-07-25] MEDS ORDERED: SODIUM CHLORIDE 0.9% 1000ML 1,000 ML IV ONE (21:11)
[2020-07-25] MEDS: SODIUM CHLORIDE 0.9% 1000ML 1,000 ML IV SCH (23:44)
[2020-07-26 01:27] LABS: Appearance Urine Clear (Clear); Bilirubin Urine Negative (Negative); Blood Urine Negative (Negative); Color Urine Yellow; Glucose Urine UA Negative (Negative); Ketones Urine Negative (Negative); Leukocyte Esterase Urine Negative (Negative); Nitrite Urine Negative (Negative); Protein Urine Negative (Negative); Specific Gravity Urine 1.015 (1.000-1.030); Urobilinogen Urine Negative (Negative)
[2020-07-26 02:20] LABS: BUN Creatinine Ratio 26.1 (10-20); Creatinine Clr Calc Pharmacy 17.8 ml/min; Est GFR (African American) 17.9 ml/min; Est GFR (Non-African American) 15.5 ml/min
[2020-07-26] MEDS: SODIUM CHLORIDE 0.9% 1000ML 1,000 ML IV SCH (05:28)
[2020-07-26] MEDS: LEVOTHYROXINE SODIUM 25 MCG TABLET PO SCH (05:28)
[2020-07-26 06:05] LABS: Hematocrit (blood only) 22.9 % (42-52); Hemoglobin 7.7 g/dL (14.0-18.0); Mean Corpuscular Hemoglobin 32.1 pg (25-34); Mean Corpuscular Hgb Conc 33.6 g/dL (32-36); Mean Corpuscular Volume 95.4 fL (80-100); RDW Coefficient of Variation 16.2 % (11.5-14.5); RDW Standard Deviation 55.1 fL (36.4-46.3); White Blood Count 10.13 K/uL (4.8-10.8)
[2020-07-26 06:08] LABS: Mean Platelet Volume 9.6 fL (7.4-10.4); Platelet Count 77 K/uL (130-400)
[2020-07-26 06:33] LABS: BUN Creatinine Ratio 26.3 (10-20); Calcium 7.9 mg/dl (8.5-10.1); Creatinine Clr Calc Pharmacy 18.3 ml/min; Est GFR (African American) 18.5 ml/min; Est GFR (Non-African American) 15.9 ml/min; Potassium 4.8 mmol/L (3.5-5.1)
[2020-07-26] MEDS: hydrALAZINE 10 MG TAB PO SCH ×2 (08:24→21:20)
[2020-07-26] MEDS: SILDENAFIL CITRATE 20 MG TABLET PO SCH ×2 (08:28→21:20)
[2020-07-26] MEDS: METOPROLOL SUCC 25MG EXT REL TAB PO SCH (08:39)
[2020-07-26] MEDS: BICALUTAMIDE 50 MG TAB PO SCH (08:40)
--- NOTE | 2020-07-26 08:46 | XRay Report ---
XR chest 1V portable HISTORY: 79 years-old Male f/u acute shortness of breath COMPARISON: Chest CT 07/25/2020, chest radiograph 07/21/2020 TECHNIQUE: Portable AP view of the chest FINDINGS: Cardiac silhouette is enlarged. Prior median sternotomy. Small layering pleural effusions. Pulmonary vascular congestion with progressive bibasilar opacities and interstitial coarsening. No pneumothorax . Degenerative changes of the shoulders and spine. IMPRESSION: 1. Cardiomegaly with progressive pulmonary edema. 2. Small pleural effusions with progressive bibasilar opacities suggestive of atelectasis versus pneu monitis. ACT 112: Negative or not required by law. The above report was generated using voice recognition software. It may contain grammatical, syntax o r spelling errors. Electronically signed by: Nico Patrick M.D. 07/26/2020 8:45 AM
[2020-07-26 08:53] LABS: INR 2.2 (0.9-1.1); Prothrombin Time 21.1 Seconds (9.0-12.0)
[2020-07-26] MEDS ORDERED: PHYTONADIONE 5 MG TAB PO STA (09:39)
[2020-07-26] MEDS: ALFUZOSIN HCL 10 MG TAB PO SCH (10:35)
[2020-07-26] MEDS ORDERED: Nursing to Pharmacy Communication SCH (10:45)
--- NOTE | 2020-07-26 11:55 | Hospitalist Progress Note ---
Date of Service July 26, 2020 Assessment & Plan (1) Chronic hip pain: Patient presenting from home with reports of epistaxis, chronic left hip pain, depression/suicidal ideations No evidence of fracture on CT imagings Surgical intervention has been considered in the past however patient is felt to be too high of a surgical risk due to other underlying comorbidities Ortho on board not a surgical candidate continue with conservative management as per Ortho Continue pain control PT/OT eval Fall precaution (2) Prostate cancer: (3) Renal mass: CT abd/pelvis showed redemonstration of the abnormal soft tissue extension within the left lateral and posterior peripheral zone of the prostate gland as described above. This is highly suspicious for a prostate malignancy. There is associated bilateral pelvic sidewall lymphadenopathy, left greater than right, which is consistent with metastatic disease. Scattered osteoblastic metastatic disease. Increase in size in the 2 cm exophytic slightly hyperdense lesion within the upper pole of the left kidney. This is highly suspicious for a renal cell carcinoma. PSA 912 Due to multiple comorbidity and high risks, not a good candidate to perform a prostate biopsy at this time He has been started on Bicalutamide with plans to start Firmagon injections in the outpatient setting as soon as it is available. Case discuss with urology that plan to arrange for outpatient follow appt to start on Firmagon injection Will need work up and follow up for the renal mass CT head showed no mass CT chest showed findings are consistent with multifocal osteoblastic metastatic disease. There are small left and trace right pleural effusions with bibasilar consolidation. Consulted palliative care - pending (4) Elevated lactic acid level: Lactic acid normalized possible related to worsening creatinine, malignancy No sign of infection Stable (5) Depression: (6) Suicidal ideation: Due to underlying chronic left hip pain Continue Suicide precautions Psychiatry on board recommended to increased remeron to 22.5 mg HS Continue remeron 22.5 mg HS (7) Acute kidney injury superimposed on CKD: (8) CKD (chronic kidney disease), stage IV: Baseline creatinine previously ran in the low 2's, on 05/20/2020 creatinine noted to be 2.6 Creatinine 3.2 on admission Creatinine slightly decreased to 3.4 Continue to hold torsemide and Lisinopril Nephrology on board Most recent CT abd/pelvis showed no hydronephrosis D/C IV fluid since CXR showed development of pulmonary edema Continue monitor BMP (9) Hyperkalemia: K improved to 4.8 Continue Veltassa for now Continue monitor BMP Follow a Low K diet (10) Thrombocytopenia: Platelet count continue to dropped to 77 Patient reporting episodes of epistaxis over the past couple of weeks Was bleeding from the IVF access/upper limb that seem to resolve Continue to hold eliquis and aspirin Continue monitor CBC (11) Coagulopathy: Patient on Eliquis INR has been 2 May be due to decreased dietary intake Continue to hold eliquis due to bleeding Previous hospitalist discussed with Dr. Rosado that recommended Vit K 5mg supplement Case discussed with oncology/hematology Dr. Dee that recommended to check fibrinogen level, haptoglobin, LDH As per oncology/hematology this might be low DIC due to malignancy Peripheral smear showed no schistocytes and blast. A single nucleated red blood cell is identified. Fibrinogen low and haptoglobin pending case discussed with dr. Dee that recommended conservative management Continue monitor closely (12) BPH (benign prostatic hyperplasia): CT ABD/pelvis shows prostate gland is enlarged and asymmetric/heterogeneous, with a possible left-sided prostate mass and evidence of chronic bladder outlet obstruction PSA 912 Continue home BPH meds (13) Anemia: Hgb dropped to 6.8 on 07/24 Type and cross and consent obtained for blood transfusion S/P 1 unit PRBC during the hospital Hgb 7.7 today Continue to hold eliquis and asa Continue monitor H/H and transfuse if hgb continues to drop (14) Paroxysmal atrial fibrillation: Rate controlled on metoprolol Continue to hold eliquis and aspirin due to low platelet and anemia (15) Chronic diastolic CHF (congestive heart failure): CXR showed cardiomegaly with progressive pulmonary edema. Small pleural effusions with progressive bibasilar opacities suggestive of atelectasis versus pneumonitis. Continue to hold torsemide due to SWETHA Will monitor closely for sign of fluid overload IVF discontinued (16) Pulmonary HTN: Continue sildenafil (17) CAD (coronary artery disease): Continue aspirin, statin, beta-juana Stable (18) HTN (hypertension): BP controlled, continue metoprolol and hydralazine Continue to hold lisinopril due to worsening creatinine (19) Myasthenia gravis: -Continue home prednisone (20) DVT prophylaxis: SCDs due to low platelet and bleeding Admission and Anticipated Discharge Date Admission Date: July 21, 2020 Subjective Pt was seen and examined for follow up of pain and anemia Lying in bed with no distress resting comfortable He had no bleeding from the IV access and extremities last night and this morning He said that he feels a little bit better today when compared to yesterday Called to provide with updates, but unfortunately she did not answered Called daughter Avril and provided with updates and answered all her questions. Denies any chest pain, palpitation, dizziness and SOB Review of Systems Review of Systems: All systems reviewed & are unremarkable except as noted in Subjective Physical Exam Physical Exam: General- No acute distress Head- atraumatic Eyes- PERRL, EOMI, ENT- oropharynx clear Neck- supple, no JVD Lungs- clear to auscultation Heart- irregular rhythm; no murmur Abdomen- normal bowel sounds, soft, nontender Extremities- no calf tenderness Neuro- alert, oriented x 3; PERRL, EOMI; no facial palsy; no dysarthria Skin- +ecchymoses Results & Data Results & Data ([facility]) Vital Signs (Past 12 Hours) Vital Signs Temp Pulse Pulse Resp BP BP Pulse Ox 07/26/20 08:38 83 120/67 07/26/20 08:10 99 H 24 114/68 07/26/20 07:39 26 H 07/26/20 07:24 36.6 C 93 H 20 89/55 L 93 07/26/20 01:00 36.8 C 87 16 107/66 07/26/20 00:10 37.0 C 89 20 107/63 94
[2020-07-26] MEDS: PATIROMER CALCIUM SORBITEX 8.4 GM PACK PO SCH ×2 (12:56→13:23)
[2020-07-26] MEDS: FAMOTIDINE 10 MG TABLET PO SCH (16:53)
[2020-07-26] MEDS: CHOLECALCIFEROL 1,000 UNITS 25 MCG TAB PO SCH (16:53)
[2020-07-26] MEDS: FINASTERIDE 5 MG TAB PO SCH (16:54)
[2020-07-26] MEDS: ATORVASTATIN 20 MG TAB PO SCH (16:54)
[2020-07-26] MEDS: MIRTAZAPINE TAB 15 MG TAB PO SCH (21:21)
[2020-07-26] MEDS: oxyCODONE HCL IR 5 MG TAB (IMMEDIATE RELEASE) PO PRN (23:36)
[2020-07-26] MEDS: ACETAMINOPHEN 325 MG TAB PO PRN (23:38)
[2020-07-27] MEDS ORDERED: LORATADINE 10 MG TAB PO ONE (03:59)
[2020-07-27] MEDS: HYDROCORTISONE 2.5% CR 30 GM TUBE EXT PRN (04:53)
[2020-07-27] MEDS: LEVOTHYROXINE SODIUM 25 MCG TABLET PO SCH (06:07)
[2020-07-27] MEDS: oxyCODONE HCL IR 5 MG TAB (IMMEDIATE RELEASE) PO PRN ×3 (07:09→22:34)
[2020-07-27] MEDS: ACETAMINOPHEN 325 MG TAB PO PRN ×3 (07:11→22:34)
[2020-07-27 08:32] LABS: Hematocrit (blood only) 22.8 % (42-52); Hemoglobin 7.6 g/dL (14.0-18.0); Mean Corpuscular Hemoglobin 31.8 pg (25-34); Mean Corpuscular Hgb Conc 33.3 g/dL (32-36); Mean Corpuscular Volume 95.4 fL (80-100); Nucleated RBC # (auto) 0.09 K/uL (0-0); Nucleated RBC % (auto) 0.8 %; RDW Coefficient of Variation 16.8 % (11.5-14.5); RDW Standard Deviation 56.5 fL (36.4-46.3); Red Blood Count 2.39 M/uL (4.7-6.1); White Blood Count 10.87 K/uL (4.8-10.8)
[2020-07-27 08:39] LABS: Mean Platelet Volume 10.2 fL (7.4-10.4); Platelet Count 71 K/uL (130-400)
[2020-07-27] MEDS: hydrALAZINE 10 MG TAB PO SCH ×2 (08:49→20:38)
[2020-07-27] MEDS: SILDENAFIL CITRATE 20 MG TABLET PO SCH ×2 (08:49→20:37)
[2020-07-27] MEDS: predniSONE 10 MG TABLET PO SCH (08:49)
[2020-07-27] MEDS: METOPROLOL SUCC 25MG EXT REL TAB PO SCH (08:49)
[2020-07-27] MEDS: BICALUTAMIDE 50 MG TAB PO SCH (08:52)
[2020-07-27 09:00] LABS: Albumin Level 2.4 gm/dl (3.4-5.0); BUN Creatinine Ratio 28.4 (10-20); Calcium 8.6 mg/dl (8.5-10.1); Creatinine Clr Calc Pharmacy 24.3 ml/min; Est GFR (Non-African American) 22.4 ml/min; Potassium 4.4 mmol/L (3.5-5.1)
[2020-07-27 09:02] LABS: Albumin Globulin Ratio 0.9 (0.9-2); Bilirubin,Total 0.9 mg/dl (0.2-1); Globulin 2.6 gm/dl (2.5-4.0)
[2020-07-27 09:10] LABS: INR 2.2 (0.9-1.1); Prothrombin Time 20.7 Seconds (9.0-12.0)
[2020-07-27] MEDS: ALFUZOSIN HCL 10 MG TAB PO SCH (11:52)
[2020-07-27] MEDS: PATIROMER CALCIUM SORBITEX 8.4 GM PACK PO SCH (14:38)
--- NOTE | 2020-07-27 15:45 | Hospitalist Progress Note ---
Date of Service July 27, 2020 Assessment & Plan (1) Chronic hip pain: Patient presenting from home with reports of epistaxis, chronic left hip pain, depression/suicidal ideations No evidence of fracture on CT imagings Surgical intervention has been considered in the past however patient is felt to be too high of a surgical risk due to other underlying comorbidities Ortho on board not a surgical candidate continue with conservative management as per Ortho Continue pain control PT/OT eval Fall precaution (2) Prostate cancer: (3) Renal mass: CT abd/pelvis showed redemonstration of the abnormal soft tissue extension within the left lateral and posterior peripheral zone of the prostate gland as described above. This is highly suspicious for a prostate malignancy. There is associated bilateral pelvic sidewall lymphadenopathy, left greater than right, which is consistent with metastatic disease. Scattered osteoblastic metastatic disease. Increase in size in the 2 cm exophytic slightly hyperdense lesion within the upper pole of the left kidney. This is highly suspicious for a renal cell carcinoma. PSA 912 Due to multiple comorbidity and high risks, not a good candidate to perform a prostate biopsy at this time He has been started on Bicalutamide with plans to start Firmagon injections in the outpatient setting as soon as it is available. Case discuss with urology that plan to arrange for outpatient follow appt to start on Firmagon injection Will need work up and follow up for the renal mass CT head showed no mass CT chest showed findings are consistent with multifocal osteoblastic metastatic disease. There are small left and trace right pleural effusions with bibasilar consolidation. CT finding discussed with patient and daughter Avril Consulted palliative care - pending (4) Elevated lactic acid level: Lactic acid normalized possible related to worsening creatinine, malignancy No sign of infection Stable (5) Depression: (6) Suicidal ideation: Due to underlying chronic left hip pain Continue Suicide precautions Psychiatry on board recommended to increased remeron to 22.5 mg HS Continue remeron 22.5 mg HS (7) Acute kidney injury superimposed on CKD: (8) CKD (chronic kidney disease), stage IV: Baseline creatinine previously ran in the low 2's, on 05/20/2020 creatinine noted to be 2.6 Creatinine 3.2 on admission Creatinine slightly decreased to 3.4 Continue to hold torsemide and Lisinopril Nephrology on board Most recent CT abd/pelvis showed no hydronephrosis D/C IV fluid since CXR showed development of pulmonary edema Continue monitor BMP (9) Hyperkalemia: K improved to 4.8 Continue Veltassa for now Continue monitor BMP Follow a Low K diet (10) Thrombocytopenia: Platelet count continue to dropped to 77 Patient reporting episodes of epistaxis over the past couple of weeks Was bleeding from the IVF access/upper limb that seem to resolve Continue to hold eliquis and aspirin Continue monitor CBC (11) Coagulopathy: Patient on Eliquis INR has been 2 May be due to decreased dietary intake Continue to hold eliquis due to bleeding Previous hospitalist discussed with Dr. Rosado that recommended Vit K 5mg sup plement Case discussed with oncology/hematology Dr. Dee that recommended to check fibrinogen level, haptoglobin, LDH As per oncology/hematology this might be low DIC due to malignancy Peripheral smear showed no schistocytes and blast. A single nucleated red blood cell is identified. Fibrinogen low and haptoglobin pending case discussed with dr. Dee that recommended conservative management Continue monitor closely (12) BPH (benign prostatic hyperplasia): CT ABD/pelvis shows prostate gland is enlarged and asymmetric/heterogeneous, with a possible left-sided prostate mass and evidence of chronic bladder outlet obstruction PSA 912 Continue home BPH meds (13) Anemia: Hgb dropped to 6.8 on 07/24 Type and cross and consent obtained for blood transfusion S/P 1 unit PRBC during the hospital Hgb 7.7 today Continue to hold eliquis and asa Continue monitor H/H and transfuse if hgb continues to drop (14) Paroxysmal atrial fibrillation: Rate controlled on metoprolol Continue to hold eliquis and aspirin due to low platelet and anemia (15) Chronic diastolic CHF (congestive heart failure): CXR showed cardiomegaly with progressive pulmonary edema. Small pleural effusions with progressive bibasilar opacities suggestive of atelectasis versus pneumonitis. Continue to hold torsemide due to SWETHA Will monitor closely for sign of fluid overload IVF discontinued (16) Pulmonary HTN: Continue sildenafil (17) CAD (coronary artery disease): Continue aspirin, statin, beta-juana Stable (18) HTN (hypertension): BP controlled, continue metoprolol and hydralazine Continue to hold lisinopril due to worsening creatinine (19) Myasthenia gravis: -Continue home prednisone (20) DVT prophylaxis: SCDs due to low platelet and bleeding Admission and Anticipated Discharge Date Admission Date: July 21, 2020 Subjective Pt was seen and examined for follow up of pain and anemia Lying in bed with no distress resting comfortable Pt said that he feels s little better today He said that he ate a little food today Pt said that he is itching alot today Called daughter Avril yesterday and provided with updates and answered all her questions. Denies any chest pain, palpitation, dizziness and SOB Review of Systems Review of Systems: All systems reviewed & are unremarkable except as noted in Subjective Physical Exam Physical Exam: General- No acute distress Head- atraumatic Eyes- PERRL, EOMI, ENT- oropharynx clear Neck- supple, no JVD Lungs- clear to auscultation Heart- irregular rhythm; no murmur Abdomen- normal bowel sounds, soft, nontender Extremities- no calf tenderness Neuro- alert, oriented x 3; PERRL, EOMI; no facial palsy; no dysarthria Skin- +ecchymoses Results & Data Results & Data ([facility]) Vital Signs (Past 12 Hours) Vital Signs Temp Pulse Resp BP Pulse Ox 07/27/20 14:56 36.8 C 93 H 20 118/71 94 07/27/20 07:33 36.5 C 115 H 18 128/69 94
[2020-07-27] MEDS: ONDANSETRON 4 MG OD TAB PO PRN (17:08)
[2020-07-27] MEDS: ATORVASTATIN 20 MG TAB PO SCH (17:55)
[2020-07-27] MEDS: FINASTERIDE 5 MG TAB PO SCH (17:56)
[2020-07-27] MEDS: CHOLECALCIFEROL 1,000 UNITS 25 MCG TAB PO SCH (17:56)
[2020-07-27] MEDS: MIRTAZAPINE TAB 15 MG TAB PO SCH (20:38)
[2020-07-28] MEDS: LEVOTHYROXINE SODIUM 25 MCG TABLET PO SCH (05:57)
[2020-07-28 06:24] LABS: Hematocrit (blood only) 19.6 % (42-52); Hemoglobin 6.5 g/dL (14.0-18.0); Mean Corpuscular Hemoglobin 32.5 pg (25-34); Mean Corpuscular Hgb Conc 33.2 g/dL (32-36); Mean Platelet Volume 10.4 fL (7.4-10.4); Nucleated RBC # (auto) 0.17 K/uL (0-0); Nucleated RBC % (auto) 1.5 %; Platelet Count 69 K/uL (130-400); RDW Coefficient of Variation 16.8 % (11.5-14.5); RDW Standard Deviation 56.5 fL (36.4-46.3); White Blood Count 11.23 K/uL (4.8-10.8)
[2020-07-28] MEDS ORDERED: SODIUM CHLORIDE 0.9% 250 ML IV PRN ×2 (06:35→07:27)
[2020-07-28 06:55] LABS: BUN Creatinine Ratio 26.7 (10-20); Calcium 8.6 mg/dl (8.5-10.1); Creatinine Clr Calc Pharmacy 26.7 ml/min; Est GFR (African American) 29.1 ml/min; Est GFR (Non-African American) 25.1 ml/min; Potassium 5.2 mmol/L (3.5-5.1)
[2020-07-28] MEDS: BICALUTAMIDE 50 MG TAB PO SCH (07:56)
[2020-07-28] MEDS: hydrALAZINE 10 MG TAB PO SCH ×2 (07:56→19:38)
[2020-07-28] MEDS: SILDENAFIL CITRATE 20 MG TABLET PO SCH ×2 (07:56→19:37)
[2020-07-28] MEDS: METOPROLOL SUCC 25MG EXT REL TAB PO SCH (07:56)
[2020-07-28] MEDS: ONDANSETRON 4 MG OD TAB PO PRN ×2 (07:56→21:34)
--- NOTE | 2020-07-28 10:51 | Progress Notes ---
DATE: 07/28/2020 NEPHROLOGY PROGRESS NOTE SUBJECTIVE: Overnight, the patient continues to be very weak, somewhat confused and very sleepy. He barely opened his eyes for me, currently getting blood transfusion as well as bicarb drip. Appetite is pretty low. OBJECTIVE: VITAL SIGNS: Blood pressure 118/63, pulse rate 75, temperature 36.5, 93% on room air. HEENT: Mucous membranes moist. NECK: Supple. No jugular venous distention. CHEST: Bilateral decreased breath sounds, poor inspiratory effort. CARDIOVASCULAR: Regular rate and rhythm, no murmur, no edema. ABDOMEN: Soft, nontender. EXTREMITIES: Shows no edema. LABORATORY TESTS: From this morning shows severe anemia with a hemoglobin of 6.5, which is down from 7.6 yesterday, platelet count 69,000, WBC count 11,000. Renal function seems to be trending better. Creatinine is down to 2.34, BUN is 62. Potassium is 5.2. Sodium 142, bicarbonate 23. No new imaging done, but last chest x-ray showed cardiomegaly with progressive pulmonary edema as well as small pleural effusion. ASSESSMENT AND PLAN: An 79-year-old male who currently has pancytopenia as well as acute kidney injury from ischemic acute tubular necrosis. 1. Acute renal failure. Most likely this is acute tubular necrosis. Creatinine is trending to better. He does not appear to be volume depleted and given blood transfusion. I want to stop the IV fluid. We may even have to use Lasix, but not today. No indication for urgent dialysis at this time. 2. Renal mass/prostate cancer. The patient has been followed by Urology for a long time. There is also talk about palliative consultation given to primary cancer diagnosis at this time. 3. Pancytopenia. Hemoglobin is quite low and he is getting blood transfusion. RECOMMENDATIONS FOR TODAY: 1. Discontinue bicarb drip. 2. Blood transfusion as needed. 3. Input output charting and continue to do daily labs. We will continue to follow.
[2020-07-28] MEDS: ALFUZOSIN HCL 10 MG TAB PO SCH (11:47)
[2020-07-28] MEDS: ONDANSETRON INJ 2 MG/ML 2 ML VIAL IV PRN (14:15)
[2020-07-28] MEDS: PATIROMER CALCIUM SORBITEX 8.4 GM PACK PO SCH (14:15)
--- NOTE | 2020-07-28 14:53 | Palliative Care Consultation ---
Date of Consultation July 28, 2020 Assessment & Plan (1) Palliative care encounter: I talked with Nathan about what he wants for his health care moving forward. He tells me that his children and grandchildren bring meaning to his life and he wants to live as long as possible to be with them. He is DNR/DNI but tells me that he does not feel that there are other treatments that would be limited at this point if they allow him to have more time with his family. It seems that his depression is driving his comments and thoughts about rather than desire to minimize treatment. His family is very supportive and are very interested in medications and treatments that will help him. (2) Depression: Discussed rotating antidepressant to duloxetine for dual neurotransmitter benefit and pain benefit. I discussed this with Nathan, his and son who agree. Will start duloxetine 20 mg daily with renal failure. (3) Prostate cancer: (4) CKD (chronic kidney disease), stage IV: (5) Chronic diastolic CHF (congestive heart failure): (6) Diastolic congestive heart failure: (7) CAD (coronary artery disease): (8) Renal mass: (9) Degenerative joint disease of left hip: History of Present Illness Reason for Consultation: goals of care Requesting Physician: Dr. Devlin Attending Physician: Edna Devlin MD History of Present Illness 79yo gentleman who has had chronic hip pain thought to be related to osteoart hritis. He has CAD, diastolic heart failure with pulmonary hypertension, and afib on eliquis. He was admitted with epistaxis and found to have pancytopenia and SWETHA. His renal function has improved but he has had progressive drop in hemoglobin to 6.5 today and received a transfusion earlier today. CT of abdomen done during workup showed a prostate mass with lymphadenopathy and osteolytic bone lesions secondary to metastatic disease. He is also noted to have a 2cm left renal mass. His renal function has been slowly improving since admission. He has had severe depression prior to admission with feelings of hopelessness and not wanting to be alive. He has been on sertraline in the past for depression but didn't feel that it helped. In the last few months he has been on mirtazipine which also has not really improved his depression or appetite. Prior to this he had been very active, mowing the lawn and doing household projects. We have been consulted to assist with goals of care. Allergies Allergy/AdvReac Type Severity Reaction Status Date / Time No Known Drug Allergies Allergy Verified 02/18/20 14:14 adaptic touch AdvReac Mild contact Uncoded 02/05/20 13:19 dermatitis Home Medications Medication Instructions Recorded Confirmed Type alfuzosin 10 mg PO QDL 12/21/17 07/21/20 History finasteride 5 mg PO QDD 12/21/17 07/21/20 History levothyroxine 25 mcg PO QAM 12/21/17 07/21/20 History nitroglycerin [Nitrostat] 0.4 mg SUBLINGUAL UD 12/21/17 07/21/20 History metoprolol succinate 12.5 mg PO QAM 07/10/18 07/21/20 History torsemide 20 mg PO DAILY 09/30/18 07/21/20 History aspirin 81 mg tablet,delayed 81 mg PO QDL 11/03/18 07/21/20 History release lorazepam 0.5 mg tablet 0.5 mg PO BID PRN tab 11/03/18 07/21/20 History allopurinol 100 mg tablet 200 mg PO QDL tab 11/24/18 07/21/20 History hydralazine 10 mg tablet 10 mg PO BID 06/18/19 07/21/20 History Eliquis 2.5 mg PO BID 09/18/19 07/21/20 History cholecalciferol (vitamin D3) 50 mcg PO QDD 09/18/19 07/21/20 History [Vitamin D3] prednisone 10 mg PO Q OTHER DAY 09/18/19 07/21/20 History acetaminophen [Tylenol Ex Str 500 mg PO Q6H PRN 07/21/20 07/21/20 History Rapid Release] atorvastatin 20 mg PO QDD 07/21/20 07/21/20 History famotidine [Heartburn Relief 10 mg PO Q2D 07/21/20 07/21/20 History (famotidine)] lisinopril 5 mg PO DAILY 07/21/20 07/21/20 History mirtazapine 15 mg PO HS 07/21/20 07/21/20 History oxycodone 5 mg PO BID PRN 07/21/20 07/21/20 History sildenafil (pulm.hypertension) 20 mg PO BID 07/21/20 07/21/20 History torsemide 10 mg PO QDD 07/21/20 07/21/20 History Patient History Medical History Actinic keratitis BPH (benign prostatic hyperplasia) CAD (coronary artery disease) Cellulitis of right lower extremity without foot Chronic diastolic CHF (congestive heart failure) Chronic venous insufficiency CKD (chronic kidney disease), stage IV Contact dermatitis Diastolic congestive heart failure Dysmetabolic syndrome X First degree atrioventricular block Former smoker Gout HX History of thymus cancer HTN (hypertension) Hyperlipidemia Hypothyroidism Kidney stone MSSA (methicillin susceptible Staphylococcus aureus) infection Myasthenia gravis Paroxysmal atrial fibrillation Pseudomonas infection Pulmonary HTN Skin cancer Sleep apnea CPAP Venous stasis ulcer Venous stasis ulcer of ankle limited to breakdown of skin without varicose veins Surgical History History of cardiac cath 2 [facility] 04/2016 Hx of thymectomy 2014 S/P cataract extraction Family History Mother Family history of diabetes mellitus Social History Smoking Status: Former smoker Second Hand Exposure: No; Hx Alcohol Use: No Hx Substance Use: No Preferred Language: Frisian Communication Ability: Effective 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 Review of Systems Review of Systems: [place] Symptom Assessment Scale Pain 1/3 Dyspnea 1/3 with exertion Nausea 2/3 Anxiety 1/3 Depression 3/3 Anorexia 2/3 Palliative Performance Score 50% Physical Exam Constitutional: no acute distress ENMT: Mouth: oral mucous membranes not dry Respiratory: normal respiratory effort; no labored breathing Skin: warm and dry Neurologic: moves all extremities and awake; not confused Psychiatric: Orientation: alert and oriented x 3 Affect: + labile affect Mood: + depressed mood Suicidal Thoughts: denies suicidal intent Results & Data ([facility]) Vital Signs (Past 12 Hours) Vital Signs Temp Pulse Pulse Resp BP BP Pulse Ox 07/28/20 12:30 97.9 F 84 18 144/74 H 95 07/28/20 11:45 97.9 F 88 18 120/64 98 07/28/20 10:45 97.9 F 84 18 129/60 96 07/28/20 09:45 97.5 F L 81 18 125/66 97 07/28/20 09:30 97.5 F L 75 18 101/60 92 07/28/20 09:16 97.7 F 75 18 127/54 L 91 07/28/20 07:57 98.1 F 100 H 18 107/66 93 PG Care Time/CCT Total # of Minutes Spent Total Time Spent with Patient: Total time spent is greater than 50% in coordination of care (as documented) at patient's floor/unit and/or counseling patient:total time spent 60 minutes with more than 50% of time spent on symptom management and goals of care. Coding Level of Care Code 31501 Inpt Consult Level 3 Diagnoses Palliative care encounter Z51.5 Depression F32.9 Prostate cancer C61 CKD (chronic kidney disease), stage IV N18.4 Chronic diastolic CHF (congestive heart failure) I50.32 Diastolic congestive heart failure I50.30 CAD (coronary artery disease) I25.10 Renal mass N28.89 Degenerative joint disease of left hip M16.12
[2020-07-28] MEDS: ATORVASTATIN 20 MG TAB PO SCH (16:17)
[2020-07-28] MEDS: CHOLECALCIFEROL 1,000 UNITS 25 MCG TAB PO SCH (16:17)
[2020-07-28] MEDS: FINASTERIDE 5 MG TAB PO SCH (16:17)
[2020-07-28] MEDS: FAMOTIDINE 10 MG TABLET PO SCH (16:17)
--- NOTE | 2020-07-28 16:47 | Hospitalist Progress Note ---
Date of Service July 28, 2020 Assessment & Plan (1) Chronic hip pain: Patient presenting from home with reports of epistaxis, chronic left hip pain, depression/suicidal ideations No evidence of fracture on CT imagings Surgical intervention has been considered in the past however patient is felt to be too high of a surgical risk due to other underlying comorbidities Ortho on board not a surgical candidate continue with conservative management as per Ortho Continue pain control PT/OT eval Fall precaution (2) Prostate cancer: (3) Renal mass: CT abd/pelvis showed redemonstration of the abnormal soft tissue extension within the left lateral and posterior peripheral zone of the prostate gland as described above. This is highly suspicious for a prostate malignancy. There is associated bilateral pelvic sidewall lymphadenopathy, left greater than right, which is consistent with metastatic disease. Scattered osteoblastic metastatic disease. Increase in size in the 2 cm exophytic slightly hyperdense lesion within the upper pole of the left kidney. This is highly suspicious for a renal cell carcinoma. PSA 912 Due to multiple comorbidity and high risks, not a good candidate to perform a prostate biopsy at this time He has been started on Bicalutamide with plans to start Firmagon injections in the outpatient setting as soon as it is available. Case discuss with urology that plan to arrange for outpatient follow appt to start on Firmagon injection Will need work up and follow up for the renal mass CT head showed no mass CT chest showed findings are consistent with multifocal osteoblastic metastatic disease. There are small left and trace right pleural effusions with bibasilar consolidation. CT finding discussed with patient and daughter Avril Consulted palliative care Plan to start on Duloxetine (4) Elevated lactic acid level: Lactic acid normalized possible related to worsening creatinine, malignancy No sign of infection Stable (5) Depression: (6) Suicidal ideation: Due to underlying chronic left hip pain Continue Suicide precautions Psychiatry on board recommended to increased remeron to 22.5 mg HS Continue remeron 22.5 mg HS Will add duloxetine 20mg daily (7) Acute kidney injury superimposed on CKD: (8) CKD (chronic kidney disease), stage IV: Baseline creatinine previously ran in the low 2's, on 05/20/2020 creatinine noted to be 2.6 Creatinine 3.2 on admission Creatinine slightly decreased to 2.3 Continue to hold torsemide and Lisinopril Nephrology on board Most recent CT abd/pelvis showed no hydronephrosis D/C IV fluid since CXR showed development of pulmonary edema Continue monitor BMP (9) Hyperkalemia: K 5.2 today Will restart Veltassa Continue monitor BMP Follow a Low K diet (10) Thrombocytopenia: Platelet count continue to dropped to 77 Patient reporting episodes of epistaxis over the past couple of weeks Was bleeding from the IVF access/upper limb that seem to resolve Continue to hold eliquis and aspirin Continue monitor CBC (11) Coagulopathy: Patient on Eliquis INR has been 2 May be due to decreased dietary intake Continue to hold eliquis due to bleeding Previous hospitalist discussed with Dr. Rosado that recommended Vit K 5mg supplement Case discussed with oncology/hematology Dr. Dee that recommended to check fibrinogen level, haptoglobin, LDH As per oncology/hematology this might be low DIC due to malignancy Peripheral smear showed no schistocytes and blast. A single nucleated red blood cell is identified. Fibrinogen low and haptoglobin pending case discussed with dr. Dee that recommended conservative management Continue monitor closely (12) BPH (benign prostatic hyperplasia): CT ABD/pelvis shows prostate gland is enlarged and asymmetric/heterogeneous, with a possible left-sided prostate mass and evidence of chronic bladder outlet obstruction PSA 912 Continue home BPH meds (13) Anemia: Hgb dropped to 6.8 on 07/24 Type and cross and consent obtained for blood transfusion Will transfuse 1 unit PRBC today Hgb 6.5 today Continue to hold eliquis and asa Continue monitor H/H and transfuse if hgb continues to drop (14) Paroxysmal atrial fibrillation: Rate controlled on metoprolol Continue to hold eliquis and aspirin due to low platelet and anemia (15) Chronic diastolic CHF (congestive heart failure): CXR showed cardiomegaly with progressive pulmonary edema. Small pleural e ffusions with progressive bibasilar opacities suggestive of atelectasis versus pneumonitis. Continue to hold torsemide due to SWETHA Will monitor closely for sign of fluid overload IVF discontinued Will consider to give Lasix if shows sign of fluid overload (16) Pulmonary HTN: Continue sildenafil (17) CAD (coronary artery disease): Continue aspirin, statin, beta-juana Stable (18) HTN (hypertension): BP controlled, continue metoprolol and hydralazine Continue to hold lisinopril due to worsening creatinine (19) Myasthenia gravis: -Continue home prednisone (20) DVT prophylaxis: SCDs due to low platelet and bleeding Admission and Anticipated Discharge Date Admission Date: July 21, 2020 Subjective Pt was seen and examined for follow up of pain and anemia Lying in bed with no distress resting He said that he ate a little food today Pt said that he is itching alot today He continues to ooze blood from the right upper extremity where he had blood umer a week ago His hgb continues to drop and required blood transfusion Palliative care team discussed with patient and family about goal of care Denies any chest pain, palpitation, dizziness and SOB Review of Systems Review of Systems: All systems reviewed & are unremarkable except as noted in Subjective Physical Exam Physical Exam: General- No acute distress Head- atraumatic Eyes- PERRL, EOMI, ENT- oropharynx clear Neck- supple, no JVD Lungs- clear to auscultation Heart- irregular rhythm; no murmur Abdomen- normal bowel sounds, soft, nontender Extremities- no calf tenderness Neuro- alert, oriented x 3; PERRL, EOMI; no facial palsy; no dysarthria Skin- +ecchymoses Results & Data Results & Data ([facility]) Vital Signs (Past 12 Hours) Vital Signs Temp Pulse Pulse Resp BP BP Pulse Ox 07/28/20 16:15 36.8 C 84 18 124/65 95 07/28/20 12:30 36.6 C 84 18 144/74 H 95 07/28/20 11:45 36.6 C 88 18 120/64 98 07/28/20 10:45 36.6 C 84 18 129/60 96 07/28/20 09:45 36.4 C L 81 18 125/66 97 07/28/20 09:30 36.4 C L 75 18 101/60 92 07/28/20 09:16 36.5 C 75 18 127/54 L 91 07/28/20 07:57 36.7 C 100 H 18 107/66 93
[2020-07-28] MEDS ORDERED: PHYTONADIONE 5 MG TAB PO STA (16:48)
[2020-07-28] MEDS: MIRTAZAPINE TAB 15 MG TAB PO SCH (19:38)
[2020-07-28] MEDS: ACETAMINOPHEN 325 MG TAB PO PRN (21:33)
[2020-07-28] MEDS: oxyCODONE HCL IR 5 MG TAB (IMMEDIATE RELEASE) PO PRN (21:34)
[2020-07-29] MEDS: LEVOTHYROXINE SODIUM 25 MCG TABLET PO SCH (05:57)
[2020-07-29 06:50] LABS: Hematocrit (blood only) 19.4 % (42-52); Hemoglobin 6.5 g/dL (14.0-18.0); Mean Corpuscular Hemoglobin 33.2 pg (25-34); Mean Corpuscular Hgb Conc 33.5 g/dL (32-36); Mean Platelet Volume 10.7 fL (7.4-10.4); Platelet Count 64 K/uL (130-400); Prothrombin Time 21.3 Seconds (9.0-12.0); RDW Coefficient of Variation 16.9 % (11.5-14.5); RDW Standard Deviation 55.8 fL (36.4-46.3); Red Blood Count 1.96 M/uL (4.7-6.1); White Blood Count 12.48 K/uL (4.8-10.8)
[2020-07-29 06:51] LABS: Calcium 7.9 mg/dl (8.5-10.1); Creatinine Clr Calc Pharmacy 21.6 ml/min; Est GFR (African American) 22.6 ml/min; Est GFR (Non-African American) 19.5 ml/min; INR 2.2 (0.9-1.1); Potassium 5.2 mmol/L (3.5-5.1)
[2020-07-29] MEDS ORDERED: SODIUM CHLORIDE 0.9% 250 ML IV PRN (06:56)
[2020-07-29] MEDS ORDERED: ALBUT/IPRATROP 3MG/0.5MG NEB 3 ML VIAL NEB STA (06:59)
[2020-07-29] MEDS ORDERED: ALBUMIN 25% 12.5 GM/50 ML VIAL IV ONE (07:51)
[2020-07-29] MEDS ORDERED: FUROSEMIDE 80 MG in SYRINGE 0 ML IV SCH (08:00)
--- NOTE | 2020-07-29 08:43 | XRay Report ---
XR chest 1V portable HISTORY: tachypnea COMPARISON: Chest 07/26/2020. FINDINGS: No pneumothorax. The heart remains enlarged. Poststernotomy changes are again noted. Improv ement in the interstitial/vascular thickening consistent with resolving pulmonary edema. Small bilate ral pleural effusions persist. IMPRESSION: 1. Interval improvement in the mild interstitial pulmonary edema. 2. No change in the small bilateral pleural effusions and bibasilar densities. ACT 112: Negative or not required by law. Electronically signed by: Mahin Gurrola M.D. 07/29/2020 8:42 AM
[2020-07-29] MEDS: METOPROLOL SUCC 25MG EXT REL TAB PO SCH (08:47)
[2020-07-29] MEDS: predniSONE 10 MG TABLET PO SCH (08:47)
[2020-07-29] MEDS: hydrALAZINE 10 MG TAB PO SCH ×2 (08:47→20:00)
[2020-07-29] MEDS: BICALUTAMIDE 50 MG TAB PO SCH (08:47)
[2020-07-29] MEDS: SILDENAFIL CITRATE 20 MG TABLET PO SCH ×2 (08:47→20:00)
[2020-07-29] MEDS ORDERED: ALBUT/IPRATROP 3MG/0.5MG NEB 3 ML VIAL ONE (09:26)
--- NOTE | 2020-07-29 11:27 | Nephrology Progress Note ---
Date of Service July 29, 2020 Assessment & Plan Admission and Anticipated Discharge Date Admission Date: July 21, 2020 Subjective NEPHROLOGY PROGRESS NOTE SUBJECTIVE: Overnight, the patient continues to be very weak. But he did talk today. Appetite is pretty low. OBJECTIVE: HEENT: Mucous membranes moist. NECK: Supple. No jugular venous distention. CHEST: Bilateral decreased breath sounds, poor inspiratory effort. CARDIOVASCULAR: Regular rate and rhythm, no murmur, no edema. ABDOMEN: Soft, nontender. EXTREMITIES: Shows no edema. LABORATORY TESTS: From this morning shows severe anemia with a hemoglobin of 6.5, which is down from 7.6 yesterday, platelet count 69,000, WBC count 11,000. Renal function seems to be trending better. Creatinine is down to 2.34, BUN is 62. Potassium is 5.2. Sodium 142, bicarbonate 23. No new imaging done, but last chest x-ray showed cardiomegaly with progressive pulmonary edema as well as small pleural effusion. ASSESSMENT AND PLAN: An 79-year-old male who currently has pancytopenia as well as acute kidney injury from ischemic acute tubular necrosis. 1. Acute renal failure. Most likely this is acute tubular necrosis. Creatinine is trending to better. He does not appear to be volume depleted and given blood transfusion. I want to stop the IV fluid. We may even have to use Lasix, but not today. No indication for urgent dialysis at this time. 2. Renal mass/prostate cancer. The patient has been followed by Urology for a long time. There is also talk about palliative consultation given two primary cancer diagnosis at this time. 3. Pancytopenia. Hemoglobin is quite low and he is getting blood transfusion. RECOMMENDATIONS FOR TODAY: 1. Discontinue bicarb drip. he is somewhat fluid overloaded . Can give lasix as needed with PRBC. Creat slightly higher but acceptable and does not need dialysis 2. Blood transfusion as needed. 3. Input output charting and continue to do daily labs. We will continue to follow. Results & Data ([facility]) Vital Signs (Past 12 Hours) Vital Signs Temp Pulse Pulse Resp BP BP Pulse Ox 07/29/20 10:20 36.5 C 80 20 121/55 L 92 07/29/20 09:35 36.4 C L 85 18 145/72 H 91 07/29/20 09:33 73 18 91 07/29/20 08:50 36.8 C 91 H 18 144/71 H 95 07/29/20 08:20 36.5 C 80 18 116/68 94 07/29/20 08:04 36.6 C 85 18 126/71 93 07/29/20 07:47 36.7 C 78 18 118/57 L 91 07/29/20 07:31 36.8 C 82 18 121/66 94
[2020-07-29 11:29] LABS: INR 2.2 (0.9-1.1); Partial Thromboplastin Ratio 1.3; Partial Thromboplastin Time 33.9 Seconds (21.0-31.0); Prothrombin Time 20.9 Seconds (9.0-12.0)
[2020-07-29] MEDS: ALFUZOSIN HCL 10 MG TAB PO SCH (12:53)
[2020-07-29] MEDS: hydrOXYzine HCl 25 MG TAB PO PRN (12:53)
--- NOTE | 2020-07-29 14:59 | Consultation Report ---
DATE OF CONSULTATION: 07/29/2020 REASON FOR CONSULTATION: Coagulopathy. HISTORY OF PRESENT ILLNESS: The patient is a pleasant 79-year-old gentleman I have been requested to evaluate with a persistent coagulopathy. This gentleman was admitted to [facility] on 07/21/2020 when he presented to the emergency room for epistaxis, depression and left hip pain. Apparently, he had been having intermittent nosebleeds over the past couple of weeks. The morning of admission, he woke up with a large amount of blood on his face. Bleeding subsequently stopped before arriving at the ED. He also reports suffering a significant skin tear from IV removal while here in the hospital. He has a pressure dressing on the wound and does not seem to be actively bleeding as the patient described having a previous pressure dressings that were pretty much soaked with blood. The patient suffers from metastatic prostate cancer, which has not been officially biopsied and also a renal mass. Urology is on consult and because of this gentleman's comorbid issues, not comfortable with pursuing official biopsy of the prostate specifically. Apparently, his PSA is near [address] scans are concerning for osteoblastic metastatic disease. He apparently was started on bicalutamide and plans are underway for him to receive leuprolide. I have been asked to get involved in the patient's case because of persistent PT and PTT elevation. The patient was also previously noted to have a low fibrinogen levels. He has been administered vitamin K. Apparently, he was on a blood thinner prior to admission, but has not received Eliquis in close to a week and yet his PT and PTT today remain elevated at 20.9 seconds and 33.9 seconds with an INR of 2.2, respectively. The patient's fibrinogen level measured 65 on the and has yet to be repeated. Review of today's peripheral blood counts reveals a hemoglobin in the 6 gram per deciliter range and platelets in the 64,000 range. The patient's main clinical complaint at bedside is persistent pruritus which he has been utilizing a corticosteroid cream, but there does not appear to be an active rash. PAST MEDICAL HISTORY: Significant for coronary artery disease, atrial fibrillation, chronic diastolic heart failure, venous insufficiency, status post right GSV and SSV ablation, myasthenia gravis, hypertension, chronic kidney disease. MEDICATIONS: His medications prior to admission include alfuzosin 10 mg p.o. daily, finasteride 5 mg p.o. daily, levothyroxine 25 mcg p.o. every day p.r.n., nitroglycerin, atorvastatin 40 mg p.o. daily, metoprolol 12.5 mg p.o. daily, torsemide 20 mg p.o. daily, sertraline 25 mg p.o. daily, aspirin 81 mg p.o. daily, lorazepam 0.25 mg p.o. b.i.d., allopurinol 200 mg p.o. daily, hydralazine 10 mg p.o. b.i.d., Eliquis 2.5 mg p.o. b.i.d., cephalexin 500 mg p.o. t.i.d., ciprofloxacin 250 mg p.o. b.i.d., cholecalciferol 50 mcg p.o. daily, losartan 25 mg p.o. daily, prednisone 5 mg every other day with 10 mg every other day alternating doses. ALLERGIES: ADAPTIC TOUCH. FAMILY HISTORY: Noncontributory. SOCIAL HISTORY: He lives with his spouse. He is retired. Negative for cigarettes, alcohol or illicit substances. REVIEW OF SYSTEMS: Not obtained. PHYSICAL EXAMINATION: GENERAL: Very pleasant 79-year-old gentleman, awake, alert and appropriate, in no acute distress. VITAL SIGNS: Temperature 36.5, pulse 80, respiratory rate 20, blood pressure 121/55. SKIN: Ecchymoses covering the dorsum of his arms, hands. He has evidence of stasis dermatitis within the lower extremities. HEENT: Atraumatic, normocephalic. Eyes: PERRLA, EOMI. Sclerae nonicteric. Nares are patent without rhinorrhea or discharge. Throat is clear. Tongue midline. Mucous membranes are moist. NECK: Supple without JVD or thyromegaly. LYMPH: No cervical, supraclavicular palpable nodes. HEART: Regular rate and rhythm. No clicks, rubs, murmurs or gallops. LUNGS: Clear to auscultation bilaterally. ABDOMEN: Soft, nontender, nondistended. EXTREMITIES: No clubbing, cyanosis or edema. NEUROLOGICALLY: He is awake, alert and oriented x3. Cranial nerves are grossly intact. LABORATORY DATA: WBC count 12,480, hemoglobin 6.5, platelet count 64,000. PT 20.9 seconds, PTT 33.9 seconds. Sodium 140, potassium 5.2, chloride 110, carbon dioxide 21, creatinine 2.89, BUN 67. IMPRESSION: 1. Coagulopathy. 2. Hypofibrinogenemia. 3. Metastatic prostate cancer. 4. Possible renal cell carcinoma. 5. Paroxysmal atrial fibrillation. 6. Chronic kidney disease. 7. Myasthenia gravis. PLAN: I was asked by Dr. Devlin to a visit with the patient today at bedside. He explained to me he has been hospitalized close to a week and has remained coagulopathic despite discontinuing anticoagulation and administering vitamin K. He also has a low fibrinogen levels, which have not been repeated. First and foremost recommend repeating those levels immediately and see where we are on the fibrinogen level. He has not received cryoprecipitate, only vitamin K thus far. Will recommend 5 units of Cryoprecipitate. This Post transfusion repeat PT/INR/PTT and fibrinogen. This gentleman has a multitude of reasons for bleeding, not only the coagulopathy, but also his low, most likely dysfunctional platelets because of renal insufficiency. He has been on antiplatelet agents and in essence his platelets probably are not functioning well. Thus, any further bleeding, he should receive transfuse single donor platelets despite platelet count in the 60,000 range. Additionally, I have recommended PT and PTT mixing studies to rule out a factor deficiency versus inhibitor. Factor VIII inhibitors are notoriously dangerous, patients can bleed out. If such an inhibitor is detected, I would recommend immediate transfer to a Tertiary Center. Apparently DIC panel was done and found to be negative. This gentleman is also quite anemic perhaps a full anemia panel, iron studies, B12, folate, SPEP with immunofixation is appropriate at this point. The patient has been evaluated for metastatic prostate cancer and recently started on bicalutamide. The renal lesion is of low priority at this point and Urology does not seem to be anxious to pursue biopsy and most certainly not to perform nephrectomy considering this gentleman's comorbid issues. We will continue to follow him during his hospital stay. Thank you very much for allowing me to participate in his care. Further recommendations may follow. SOTOD
[2020-07-29 15:01] LABS: Fibrinogen < 50 mg/dl (184-400)
[2020-07-29] MEDS: PATIROMER CALCIUM SORBITEX 8.4 GM PACK PO SCH (15:22)
[2020-07-29] MEDS: CHOLECALCIFEROL 1,000 UNITS 25 MCG TAB PO SCH (17:36)
[2020-07-29] MEDS: FINASTERIDE 5 MG TAB PO SCH (17:36)
[2020-07-29] MEDS: ATORVASTATIN 20 MG TAB PO SCH (17:36)
--- NOTE | 2020-07-29 18:20 | Hospitalist Progress Note ---
Date of Service July 29, 2020 Assessment & Plan (1) Chronic hip pain: Patient presenting from home with reports of epistaxis, chronic left hip pain, depression/suicidal ideations No evidence of fracture on CT imagings Surgical intervention has been considered in the past however patient is felt to be too high of a surgical risk due to other underlying comorbidities Ortho on board not a surgical candidate continue with conservative management as per Ortho Continue pain control PT/OT eval Fall precaution (2) Prostate cancer: (3) Renal mass: CT abd/pelvis showed redemonstration of the abnormal soft tissue extension within the left lateral and posterior peripheral zone of the prostate gland as described above. This is highly suspicious for a prostate malignancy. There is associated bilateral pelvic sidewall lymphadenopathy, left greater than right, which is consistent with metastatic disease. Scattered osteoblastic metastatic disease. Increase in size in the 2 cm exophytic slightly hyperdense lesion within the upper pole of the left kidney. This is highly suspicious for a renal cell carcinoma. PSA 912 Due to multiple comorbidity and high risks, not a good candidate to perform a prostate biopsy at this time He has been started on Bicalutamide with plans to start Firmagon injections in the outpatient setting as soon as it is available. Case discuss with urology that plan to arrange for outpatient follow appt to start on Firmagon injection Will need work up and follow up for the renal mass CT head showed no mass CT chest showed findings are consistent with multifocal osteoblastic metastatic disease. There are small left and trace right pleural effusions with bibasilar consolidation. CT finding discussed with patient and daughter Avril palliative care care on board that recommended to start on Duloxetine (4) Coagulopathy: Patient was on Eliquis, INR has been above 2 May be due to decreased dietary intake Continue to hold eliquis due to bleeding Previous hospitalist discussed with Dr. Rosado that recommended Vit K 5mg supplement Case discussed with oncology/hematology Dr. Dee that recommended to check fibrinogen level, haptoglobin, LDH As per oncology/hematology this might be low DIC due to malignancy Peripheral smear showed no schistocytes and blast. A single nucleated red blood cell is identified. Pt continued to require blood transfusion and INR above 2 with Vit K supplement Hematology/Oncology consulted Case discussed with Dr. Ríos that recommended to check Mixing study PT and PTT to rule out a factor deficiency vs inhibitor. Mixing study corrected and no evidence of Factor VIII inhibitor Fibrinogen level less than [address] Ríos that recommended to check factor assay ( PT factor) for factor 2, 7, 8 and 9 Continue monitor for abnormal bleeding (5) Anemia: Hgb dropped to 6.8 on 07/24 Type and cross and consent obtained for blood transfusion Hgb continue to dropped to 6.5 Type and crossed and received an additional 1 unit PRBC ( total 3 units PRBC during the hospital course so far ) Continue to hold eliquis and asa Continue monitor H/H and transfuse if hgb continues to drop Consider to check iron studies, but with repeat transfusion not sure if that will be accurate (6) Thrombocytopenia: Platelet count continue to dropped to 66 Patient reporting episodes of epistaxis over the past couple of weeks Was bleeding from the IVF access/upper limb that seem to resolve Continue to hold eliquis and aspirin Hem/Onc Dr. Ríos on board recommended platelet transfusion if any further bleeding with single donor platelets even if his platelet count is in the 60,000 range. Continue monitor CBC (7) Elevated lactic acid level: Lactic acid normalized possible related to worsening creatinine, malignancy No sign of infection Stable (8) Depression: (9) Suicidal ideation: Due to underlying chronic left hip pain Continue Suicide precautions Psychiatry on board recommended to increased remeron to 22.5 mg HS Continue remeron 22.5 mg HS and duloxetine 20mg daily (10) Acute kidney injury superimposed on CKD: (11) CKD (chronic kidney disease), stage IV: Baseline creatinine previously ran in the low 2's, on 05/20/2020 creatinine noted to be 2.6 Creatinine 3.2 on admission Creatinine slightly increased to 2.89 Continue to hold torsemide and Lisinopril Nephrology on board Most recent CT abd/pelvis showed no hydronephrosis D/C IV fluid since CXR showed development of pulmonary edema Continue monitor BMP (12) Hyperkalemia: K 5.2 today Continuie Veltassa Continue monitor BMP Follow a Low K diet (13) BPH (benign prostatic hyperplasia): CT ABD/pelvis shows prostate gland is enlarged and asymmetric/heterogeneous, with a possible left-sided prostate mass and evidence of chronic bladder outlet obstruction PSA 912 Continue home BPH meds (14) Paroxysmal atrial fibrillation: Rate controlled on metoprolol Continue to hold eliquis and aspirin due to low platelet and anemia (15) Chronic diastolic CHF (congestive heart failure): CXR showed cardiomegaly with progressive pulmonary edema. Small pleural effusions with progressive bibasilar opacities suggestive of atelectasis versus pneumonitis. Continue to hold torsemide due to SWETHA Will monitor closely for sign of fluid overload Consider to give lasix as needed with PRBC transfusion IVF discontinued (16) Pulmonary HTN: Continue sildenafil (17) CAD (coronary artery disease): Continue aspirin, statin, beta-juana Stable (18) HTN (hypertension): BP controlled, continue metoprolol and hydralazine Continue to hold lisinopril due to worsening creatinine (19) Myasthenia gravis: -Continue home prednisone (20) DVT prophylaxis: SCDs due to low platelet and bleeding Admission and Anticipated Discharge Date Admission Date: July 21, 2020 Subjective Pt was seen and examined for follow up of pain and anemia Lying in bed with no distress resting comfortable Pt said that he is itching alot He said that his RUE does not seem to ooze today His hgb continues to drop and required blood transfusion this morning He said that his breathing seem to improve Denies any chest pain, palpitation, dizziness and SOB Review of Systems Review of Systems: All systems reviewed & are unremarkable except as noted in Subjective Physical Exam Physical Exam: General- No acute distress Head- atraumatic Eyes- PERRL, EOMI, ENT- oropharynx clear Neck- supple, no JVD Lungs- clear to auscultation Heart- irregular rhythm; no murmur Abdomen- normal bowel sounds, soft, nontender Extremities- no calf tenderness, RUE wrapped with raul bandage Neuro- alert, oriented x 3; PERRL, EOMI; no facial palsy; no dysarthria Skin- +ecchymoses Results & Data Results & Data ([facility]) Vital Signs (Past 12 Hours) Vital Signs Temp Pulse Pulse Resp BP BP BP 07/29/20 15:45 36.9 C 80 20 118/65 07/29/20 10:20 36.5 C 80 20 121/55 L 07/29/20 09:35 36.4 C L 85 18 145/72 H 07/29/20 09:33 73 18 07/29/20 08:50 36.8 C 91 H 18 144/71 H 07/29/20 08:20 36.5 C 80 18 116/68 07/29/20 08:04 36.6 C 85 18 126/71 07/29/20 07:47 36.7 C 78 18 118/57 L 07/29/20 07:31 36.8 C 82 18 121/66 Pulse Ox 07/29/20 15:45 94 07/29/20 10:20 92 07/29/20 09:35 91 07/29/20 09:33 91 07/29/20 08:50 95 07/29/20 08:20 94 07/29/20 08:04 93 07/29/20 07:47 91 07/29/20 07:31 94
[2020-07-29 19:21] LABS: Hematocrit (blood only) 20.6 % (42-52); Mean Corpuscular Hemoglobin 32.4 pg (25-34); Mean Corpuscular Volume 95.4 fL (80-100); Nucleated RBC # (auto) 0.66 K/uL (0-0); Nucleated RBC % (auto) 5.1 %; Platelet Count 51 K/uL (130-400); RDW Coefficient of Variation 18.8 % (11.5-14.5); RDW Standard Deviation 59.7 fL (36.4-46.3); Red Blood Count 2.16 M/uL (4.7-6.1); White Blood Count 13.02 K/uL (4.8-10.8)
[2020-07-29] MEDS: MIRTAZAPINE TAB 15 MG TAB PO SCH (19:59)
[2020-07-29] MEDS: oxyCODONE HCL IR 5 MG TAB (IMMEDIATE RELEASE) PO PRN (20:54)
[2020-07-29] MEDS: ACETAMINOPHEN 325 MG TAB PO PRN (20:56)
[2020-07-29] MEDS: HYDROCORTISONE 2.5% CR 30 GM TUBE EXT PRN (21:01)
[2020-07-30] MEDS ORDERED: SODIUM CHLORIDE 0.9% 250 ML IV PRN (01:10)
[2020-07-30] MEDS ORDERED: FUROSEMIDE 20 MG in SYRINGE 0 ML IV ONE (01:30)
[2020-07-30] MEDS: hydrOXYzine HCl 25 MG TAB PO PRN (04:23)
[2020-07-30] MEDS: LEVOTHYROXINE SODIUM 25 MCG TABLET PO SCH (05:46)
[2020-07-30 08:34] LABS: Hematocrit (blood only) 22.2 % (42-52); Hemoglobin 7.5 g/dL (14.0-18.0); Mean Corpuscular Hemoglobin 31.9 pg (25-34); Mean Corpuscular Hgb Conc 33.8 g/dL (32-36); Mean Corpuscular Volume 94.5 fL (80-100); Nucleated RBC # (auto) 0.72 K/uL (0-0); Nucleated RBC % (auto) 5.4 %; RDW Coefficient of Variation 17.6 % (11.5-14.5); Red Blood Count 2.35 M/uL (4.7-6.1); White Blood Count 13.37 K/uL (4.8-10.8)
[2020-07-30] MEDS: METOPROLOL SUCC 25MG EXT REL TAB PO SCH (08:37)
[2020-07-30] MEDS: BICALUTAMIDE 50 MG TAB PO SCH (08:37)
[2020-07-30] MEDS: SILDENAFIL CITRATE 20 MG TABLET PO SCH ×2 (08:37→20:07)
[2020-07-30] MEDS: hydrALAZINE 10 MG TAB PO SCH ×2 (08:38→20:07)
[2020-07-30 08:52] LABS: Mean Platelet Volume 9.6 fL (7.4-10.4); Platelet Count 70 K/uL (130-400)
--- NOTE | 2020-07-30 08:58 | Progress Notes ---
DATE: 07/30/2020 DIAGNOSES: 1. Hypofibrinogenemia. 2. 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 3. Metastatic prostate cancer. 4. Possible renal cell carcinoma. 5. Paroxysmal atrial fibrillation. 6. Chronic kidney disease. 7. Myasthenia gravis. SUBJECTIVE: The patient was seen and examined at bedside, awake, alert and appropriate. Nursing reports no overnight difficulties. Recommended p.r.n. Vistaril for pruritus, which has been moderately effective. He claims he had a bout of itching last night. I continue to follow his coagulopathy. Clearly, his fibrinogen remains low and should receive cryoprecipitate. He is receiving packed RBC this morning. PT and PTT, mixing studies not surprisingly corrected. I believe the fibrinogen is a driving force behind this gentleman's coag issues. PTT factors are being sent for completeness sake. OBJECTIVE: GENERAL: A very pleasant 79-year-old gentleman, awake, alert, appropriate, in no acute distress. VITAL SIGNS: Temperature 36.5, pulse 77, respiratory rate 16, blood pressure 102/56. SKIN: Ecchymosis is a previously described. HEENT: Oral mucosa without erythema or ulceration. HEART: Regular rate and rhythm. LUNGS: Clear to auscultation bilaterally. ABDOMEN: Soft, nontender, nondistended. EXTREMITIES: No clubbing, cyanosis or edema. NEUROLOGIC: He is intact. LABORATORY DATA: WBC count 13,020, hemoglobin 7, platelet count 51,000. PT 28.9 seconds, PTT 33.9 seconds, fibrinogen is less than 50. IMPRESSION: 1. Hypofibrinogenemia possibly due to a low-grade disseminated intravascular coagulation. 2. Coagulopathy, elevated PT and PTT attributable to hypofibrinogenemia. 3. Metastatic prostate cancer. 4. Possible renal cell carcinoma. 5. Paroxysmal atrial fibrillation. 6. Chronic kidney disease. 7. Myasthenia gravis. PLAN: I reviewed his latest peripheral smear. Indeed, there is no schistocytes, which does not rule out disseminated intravascular coagulation. There is no evidence this gentleman suffers from liver disease and thus DIC is a diagnosis of exclusion. That said, his fibrinogen continues to drop as his platelet count. He is receiving packed RBCs to bolster his hemoglobin. We will order 5 units of cryoprecipitate. For safety sake the administration of cryo and bolstering of fibrinogen may lead to thrombosis in a sedentary patient. Therefore, would recommend at least a prophylactic dose of low molecular weight heparin over the next couple of days and at some point he should be fully anticoagulated as he approaches discharge to cover atrial fibrillation. We will repeat a DIC panel tomorrow. Again, I would appreciate his anemia be worked up, which will include iron studies, B12, folate, SPEP with immunofixation and perhaps reticulocyte count. We will continue to follow this gentleman closely and remain hypervigilant for bleeding.
[2020-07-30 09:09] LABS: BUN Creatinine Ratio 22.8 (10-20); Calcium 7.9 mg/dl (8.5-10.1); Creatinine Clr Calc Pharmacy 20.8 ml/min; Est GFR (African American) 21.6 ml/min; Est GFR (Non-African American) 18.6 ml/min; Potassium 4.5 mmol/L (3.5-5.1)
--- NOTE | 2020-07-30 10:02 | Nephrology Progress Note ---
Date of Service July 30, 2020 Assessment & Plan Admission and Anticipated Discharge Date Admission Date: July 21, 2020 Subjective NEPHROLOGY PROGRESS NOTE SUBJECTIVE: Overnight, the patient continues to be very weak. labs continue to get worse.Appetite is pretty low. OBJECTIVE: HEENT: Mucous membranes moist. NECK: Supple. No jugular venous distention. CHEST: Bilateral decreased breath sounds, poor inspiratory effort. CARDIOVASCULAR: Regular rate and rhythm, no murmur, no edema. ABDOMEN: Soft, nontender. EXTREMITIES: Shows no edema. LABORATORY TESTS: From this morning shows severe anemia with a hemoglobin of 6.5, which is down from 7.6 yesterday, platelet count 69,000, WBC count 11,000. Renal function seems to be trending better. Creatinine is down to 2.34, BUN is 62. Potassium is 5.2. Sodium 142, bicarbonate 23. No new imaging done, but last chest x-ray showed cardiomegaly with progressive pulmonary edema as well as small pleural effusion. ASSESSMENT AND PLAN: An 79-year-old male who currently has pancytopenia as well as acute kidney injury from ischemic acute tubular necrosis. 1. Acute renal failure. Most likely this is acute tubular necrosis. AFter some improvement now getting worse again with rising WBC also. He does not appear to be volume depleted and given blood transfusion. No indication for urgent dialysis at this time. 2. Renal mass/prostate cancer. The patient has been followed by Urology for a long time. There is also talk about palliative consultation given two primary cancer diagnosis at this time. 3. Pancytopenia. Hemoglobin is quite low and he is getting blood transfusion. Also Low PLT. Seen by hematology RECOMMENDATIONS FOR TODAY: 1. CXR showed improved pulm edema. No need of iv fluid. Can give lasix as needed with PRBC. Creat slightly higher today but acceptable and does not need dialysis. I dont think we will be able to offer him dialysis with two possible cancers. Certianly will need Difficult discussion if we get there. 2. Blood transfusion as needed. 3. Input output charting and continue to do daily labs. We will continue to follow. Results & Data ([facility]) Vital Signs (Past 12 Hours) Vital Signs Temp Pulse Pulse Resp BP BP Pulse Ox 07/30/20 09:30 36.4 C L 90 18 137/56 L 94 07/30/20 09:16 36.5 C 89 20 136/55 L 95 07/30/20 08:45 36.5 C 86 18 133/68 94 07/30/20 08:27 36.6 C 88 20 148/62 H 93 07/30/20 08:13 36.5 C 76 18 111/62 95 07/30/20 07:22 36.5 C 77 16 102/56 L 95 07/30/20 06:30 36.6 C 86 20 128/65 95 07/30/20 05:30 36.5 C 81 18 127/60 94 07/30/20 05:00 36.7 C 82 24 118/57 L 92 07/30/20 04:45 36.6 C 80 24 123/64 91 07/30/20 04:25 36.5 C 89 20 126/60 94 07/30/20 03:43 36.4 C L 83 20 116/64 92 07/30/20 03:00 36.7 C 80 20 125/62 93 07/30/20 02:30 36.8 C 79 20 121/69 92 07/30/20 02:15 36.8 C 81 20 107/57 L 92 07/30/20 01:57 36.6 C 92 H 16 123/68 92 07/29/20 22:35 36.7 C 88 15 127/58 L 93
[2020-07-30] MEDS: ALFUZOSIN HCL 10 MG TAB PO SCH (13:08)
[2020-07-30] MEDS: PATIROMER CALCIUM SORBITEX 8.4 GM PACK PO SCH (14:35)
[2020-07-30] MEDS: ONDANSETRON 4 MG OD TAB PO PRN (16:39)
--- NOTE | 2020-07-30 16:48 | Hospitalist Consultation ---
Date of Consultation July 30, 2020 Assessment & Plan (1) Chronic hip pain: Patient presenting from home with reports of epistaxis, chronic left hip pain, depression/suicidal ideations No evidence of fracture on CT imagings Surgical intervention has been considered in the past however patient is felt to be too high of a surgical risk due to other underlying comorbidities Ortho on board not a surgical candidate continue with conservative management as per Ortho Continue pain control PT/OT eval Fall precaution (2) Prostate cancer: (3) Renal mass: CT abd/pelvis showed redemonstration of the abnormal soft tissue extension within the left lateral and posterior peripheral zone of the prostate gland as described above. This is highly suspicious for a prostate malignancy. There is associated bilateral pelvic sidewall lymphadenopathy, left greater than right, which is consistent with metastatic disease. Scattered osteoblastic metastatic disease. Increase in size in the 2 cm exophytic slightly hyperdense lesion within the upper pole of the left kidney. This is highly suspicious for a renal cell carcinoma. PSA 912 Due to multiple comorbidity and high risks, not a good candidate to perform a prostate biopsy at this time He has been started on Bicalutamide with plans to start Firmagon injections in the outpatient setting as soon as it is available. Case discuss with urology that plan to arrange for outpatient follow appt to start on Firmagon injection Will need work up and follow up for the renal mass CT head showed no mass CT chest showed findings are consistent with multifocal osteoblastic metastatic disease. There are small left and trace right pleural effusions with bibasilar consolidation. CT finding discussed with patient and daughter Avril palliative care care on board that recommended to start on Duloxetine (4) Coagulopathy: Patient was on Eliquis, INR has been above 2 May be due to decreased dietary intake Continue to hold eliquis due to bleeding Previous hospitalist discussed with Dr. Rosado that recommended Vit K 5mg supplement Case discussed with oncology/hematology Dr. Dee that recommended to check fibrinogen level, haptoglobin, LDH As per oncology/hematology this might be low DIC due to malignancy Peripheral smear showed no schistocytes and blast. A single nucleated red blood cell is identified. Pt continued to require blood transfusion and INR above 2 with Vit K supplement Hematology/Oncology consulted Case discussed with Dr. Ríos that recommended to check Mixing study PT and PTT to rule out a factor deficiency vs inhibitor. Mixing study corrected and no evidence of Factor VIII inhibitor Fibrinogen level less than [address] Ríos that recommended to check factor assay ( PT factor) for factor 2, 7, 8 and 9 Continue monitor for abnormal bleeding (5) Anemia: Hgb dropped to 6.8 on 07/24 Type and cross and consent obtained for blood transfusion Hgb continue to dropped to 6.5 Type and crossed and received an additional 1 unit PRBC ( total 3 units PRBC during the hospital course so far ) Continue to hold eliquis and asa Continue monitor H/H and transfuse if hgb continues to drop Consider to check iron studies, but with repeat transfusion not sure if that will be accurate (6) Thrombocytopenia: Platelet count continue to dropped to 66 Patient reporting episodes of epistaxis over the past couple of weeks Was bleeding from the IVF access/upper limb that seem to resolve Continue to hold eliquis and aspirin Hem/Onc Dr. Ríos on board recommended platelet transfusion if any further bleeding with single donor platelets even if his platelet count is in the 60,000 range. Continue monitor CBC (7) Elevated lactic acid level: Lactic acid normalized possible related to worsening creatinine, malignancy No sign of infection Stable (8) Depression: (9) Suicidal ideation: Due to underlying chronic left hip pain Continue Suicide precautions Psychiatry on board recommended to increased remeron to 22.5 mg HS Continue remeron 22.5 mg HS and duloxetine 20mg daily (10) Acute kidney injury superimposed on CKD: (11) CKD (chronic kidney disease), stage IV: Baseline creatinine previously ran in the low 2's, on 05/20/2020 creatinine noted to be 2.6 Creatinine 3.2 on admission Creatinine slightly increased to 2.89 Continue to hold torsemide and Lisinopril Nephrology on board Most recent CT abd/pelvis showed no hydronephrosis D/C IV fluid since CXR showed development of pulmonary edema Continue monitor BMP (12) Hyperkalemia: K 5.2 today Continuie Veltassa Continue monitor BMP Follow a Low K diet (13) BPH (benign prostatic hyperplasia): CT ABD/pelvis shows prostate gland is enlarged and asymmetric/heterogeneous, with a possible left-sided prostate mass and evidence of chronic bladder outlet obstruction PSA 912 Continue home BPH meds (14) Paroxysmal atrial fibrillation: Rate controlled on metoprolol Continue to hold eliquis and aspirin due to low platelet and anemia (15) Chronic diastolic CHF (congestive heart failure): CXR showed cardiomegaly with progressive pulmonary edema. Small pleural effusions with progressive bibasilar opacities suggestive of atelectasis versus pneumonitis. Continue to hold torsemide due to SWETHA Will monitor closely for sign of fluid overload Consider to give lasix as needed with PRBC transfusion IVF discontinued (16) Pulmonary HTN: Continue sildenafil (17) CAD (coronary artery disease): Continue aspirin, statin, beta-juana Stable (18) HTN (hypertension): BP controlled, continue metoprolol and hydralazine Continue to hold lisinopril due to worsening creatinine (19) Myasthenia gravis: -Continue home prednisone (20) DVT prophylaxis: SCDs due to low platelet and bleeding History of Present Illness Attending Physician: Nancy Eckert MD Allergies Allergy/AdvReac Type Severity Reaction Status Date / Time No Known Drug Allergies Allergy Verified 02/18/20 14:14 adaptic touch AdvReac Mild contact Uncoded 02/05/20 13:19 dermatitis Home Medications Medication Instructions Recorded Confirmed Type alfuzosin 10 mg PO QDL 12/21/17 07/21/20 History finasteride 5 mg PO QDD 12/21/17 07/21/20 History levothyroxine 25 mcg PO QAM 12/21/17 07/21/20 History nitroglycerin [Nitrostat] 0.4 mg SUBLINGUAL UD 12/21/17 07/21/20 History metoprolol succinate 12.5 mg PO QAM 07/10/18 07/21/20 History torsemide 20 mg PO DAILY 09/30/18 07/21/20 History aspirin 81 mg tablet,delayed 81 mg PO QDL 11/03/18 07/21/20 History release lorazepam 0.5 mg tablet 0.5 mg PO BID PRN tab 11/03/18 07/21/20 History allopurinol 100 mg tablet 200 mg PO QDL tab 11/24/18 07/21/20 History hydralazine 10 mg tablet 10 mg PO BID 06/18/19 07/21/20 History Eliquis 2.5 mg PO BID 09/18/19 07/21/20 History cholecalciferol (vitamin D3) 50 mcg PO QDD 09/18/19 07/21/20 History [Vitamin D3] prednisone 10 mg PO Q OTHER DAY 09/18/19 07/21/20 History acetaminophen [Tylenol Ex Str 500 mg PO Q6H PRN 07/21/20 07/21/20 History Rapid Release] atorvastatin 20 mg PO QDD 07/21/20 07/21/20 History famotidine [Heartburn Relief 10 mg PO Q2D 07/21/20 07/21/20 History (famotidine)] lisinopril 5 mg PO DAILY 07/21/20 07/21/20 History mirtazapine 15 mg PO HS 07/21/20 07/21/20 History oxycodone 5 mg PO BID PRN 07/21/20 07/21/20 History sildenafil (pulm.hypertension) 20 mg PO BID 07/21/20 07/21/20 History torsemide 10 mg PO QDD 07/21/20 07/21/20 History Patient History Medical History Actinic keratitis BPH (benign prostatic hyperplasia) CAD (coronary artery disease) Cellulitis of right lower extremity without foot Chronic diastolic CHF (congestive heart failure) Chronic venous insufficiency CKD (chronic kidney disease), stage IV Contact dermatitis Diastolic congestive heart failure Dysmetabolic syndrome X First degree atrioventricular block Former smoker Gout HX History of thymus cancer HTN (hypertension) Hyperlipidemia Hypothyroidism Kidney stone MSSA (methicillin susceptible Staphylococcus aureus) infection Myasthenia gravis Paroxysmal atrial fibrillation Pseudomonas infection Pulmonary HTN Skin cancer Sleep apnea CPAP Venous stasis ulcer Venous stasis ulcer of ankle limited to breakdown of skin without varicose veins Surgical History History of cardiac cath 2 STENTS [facility] [place] 04/2016 Hx of thymectomy 2014 S/P cataract extraction Family History Mother Family history of diabetes mellitus Social History Smoking Status: Former smoker Second Hand Exposure: No; Hx Alcohol Use: No Hx Substance Use: No Preferred Language: Beninese Communication Ability: Effective Manager Client Support Required: No Beliefs That Will Affect Care: None marital status: Current Living Situation: Spouse Other Information That Helps Us Care for You: No Feels Safe at Home: Yes Safety Concerns: Feels Safe At This Time Assistive Devices: Walker Assistive Devices Comment: BL hearing aids at home. Results & Data Results & Data ([facility]) Vital Signs (Past 12 Hours) Vital Signs Temp Pulse Pulse Resp BP BP Pulse Ox 07/30/20 15:02 36.6 C 99 H 16 144/56 H 94 07/30/20 09:30 36.4 C L 90 18 137/56 L 94 07/30/20 09:16 36.5 C 89 20 136/55 L 95 07/30/20 08:45 36.5 C 86 18 133/68 94 07/30/20 08:27 36.6 C 88 20 148/62 H 93 07/30/20 08:13 36.5 C 76 18 111/62 95 07/30/20 07:22 36.5 C 77 16 102/56 L 95 07/30/20 06:30 36.6 C 86 20 128/65 95 07/30/20 05:30 36.5 C 81 18 127/60 94 07/30/20 05:00 36.7 C 82 24 118/57 L 92
[2020-07-30] MEDS: ATORVASTATIN 20 MG TAB PO SCH (17:35)
[2020-07-30] MEDS ORDERED: PROMETHAZINE HCL 12.5 MG in SODIUM CHLORIDE 0.9% 50 ML IV STA (17:46)
[2020-07-30] MEDS: FAMOTIDINE 10 MG TABLET PO SCH (18:12)
[2020-07-30] MEDS: CHOLECALCIFEROL 1,000 UNITS 25 MCG TAB PO SCH (18:12)
[2020-07-30] MEDS: FINASTERIDE 5 MG TAB PO SCH (18:12)
[2020-07-30] MEDS: oxyCODONE HCL IR 5 MG TAB (IMMEDIATE RELEASE) PO PRN (19:55)
[2020-07-30] MEDS: ACETAMINOPHEN 325 MG TAB PO PRN (19:56)
[2020-07-30] MEDS: MIRTAZAPINE TAB 15 MG TAB PO SCH (20:07)
[2020-07-31 05:59] LABS: INR 1.9 (0.9-1.1); Prothrombin Time 18.2 Seconds (9.0-12.0)
[2020-07-31] MEDS: LEVOTHYROXINE SODIUM 25 MCG TABLET PO SCH (05:59)
[2020-07-31 06:24] LABS: BUN Creatinine Ratio 24.9 (10-20); Calcium 8.2 mg/dl (8.5-10.1); Creatinine Clr Calc Pharmacy 23.5 ml/min; Est GFR (African American) 25.1 ml/min; Est GFR (Non-African American) 21.6 ml/min; Potassium 4.4 mmol/L (3.5-5.1)
[2020-07-31] MEDS: METOPROLOL SUCC 25MG EXT REL TAB PO SCH (08:54)
[2020-07-31] MEDS: BICALUTAMIDE 50 MG TAB PO SCH (08:54)
[2020-07-31] MEDS: predniSONE 10 MG TABLET PO SCH (08:54)
[2020-07-31] MEDS: hydrALAZINE 10 MG TAB PO SCH ×2 (08:54→20:12)
[2020-07-31] MEDS: SILDENAFIL CITRATE 20 MG TABLET PO SCH ×2 (08:54→20:12)
--- NOTE | 2020-07-31 12:54 | Hospitalist Progress Note ---
Date of Service July Late entry pt was seen on July 30 @ 4 pm Assessment & Plan (1) Chronic hip pain: Secondary to metastatic prostatic cancer with mets to iliac crest. Pain is moderately controlled with current medication regimen (2) Prostate cancer: (3) Renal mass: CT abd/pelvis showed redemonstration of the abnormal soft tissue extension within the left lateral and posterior peripheral zone of the prostate gland as described above. This is highly suspicious for a prostate malignancy. There is associated bilateral pelvic sidewall lymphadenopathy, left greater than right, which is consistent with metastatic disease. Scattered osteoblastic metastatic disease. Increase in size in the 2 cm exophytic slightly hyperdense lesion within the upper pole of the left kidney. This is highly suspicious for a renal cell carcinoma. PSA 912 Due to multiple comorbidity and high risks, not a good candidate to perform a prostate biopsy at this time He has been started on Bicalutamide with plans to start Firmagon injections in the outpatient setting as soon as it is available. Case discuss with urology that plan to arrange for outpatient follow appt to start on Firmagon injection Metastatic work-up: CT head showed no mass CT chest showed findings are consistent with multifocal osteoblastic metastatic disease. There are small left and trace right pleural effusions with bibasilar consolidation. Palliative care consulted, appreciate input (4) Coagulopathy: Patient was on Eliquis, INR has been above 2 May be due to decreased dietary intake Continue to hold eliquis due to bleeding Previous hospitalist discussed with Dr. Rosado that recommended Vit K 5mg supplement Case discussed with oncology/hematology Dr. Dee that recommended to check fibrinogen level, haptoglobin, LDH As per oncology/hematology this might be low DIC due to malignancy Peripheral smear showed no schistocytes and blast. A single nucleated red blood cell is identified. Pt continued to require blood transfusion and INR above 2 with Vit K supplement Hematology/Oncology consulted Case discussed with Dr. Ríos that recommended to check Mixing study PT and PTT to rule out a factor deficiency vs inhibitor. Mixing study corrected and no evidence of Factor VIII inhibitor Fibrinogen level less than [address] Ríos that recommended to check factor assay ( PT factor) for factor 2, 7, 8 and 9 Ordered, lab pending (5) Anemia: Hgb dropped to 6.8 on 07/24 Type and cross and consent obtained for blood transfusion Hgb continue to dropped to 6.5 Type and crossed and received an additional 1 unit PRBC ( total 3 units PRBC during the hospital course so far ) Continue to hold eliquis and asa Continue monitor H/H and transfuse if hgb continues to drop (6) Thrombocytopenia: Given 1 unit of platelet transfusion, as patient was having active bleeding on the right upper arm phlebotomy site. (7) Elevated lactic acid level: Lactic acid normalized possible related to worsening creatinine, malignancy No sign of infection Stable (8) Depression: (9) Suicidal ideation: Due to underlying chronic left hip pain Psychiatry on board recommended Continue remeron 22.5 mg HS/dose adjusted for renal clearance and duloxetine 20mg daily (10) Acute kidney injury superimposed on CKD: (11) CKD (chronic kidney disease), stage IV: Baseline creatinine previously ran in the low 2's, on 05/20/2020 creatinine noted to be 2.6 Creatinine 3.2 on admission Continue to hold torsemide and Lisinopril Nephrology on board Overall prognosis remains very poor (12) Hyperkalemia: Potassium normalized Discontinue Veltassa (13) Paroxysmal atrial fibrillation: Rate controlled on metoprolol John and aspirin discontinued secondary to increased bleeding risk, coagulopathy (14) Chronic diastolic CHF (congestive heart failure): CXR showed cardiomegaly with progressive pulmonary edema. Small pleural effusions with progressive bibasilar opacities suggestive of atelectasis versus pneumonitis. Diuretics kept on hold for acute renal failure on presentation Consider to give lasix as needed with PRBC transfusion Poor prognosis overall (15) Pulmonary HTN: Continue sildenafil (16) CAD (coronary artery disease): No complaint of chest pain or shortness of breath on beta-juana Antiplatelets/anti-coagulants avoided for metastatic malignancy bleeding risk (17) HTN (hypertension): BP controlled, continue metoprolol and hydralazine Diuretics discontinued secondary to renal failure (18) Myasthenia gravis: -Continue home prednisone (19) DVT prophylaxis: SCDs due to low platelet and bleeding Status: DNR/DNI Disposition: To be determined, patient continues to have significant functional decline, long-term prognosis extremely poor, patient and family aware, Palliative care following Patient and family wants to continue with palliative treatment for metastatic prostate cancer with IV Firmagon injections/ Admission and Anticipated Discharge Date Admission Date: July 21, 2020 Subjective 07/30/20 : Follow-up visit for metastatic prostate cancer, intractable pain secondary to metastasis, Lying in bed with no distress resting comfortable Bleeding noted at right upper extremity, bandage intact States his back pain and hip pain is well controlled at this point. Feels very tired and fatigued Complaint of chest pain or shortness of breath no fever or chills Review of Systems Review of Systems: All systems reviewed & are unremarkable except as noted in Subjective Physical Exam Constitutional: + ill appearing Eyes: + anicteric sclerae ENMT: Nose: + dry nasal mucous membranes Neck: trachea midline, no thyromegaly Respiratory: normal respiratory effort, lungs clear to auscultation Cardiovascular: RRR, no murmur, no edema Gastrointestinal (Abdomen): Percussion/Palpation: abdomen soft; abdomen nontender Skin: Trauma: + evidence of skin trauma (Left upper arm skin tear, well- healed, no active bleeding noted) Neurologic: PERRL, EOMI, accommodation nl, no face palsy, no dysarthria Psychiatric: A+Ox3, euthymic affect Results & Data Results & Data ([facility]) Vital Signs (Past 12 Hours) Vital Signs Temp Pulse Resp BP Pulse Ox 07/31/20 07:21 36.6 C 118 H 22 152/67 H 94
[2020-07-31 13:33] LABS: Fibrinogen 75 mg/dl (184-400)
--- NOTE | 2020-07-31 13:37 | Nephrology Progress Note ---
Date of Service July 31, 2020 Assessment & Plan Admission and Anticipated Discharge Date Admission Date: July 21, 2020 Subjective NEPHROLOGY PROGRESS NOTE SUBJECTIVE: Overnight, the patient continues to be very weak. No new issues OBJECTIVE: HEENT: Mucous membranes moist. NECK: Supple. No jugular venous distention. CHEST: Bilateral decreased breath sounds, poor inspiratory effort. CARDIOVASCULAR: Regular rate and rhythm, no murmur, no edema. ABDOMEN: Soft, nontender. EXTREMITIES: Shows no edema. LABORATORY TESTS: Creat slightly lower today from yesterday. ASSESSMENT AND PLAN: An 79-year-old male who currently has pancytopenia as well as acute kidney injury from ischemic acute tubular necrosis. 1. Acute renal failure. Most likely this is acute tubular necrosis. Creat lower today--good sign. He does not appear to be volume depleted and given blood transfusion. No indication for urgent dialysis at this time. 2. Renal mass/prostate cancer. The patient has been followed by Urology for a long time. There is also talk about palliative consultation/Comfort care given two primary cancer diagnosis at this time. 3. Pancytopenia. Hemoglobin is quite low and he is getting blood transfusion. Also Low PLT. Seen by hematology RECOMMENDATIONS FOR TODAY: 1. CXR showed improved pulm edema. No need of iv fluid. Can give lasix as needed with PRBC. Creat slightly lower today --good sign. Likely does not need dialysis. I dont think we will be able to offer him dialysis with two possible cancers anyway at this age . Certainly will need Difficult discussion if we get there. 2. Blood transfusion as needed. 3. Input output charting and continue to do daily labs. We will continue to follow. Results & Data ([facility]) Vital Signs (Past 12 Hours) Vital Signs Temp Pulse Pulse Resp BP BP Pulse Ox 07/31/20 13:10 36.6 C 116 H 24 125/67 97 07/31/20 07:21 36.6 C 118 H 22 152/67 H 94
--- NOTE | 2020-07-31 14:32 | Hospitalist Progress Note ---
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 Pain is moderately controlled with current medication regimen (2) Prostate cancer: (3) Renal mass: CT abd/pelvis showed redemonstration of the abnormal soft tissue extension within the left lateral and posterior peripheral zone of the prostate gland as described above. This is highly suspicious for a prostate malignancy. There is associated bilateral pelvic sidewall lymphadenopathy, left greater than right, which is consistent with metastatic disease. Scattered osteoblastic metastatic disease. Increase in size in the 2 cm exophytic slightly hyperdense lesion within the upper pole of the left kidney. This is highly suspicious for a renal cell carcinoma. PSA 912 Due to multiple comorbidity and high risks, not a good candidate to perform a prostate biopsy at this time He has been started on Bicalutamide with plans to start Firmagon injections in the outpatient setting as soon as it is available. Case discuss with urology that plan to arrange for outpatient follow appt to start on Firmagon injection Metastatic work-up: CT head showed no mass CT chest showed findings are consistent with multifocal osteoblastic metastatic disease. There are small left and trace right pleural effusions with bibasilar consolidation. Palliative care consulted, appreciate input (4) Coagulopathy: Patient was on Eliquis, INR has been above 2 May be due to decreased dietary intake Continue to hold eliquis due to bleeding Previous hospitalist discussed with Dr. Rosado that recommended Vit K 5mg supplement Case discussed with oncology/hematology Dr. Dee that recommended to check fibrinogen level, haptoglobin, LDH As per oncology/hematology this might be low DIC due to malignancy Peripheral smear showed no schistocytes and blast. A single nucleated red blood cell is identified. Pt continued to require blood transfusion and INR above 2 with Vit K supplement Hematology/Oncology consulted Case discussed with Dr. Ríos that recommended to check Mixing study PT and PTT to rule out a factor deficiency vs inhibitor. Mixing study corrected and no evidence of Factor VIII inhibitor Fibrinogen level less than [address] Ríos that recommended to check factor assay ( PT factor) for factor 2, 7, 8 and 9 Ordered, lab pending (5) Anemia: Possible secondary to metastatic malignancy with bone mets?. No active GI bleeding noted, patient had oozing from one of the skin lesion on right arm which has resolved hbGlobin dropped noted to be 6.5 Patient received total 3 units of PRBC transfusion during this hospital stay Type and crossed and received an additional 1 unit PRBC ( total 3 units PRBC during the hospital course so far ) Anticoagulation aspirin and Eliquis discontinued Continue to follow H&H will need transfusion for hemoglobin less than 7 Overall prognosis remains extremely poor (6) Thrombocytopenia: Given 1 unit of platelet transfusion, as patient was having active bleeding on the right upper arm phlebotomy site. Bleeding has stopped. (7) Elevated lactic acid level: Lactic acid normalized possible related to worsening creatinine, malignancy No sign of infection Stable (8) Depression: (9) Suicidal ideation: Patient denies of any suicidal ideation, felt extremely depressed for his health condition Appreciate input from psychiatry, patient started on remeron 22.5 mg HS/dose adjusted for renal clearance and duloxetine 20mg daily Patient reports improvement of his depressive symptoms, more focused on his treatment plan and returning back to home (10) Acute kidney injury superimposed on CKD: (11) CKD (chronic kidney disease), stage IV: Baseline creatinine previously ran in the low 2's, on 05/20/2020 creatinine noted to be 2.6 Creatinine 3.2 on admission Torsemide and lisinopril discontinued, creatinine improved 1.8 Nephrology on board Overall prognosis remains very poor (12) Hyperkalemia: Potassium normalized Discontinue Veltassa (13) Paroxysmal atrial fibrillation: Rate controlled on metoprolol Not a candidate for anticoagulation (14) Chronic diastolic CHF (congestive heart failure): CXR showed cardiomegaly with progressive pulmonary edema. Small pleural effusions with progressive bibasilar opacities suggestive of atelectasis versus pneumonitis. Diuretics kept on hold for acute renal failure on presentation Consider to give lasix as needed with PRBC transfusion Poor prognosis overall (15) Pulmonary HTN: Continue sildenafil (16) CAD (coronary artery disease): No complaint of chest pain or shortness of breath on beta-juana Antiplatelets/anti-coagulants avoided for metastatic malignancy bleeding risk (17) HTN (hypertension): BP controlled, continue metoprolol and hydralazine Diuretics discontinued secondary to renal failure (18) Myasthenia gravis: -Continue home prednisone (19) DVT prophylaxis: SCDs due to low platelet and bleeding Status: DNR/DNI Disposition: To be determined, patient continues to have significant functional decline, long-term prognosis extremely poor, patient and family aware, Palliative care following Patient and family wants to continue with palliative treatment for metastatic prostate cancer with IV Firmagon injections/ plan is to discharge home with home health when clinically improved Admission and Anticipated Discharge Date Admission Date: July 21, 2020 Subjective Follow-up visit for metastatic prostate cancer, intractable pain secondary to metastasis, Lying in bed with no distress resting comfortable Able to walk on 100 feet with rolling walker with physical therapy, says he gets very tired and gets short of breath Hoping to be discharged home soon, No bleeding noted from the right arm skin tear Physical Exam Constitutional: + ill appearing Eyes: + anicteric sclerae ENMT: Nose: + dry nasal mucous membranes Neck: trachea midline, no thyromegaly Respiratory: normal respiratory effort, lungs clear to auscultation Cardiovascular: RRR, no murmur, no edema Gastrointestinal (Abdomen): Percussion/Palpation: abdomen soft; abdomen nontender Skin: Trauma: + evidence of skin trauma (Left upper arm skin tear, well- healed, no active bleeding noted) Neurologic: PERRL, EOMI, accommodation nl, no face palsy, no dysarthria Psychiatric: A+Ox3, euthymic affect Results & Data Results & Data ([facility]) Vital Signs (Past 12 Hours) Vital Signs Temp Pulse Pulse Resp BP BP Pulse Ox 07/31/20 14:23 98 H 18 143/73 H 97 07/31/20 13:36 36.6 C 100 H 20 121/68 96 07/31/20 13:35 36.6 C 96 H 20 126/65 96 07/31/20 13:10 36.6 C 116 H 24 125/67 97 07/31/20 07:21 36.6 C 118 H 22 152/67 H 94
[2020-07-31] MEDS: CHOLECALCIFEROL 1,000 UNITS 25 MCG TAB PO SCH (16:13)
[2020-07-31] MEDS: FINASTERIDE 5 MG TAB PO SCH (16:13)
[2020-07-31] MEDS: ACETAMINOPHEN 325 MG TAB PO PRN (20:12)
[2020-07-31] MEDS: MIRTAZAPINE TAB 15 MG TAB PO SCH (20:13)
[2020-07-31] MEDS: oxyCODONE HCL IR 5 MG TAB (IMMEDIATE RELEASE) PO PRN (20:13)
[2020-08-01] MEDS: oxyCODONE HCL IR 5 MG TAB (IMMEDIATE RELEASE) PO PRN (03:46)
[2020-08-01] MEDS: ACETAMINOPHEN 325 MG TAB PO PRN (03:46)
[2020-08-01] MEDS: LEVOTHYROXINE SODIUM 25 MCG TABLET PO SCH (06:52)
[2020-08-01] MEDS: ONDANSETRON 4 MG OD TAB PO PRN (06:52)
[2020-08-01] MEDS ORDERED: DULoxetine HCL 20 MG CAP PO SCH (09:00)
--- NOTE | 2020-08-01 09:25 | Progress Notes ---
DATE: 08/01/2020 DIAGNOSES: 1. Hypofibrinogenemia. 2. 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 3. Metastatic prostate cancer. 4. Possible renal cell carcinoma. 5. Paroxysmal atrial fibrillation. 6. Chronic kidney disease. 7. Myasthenia gravis. SUBJECTIVE: The patient was seen and examined at bedside. He developed some nausea overnight, was provided antiemetics by the nursing staff. In regards to his coagulopathy, there has been slight improvement in his PT and INR as well as fibrinogen level. Administered an additional 5 units of cryoprecipitate and await his a.m. numbers. Nursing reports no overnight difficulties. There is no evidence of external hemorrhage. OBJECTIVE: GENERAL: A very pleasant 79-year-old gentleman in no acute distress. VITAL SIGNS: Temperature 36.5, pulse 75, respiratory rate 16, blood pressure 96/58. SKIN: Ecchymoses scattered especially in the upper and lower extremities. HEENT: Oral mucosa without erythema or ulceration. HEART: Regular rate and rhythm. No clicks, rubs, murmurs or gallops. LUNGS: Clear to auscultation bilaterally. ABDOMEN: Soft, nontender, nondistended. EXTREMITIES: No clubbing, cyanosis or edema. NEUROLOGIC: Grossly intact. LABORATORY DATA: Pending. IMPRESSION: 1. Hypofibrinogenemia. Possibly due to low-grade disseminated intravascular coagulation. 2. Coagulopathy attributable to hypofibrinogenemia. 3. Metastatic prostate cancer. 4. Possible renal cell carcinoma. 5. Paroxysmal atrial fibrillation. 6. Chronic kidney disease. 7. Myasthenia gravis. PLAN: The patient other than nausea looked reasonably good at bedside. Await fibrinogen levels as well as PT and PTT to determine response to second administration of 5 units of cryoprecipitate. If his fibrinogen is close to 100 or better, we will continue to observe. His platelet count seems to be on the upswing which suggests his coagulation system may be normalizing. That said, we would continue to monitor all of these indices over the weekend. I will be available by phone. This gentleman will need to establish outpatient followup as well. We will continue to follow him periodically during hospitalization. Agree with medical management otherwise. Thank you for allowing me to participate in his care.
[2020-08-01] MEDS: SILDENAFIL CITRATE 20 MG TABLET PO SCH ×2 (10:49→21:33)
[2020-08-01] MEDS: hydrALAZINE 10 MG TAB PO SCH (10:49)
[2020-08-01] MEDS: BICALUTAMIDE 50 MG TAB PO SCH (10:49)
[2020-08-01] MEDS: METOPROLOL SUCC 25MG EXT REL TAB PO SCH (10:49)
[2020-08-01] MEDS ORDERED: SIMETHICONE 80 MG CHEW PO PRN (10:51)
--- NOTE | 2020-08-01 10:54 | Palliative Care Progress Note ---
Date of Service August 01, 2020 Assessment & Plan (1) Palliative care encounter: I talked with Nathan about how he is handling all the medical problems that he has. He seems to be focused more on symptoms and not really understanding the big picture. We talked about his current issues and that any of these is difficult to overcome and he has several, including prostate cancer, renal mass, renal failure, coagulopathy. He has talked about wanting to do what he can to live longer for his grandchildren but has also said that he would not want to be kept alive on machines. We discussed whether there was a point where focusing on symptom management and enjoying the time that he has would exceed focus on treatment of his multiple illnesses. He tells me that he can't think about that and defers that to us. I told him that we want to do what he wants and what is important to him. I offered to call his to discuss together but he declined. He tells me that he wants to focus on relieving gas pain and getting his bowels moving first. (2) Depression: On mirtazipine with recent dose increase. Given increased creatinine, will stop duloxetine (3) Degenerative joint disease of left hip: Pain controlled with oxycodone and tylenol (4) Constipation: Add routine miralax. Also added simethicone for gas pain. (5) Renal mass: (6) Prostate cancer: (7) CKD (chronic kidney disease), stage IV: (8) Paroxysmal atrial fibrillation: (9) Coagulopathy: Admission and Anticipated Discharge Date Admission Date: July 21, 2020 Subjective Having nausea overnight and this morning. Also having a lot of gas. He reports no BM in four days. Continues to have pain in left hip which is relieved with oxycodone and tylenol. Review of Systems Review of Systems: [place] Symptom Assessment Scale Pain 1/3 Dyspnea 0/3 Anxiety 1/3 Nausea 2/3 Drowsiness 1/3 Fatigue 2/3 Palliative Performance Score 50% Physical Exam Constitutional: no acute distress ENMT: Mouth: + dry oral mucous membranes Respiratory: normal respiratory effort; no labored breathing Gastrointestinal (Abdomen): Inspection/Auscultation: + abdomen distended Percussion/Palpation: abdomen nontender Neurologic: awake; not confused Results & Data ([facility]) Vital Signs (Past 12 Hours) Vital Signs Temp Pulse Resp BP Pulse Ox 05/28/21 07:10 97.7 F 75 16 96/58 L 93 PG Care Time/CCT Total # of Minutes Spent Total Time Spent with Patient: Total time spent is greater than 50% in coordination of care (as documented) at patient's floor/unit and/or counseling patient:total time spent 40 minutes with more than 50% of time spent on goals of care, symptom management Coding Level of Care Code 27987 Subseq Hosp Care Lvl 3 Diagnoses Palliative care encounter Z51.5 Depression F32.9 Degenerative joint disease of left hip M16.12 Constipation K59.00 Renal mass N28.89 Prostate cancer C61 CKD (chronic kidney disease), stage IV N18.4 Paroxysmal atrial fibrillation I48.0 Coagulopathy D68.9
[2020-08-01 12:40] LABS: INR 1.8 (0.9-1.1); Partial Thromboplastin Time 27.6 Seconds (21.0-31.0); Prothrombin Time 17.5 Seconds (9.0-12.0)
[2020-08-01 13:14] LABS: Fibrinogen 64 mg/dl (184-400)
[2020-08-01] MEDS ORDERED: SODIUM CHLORIDE 0.9% 1000ML 500 ML IV ONE (13:18)
--- NOTE | 2020-08-01 13:43 | Urology Progress Note ---
Date of Service August 01, 2020 Assessment & Plan Admission and Anticipated Discharge Date Admission Date: July 21, 2020 Supervising Physician Co-Signing Physician Notes Firmagon Tuesday assuming no change in status Avoid mak unless pt develops complete retention check psa Subjective Pt getting casodex but not firmagon as had planned on giving as outpatient . Unfortunately pt is not thriving and have coagulopathy requiring hematology intervention . He also is having renal insufficiency but did not have hydronephrosis on admission and his post void residual just now was 153 cc . Spoke with daughter about his urologic state and plans to give him firmagon Tuesday after speaking with the pharmacy. Also discussed palliative care and the difficulty these conversation pose for families generally . Will check a PSA but would try to avoid a mak for fear of causing potentially severe hematuria. Results & Data ([facility]) Vital Signs (Past 12 Hours) Vital Signs Temp Pulse Resp BP Pulse Ox 08/01/20 13:11 105 H 25 H 101/61 99 08/01/20 07:10 36.5 C 75 16 96/58 L 93 PG Care Time/CCT Total # of Minutes Spent Total Time Spent with Patient: Total time spent is greater than 50% in coordination of care (as documented) at patient's floor/unit and/or counseling patient: including time spent with patient and daughter 30 minutes Coding Level of Care Code 59913 Subseq Hosp Care Lvl 2
[2020-08-01] MEDS: ONDANSETRON INJ 2 MG/ML 2 ML VIAL IV PRN ×2 (14:38→21:30)
--- NOTE | 2020-08-01 16:20 | Hospitalist Progress Note ---
Date of Service August 01, 2020 Assessment & Plan (1) Chronic hip pain: Secondary to metastatic prostatic cancer with mets to iliac crest. Pain is moderately controlled with current medication regimen (2) Prostate cancer: (3) Renal mass: CT abd/pelvis showed redemonstration of the abnormal soft tissue extension within the left lateral and posterior peripheral zone of the prostate gland as described above. This is highly suspicious for a prostate malignancy. There is associated bilateral pelvic sidewall lymphadenopathy, left greater than right, which is consistent with metastatic disease. Scattered osteoblastic metastatic disease. Increase in size in the 2 cm exophytic slightly hyperdense lesion within the upper pole of the left kidney. This is highly suspicious for a renal cell carcinoma. PSA 912 Due to multiple comorbidity and high risks, not a good candidate to perform a prostate biopsy at this time He has been started on Bicalutamide with plans to start Firmagon injections in the outpatient setting as soon as it is available. Case discuss with urology that plan to arrange for outpatient follow appt to start on Firmagon injection Metastatic work-up: CT head showed no mass CT chest showed findings are consistent with multifocal osteoblastic metastatic disease. There are small left and trace right pleural effusions with bibasilar consolidation. Palliative care consulted, appreciate input (4) Coagulopathy: Patient was on Eliquis, INR has been above 2 Eliquis D/alphonso /given Vit K Case discussed with oncology/hematology Dr. Dee that recommended to check fibrinogen level, haptoglobin, LDH As per oncology/hematology this might be low DIC due to malignancy Peripheral smear showed no schistocytes and blast. A single nucleated red blood cell is identified. pt required multiple blood transfusion Hematology/Oncology consulted Case discussed with Dr. Ríos that recommended to check Mixing study PT and PTT to rule out a factor deficiency vs inhibitor. Mixing study corrected and no evidence of Factor VIII inhibitor Fibrinogen level less than [address] Ríos that recommended to check factor assay ( PT factor) for factor 2, 7, 8 and 9 resultes pending over all poor prognosis avoid antiplatelets /anticoagulations avoid Batista catheter /increased risk for hematuria (5) Anemia: Possible secondary to metastatic malignancy with bone mets? with coagulopathy as described above No active GI bleeding noted, patient had oozing from one of the skin lesion on right arm which has resolved hbGlobin dropped noted to be 6.5 Patient received total 3 units of transfusion during this hospital stay Type and crossed and received an additional 1 unit PRBC ( total 3 units PRBC dur ing the hospital course so far ) Anticoagulation aspirin and Eliquis discontinued Continue to follow H&H will need transfusion for hemoglobin less than 7 Overall prognosis remains extremely poor (6) Thrombocytopenia: Given 1 unit of platelet transfusion, as patient was having active bleeding on the right upper arm phlebotomy site. Bleeding has stopped. (7) Elevated lactic acid level: Lactic acid normalized possible related to worsening creatinine, malignancy No sign of infection Stable (8) Depression: (9) Suicidal ideation: Patient denies of any suicidal ideation, felt extremely depressed for his health condition Appreciate input from psychiatry, patient started on remeron 22.5 mg HS/dose adjusted for renal clearance and duloxetine 20mg daily Patient reports improvement of his depressive symptoms, more focused on his treatment plan and returning back to home (10) Acute kidney injury superimposed on CKD: (11) CKD (chronic kidney disease), stage IV: Baseline creatinine previously ran in the low 2's, on 05/20/2020 creatinine noted to be 2.6 Creatinine 3.2 on admission Torsemide and lisinopril discontinued, creatinine improved 1.8 Nephrology on board Overall prognosis remains very poor (12) Hyperkalemia: Potassium normalized Discontinue Veltassa (13) Paroxysmal atrial fibrillation: Rate controlled on metoprolol Not a candidate for anticoagulation (14) Chronic diastolic CHF (congestive heart failure): CXR showed cardiomegaly with progressive pulmonary edema. Small pleural effusions with progressive bibasilar opacities suggestive of atelectasis versus pneumonitis. Diuretics kept on hold for acute renal failure on presentation Consider to give lasix as needed with PRBC transfusion Poor prognosis overall (15) Pulmonary HTN: Continue sildenafil (16) CAD (coronary artery disease): No complaint of chest pain or shortness of breath on beta-juana Antiplatelets/anti-coagulants avoided for metastatic malignancy bleeding risk (17) HTN (hypertension): BP controlled, continue metoprolol and hydralazine Diuretics discontinued secondary to renal failure (18) Myasthenia gravis: -Continue home prednisone (19) DVT prophylaxis: SCDs due to low platelet and bleeding Status: DNR/DNI Disposition: To be determined, patient continues to have significant functional decline, long-term prognosis extremely poor, patient and family aware, Palliative care following Patient and family wants to continue with palliative treatment for metastatic prostate cancer with IV Firmagon injections/ plan is to discharge home with home health when clinically improved referral made to [facility] , which can provide /transition to home Hospice of pt unable to tolerate palliative tx Admission and Anticipated Discharge Date Admission Date: July 21, 2020 Subjective follow up visit for metastatic prostate CA : pt resting comfortably this morning , had vasovagal episode while trying to bear down while urinating was diaphoretic , tachycardic , brief episode of hypotension recovered after rest given IV fluid bolus , nursing is asked to provide urinal and bedside commode post void urine > 150 ml /per urology avoid catheter as long as there is no significant urinary retention or pt complaining of discomfort to prevent catastrophic hematuria Physical Exam Constitutional: + ill appearing Eyes: + anicteric sclerae ENMT: Nose: + dry nasal mucous membranes Neck: trachea midline, no thyromegaly Respiratory: normal respiratory effort, lungs clear to auscultation Cardiovascular: RRR, no murmur, no edema Gastrointestinal (Abdomen): Percussion/Palpation: abdomen soft; abdomen nontender Skin: Trauma: + evidence of skin trauma (Left upper arm skin tear, well- healed, no active bleeding noted) Neurologic: PERRL, EOMI, accommodation nl, no face palsy, no dysarthria Psychiatric: A+Ox3, euthymic affect Results & Data Results & Data ([facility]) Vital Signs (Past 12 Hours) Vital Signs Temp Pulse Resp BP Pulse Ox 08/01/20 13:11 105 H 25 H 101/61 99 08/01/20 07:10 36.5 C 75 16 96/58 L 93
[2020-08-01] MEDS: PROMETHAZINE HCL 12.5 MG in SODIUM CHLORIDE 0.9% 50 ML IV PRN ×2 (16:30→23:01)
[2020-08-01] MEDS: CHOLECALCIFEROL 1,000 UNITS 25 MCG TAB PO SCH (17:56)
[2020-08-01] MEDS: FINASTERIDE 5 MG TAB PO SCH (17:56)
[2020-08-01] MEDS: FAMOTIDINE 10 MG TABLET PO SCH (18:29)
[2020-08-01] MEDS ORDERED: SODIUM CHLORIDE 0.9% 1000ML 1,000 ML IV SCH (18:45)
--- NOTE | 2020-08-01 19:11 | Communication Note ---
Date of Service: August 01, 2020 Notified by nursing, patient having low urine output, Bladder scan revealed 266 mL of residual urine: Suggestive of progressive urinary retention. Possible bladder outlet obstruction secondary prostate mass Given coagulopathy, insertion of Batista catheter is contraindicated as per urology. , avoid IV fluids as it can worsen residual urinary volume/urinary retention. At present patient is not uncomfortable, We will update urology team in the a.m., if develops large amount of urinary retention, may need palliative suprapubic catheter. Very poor prognosis overall. Complains of intractable nausea, ordered for as needed Zofran, as needed Phenergan, will order additional Compazine scheduled dose. Nancy Eckert MD
[2020-08-01] MEDS ORDERED: bisacodyL 10 MG SUPP PR STA (19:22)
[2020-08-01] MEDS ORDERED: bisacodyL 5 MG TABEC PO SCH (21:00)
[2020-08-01] MEDS: MIRTAZAPINE TAB 15 MG TAB PO SCH (21:32)
[2020-08-01] MEDS: POLYETHYLENE (MIRALAX) 17 GM PACK PO SCH (21:33)
[2020-08-02] MEDS: ONDANSETRON INJ 2 MG/ML 2 ML VIAL IV PRN ×2 (06:07→13:21)
[2020-08-02] MEDS: LEVOTHYROXINE SODIUM 25 MCG TABLET PO SCH (06:08)
[2020-08-02] MEDS ORDERED: POLYETHYLENE (MIRALAX) 17 GM PACK PO SCH (09:00)
[2020-08-02] MEDS: PROMETHAZINE HCL 12.5 MG in SODIUM CHLORIDE 0.9% 50 ML IV PRN (10:18)
[2020-08-02] MEDS: SILDENAFIL CITRATE 20 MG TABLET PO SCH ×2 (10:23→21:01)
[2020-08-02] MEDS: BICALUTAMIDE 50 MG TAB PO SCH (10:24)
[2020-08-02] MEDS: predniSONE 10 MG TABLET PO SCH (10:24)
[2020-08-02] MEDS: POLYETHYLENE (MIRALAX) 17 GM PACK PO SCH (10:26)
[2020-08-02] MEDS ORDERED: bisacodyL 5 MG TABEC PO ONE (10:54)
[2020-08-02 12:21] LABS: Coag Factor 7 Activity 91 % normal (60-150); Coag Factor 9 Activity 141 % (60-160)
[2020-08-02] MEDS ORDERED: POLYETHYLENE (MIRALAX) 17 GM PACK PO PRN (14:40)
[2020-08-02] MEDS: PROCHLORPERAZINE 10 MG in SYRINGE 8 ML IV SCH ×2 (15:34→21:01)
[2020-08-02] MEDS ORDERED: FUROSEMIDE 20 MG in SYRINGE 0 ML IV ONE (16:45)
--- NOTE | 2020-08-02 16:51 | XRay Report ---
XR chest 1V portable CLINICAL HISTORY: Shortness of breath. COMPARISON STUDY: Chest CT July 25, 2020. Chest radiograph July 29, 2020. FINDINGS: Incidental note is made of median sternotomy wires. Cardiomegaly is unchanged. There is no pneumothorax. Sclerotic skeletal lesions are better depicted on prior chest CT. A small left pleural effusion with left basilar opacity is again noted. There is pulmonary vascular congestion. There is a trace right pleural effusion. IMPRESSION: 1. Persistent left pleural effusion with left basilar opacity which may reflect atelectasis or consol idation. Trace right pleural effusion. 2. Pulmonary vascular congestion, similar to prior exam. ACT 112: Negative or not required by law. Electronically signed by: Luan Melgar M.D. 08/02/2020 4:49 PM
[2020-08-02] MEDS: FINASTERIDE 5 MG TAB PO SCH (17:00)
--- NOTE | 2020-08-02 17:02 | Hospitalist Progress Note ---
Date of Service August 02, 2020 Assessment & Plan (1) Constipation: abdominal distention , severe constipation with ongoing nausea concern for possible ileus due to pain meds ? ordered for fleet enema Xray of KUB keep NPO with sips of water scheduled IV compazine ordered , on PRN Zofran and IV Phenergan (2) Chronic hip pain: Secondary to metastatic prostatic cancer with mets to iliac crest. Pain is moderately controlled with current medication regimen (3) Prostate cancer: (4) Renal mass: CT abd/pelvis showed redemonstration of the abnormal soft tissue extension within the left lateral and posterior peripheral zone of the prostate gland as described above. This is highly suspicious for a prostate malignancy. There is associated bilateral pelvic sidewall lymphadenopathy, left greater than right, which is consistent with metastatic disease. Scattered osteoblastic metastatic disease. Increase in size in the 2 cm exophytic slightly hyperdense lesion within the upper pole of the left kidney. This is highly suspicious for a renal cell carcinoma. PSA 912 repeat PSA level improved 622 Due to multiple comorbidity and high risks, not a good candidate to perform a prostate biopsy at this time He has been started on Bicalutamide /PO Casodex started Firmagon injections Metastatic work-up: CT head showed no mass CT chest showed findings are consistent with multifocal osteoblastic metastatic disease. There are small left and trace right pleural effusions with bibasilar consolidation. Palliative care consulted, appreciate input (5) Coagulopathy: Patient was on Eliquis, INR has been above 2 Eliquis D/alphonso /given Vit K Case discussed with oncology/hematology Dr. Dee that recommended to check fibrinogen level, haptoglobin, LDH As per oncology/hematology this might be low DIC due to malignancy Peripheral smear showed no schistocytes and blast. A single nucleated red blood cell is identified. pt required multiple blood transfusion Hematology/Oncology consulted Case discussed with Dr. Ríos that recommended to check Mixing study PT and PTT to rule out a factor deficiency vs inhibitor. Mixing study corrected and no evidence of Factor VIII inhibitor Fibrinogen level less than [address] Ríos that recommended to check factor assay ( PT factor) for factor 2, 7, 8 and 9 resultes pending over all poor prognosis avoid antiplatelets /anticoagulations avoid Batista catheter /increased risk for hematuria (6) Anemia: Possible secondary to metastatic malignancy with bone mets? with coagulopathy as described above No active GI bleeding noted, patient had oozing from one of the skin lesion on right arm which has resolved hbGlobin dropped noted to be 6.5 Patient received total 3 units of transfusion during this hospital stay Type and crossed and received an additional 1 unit PRBC ( total 3 units PRBC during the hospital course so far ) Anticoagulation aspirin and Eliquis discontinued Continue to follow H&H will need transfusion for hemoglobin less than 7 Overall prognosis remains extremely poor (7) Thrombocytopenia: Given 1 unit of platelet transfusion, as patient was having active bleeding on the right upper arm phlebotomy site. Bleeding has stopped. (8) Elevated lactic acid level: Lactic acid normalized possible related to worsening creatinine, malignancy No sign of infection Stable (9) Depression: (10) Suicidal ideation: Patient denies of any suicidal ideation, felt extremely depressed for his health condition Appreciate input from psychiatry, patient started on remeron 22.5 mg HS/dose adjusted for renal clearance and duloxetine 20mg daily Patient reports improvement of his depressive symptoms, more focused on his treatment plan and returning back to home (11) Acute kidney injury superimposed on CKD: (12) CKD (chronic kidney disease), stage IV: Baseline creatinine previously ran in the low 2's, on 05/20/2020 creatinine noted to be 2.6 Creatinine 3.2 on admission Torsemide and lisinopril discontinued, creatinine improved 1.8 Nephrology on board Overall prognosis remains very poor (13) Hyperkalemia: Potassium normalized Discontinue Veltassa (14) Paroxysmal atrial fibrillation: Rate controlled on metoprolol Not a candidate for anticoagulation (15) Chronic diastolic CHF (congestive heart failure): CXR showed cardiomegaly with progressive pulmonary edema. Small pleural effusions with progressive bibasilar opacities suggestive of atelectasis versus pneumonitis. Diuretics kept on hold for acute renal failure on presentation Consider to give lasix as needed with PRBC transfusion Poor prognosis overall (16) Pulmonary HTN: Continue sildenafil (17) CAD (coronary artery disease): No complaint of chest pain or shortness of breath on beta-juana Antiplatelets/anti-coagulants avoided for metastatic malignancy bleeding risk (18) HTN (hypertension): BP controlled, continue metoprolol and hydralazine Diuretics discontinued secondary to renal failure (19) Myasthenia gravis: -Continue home prednisone (20) DVT prophylaxis: SCDs due to low platelet and bleeding Status: DNR/DNI Disposition: To be determined, patient continues to have significant functional decline, long-term prognosis extremely poor, patient and family aware, Palliative care following Patient and family wants to continue with palliative treatment for metastatic prostate cancer with IV Firmagon injections/ plan is to discharge home with home health when clinically improved referral made to [facility] , which can provide /transition to home Hospice of pt unable to tolerate palliative tx Admission and Anticipated Discharge Date Admission Date: July 21, 2020 Subjective follow up visit for metastatic prostate CA : no feeling well , having persisted nausea , very poor appetite abdomen distended , constipation not able to pass gas , urine out put low with residual urine vol > 200 ml in bladder scan started on 2 L 02 as pt noted to have orthopnea and hypoxic , back and hip pain tolerable Review of Systems Gastrointestinal: + belching, + bloating, + early satiety and + nausea; no abdominal pain Physical Exam Constitutional: + ill appearing Eyes: + anicteric sclerae ENMT: Nose: + dry nasal mucous membranes Neck: trachea midline, no thyromegaly Respiratory: normal respiratory effort, lungs clear to auscultation Cardiovascular: RRR, no murmur, no edema Gastrointestinal (Abdomen): Percussion/Palpation: abdomen soft (distended with diminished bowel sound ); abdomen nontender Skin: Trauma: + evidence of skin trauma (Left upper arm skin tear, well- healed, no active bleeding noted) Neurologic: PERRL, EOMI, accommodation nl, no face palsy, no dysarthria Psychiatric: A+Ox3, euthymic affect Results & Data Results & Data ([facility]) Vital Signs (Past 12 Hours) Vital Signs Temp Pulse Resp BP Pulse Ox 08/02/20 14:46 36.6 C 75 20 122/64 90 08/02/20 07:10 36.4 C L 78 16 121/66 96
[2020-08-02] MEDS ORDERED: MINERAL OIL ENEMA 133 ML BTL PR ONE (17:14)
[2020-08-02] MEDS: CHOLECALCIFEROL 1,000 UNITS 25 MCG TAB PO SCH (17:16)
[2020-08-02] MEDS: oxyCODONE HCL IR 5 MG TAB (IMMEDIATE RELEASE) PO PRN (17:54)
[2020-08-02] MEDS: ACETAMINOPHEN 325 MG TAB PO PRN (17:55)
[2020-08-02] MEDS ORDERED: MoRPHine SULFATE 10 MG/0.5 ML UDP PO PRN (18:11)
[2020-08-02] MEDS ORDERED: MoRPHine SULFATE 2 MG/ML CARP IV PRN (18:11)
[2020-08-02] MEDS ORDERED: MoRPHine SULFATE 2 MG/ML CARP IV STA (18:11)
--- NOTE | 2020-08-02 18:43 | XRay Report ---
KUB CLINICAL HISTORY: constipation /nausea /eval for obstruction COMPARISON STUDY: CT of the abdomen and pelvis July 21, 2020. FINDINGS: Small left pleural effusion is noted with left basilar opacity. There is a trace right pleu ral effusion. Median sternotomy wires are present. There is no evidence for a bowel obstruction. Mult iple skeletal lesions are better depicted on prior CT. Severe left hip osteoarthritis is present. IMPRESSION: 1. No evidence for a bowel obstruction. 2. Small left pleural effusion with left basilar opacity which could reflect consolidation or atelect asis. Trace right pleural effusion. ACT 112: Negative or not required by law. Electronically signed by: Luan Melgar M.D. 08/02/2020 6:42 PM
[2020-08-02] MEDS: MIRTAZAPINE TAB 15 MG TAB PO SCH (21:01)
[2020-08-03] MEDS: LEVOTHYROXINE SODIUM 25 MCG TABLET PO SCH (05:40)
[2020-08-03] MEDS: oxyCODONE HCL IR 5 MG TAB (IMMEDIATE RELEASE) PO PRN (05:42)
--- NOTE | 2020-08-03 07:50 | Communication Note ---
Date of Service: August 03, 2020 Xray KUB : IMPRESSION: 1. No evidence for a bowel obstruction. 2. Small left pleural effusion with left basilar opacity which could reflect consolidation or atelectasis. Trace right pleural effusion. will start pt on clears cont bowel regimen , ordered for Relistor for narcotic induced severe constipation cont to monitor , will update family over phone regarding Xray finding Nancy Eckert MD
[2020-08-03] MEDS ORDERED: METHYLNALTREXONE BROMIDE 12 MG/0.6 ML VIAL SQ SCH (08:00)
[2020-08-03] MEDS: PROCHLORPERAZINE 10 MG in SYRINGE 8 ML IV SCH ×3 (09:06→20:22)
[2020-08-03] MEDS: BICALUTAMIDE 50 MG TAB PO SCH (09:07)
[2020-08-03] MEDS: SILDENAFIL CITRATE 20 MG TABLET PO SCH ×2 (09:07→21:03)
--- NOTE | 2020-08-03 11:51 | Communication Note ---
Date of Service: August 03, 2020 pt started to retain urine: Bladder scan more than 460, Has been gradually developing urinary retention, residual volume of was approximately [id number] yesterday/was symptomatic patient feels urge to urinate, unable to void, uncomfortable Discussed with on-call urology Dr. Parks, recommends one-time straight cath with 16 Irish coud straight cathx1 ordered, will continue to monitor Update family over phone. Nancy Eckert MD
[2020-08-03] MEDS ORDERED: LIDOCAINE 2% JELLY 5 ML TUBE EXT SCH (12:00)
--- NOTE | 2020-08-03 12:54 | Hospitalist Progress Note ---
Date of Service August 03, 2020 Assessment & Plan (1) Constipation: abdominal distention , severe constipation with ongoing nausea concern for possible ileus due to pain meds ? ordered for fleet enema X-ray of KUB shows nonobstructive bowel gas pattern Ordered for Relistor, clear liquid diet advance diet as tolerated scheduled IV compazine ordered , on PRN Zofran and IV Phenergan Urinary retention secondary to metastatic prostate CA. Continue to monitor, avoid straight cath if patient is able to spontaneously void (2) Chronic hip pain: Secondary to metastatic prostatic cancer with mets to iliac crest. Pain is controlled with current medication regimen (3) Prostate cancer: (4) Renal mass: CT abd/pelvis showed redemonstration of the abnormal soft tissue extension within the left lateral and posterior peripheral zone of the prostate gland as described above. This is highly suspicious for a prostate malignancy. There is associated bilateral pelvic sidewall lymphadenopathy, left greater than right, which is consistent with metastatic disease. Scattered osteoblastic metastatic disease. Increase in size in the 2 cm exophytic slightly hyperdense lesion within the u pper pole of the left kidney. This is highly suspicious for a renal cell carcinoma. PSA 912 repeat PSA level improved 622 Due to multiple comorbidity and high risks, not a good candidate to perform a prostate biopsy at this time He has been started on Bicalutamide /PO Casodex recieved IV Firmagon injections/ Next dose in 28 days Metastatic work-up: CT head showed no mass CT chest showed findings are consistent with multifocal osteoblastic metastatic disease. There are small left and trace right pleural effusions with bibasilar consolidation. Palliative care consulted, appreciate input (5) Coagulopathy: Patient was on Eliquis, INR has been above 2 Eliquis D/alphonso /given Vit K Case discussed with oncology/hematology Dr. Dee that recommended to check fibrinogen level, haptoglobin, LDH As per oncology/hematology this might be low DIC due to malignancy Peripheral smear showed no schistocytes and blast. A single nucleated red blood cell is identified. pt required multiple blood transfusion Hematology/Oncology consulted Case discussed with Dr. Ríos that recommended to check Mixing study PT and PTT to rule out a factor deficiency vs inhibitor. Mixing study corrected and no evidence of Factor VIII inhibitor Fibrinogen level less than [address] Ríos that recommended to check factor assay ( PT factor) for factor 2, 7, 8 and 9 resultes pending over all poor prognosis avoid antiplatelets /anticoagulations (6) Anemia: Possible secondary to metastatic malignancy with bone mets? with coagulopathy as described above No active GI bleeding noted, patient had oozing from one of the skin lesion on right arm which has resolved hbGlobin dropped noted to be 6.5 Patient received total 3 units of transfusion during this hospital stay Type and crossed and received an additional 1 unit PRBC ( total 3 units PRBC during the hospital course so far ) Anticoagulation aspirin and Eliquis discontinued Continue to follow H&H will need transfusion for hemoglobin less than 7 Overall prognosis remains extremely poor (7) Thrombocytopenia: Due to metastatic malignancy, status post 1 unit of platelet transfusion during this admission (8) Elevated lactic acid level: Lactic acid normalized possible related to worsening creatinine, malignancy No sign of infection Stable (9) Depression: (10) Suicidal ideation: Patient denies of any suicidal ideation, felt extremely depressed for his health condition Appreciate input from psychiatry, patient started on remeron 22.5 mg HS/dose adjusted for renal clearance and duloxetine 20mg daily Patient reports improvement of his depressive symptoms, more focused on his treatment plan and returning back to home (11) Acute kidney injury superimposed on CKD: (12) CKD (chronic kidney disease), stage IV: Baseline creatinine previously ran in the low 2's, on 05/20/2020 creatinine noted to be 2.6 Creatinine 3.2 on admission Torsemide and lisinopril discontinued, creatinine improved 1.8 Nephrology on board Overall prognosis remains very poor (13) Hyperkalemia: Potassium normalized Discontinue Veltassa (14) Paroxysmal atrial fibrillation: Rate controlled on metoprolol Not a candidate for anticoagulation (15) Chronic diastolic CHF (congestive heart failure): CXR showed cardiomegaly with progressive pulmonary edema. Small pleural effusions with progressive bibasilar opacities suggestive of atelectasis versus pneumonitis. Diuretics kept on hold for acute renal failure on presentation Consider to give lasix as needed with PRBC transfusion Poor prognosis overall (16) Pulmonary HTN: Continue sildenafil (17) CAD (coronary artery disease): No complaint of chest pain or shortness of breath on beta-juana Antiplatelets/anti-coagulants avoided for metastatic malignancy bleeding risk (18) HTN (hypertension): BP controlled, continue metoprolol and hydralazine Diuretics discontinued secondary to renal failure (19) Myasthenia gravis: -Continue home prednisone (20) DVT prophylaxis: SCDs due to low platelet and bleeding Status: DNR/DNI Disposition: To be determined, patient continues to have significant functional decline, long-term prognosis extremely poor, patient and family aware, Palliative care following Update given to patient's daughter MOE Mackenzie today- Willing to have patient return home with home hospice Case management updated Admission and Anticipated Discharge Date Admission Date: July 21, 2020 Subjective follow up visit for metastatic prostate CA : no feeling well , Continues to have symptoms of urinary retention, bladder scan showed more than 400 mL of residual urine with patient's unable to void, abdominal discomfort Initially was planned for a one-time straight cath, later able to void spontaneously 200 mL We will hold off further attempt of straight cath as long as patient is able to urinate spontaneously Abdominal pain has resolved no nausea Feels profoundly weak and fatigued Review of Systems Review of Systems: All systems reviewed & are unremarkable except as noted in Subjective Physical Exam Constitutional: + ill appearing Eyes: + anicteric sclerae ENMT: Nose: + dry nasal mucous membranes Neck: trachea midline, no thyromegaly Respiratory: normal respiratory effort, lungs clear to auscultation Cardiovascular: RRR, no murmur, no edema Gastrointestinal (Abdomen): Percussion/Palpation: abdomen nontender Neurologic: PERRL, EOMI, accommodation nl, no face palsy, no dysarthria Psychiatric: A+Ox3, euthymic affect Results & Data Results & [facility] ([facility]) Vital Signs (Past 12 Hours) Vital Signs Temp Pulse Resp BP Pulse Ox 08/03/20 07:19 36.3 C L 81 18 110/58 L 95
[2020-08-03] MEDS: FINASTERIDE 5 MG TAB PO SCH (18:03)
[2020-08-03] MEDS: MIRTAZAPINE TAB 15 MG TAB PO SCH (21:03)
[2020-08-03] MEDS: LEVALBUTEROL HCL 1.25 MG/3 ML NEB NEB PRN (23:21)
[2020-08-04] MEDS: oxyCODONE HCL IR 5 MG TAB (IMMEDIATE RELEASE) PO PRN ×2 (00:40→12:39)
[2020-08-04] MEDS: ONDANSETRON INJ 2 MG/ML 2 ML VIAL IV PRN (04:13)
[2020-08-04] MEDS: LEVOTHYROXINE SODIUM 25 MCG TABLET PO SCH (05:41)
[2020-08-04] MEDS: PROCHLORPERAZINE 10 MG in SYRINGE 8 ML IV SCH ×3 (08:19→20:15)
[2020-08-04] MEDS: BICALUTAMIDE 50 MG TAB PO SCH (08:21)
[2020-08-04] MEDS: predniSONE 10 MG TABLET PO SCH (08:22)
[2020-08-04] MEDS: SILDENAFIL CITRATE 20 MG TABLET PO SCH (08:22)
--- NOTE | 2020-08-04 10:04 | Communication Note ---
Date of Service: August 04, 2020 pt lives at home with Daughter Maegan and a granddaughter continues to decline due to metastatic prostate CA Daughter wants pt to return home with hospice soon , pt's roberto is to return home for his last days CM updated , referral made for home hospice/pt pt will need equipment : hospital bed ,oxygen plan to discharge home with hospice tomorrow may need transport/wheel chair or litter van -severe deconditioning Nancy Eckert MD
--- NOTE | 2020-08-04 11:48 | Hospitalist Progress Note ---
Date of Service August 04, 2020 Assessment & Plan (1) Hospice care: (2) Constipation: Urinary retention secondary to metastatic prostate CA. Patient developed ongoing urinary retention secondary to prostate CA, Discussed with urology, recommended straight cath with coudet catheter 16 Estonian Not able to void today bladder scan shows more than 400ml residual urine, Unable to do straight cath, goal of care changed to comfort care only after discussing with Daughter MOE return home with hospice in AM (3) Prostate cancer: with wide spread mets terminal status return home with hospice tomorrow (4) Renal mass: CT abd/pelvis showed redemonstration of the abnormal soft tissue extension within the left lateral and posterior peripheral zone of the prostate gland as described above. This is highly suspicious for a prostate malignancy. There is associated bilateral pelvic sidewall lymphadenopathy, left greater than right, which is consistent with metastatic disease. Scattered osteoblastic metastatic disease. Increase in size in the 2 cm exophytic slightly hyperdense lesion within the upper pole of the left kidney. This is highly suspicious for a renal cell carcinoma. recieved IV Firmagon injections/ pt is declining rapidly/life expectancy few days on comfort care now family plans to have pt return home with hospice in am Palliative care consulted, appreciate input (5) Coagulopathy: possible due to wide spread metastatic disease ? over all poor prognosis avoid antiplatelets /anticoagulations on comfort care now /terminal end stage status (6) Anemia: due to wide spread metastatic disease Overall prognosis remains extremely poor on comfort care hospice (7) Thrombocytopenia: Due to metastatic malignancy, Disposition : home with hospice tomorrow Admission and Anticipated Discharge Date Admission Date: July 21, 2020 Subjective follow up visit for metastatic prostate CA : pt is unable to void , bladder scan shows > 400 ml of urine unable to straight cath - pt seen at bedside , very uncomfortable , getting confused wants go home , says repeatedly " i am dying,please let me go home " nausea is worse plan is to return home tomorrow with hospice ordered for IV morphine called pt's daughter MOE /Avril -updated about pt's declining status want pt to be comfortable ordered for comfort care only no lab draw, no vitals , change of position for comfort only Review of Systems Review of Systems: Unobtainable due to reduced consciousness (confused , lethergic ) Physical Exam Constitutional: + ill appearing (lathergic ) Eyes: + anicteric sclerae ENMT: Nose: + dry nasal mucous membranes Respiratory: normal respiratory effort, lungs clear to auscultation Gastrointestinal (Abdomen): Percussion/Palpation: abdomen nontender Skin: + ecchymosis (diffuse eccymosis noted all over body , mostly on back and torso ) Results & Data Results & Data ([facility]) Vital Signs (Past 12 Hours) Vital Signs Temp Pulse Resp BP Pulse Ox 08/04/20 08:22 28 H 08/04/20 07:00 36.4 C L 86 22 91/52 L 95
[2020-08-04] MEDS: LEVALBUTEROL HCL 1.25 MG/3 ML NEB NEB PRN (12:49)
[2020-08-04] MEDS ORDERED: LIDOCAINE 2% JELLY 5 ML TUBE ONE (15:37)
[2020-08-04] MEDS: FINASTERIDE 5 MG TAB PO SCH (16:04)
[2020-08-04] MEDS ORDERED: ATROPINE SULFATE 1% OP SOLN 5 ML BTL SL PRN (16:34)
[2020-08-04] MEDS ORDERED: MoRPHine SULFATE 5 MG/0.25 ML UDP PO PRN (16:34)
[2020-08-04] MEDS ORDERED: chlorproMAZINE HCL 25 MG TAB PO PRN (16:34)
[2020-08-04] MEDS ORDERED: LORazepam 0.5 MG/1 ML VIAL IV PRN (16:34)
[2020-08-04] MEDS ORDERED: ONDANSETRON INJ 2 MG/ML 2 ML VIAL IV PRN (16:37)
[2020-08-04] MEDS ORDERED: PROMETHAZINE HCL 25 MG in SODIUM CHLORIDE 0.9% 50 ML IV PRN (16:37)
[2020-08-04] MEDS ORDERED: LORazepam 0.5 MG TAB PO PRN (16:37)
[2020-08-04] MEDS ORDERED: SCOPOLAMINE 1 MG TDSY TD SCH (17:00)
[2020-08-04] MEDS: MoRPHine SULFATE 2 MG/ML CARP IV PRN ×3 (17:11→21:57)
[2020-08-04] MEDS: CHECK SCOPOLAMINE PATCH PLACEMENT SCH (23:48)
[2020-08-05] MEDS: MoRPHine SULFATE 2 MG/ML CARP IV PRN ×2 (01:40→04:25)
[2020-08-05] MEDS: BICALUTAMIDE 50 MG TAB PO SCH (08:39)
[2020-08-05] MEDS: DEGARELIX ACETATE 240 MG SC SCH ×2 (08:39→08:44)
[2020-08-05] MEDS: CHECK SCOPOLAMINE PATCH PLACEMENT SCH (08:43)
[2020-08-05] MEDS: PROCHLORPERAZINE 10 MG in SYRINGE 8 ML IV SCH ×2 (08:43→14:10)
[2020-08-05] MEDS ORDERED: DEGARELIX ACETATE 240 MG SC SCH (10:00)
[2020-08-05] MEDS ORDERED: oxyCODONE HCL SOLN 5 MG/5 ML UDC PO PRN (10:01)
--- NOTE | 2020-08-05 10:08 | Hospitalist Progress Note ---
Date of Service August 05, 2020 Assessment & Plan (1) Hospice care: admitted with hip pain , found to have metastatic prostate cancer with wide spread bone mets with incidental finding of renal mass very poor prognosis with terminal status plan to discharge home with hospice today Mak catheter inserted by Urology appreciate input from Palliative care pt is discharged home with [facility] hospice , scripts for pain meds sent to pt's pharmacy litter transport arranged plan of care updated to pt's daughter MOE and niece at bedside by myself and Dr Rothman , all questions answered Admission and Anticipated Discharge Date Admission Date: July 21, 2020 Subjective follow up visit for metastatic prostate cancer /hospice care : pt's declined progressively /changed to comfort care /Hospice yesterday family hoping to get him home today with Hospice family members : Daughter Avril and Niece stayed with pt overnight pt was very uncomfortable /restless overnight , required Iv morphine /IV ativan was getting confused and agitated unable to urinate Dr Rothman from Palliative care was at bedside discussed plan of care with family members my self and Dr Rothman will ask Urology for Mak catheter , hoping relief of urinary retention with help to reduce discomfort pt is hypotensive , renal function declining , trying Fentanyl Patch may not give optimum pain control due to low perfusion also will need another day hospital stay to assess effect of the Fentanyl Patch [facility] contacted , they will be able to do pain medication infusion at home with SC access if needed pt is discharged home with hospice today Review of Systems Review of Systems: Unobtainable due to cognitive status (pt remains obtunded ) Physical Exam Physical Exam: minimum exam for comfort care : Gen : ill appearing , currently sedated URO: mak placed , draining concentrated urine , no hematuria ext : diffuse ecchymosis noted on torso and trunk , no active bleeding Results & Data Results & Data ([facility]) Vital Signs (Past 12 Hours) Vital Signs Temp Pulse Resp BP Pulse Ox 08/05/20 08:40 36.4 C L 88 20 92/49 L 90
--- NOTE | 2020-08-05 10:16 | Urology Progress Note ---
Date of Service August 05, 2020 Assessment & Plan (1) Prostate cancer: (2) Urinary retention: Prostate cancermetastatichospice Urinary retentiondifficult catheter placement I believe the challenge of placing his catheter was related to his edema Was able to compress the foreskin and reduce the edema and then gently guided 16 Spanish catheter into his your meatus. Catheter subsequently passed the remainder of the way without difficulty and drained some concentrated urine. There were no complications or issues. Admission and Anticipated Discharge Date Admission Date: July 21, 2020 Subjective Patient due for discharge home today on hospice Unfortunately attempted catheterization was unsuccessful and we were called to assist with catheter placement He has not truly voided in close to 24 hours Physical Exam Physical Exam: Significantly edematous penis and scrotum Results & Data ([facility]) Vital Signs (Past 12 Hours) Vital Signs Temp Pulse Resp BP Pulse Ox 08/05/20 08:40 36.4 C L 88 20 92/49 L 90 PG Care Time/CCT Total # of Minutes Spent Total Time Spent with Patient: Total time spent is greater than 50% in coordination of care (as documented) at patient's floor/unit and/or counseling patient: Coding Level of Care Code 38123 Subseq Hosp Care Lvl 3 Diagnoses Prostate cancer C61 Urinary retention R33.9
[2020-08-05] MEDS: LORazepam 0.5 MG TAB SL SCH ×2 (10:38→14:10)
[2020-08-05] MEDS: oxyCODONE HCL SOLN 5 MG/5 ML UDC PO SCH ×2 (10:39→14:10)
--- NOTE | 2020-08-05 10:43 | Palliative Care Progress Note ---
Date of Service August 05, 2020 Assessment & Plan (1) Delirium: Possibly terminal delirium. May also be related to urinary retention or pain. Improved with morphine and ativan. Now has indwelling catheter draining concentrated urine. Discussed with Dr. Eckert, would add zyprexa 5mg BID prn for delirium which would also help with his chronic nausea. Will rotate opioid to oxycodone to avoid morphine toxicity with CKD IV. (2) Chronic nausea: Continue routine odansetron ODT. Zyprexa and lorazepam will also help relieve symptoms. (3) Chronic hip pain: Now also likely has generalized pain with immobility. Rotate opioid to oxycodone with routine dose. We can use oral concentrate with his inability to take po meds. He may benefit from opioid infusion. Discussed with family. They are very much wanting him to at home and he appears to be near his dying time. He will be discharged later today home with hospice care. Hospice can assess pain management and need for opioid infusion. (4) Palliative care encounter: Met with daughter and granddaughter at bedside. They understand that he is approaching his dying time. We discussed the possibility that he may in the ambulance on the way home. They are willing to proceed with transport home. POLST form completed for DNR, comfort measures only for discharge home with hospice. Discussed symptom management and what to expect with family at bedside. Discussed with Dr. Eckert, case management and RN. (5) Renal mass: (6) CKD (chronic kidney disease), stage IV: (7) Paroxysmal atrial fibrillation: (8) Chronic diastolic CHF (congestive heart failure): (9) Prostate cancer: Admission and Anticipated Discharge Date Admission Date: July 21, 2020 Subjective Very restless overnight. Urinary retention. Having increased pain. Resting comfortably now with morphine and ativan. Urology placed catheter for urinary retention. Daughter and granddaughter at bedside. Review of Systems Review of Systems: Unobtainable due to reduced consciousness [place] Symptom Assessment Scale PainAD 0/3 Dyspnea by observation 0/3 Drowsiness 3/3 Palliative Performance Score 10% Physical Exam Constitutional: no acute distress ENMT: Mouth: + dry oral mucous membranes Respiratory: normal respiratory effort; no labored breathing no audible rhonchi no apnea Cardiovascular: Extremities: + edema mottling noted on knees Gastrointestinal (Abdomen): Percussion/Palpation: abdomen nontender Neurologic: + obtunded Results & Data ([facility]) Vital Signs (Past 12 Hours) Vital Signs Temp Pulse Resp BP Pulse Ox 08/05/20 08:40 97.5 F L 88 20 92/49 L 90 PG Care Time/CCT Total # of Minutes Spent Total Time Spent with Patient: Total time spent is greater than 50% in coordination of care (as documented) at patient's floor/unit and/or counseling patient: total time spent 90 minutes with more than 50% of time spent on symptom management, hospice, goals of care, family education and support, coordination of care Coding Level of Care Code 55758 Subseq Hosp Care Lvl 3 Diagnoses Delirium R41.0 Chronic nausea R11.0 Chronic hip pain M25.559; G89.29 Palliative care encounter Z51.5 Renal mass N28.89 CKD (chronic kidney disease), stage IV N18.4 Paroxysmal atrial fibrillation I48.0 Chronic diastolic CHF (congestive heart failure) I50.32 Prostate cancer C61 Time Spent (min) 90
--- NOTE | 2020-08-05 14:18 | Discharge Summary ---
Date of Service August 05, 2020 Admission HPI Per Admitting Provider 79-year-old male with PMH CAD, chronic diastolic CHF, pulmonary hypertension, paroxysmal atrial fibrillation/flutter anticoagulated on Eliquis, BPH, CKD stage IV, myasthenia gravis on chronic prednisone, and other problems listed below who presents to the ED for evaluation of nosebleed, left hip pain, depression. Patient reports having intermittent nosebleeds over the past couple weeks. This morning, he reports he woke up with a large amount of blood over his face coming from his nose. Bleeding subsequently stopped before arriving to the ED. Patient reports ongoing issues with chronic left hip pain over the past several months. Patient was seen by orthopedics in May and received an injection with minimal relief. He also has been taking oxycodone 5 mg twice a day with some relief. Patient reports the pain has been severely inhibiting his activities of daily living and doing things that he enjoys. He reports struggling with depression and states " sometimes I wish it was just all and so I would not have pain anymore." Patient's daughter is the bedside and reports that the patient cries often. He denies any suicidal or homicidal plans or attempts. Patient reports he otherwise has been feeling well recently. Denies any other recent illnesses, fevers, chills. He has exertional shortness of breath which is unchanged from baseline. No chest pain or palpitations. Denies lightheadedness, dizziness, diaphoresis, syncopal events. He has had a very poor appetite which he attributes to depression. No nausea, vomiting, diarrhea. Denies dark tarry stools and bright red bleeding per rectum. No urinary symptoms. In the ED, labs show mild anemia Hgb 9.7, platelet 108K, INR 2.0, creatinine 3.2. Patient was given IVF. Principal Diagnosis HYPONATREMIA SIADH HX OF ASTROCYTOMA Discharge Exam Minimum exam for comfort care/hospice: General: Ill-appearing, currently sedated, on oxygen, Extremities diffuse ecchymosis on upper and lower extremity and torso : Catheter placed by urology today, Batista bag draining concentrated urine, no hematuria noted Discharge Data Allergies Allergy/AdvReac Type Severity Reaction Status Date / Time No Known Drug Allergies Allergy Verified 02/18/20 14:14 adaptic touch AdvReac Mild contact Uncoded 02/05/20 13:19 dermatitis Consultations 07/21/20 14:25 ED Decision to Admit Stat 07/21/20 16:43 Consult Orthopedic Surgery Routine Consult Pain Management Routine Consult Psychiatry Routine 07/21/20 17:00 Consult Behavioral Health Liaison Routine 07/21/20 18:43 Consult Urology Routine 07/24/20 07:41 Consult Nephrology Routine 07/25/20 14:14 Consult Palliative Care Routine 07/29/20 10:44 Consult Hematology Routine Ordered Studies 07/21/20 14:37 CT hip LT wo con Routine 07/21/20 19:49 CT abd pelvis wo con Routine 07/25/20 11:13 CT chest diagnostic wo con Routine CT head/brain wo con Routine Hospital Course (1) Hospice care: admitted with hip pain , found to have metastatic prostate cancer with wide spread bone mets with incidental finding of renal mass very poor prognosis with terminal status plan to discharge home with hospice today Batista catheter inserted by Urology appreciate input from Palliative care pt is discharged home with [facility] hospice , scripts for pain meds sent to pt's pharmacy litter transport arranged plan of care updated to pt's daughter POA and niece at bedside by myself and Dr Rothman , all questions answered Total Time Total Time Spent Total Time Spent (In Minutes): 40 minutes Total Time Includes: Discharge Planning, Medication Reconciliation and Communication With Other Providers Discharge Plan Discharge Items Patient Disposition: Hospice - Home Reason For Visit: LEFT HIP PAIN Discharge Diagnosis: Metastatic prostate cancer with widespread bone metastatic return home with hospice Activity: As commented below Activity Comment: Bedrest, Non-emergency contact: Primary Care Provider Call non-emergency contact if: you have any medication questions Diet: Regular Addtl Attending Provider Instructions: Discharged home with hospice, with any worsening of symptoms or pain, please consult with hospice team Pain medications; 1.Oxycodone enedelia 10 mg PO Q 4hrs Routine /scheduled then 5 mg Enedelia /Q2 hrs PO as needed for discomfort /pain 2.Lorazepam 0.5 mg Sublingual every 4 hrs scheduled . 3.Zofran 4 mg ODT PO q 6 hrs as needed for Nausea 3.Xyprexa ODT 5 mg twice daily as needed for delirium , nausea Dilaudid drip /Sub cutaneous : 0.5 mg SC basal , can give bolus dose of 0.5 mg q1 hrs for pain /discomfort /shortness of breath Pending Studies at Discharge: No Stand-Alone Forms: [facility] Medications and DC Order Prescriptions: New ondansetron 4 mg Tablet,Disintegrating 4 mg PO Q4 PRN (Reason: nausea) Qty: 90 RF: 0 olanzapine [Zyprexa Zydis] 5 mg tablet,disintegrating 5 mg PO BID PRN (Reason: agitation) Qty: 60 RF: 0 lorazepam [Ativan] 0.5 mg tablet 0.5 mg sublingual Q4 Qty: 90 RF: 0 oxycodone 5 mg/5 mL solution 10 mg PO Q4 Qty: 200 RF: 0 oxycodone 5 mg/5 mL solution 5 mg PO Q2H PRN (Reason: pain) Qty: 250 RF: 0 Discontinued lorazepam 0.5 mg tablet 0.5 mg PO BID PRN (Reason: anxiety) RF: 0 aspirin [Adult Low Dose Aspirin] 81 mg tablet,delayed release (DR/EC) 81 mg PO QDL RF: 0 allopurinol 100 mg tablet 200 mg PO QDL RF: 0 hydralazine 10 mg tablet 10 mg PO BID RF: 0 nitroglycerin [Nitrostat] 0.4 mg Tablet, Sublingual 0.4 mg Sublingual UD RF: 0 finasteride 5 mg Tablet 5 mg PO QDD RF: 0 alfuzosin 10 mg Tablet Extended Release 24 Hr 10 mg PO QDL RF: 0 levothyroxine 25 mcg Tablet 25 mcg PO QAM RF: 0 torsemide 20 mg Tablet 20 mg PO DAILY RF: 0 cholecalciferol (vitamin D3) [Vitamin D3] 50 mcg (2,000 unit) Capsule 50 mcg PO QDD RF: 0 Eliquis 2.5 mg tablet 2.5 mg PO BID RF: 0 prednisone 5 mg tablet 10 mg PO Q OTHER DAY RF: 0 metoprolol succinate 25 mg tablet extended release 24 hr 12.5 mg PO QAM RF: 0 atorvastatin 20 mg tablet 20 mg PO QDD RF: 0 torsemide 20 mg tablet 10 mg PO QDD RF: 0 famotidine [Heartburn Relief (famotidine)] 10 mg tablet 10 mg PO Q2D RF: 0 lisinopril 5 mg tablet 5 mg PO DAILY RF: 0 mirtazapine 15 mg tablet 15 mg PO HS RF: 0 sildenafil (pulm.hypertension) 20 mg tablet 20 mg PO BID RF: 0 acetaminophen [Tylenol Ex Str Rapid Release] 500 mg Tablet 500 mg PO Q6H PRN (Reason: Pain) RF: 0 oxycodone 5 mg tablet 5 mg PO BID PRN (Reason: Pain) RF: 0 Discharge Orders: Discharge Order (Routine); Ordered 08/05/20 Ordered By: Nancy Eckert Admission Data Admit Date/Time: 07/21/20 14:39 Attending Provider: Nancy Eckert Admit Provider: Nancy Eckert Primary Care Provider: Ivette Golden Other Providers: Nancy Eckert ; Glen Rothman ; Kalani Mackey ; Eufemia Reyes ; Gautam Tavares ; Gricel James ; Lori Rothman ; Jam Ríos V. ; Edna Devlin Other Interventions: Discharge Summary Assessment (RN) Last Done: 08/05/20 12:19
== END 2020-08-05 15:25 | disposition hospice, home (50) | DRG 686 ==
LOC: ED 11:04 → SUATTDRO 14:39 → 3E 14:39